=== PATIENT | female | born 1980 | race Caucasian/White ===

== ENCOUNTER 2018-05-31 19:40 | Emergency (ER) | payer OTHER ==
[~2018-05-31] VITALS: Ht 165.1 cm; Wt 72.6 kg
[2018-05-31 21:00] LABS: BILIRUBIN,URINE NEGATIVE (NEG); CLARITY,URINE CLOUDY; COLOR,URINE YELLOW; NITRITE,URINE POSITIVE (NEG); PROTEIN,URINE >=300 mg/dL (NEG-TRACE); UROBILINOGEN,URINE 0.2 mg/dL (0.2 mg/dL)
[2018-05-31] MEDS ORDERED: IV NORMAL SALINE 1000ML BAG 1,000 ML IV ONE (21:00)
[2018-05-31] MEDS ORDERED: ONDANSETRON PF 4 MG/2 ML VIAL. IV ONE (21:00)
[2018-05-31] MEDS ORDERED: FAMOTIDINE 20 MG/2 ML VIAL IVP ONE (21:00)
[2018-05-31 21:20] LABS: CALCIUM 9.7 mg/dL (8.5-10.1); CREATININE 0.9 mg/dL (0.6-1.0); GFR 70.1; POTASSIUM 3.3 mmol/L (3.5-5.1)
[2018-05-31 21:27] LABS: ALBUMIN 3.6 g/dL (3.4-5.0); ALBUMIN/GLOBULIN RATIO 0.9 (1.0-1.7); TOTAL BILIRUBIN 0.4 mg/dL (0.2-1.0); TOTAL PROTEIN 7.6 g/dL (6.4-8.2)
[2018-05-31 21:30] VITALS: BP 159/81
[2018-05-31 21:33] LABS: BACTERIA,URINE MANY /HPF (0-FEW); SQUAMOUS EPITHELIAL CELL,UR FEW /LPF; WBC,URINE 20-40 /HPF (0-4)
[2018-05-31] MEDS ORDERED: ACETAMINOPHEN 325 MG TABLET. PO ONE (21:45)
[2018-05-31] MEDS ORDERED: cefTRIAXone IV Push 1 GM VIAL. IVP ONE (21:45)
[2018-05-31] MEDS ORDERED: PHENAZOPYRIDINE 200 MG TABLET. PO ONE (21:45)
--- NOTE | 2018-05-31 22:09 | PHYS DOC ---
Past Medical History Past Medical History: Anxiety, Depression, Other Additional Past Medical Histor: PTSD, AUTOIMMUNE DISORDER OF SKIN Past Surgical History: No Surgical History Alcohol Use: Occasionally Drug Use: Marijuana Adult General Chief Complaint Chief Complaint: FLANK PAIN HPI HPI 37 y/o female presents with history of left sided flank pain with radiation to LLQ which started yesterday. Reports associated nausea without vomiting. Denies trauma. Denies fever/chills. Reports some increased urinary frequency. Reports pain is sharp in nature and waxes and wains in intensity. Denies history of kidney stones. Denies hematuria. Denies . Reports last menstrual period was approximately 3 weeks ago. Review of Systems Review of Systems Constitutional: Denies fever or chills [] HENT: Denies nasal congestion or sore throat [] Respiratory: Denies cough or shortness of breath [] Cardiovascular: Denies chest pain or palpitations GI: Reports abdominal pain and nausea; denies vomiting or diarrhea [] : Denies dysuria or hematuria; reports increased urinary frequency Musculoskeletal: Reports back pain; denies joint pain [] Integument: Denies rash or skin lesions [] Neurologic: Denies headache, focal weakness or sensory changes [] Complete systems were reviewed and found to be within normal limits, except as documented in this note. Current Medications Current Medications Current Medications Medications (Trade) Dose Ordered Sig/Andrei Start Time Stop Time Status Last Admin Dose Admin Acetaminophen (Tylenol) 650 mg 1X ONCE 05/31/18 21:45 05/31/18 21:46 DC 05/31/18 22:09 650 MG Ceftriaxone Sodium (Rocephin) 1 gm 1X ONCE 05/31/18 21:45 05/31/18 21:46 DC 05/31/18 22:09 1 GM Famotidine (Pepcid Vial) 20 mg 1X ONCE 05/31/18 21:00 05/31/18 21:04 DC 05/31/18 21:18 20 MG Ondansetron HCl (Zofran) 4 mg 1X ONCE 05/31/18 21:00 05/31/18 21:04 DC 05/31/18 21:18 4 MG Phenazopyridine HCl (Pyridium) 200 mg 1X ONCE 05/31/18 21:45 05/31/18 21:46 DC 05/31/18 22:09 200 MG Sodium Chloride 1,000 ml @ 1,000 mls/hr 1X ONCE 05/31/18 21:00 05/31/18 21:59 DC 05/31/18 21:18 1,000 MLS/HR Allergies Allergies Allergies Coded Allergies Type Severity Reaction Last Updated Verified No Known Drug Allergies 06/13/13 No Physical Exam Physical Exam Constitutional: Well developed, well nourished, appears uncomfortable HENT: Normocephalic, atraumatic, oropharynx moist Eyes: Conjunctiva normal, no discharge. [] Neck: Normal range of motion, no tenderness, supple, no meningeal signs Cardiovascular: Heart rate regular rhythm, no murmur [] Lungs & Thorax: Bilateral breath sounds clear to auscultation [] Abdomen: Soft, mild suprapubic and LLQ pain Skin: Warm, dry, no erythema, no rash. [] Back: No midline spinal tenderness, left CVA tenderness. [] Extremities: No tenderness, ROM intact, no edema. [] Neurologic: Alert and oriented X 3, normal motor function, normal sensory function, no focal deficits noted. [] Psychologic: Affect normal, judgement normal, mood normal. [] Current Patient Data Vital Signs Vital Signs Date Time Temp Pulse Resp B/P (MAP) Pulse Ox O2 Delivery O2 Flow Rate FiO2 05/31/18 21:30 64 159/81 (107) 99 Room Air 05/31/18 20:53 98.0 16 98.0 Lab Values Laboratory Tests Test 05/31/18 19:52 05/31/18 20:40 05/31/18 20:52 05/31/18 22:00 Urine Collection Type Void Urine Color Yellow Urine Clarity Cloudy Urine pH 8.0 Urine Specific [place] 1.025 Urine Protein >=300 mg/dL (NEG-TRACE) Urine Glucose (UA) Negative mg/dL (NEG) Urine Ketones (Stick) Negative mg/dL (NEG) Urine Blood Small (NEG) Urine Nitrite Positive (NEG) Urine Bilirubin Negative (NEG) Urine Urobilinogen Dipstick 0.2 mg/dL (0.2 mg/dL) Urine Leukocyte Esterase Small (NEG) Urine RBC 1-2 /HPF (0-2) Urine WBC 20-40 /HPF (0-4) Urine Squamous Epithelial Cells Few /LPF Urine Bacteria Many /HPF (0-FEW) Maternal Serum HCG Beta Subunit 12 mIU/mL (0-5) H Sodium Level 139 mmol/L (136-145) Potassium Level 3.3 mmol/L (3.5-5.1) L Chloride Level 103 mmol/L (98-107) Carbon Dioxide Level 21 mmol/L (21-32) Anion Gap 15 (6-14) H Blood Urea Nitrogen 11 mg/dL (7-20) Creatinine 0.9 mg/dL (0.6-1.0) Estimated GFR (Cockcroft-Gault) 70.1 BUN/Creatinine Ratio 12 (6-20) Glucose Level 97 mg/dL (70-99) Calcium Level 9.7 mg/dL (8.5-10.1) Total Bilirubin 0.4 mg/dL (0.2-1.0) Aspartate Amino Transferase (AST) 30 U/L (15-37) Alanine Aminotransferase (ALT) 39 U/L (14-59) Alkaline Phosphatase 66 U/L (46-116) Total Protein 7.6 g/dL (6.4-8.2) Albumin 3.6 g/dL (3.4-5.0) Albumin/Globulin Ratio 0.9 (1.0-1.7) L Lipase 204 U/L (73-393) POC Urine HCG, Qualitative Hcg positive (Negative) White Blood Count 15.0 x10^3/uL (4.0-11.0) H Red Blood Count 4.05 x10^6/uL (3.50-5.40) Hemoglobin 12.5 g/dL (12.0-15.5) Hematocrit 35.8 % (36.0-47.0) L Mean Corpuscular Volume 89 fL (79-100) Mean Corpuscular Hemoglobin 31 pg (25-35) Mean Corpuscular Hemoglobin Concent 35 g/dL (31-37) Red Cell Distribution Width 16.1 % (11.5-14.5) H Platelet Count 290 x10^3/uL (140-400) Neutrophils (%) (Auto) 86 % (31-73) H Lymphocytes (%) (Auto) 7 % (24-48) L Monocytes (%) (Auto) 6 % (0-9) Eosinophils (%) (Auto) 0 % (0-3) Basophils (%) (Auto) 1 % (0-3) Neutrophils # (Auto) 12.9 x10^3uL (1.8-7.7) H Lymphocytes # (Auto) 1.0 x10^3/uL (1.0-4.8) Monocytes # (Auto) 1.0 x10^3/uL (0.0-1.1) Eosinophils # (Auto) 0.1 x10^3/uL (0.0-0.7) Basophils # (Auto) 0.1 x10^3/uL (0.0-0.2) Segmented Neutrophils % 92 % (35-66) H Lymphocytes % 5 % (24-48) L Monocytes % 3 % (0-10) Toxic Granulation Slight Platelet Estimate Adequate (ADEQUATE) Laboratory Tests 05/31/18 22:00 Laboratory Tests 05/31/18 20:40 EKG EKG [] Radiology/Procedures Radiology/Procedures [] Course & Med Decision Making Course & Med Decision Making Pertinent Labs and Imaging studies reviewed. (See chart for details) Patient presents with report of left flank pain with increased urinary frequency. Denies history of kidney stones. Afebrile. Denies and reports LMP 3 weeks ago. Upreg postiive. UA with signs of infection. Empiric antibiotics given for presumed pyelonephritis. Symptomatic treatment provided. Pain medications limited due to . Beta HCG consistant for early . Denies vaginal bleeding or discharge. Patient stable for discharge home with outpatient follow-up with PCP/[facility]. OB referral provided. Discussed findings and plan with patient and family, who acknowledge understanding and agreement. Dragon Disclaimer Dragon Disclaimer This electronic medical record was generated, in whole or in part, using a voice recognition dictation system. Departure Departure Impression: Primary Impression: Pyelonephritis Additional Impression: Disposition: 01 HOME, SELF-CARE Condition: STABLE Referrals: NO PCP (PCP) OPHELIA JOE Jr, MD Patient Instructions: ABCs of , Pyelonephritis, Adult, [id number] Scripts Vits W-Ca,Fe,Fa(<1MG) ( VITAMINS) 1 Each Tablet 1 TAB PO DAILY, #30 TAB 0 Refills Prov: ANKUR DOWNING DO 05/31/18 Cephalexin (KEFLEX) 500 Mg Capsule 500 MG PO BID for 14 Days, #28 CAP Prov: ANKUR DOWNING DO 05/31/18 Ondansetron (ONDANSETRON ODT) 4 Mg Tab.rapdis 1 TAB PO PRN Q6-8HRS PRN for NAUSEA/VOMITING, #16 TAB Prov: ANKUR DOWNING DO 05/31/18 Phenazopyridine Hcl (PYRIDIUM) 200 Mg Tablet 200 MG PO Q8HRS PRN for DYSURIA for 2 Days, #6 TAB Prov: ANKUR DOWNING DO 05/31/18 Problem Qualifiers Additional Impression: Weeks of gestation: less than 8 weeks Qualified Codes: Z3A.01 - Less than 8 weeks gestation of ANKUR DOWNING DO May 31, 2018 22:09
[2018-05-31] MEDS ORDERED: PHEN-318 PO (22:17)
[2018-05-31] MEDS ORDERED: ONDA4TAB12 PO (22:17)
[2018-05-31] MEDS ORDERED: CEPH-264 PO (22:17)
[2018-05-31 22:20] LABS: BASO # 0.1 x10^3/uL (0.0-0.2); BASO % 1 % (0-3); EOS # 0.1 x10^3/uL (0.0-0.7); EOS % 0 % (0-3); HEMATOCRIT 35.8 % (36.0-47.0); HEMOGLOBIN 12.5 g/dL (12.0-15.5); LYMPH % 7 % (24-48); MEAN CORPUSCULAR HEMOGLOBIN 31 pg (25-35); MEAN CORPUSCULAR HGB CONC 35 g/dL (31-37); MEAN CORPUSCULAR VOLUME 89 fL (79-100); MONO % 6 % (0-9); NEUT # 12.9 x10^3uL (1.8-7.7); NEUT % 86 % (31-73); PLATELET COUNT 290 x10^3/uL (140-400); RED BLOOD COUNT 4.05 x10^6/uL (3.50-5.40); RED CELL DISTRIBUTION WIDTH 16.1 % (11.5-14.5)
[2018-05-31] MEDS ORDERED: PREN1TAB58 PO (22:23)
[2018-05-31 23:20] LABS: % LYMPHS 5 % (24-48); % MONOS 3 % (0-10); % SEGS 92 % (35-66); PLT ESTIMATE ADEQUATE (ADEQUATE); TOXIC GRANULATION SLIGHT
== END 2018-05-31 22:44 | disposition home or self-care (01) ==
LOC: ER 19:40
DX: O23.01 Infections of kidney in pregnancy, first trimester (principal); Z3A.01 Less than 8 weeks gestation of pregnancy
CPT/HCPCS: 36415; 80053; 81001; 81025; 83690; 84702; 85007; 85025; 96374; 96375; 99283; J0696; J2405; J3490; J7030

== ENCOUNTER 2020-01-06 15:50 | Inpatient (IN) | payer SELFPAY ==
[~2020-01-06] VITALS: Ht 165.1 cm; Wt 61.9 kg
[~2020-01-06 15:50] MED LIST: CEPH-264 PO; ONDA4TAB12 PO; PHEN-318 PO; PREN1TAB58 PO
[2020-01-06] MEDS ORDERED: IV NORMAL SALINE 1000ML BAG 1,000 ML IV ONE (17:00)
[2020-01-06] MEDS ORDERED: DEXAMETHASONE SOD PHOS 20 MG/5 ML VIAL. IV ONE (17:00)
[2020-01-06 17:02] LABS: ACETAMIN < 2 mcg/ml (10-30); ETHANOL < 10 mg/dL (0-10); SALIC < 2.8 mg/dL (2.8-20.0)
[2020-01-06 17:27] LABS: BASO # 0.1 x10^3/uL (0.0-0.2); BASO % 1 % (0-3); EOS # 2.6 x10^3/uL (0.0-0.7); EOS % 18 % (0-3); HEMATOCRIT 40.7 % (36.0-47.0); HEMOGLOBIN 13.9 g/dL (12.0-15.5); LYMPH # 1.8 x10^3/uL (1.0-4.8); LYMPH % 12 % (24-48); MEAN CORPUSCULAR HEMOGLOBIN 31 pg (25-35); MEAN CORPUSCULAR HGB CONC 34 g/dL (31-37); MEAN CORPUSCULAR VOLUME 90 fL (79-100); MONO % 7 % (0-9); NEUT % 62 % (31-73); PLATELET COUNT 496 x10^3/uL (140-400); RED BLOOD COUNT 4.55 x10^6/uL (3.50-5.40); RED CELL DISTRIBUTION WIDTH 15.5 % (11.5-14.5); WHITE BLOOD COUNT 14.5 x10^3/uL (4.0-11.0)
[2020-01-06 17:44] LABS: CALCIUM 9.2 mg/dL (8.5-10.1); CREATININE 0.7 mg/dL (0.6-1.0); GFR 92.7; POTASSIUM 4.6 mmol/L (3.5-5.1)
[2020-01-06 17:50] LABS: ALBUMIN 3.7 g/dL (3.4-5.0); TOTAL BILIRUBIN 0.5 mg/dL (0.2-1.0); TOTAL PROTEIN 7.3 g/dL (6.4-8.2)
--- NOTE | 2020-01-06 18:01 | RAD ---
Single view chest dated 01/06/2020. No comparison available. Clinical indications: Shortness of breath. FINDINGS: Single upright portable exam performed. Heart and mediastinal contours are within normal limits. There is some patchy airspace disease at the mid and lower lung zone on the right. There is also prominent reticular nodular markings at the perihilar regions bilaterally. No apparent pleural effusion or pneumothorax. IMPRESSION: Patchy bilateral airspace disease, suspicious for pneumonia. Viral pneumonitis not excluded. Electronically signed by: Anand Carbone MD (01/06/2020 5:58 PM) SHALA
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
[2020-01-06 19:44] LABS: BILIRUBIN,URINE NEGATIVE (NEG); CLARITY,URINE CLEAR; COLOR,URINE YELLOW; NITRITE,URINE NEGATIVE (NEG); PROTEIN,URINE NEGATIVE (NEG-TRACE); UROBILINOGEN,URINE 0.2 mg/dL (0.2 mg/dL)
[2020-01-06] MEDS ORDERED: ALBUTEROL SULFATE 2.5 MG/3 ML NEBU. CONT NEB ONE (19:45)
[2020-01-06 19:52] LABS: BARBITURATES NEG (NEG); BENZODIAZEPINES POS (NEG); CANNABINOIDS NEG (NEG); COCAINE NEG (NEG); METHADONE NEG (NEG); OPIATES POS (NEG); PHENCYCLIDINE NEG (NEG)
[2020-01-06 19:53] LABS: AMPHETAMINE/METHAMPHETAMINE POS (NEG)
[2020-01-06 20:07] LABS: BACTERIA,URINE MODERATE /HPF (0-FEW); RBC,URINE 0 /HPF (0-2); SQUAMOUS EPITHELIAL CELL,UR MOD /LPF
[2020-01-06] MEDS ORDERED: ALBUTEROL SULFATE 2.5 MG/3 ML NEBU. NEB PRN (22:45)
[2020-01-07 02:01] VITALS: BP 139/91
[2020-01-07] MEDS ORDERED: BUDE10.2 IH (03:24)
[2020-01-07] MEDS ORDERED: TRAZ-123 PO (03:24)
[2020-01-07] MEDS ORDERED: TEMA30CA PO (03:24)
[2020-01-07] MEDS ORDERED: ALBU1.25 NEB (03:24)
[2020-01-07] MEDS ORDERED: ALPR1TAB2 PO (03:24)
[2020-01-07] MEDS ORDERED: ASCO100T4 PO (03:26)
[2020-01-07] MEDS ORDERED: VITA80003 PO (03:26)
[2020-01-07 07:00] VITALS: BP 135/77
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
[2020-01-07] MEDS ORDERED: IPRATRPIUM/ALBUTEROL 0.5/2.5MG 3 ML NEBU. NEB SCH (08:00)
[2020-01-07] MEDS: methylPREDNISolone SOD SUCC PF 40 MG/ML VIAL. IV SCH ×3 (09:04→22:32)
[2020-01-07] MEDS: ZINC SULFATE 220 MG CAPSULE. PO SCH (09:04)
[2020-01-07] MEDS: guaiFENesin DM 200MG/20MG 10 ML SYRUP PO PRN (09:04)
[2020-01-07] MEDS: cefTRIAXone IV Push 1 GM VIAL. IVP SCH (09:04)
[2020-01-07] MEDS: DOXYCYCLINE HYCLATE 100 MG in IV DEXTROSE 5% 100ML 100 ML IV SCH ×2 (09:05→22:32)
[2020-01-07] MEDS: ENOXAPARIN 40 MG/0.4 ML SYRINGE. SQ SCH ×2 (09:05→22:33)
[2020-01-07 11:00] VITALS: BP 143/81
[2020-01-07] MEDS ORDERED: IPRATRPIUM/ALBUTEROL 0.5/2.5MG 3 ML NEBU. NEB PRN (11:00)
[2020-01-07] MEDS: cloNIDine HCL 0.1 MG TABLET PO PRN (11:46)
[2020-01-07] MEDS ORDERED: ALBUTEROL SULFATE 8GM INHALER. INH PRN (13:30)
[2020-01-07 15:00] VITALS: BP 121/76
[2020-01-07] MEDS ORDERED: LOPERAMIDE 2 MG CAPSULE PO PRN (17:15)
[2020-01-07 19:17] VITALS: BP 146/92
[2020-01-07 23:00] VITALS: BP 131/74
[2020-01-08 03:45] VITALS: BP 157/77
[2020-01-08 04:06] LABS: BASO % 0 % (0-3); EOS % 0 % (0-3); HEMATOCRIT 45.8 % (36.0-47.0); HEMOGLOBIN 15.4 g/dL (12.0-15.5); LYMPH # 0.7 x10^3/uL (1.0-4.8); LYMPH % 4 % (24-48); MEAN CORPUSCULAR HEMOGLOBIN 30 pg (25-35); MEAN CORPUSCULAR HGB CONC 34 g/dL (31-37); MEAN CORPUSCULAR VOLUME 90 fL (79-100); MONO # 0.2 x10^3/uL (0.0-1.1); MONO % 1 % (0-9); NEUT # 15.2 x10^3/uL (1.8-7.7); NEUT % 94 % (31-73); PLATELET COUNT 582 x10^3/uL (140-400); RED CELL DISTRIBUTION WIDTH 15.8 % (11.5-14.5); WHITE BLOOD COUNT 16.2 x10^3/uL (4.0-11.0)
[2020-01-08] MEDS: KETOROLAC 30 MG/ML VIAL. IVP PRN ×2 (04:07→21:15)
[2020-01-08 04:26] LABS: CALCIUM 9.6 mg/dL (8.5-10.1); CREATININE 0.8 mg/dL (0.6-1.0); GFR 79.4; POTASSIUM 3.9 mmol/L (3.5-5.1)
[2020-01-08 04:28] LABS: ALBUMIN 3.6 g/dL (3.4-5.0); DIRECT BILIRUBIN 0.1 mg/dL (0.0-0.2); TOTAL BILIRUBIN 0.3 mg/dL (0.2-1.0)
[2020-01-08] MEDS: methylPREDNISolone SOD SUCC PF 40 MG/ML VIAL. IV SCH ×2 (05:40→13:31)
--- NOTE | 2020-01-08 06:26 | NUR ---
At 0617 pt HR jumped to 130's. RN entered room to check on pt - pt lying quietly in bed asleep. RR 32. WBC noted to have gone from 14.5 to 16.2. Pt afebrile - temp 98.3. Pt denied feeling dizzy or lightheaded but did report feeling HR increase. RHR now in 120's while sound asleep. Will continue to monitor pt status closely.
[2020-01-08 07:00] VITALS: BP 142/77
[2020-01-08 07:23] LABS: % LYMPHS 4 % (24-48); % MONOS 2 % (0-10); % SEGS 94 % (35-66); PLT ESTIMATE ADEQUATE (ADEQUATE)
[2020-01-08] MEDS: DOXYCYCLINE HYCLATE 100 MG in IV DEXTROSE 5% 100ML 100 ML IV SCH (08:05)
[2020-01-08] MEDS: cefTRIAXone IV Push 1 GM VIAL. IVP SCH (08:05)
[2020-01-08] MEDS: ENOXAPARIN 40 MG/0.4 ML SYRINGE. SQ SCH ×2 (08:06→21:16)
[2020-01-08] MEDS: ZINC SULFATE 220 MG CAPSULE. PO SCH (08:06)
[2020-01-08 11:00] VITALS: BP 151/84
[2020-01-08] MEDS: LORazepam 0.5 MG TABLET PO PRN ×2 (13:31→21:15)
[2020-01-08] MEDS: guaiFENesin DM 200MG/20MG 10 ML SYRUP PO PRN (13:31)
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
[2020-01-08 15:00] VITALS: BP 155/96
[2020-01-08 19:00] VITALS: BP 166/82
[2020-01-08] MEDS: LACTOBACILLUS RHAMNOSUS GG 1 CAPSULE. PO SCH (21:15)
[2020-01-08] MEDS: cloNIDine HCL 0.1 MG TABLET PO PRN (21:15)
[2020-01-08] MEDS: DOXYCYCLINE HYCLATE 100 MG TABLET PO SCH (21:16)
[2020-01-08 23:00] VITALS: BP 138/87
[2020-01-09 03:03] VITALS: BP 130/79
[2020-01-09] MEDS: LORazepam 0.5 MG TABLET PO PRN ×2 (06:43→17:53)
[2020-01-09] MEDS: KETOROLAC 30 MG/ML VIAL. IVP PRN ×3 (06:44→19:36)
[2020-01-09 07:00] VITALS: BP 142/88
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
[2020-01-09] MEDS: predniSONE 10 MG TABLET PO SCH (10:45)
[2020-01-09] MEDS: ZINC SULFATE 220 MG CAPSULE. PO SCH (10:45)
[2020-01-09] MEDS: DOXYCYCLINE HYCLATE 100 MG TABLET PO SCH ×2 (10:45→21:07)
[2020-01-09] MEDS: LACTOBACILLUS RHAMNOSUS GG 1 CAPSULE. PO SCH ×2 (10:45→21:07)
[2020-01-09] MEDS: ENOXAPARIN 40 MG/0.4 ML SYRINGE. SQ SCH ×2 (10:47→21:08)
[2020-01-09 11:00] VITALS: BP 137/79
--- NOTE | 2020-01-09 11:14 | NUR ---
ELISEO following. Discussed with RN, pt tox screen + - per chart, pt wanting inpatient rehab. PAT consult, will see pt today. ELISEO will continue to follow. DAVID notified. Addendum: 01/09/20 at 1302 by FANNY GOMES Asim met with pt, pt is open with [facility] - has hx of noncompliance, has not been taking her meds since July,. LIQVIDAC info provided. Asim scheduled appt with [facility] for at 1530. ELISEO will continue to follow. Addendum: 01/09/20 at 1303 by FANNY GOMES CORRECTION pt does not have a hx of non compliance. Appt scheduled as noted above. ELISEO will continue to follow.
--- NOTE | 2020-01-09 14:47 | RAD ---
INDICATION: Reason: PNEUMONIA / Spl. Instructions: / History: COMPARISON: January 06, 2020 FINDINGS: 2 view of chest obtained. There has been some interval improvement in the previously identified patchy interstitial opacities in the bilateral lungs. Cardiac silhouette is unremarkable. IMPRESSION: * Interval decrease in patchy interstitial opacities within the bilateral lungs. No new region of consolidation. Electronically signed by: Trevor Wu MD (01/09/2020 2:44 PM) [id number]
[2020-01-09 15:00] VITALS: BP 129/83
[2020-01-09 19:00] VITALS: BP 141/86
[2020-01-09 23:00] VITALS: BP 134/84
[2020-01-10] MEDS: KETOROLAC 30 MG/ML VIAL. IVP PRN (01:49)
[2020-01-10 03:00] VITALS: BP 134/77
--- NOTE | 2020-01-10 04:50 | NUR ---
Patient's IV became very tender with med pushes. Leaking slightly. IV removed d/t pain level. Patient requests that her pain medications be changed to PO so she can avoid another IV insertion since she is most likely discharging today. Will page MD for orders and pass along to day RN.
--- NOTE | 2020-01-10 05:24 | EKG ---
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
--- NOTE | 2020-01-10 06:45 | NUR ---
Patient came out to the desk to ask questions about potential discharge today. She stated that she was concerned because she does not have insurance. I attempted to alleviate any concerns she had about not having insurance during her hospital stay. Patient returned to her room. Then patient came back out to the desk approximately 5-[address] later in her street clothes, tele box in hand. Patient expressed that she would be leaving now and was upset with my comment about her insurance status earlier. Patient then retreated down the fernández to return to her room. I followed her to amend the situation as I did not have any intention of offending the patient. I apologized immediately and explained the intent of my statement. Patient stated she was just stressed out because she lost her job and her insurance d/t COVID. Patient and I talked for approximately 10-15 minutes. Provided information on possible resources and offered social work to assist patient with any need, patient thanked me but declined. Patient asked about options to leave the hospital other than being discharged, so I provided her information on leaving AMA. Patient declined and thanked me. I wholeheartedly apologized to the patient for any upset or offense caused and patient accepted my apology. Patient was in much better spirits after our conversation. Will pass along to day RN.
[2020-01-10 07:30] VITALS: BP 150/86
[2020-01-10] MEDS ORDERED: KETOROLAC TROMETHAMINE 10 MG TABLET PO PRN (07:30)
[2020-01-10] MEDS: ENOXAPARIN 40 MG/0.4 ML SYRINGE. SQ SCH (09:00)
[2020-01-10] MEDS: ZINC SULFATE 220 MG CAPSULE. PO SCH (09:27)
[2020-01-10] MEDS: DOXYCYCLINE HYCLATE 100 MG TABLET PO SCH (09:27)
[2020-01-10] MEDS: LACTOBACILLUS RHAMNOSUS GG 1 CAPSULE. PO SCH (09:27)
[2020-01-10] MEDS: predniSONE 10 MG TABLET PO SCH (09:28)
--- NOTE | 2020-01-10 10:07 | NUR ---
SW following. Discussed with RN, pt from home, RN advised no SW needs, anticipates discharge home today. SW will continue to follow for any discharge planning needs. Pt will follow up with [facility].
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
[2020-01-10 11:00] VITALS: BP 133/72
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
[2020-01-10] MEDS ORDERED: DOXY100T PO (13:36)
[2020-01-10] MEDS ORDERED: ZINC220C2 PO (13:36)
[2020-01-10] MEDS ORDERED: GUAI5SYR PO (13:36)
[2020-01-10] MEDS ORDERED: LACT1CAP19 PO (13:36)
[2020-01-10] MEDS ORDERED: KETO10TA PO (13:36)
[2020-01-10] MEDS ORDERED: PRED-220 PO (13:36)
--- NOTE | 2020-01-10 13:37 | DISCH ---
DISCHARGE INSTRUCTIONS Condition on Discharge Condition on Discharge: Stable Activity After Discharge Activity Instructions for Disc: Activity as tolerated Driving Instructions after Dis: Do not drive today Diet after Discharge Diet after Discharge: Regular Liquid Texture: Thin Liquid Checks after Discharge Checks after discharge: Check blood press - daily Contacting the DRMary after DC Call your doctor for: If your condition worsens Follow-Up Follow Up With: Your Primary Care Doctor. MIKE SUERO MD Jan 10, 2020 13:37
--- NOTE | 2020-01-10 15:26 | NUR ---
Discharge instructions and belongings reviewed with patient, verbalized understanding. Patient was escorted out via ambulation by Adelina VICTORIA and picked up via cab pass.
[2020-01-11] MEDS ORDERED: ENOXAPARIN 40 MG/0.4 ML SYRINGE. SQ SCH (09:00)
== END 2020-01-10 15:27 | disposition home or self-care (01) | DRG 871 ==
LOC: ER 15:50 → 6 SOUTH 01-07 00:25 → EEVIPCON 01-07 00:25 → 5 NORTH 01-09 00:07
PROVIDERS: ADMIT Internal Medicine; ATTEND Internal Medicine
DX: A41.9 Sepsis, unspecified organism (principal); J15.6 Pneumonia due to other Gram-negative bacteria; J45.41 Moderate persistent asthma with (acute) exacerbation; F11.10 Opioid abuse, uncomplicated; F32.9 Major depressive disorder, single episode, unspecified; F43.10 Post-traumatic stress disorder, unspecified; Z20.828 Contact with and (suspected) exposure to other viral communicable diseases; Z87.891 Personal history of nicotine dependence; F15.10 Other stimulant abuse, uncomplicated; Z79.899 Other long term (current) drug therapy
CPT/HCPCS: 36415; 71045; 71046; 80048; 80053; 80076; 80307; 80329; 81001; 84145; 85007; 85025; 87086; 93005; 94640; 94760; 96361; 96374; 96375; 99285; G0480; J0696; J1100; J1650; J1885; J2060; J2920; J3490; J7030; J7060; J7512; G0378; J7613; U0003-CS

== ENCOUNTER 2020-03-29 09:47 | Inpatient (IN) | payer SELFPAY ==
[~2020-03-29] VITALS: Ht 167.6 cm; Wt 65.1 kg
[2020-03-29] VITALS (13 sets, daily range): BP systolic 76–155; BP diastolic 44–98
[~2020-03-29 09:47] MED LIST changes: +ALBU1.25 NEB; +ALPR1TAB2 PO; +AMOX1TAB11 PO; +ASCO100T4 PO; +BUDE10.2 IH; +DOXY100T PO; +GUAI5SYR PO; +KETO10TA PO; +LACT1CAP19 PO; +LEVO750T5 PO; +PRED-220 PO; +TEMA30CA PO; +TRAZ-123 PO; +VITA80003 PO; +ZINC220C2 PO
[2020-03-29 09:55] LABS: BASE EXCESS ABG -6 mmol/L (-3-3); HCO3 ABG 26 mmol/L (21-28); PO2 ABG 123 mmHg (75-108); SAT O2 ABG 97 % (92-99)
[2020-03-29 09:59] LABS: FIO2 ABG 100; PCO2 ABG 82 mmHg (35-46)
[2020-03-29] MEDS ORDERED: PIPERACILLIN/TAZOBACTAM 3.375 GM in IV NORMAL SALINE 50ML 50 ML IV ONE (10:00)
[2020-03-29] MEDS ORDERED: PROPOFOL 10 MG/ML (20ML) VIAL. IV ONE (10:00)
[2020-03-29] MEDS ORDERED: ETOMIDATE 20 MG/10 ML VIAL. IV ONE (10:00)
[2020-03-29] MEDS ORDERED: ROCURONIUM 50 MG/5 ML VIAL. IV ONE ×2 (10:00→11:00)
[2020-03-29] MEDS ORDERED: IV NORMAL SALINE 1000ML BAG 1,000 ML IV ONE (10:00)
[2020-03-29] MEDS ORDERED: PROPOFOL 100 ML IV ONE (10:12)
[2020-03-29] MEDS ORDERED: SUCCINYLCHOLINE 200 MG/10 ML VIAL. ONE (10:16)
[2020-03-29] MEDS: PROPOFOL 100 ML IV PRN ×3 (10:20→23:41)
--- NOTE | 2020-03-29 10:26 | PHYS DOC ---
Past Medical History Past Medical History: Anxiety, Asthma, Bronchitis, Depression, Other Additional Past Medical Histor: PTSD, AUTOIMMUNE DISORDER OF SKIN, eczema Past Surgical History: No Surgical History Smoking Status: Current Some Day Smoker Alcohol Use: Occasionally Drug Use: Marijuana, Opiates General Adult EDM: Chief Complaint: DYSPNEA/RESPIRATOY DISTRESS HPI: HPI: Patient is a 39 year old female arrives via EMS with a chief complaint of shortness of breath. Patient had shortness of breath over the last day. Patient has had recurrent pneumonia since July including ICU stays. History physical review of systems are limited due to severe respiratory distress Review of Systems: Review of Systems: Review of systems is unobtainable due to severe respiratory distress but patient endorses shortness of breath Heart Score: Risk Factors: Risk Factors: DM, Current or recent (<one month) smoker, HTN, HLP, family history of CAD, obesity. Risk Scores: Score 0 - 3: 2.5% MACE over next 6 weeks - Discharge Home Score 4 - 6: 20.3% MACE over next 6 weeks - Admit for Clinical Observation Score 7 - 10: 72.7% MACE over next 6 weeks - Early Invasive Strategies Current Medications: Current Medications Medications (Trade) Dose Ordered Sig/Andrei Start Time Stop Time Status Last Admin Dose Admin Etomidate (Amidate) 20 mg 1X ONCE 03/29/20 10:00 03/29/20 10:08 DC Piperacillin Sod/ Tazobactam Sod 3.375 gm/Sodium Chloride 50 ml @ 100 mls/hr 1X ONCE 03/29/20 10:00 03/29/20 10:29 Propofol 100 ml @ As Directed STK-MED ONCE 03/29/20 10:12 03/29/20 10:12 DC Propofol (Diprivan) 200 mg 1X ONCE 03/29/20 10:00 03/29/20 10:08 DC Rocuronium [place] (Zemuron) 50 mg 1X ONCE 03/29/20 10:00 03/29/20 10:08 DC Sodium Chloride 1,000 ml @ 1,000 mls/hr 1X ONCE 03/29/20 10:00 03/29/20 10:59 Succinylcholine Chloride (Anectine) 200 mg STK-MED ONCE 03/29/20 10:16 03/29/20 10:17 DC Allergies: Allergies: Allergies Coded Allergies Type Severity Reaction Last Updated Verified No Known Drug Allergies 06/13/13 No Physical Exam: PE: Constitutional: Well developed, severe respiratory distress, toxic appearance HENT: Normocephalic, atraumatic, bilateral external ears normal, dry oral mucosa, nose normal. [] Eyes: PERRLA, EOMI, conjunctiva normal, no discharge. [] Neck: Normal range of motion, no tenderness, supple, no stridor. [] Cardiovascular: Tachycardic, peripheral pulses are intact Lungs & Thorax: Severe respiratory distress with diminished breath sounds Abdomen: soft, no tenderness, no masses, no pulsatile masses. [] Skin: Warm mildly diaphoretic Back: No tenderness, no CVA tenderness. [] Extremities: No tenderness, no cyanosis, no clubbing, ROM intact, no edema. [] Neurologic: Alert and oriented X 3, normal motor function, Psychologic: Unable to assess due to severe respiratory distress Current Patient Data: Labs: Laboratory Tests Test 03/29/20 09:56 03/29/20 10:00 O2 Saturation 97 % Arterial Blood pH 7.11 Arterial Blood pCO2 at Patient Temp 82 mmHg Arterial Blood pO2 at Patient Temp 123 mmHg Arterial Blood HCO3 26 mmol/L Arterial Blood Base Excess -6 mmol/L FiO2 100 White Blood Count 16.3 x10^3/uL Red Blood Count 4.49 x10^6/uL Hemoglobin 13.6 g/dL Hematocrit 40.5 % Mean Corpuscular Volume 90 fL Mean Corpuscular Hemoglobin 30 pg Mean Corpuscular Hemoglobin Concent 34 g/dL Red Cell Distribution Width 14.5 % Platelet Count 442 x10^3/uL Neutrophils (%) (Auto) 64 % Lymphocytes (%) (Auto) 18 % Monocytes (%) (Auto) 5 % Eosinophils (%) (Auto) 12 % Basophils (%) (Auto) 1 % Neutrophils # (Auto) 10.5 x10^3/uL Lymphocytes # (Auto) 2.9 x10^3/uL Monocytes # (Auto) 0.9 x10^3/uL Eosinophils # (Auto) 2.0 x10^3/uL Basophils # (Auto) 0.2 x10^3/uL Segmented Neutrophils % 74 % Lymphocytes % 14 % Atypical Lymphocytes % (Manual) 1 % Monocytes % 2 % Eosinophils % 9 % Platelet Estimate Adequate Large Platelets Occ Anisocytosis Slight Prothrombin Time 12.1 SEC Prothromb Time International Ratio 0.9 Activated Partial Thromboplast Time 33 SEC Fibrinogen 548 mg/dL D-Dimer (Lima) 1.40 ug/mlFEU Maternal Serum HCG Beta Subunit 2 mIU/mL Sodium Level 139 mmol/L Potassium Level 4.5 mmol/L Chloride Level 104 mmol/L Carbon Dioxide Level 26 mmol/L Anion Gap 9 Blood Urea Nitrogen 8 mg/dL Creatinine 0.8 mg/dL Estimated GFR (Cockcroft-Gault) 79.4 BUN/Creatinine Ratio 10 Glucose Level 156 mg/dL Lactic Acid Level 3.0 mmol/L Calcium Level 8.8 mg/dL Total Bilirubin 0.3 mg/dL Aspartate Amino Transf (AST/SGOT) 43 U/L Alanine Aminotransferase (ALT/SGPT) 29 U/L Alkaline Phosphatase 87 U/L Creatine Kinase 264 U/L Troponin I Quantitative < 0.017 ng/mL C-Reactive Protein, Quantitative 8.0 mg/L SQ-Yel-M-Type Natriuretic Peptide 271 pg/mL Total Protein 6.6 g/dL Albumin 3.3 g/dL Albumin/Globulin Ratio 1.0 Lipase 80 U/L Current Medications Medications (Trade) Dose Ordered Sig/Andrei Route PRN Reason Start Time Stop Time Status Last Admin Dose Admin Sodium Chloride 1,000 ml @ 1,000 mls/hr 1X ONCE IV 03/29/20 10:00 03/29/20 10:59 DC 03/29/20 10:20 Piperacillin Sod/ Tazobactam Sod 3.375 gm/Sodium Chloride 50 ml @ 100 mls/hr 1X ONCE IV 03/29/20 10:00 03/29/20 10:29 DC 03/29/20 10:50 Etomidate (Amidate) 20 mg 1X ONCE IV 03/29/20 10:00 03/29/20 10:08 DC 03/29/20 10:15 Rocuronium [place] (Zemuron) 50 mg 1X ONCE IV 03/29/20 10:00 03/29/20 10:08 DC 03/29/20 10:15 Propofol (Diprivan) 200 mg 1X ONCE IV 03/29/20 10:00 03/29/20 10:08 DC Propofol 100 ml @ As Directed STK-MED ONCE IV 03/29/20 10:12 03/29/20 10:12 DC Succinylcholine Chloride (Anectine) 200 mg STK-MED ONCE .ROUTE 03/29/20 10:16 03/29/20 10:17 DC Levofloxacin/ Dextrose 150 ml @ 100 mls/hr 1X ONCE IV 03/29/20 11:00 03/29/20 12:29 Dexamethasone Sodium Phosphate (Decadron) 10 mg 1X ONCE IVP 03/29/20 11:00 03/29/20 11:01 DC Rocuronium [place] (Zemuron) 50 mg 1X ONCE IV 03/29/20 11:00 03/29/20 11:01 DC 03/29/20 10:57 Propofol 100 ml @ 0 mls/hr CONT PRN PRN IV SEDATION 03/29/20 11:15 03/29/20 10:20 Iohexol (Omnipaque 350 Mg/ml) 100 ml 1X ONCE IV 03/29/20 11:15 03/29/20 11:18 DC Info (CONTRAST GIVEN -- Rx MONITORING) 1 each PRN DAILY PRN MC SEE COMMENTS 03/29/20 11:30 03/31/20 11:29 Laboratory Tests Test 03/29/20 09:56 O2 Saturation 97 % (92-99) Arterial Blood pH 7.11 (7.35-7.45) *L Arterial Blood pCO2 at Patient Temp 82 mmHg (35-46) *H Arterial Blood pO2 at Patient Temp 123 mmHg (75-108) H Arterial Blood HCO3 26 mmol/L (21-28) Arterial Blood Base Excess -6 mmol/L (-3-3) L FiO2 100 Vital Signs: Vital Signs Date Time Temp Pulse Resp B/P (MAP) Pulse Ox O2 Delivery O2 Flow Rate FiO2 03/29/20 10:17 Ventilator 03/29/20 10:02 BiPAP/CPAP 03/29/20 09:47 98.1 125 33 152/110 (124) 98 Simple Mask 10.0 98.1 Vital Signs Date Time Temp Pulse Resp B/P (MAP) Pulse Ox O2 Delivery O2 Flow Rate FiO2 03/29/20 10:02 BiPAP/CPAP EKG: EKG: EKG interpreted by me sinus tachycardia with a rate of 125 RIGHT axis deviation, nonspecific ST changes, normal QTC [] Radiology/Procedures: Radiology/Procedures: [][facility] [address] [place] [address] IMAGING REPORT Signed PATIENT: ANGELO YU ACCOUNT: [id number] : 1980 LOCATION: ER AGE: 39 SEX: F EXAM STATUS: REG ER ORD. PHYSICIAN: CARMEN PINO MD REASON: SOA PROCEDURE: PORTABLE CHEST 1V EXAM: CHEST 1 VIEW History: Shortness of breath COMPARISON: 03/13/2020 TECHNIQUE: Single portable radiograph of the chest FINDINGS: The ET tube is identified in the trachea below the clavicles. The feeding tube is identified in the stomach. Mild prominent bilateral interstitial lung markings likely interstitial infiltrates or congestive changes IMPRESSION: Mild prominent bilateral interstitial lung markings likely interstitial infiltrates or congestive changes. Electronically signed by: Sigifredo Benites MD (03/29/2020 10:58 AM) [id number] DICTATED and SIGNED BY: SIGIFREDO BENITES MD DATE: 03/29/20 1058 [facility] [address] [place], [place] [id number] IMAGING REPORT Signed PATIENT: ANGELO YU ACCOUNT: [id number] : 1980 LOCATION: ED HOLD AGE: 39 SEX: F EXAM STATUS: ADM IN ORD. PHYSICIAN: CARMEN PINO MD REASON: SOA, ELEVATED D DIMER PROCEDURE: CT ANGIOGRAPHY CHEST EXAM: CT angiography of the chest with intravenous contrast. HISTORY: Elevated d-dimer. Shortness of breath. TECHNIQUE: Computed tomographic images of the chest were obtained following the administration of intravenous contrast according to angiography protocol. Multiplanar reformatting was performed and three dimensional maximum intensity projection images were obtained. *One or more of the following individualized dose reduction techniques were utilized for this examination: 1. Automated exposure control. 2. Adjustment of the mA and/or kV according to patient size. 3. Use of iterative reconstruction technique. COMPARISON: 03/13/2020. FINDINGS: There is no convincing pulmonary embolism. The heart is normal in size. The aorta is normal in caliber. There is an endotracheal tube within the distal trachea. The tip of the tube deviates rightward less than 1 cm from the edy. There is a nasogastric tube within the stomach. There are enlarged mediastinal and hilar lymph nodes. For reference purposes, there is a left paratracheal lymph node measuring 1.6 cm and a right hilar lymph node measuring 1.7 cm. There is no pneumothorax or pleural effusion. There is groundglass and alveolar infiltrate scattered throughout both lungs. This is slightly increased within the medial left upper lobe and decreased within the anterior right upper lobe compared to the prior study. This is fairly stable within the right lower lobe and decreased within the left lower lobe compared to the prior study. There is central bronchial wall thickening and there are segments of bronchial opacification likely due to uncleared secretions bilaterally. No solid pulmonary nodule is seen. There is no acute finding involving the upper abdomen. There is no suspicious osseous lesion. There are healing anterior right second, third, fourth, fifth, and sixth rib fractures and healing anterior left second, third, fourth, fifth and sixth rib fractures. IMPRESSION: 1. No convincing pulmonary emphysema. 2. Bilateral multifocal groundglass and alveolar infiltrate, slightly increased within the left upper and right lower lobe and decreased within the right upper and left lower lobe compared to the prior study. 3. Bronchial wall thickening suggesting bronchitis. There is segmental occlusion of distal bronchi likely due to the combination of wall thickening and uncleared secretions. 4. Mediastinal and hilar lymphadenopathy, likely reactive given the aforementioned findings. 5. Endotracheal tube within the distal trachea, terminating less 1 cm from the edy. Slight tube retraction may be indicated. 6. Multiple healing anterior bilateral rib fractures. Electronically signed by: Tita Hart MD (03/29/2020 12:08 PM) [id number] DICTATED and SIGNED BY: TITA HART MD DATE: 03/29/20 1208 Course & Med Decision Making: Course & Med Decision Making Indication: Respiratory failure Consent: Unable to give consent due to emergent nature. Medications Used: 50 mg of rocuronium after 20 mg of etomidate Procedure: The patient was placed in the appropriate position. Intubation was performed [CORD VISUALIZATION with a glide scope] [7.5] endotracheal tube. [Endotracheal tube was secured at 24 at the lips]. Initial confirmation of placement included bilateral breath sounds, tube fogging, adequate chest rise, and end-tidal CO2, and adequate pulse oximetry reading. A chest x-ray to verify correct placement of the tube showed appropriate tube position. The patient tolerated the procedure well. Complications: none. Pertinent Labs and Imaging studies reviewed. (See chart for details) [] Critical care time was [40] minutes exclusive of procedures. Critical care time was [40] minutes which includes time at bedside, spent in discussion of patient's care with specialist and/or family members, with interpretation of laboratory and/or radiological studies and is exclusive of procedures. Critical condition: Respiratory failure Critical interventions: Intubation, IV fluids and IV antibiotics, admission to the ICU with pulmonary consult 39-year-old female presents with a chief complaint of respiratory failure. Patient has severe respiratory distress upon arrival. Patient was intubated by me quickly upon arrival. I used a glide scope and had N95 and a full PAPR while intubation was performed. Patient was hooked directly up to the vent with no Ambu bag. Lateral filter was used. Patient covered broad-spectrum antibiotics given some IV fluids. Patient is requiring high doses of medications for sedation. This is most likely due to her IV drug abuse. Patient will be admitted to Dr. Vargas. A pulmonary consult has been placed. Ernst Disclaimer: Ernst Disclaimer: This electronic medical record was generated, in whole or in part, using a voice recognition dictation system. Departure Departure Impression: Primary Impression: Respiratory failure Additional Impressions: Multifocal pneumonia Suspected COVID-19 virus infection Disposition: 09 ADMITTED INPT THIS HOSP Admitting Physician: PATI VICTOR) Condition: CRITICAL Referrals: NO PCP (PCP) CARMEN PINO MD Mar 29, 2020 10:26
[2020-03-29 10:28] LABS: BASO # 0.2 x10^3/uL (0.0-0.2); BASO % 1 % (0-3); EOS % 12 % (0-3); HEMATOCRIT 40.5 % (36.0-47.0); HEMOGLOBIN 13.6 g/dL (12.0-15.5); LYMPH # 2.9 x10^3/uL (1.0-4.8); LYMPH % 18 % (24-48); MEAN CORPUSCULAR HEMOGLOBIN 30 pg (25-35); MEAN CORPUSCULAR HGB CONC 34 g/dL (31-37); MEAN CORPUSCULAR VOLUME 90 fL (79-100); MONO # 0.9 x10^3/uL (0.0-1.1); MONO % 5 % (0-9); NEUT # 10.5 x10^3/uL (1.8-7.7); NEUT % 64 % (31-73); PLATELET COUNT 442 x10^3/uL (140-400); RED BLOOD COUNT 4.49 x10^6/uL (3.50-5.40); RED CELL DISTRIBUTION WIDTH 14.5 % (11.5-14.5); WHITE BLOOD COUNT 16.3 x10^3/uL (4.0-11.0)
[2020-03-29 10:43] LABS: PROTHROMBIN TIME PATIENT 12.1 SEC (11.7-14.0)
[2020-03-29 10:44] LABS: CALCIUM 8.8 mg/dL (8.5-10.1); CREATININE 0.8 mg/dL (0.6-1.0); GFR 79.4; POTASSIUM 4.5 mmol/L (3.5-5.1)
[2020-03-29 10:50] LABS: D-DIMER 1.4 ug/mlFEU (0.00-0.50)
[2020-03-29 10:53] LABS: ALBUMIN 3.3 g/dL (3.4-5.0); TOTAL BILIRUBIN 0.3 mg/dL (0.2-1.0); TOTAL PROTEIN 6.6 g/dL (6.4-8.2)
[2020-03-29 10:59] LABS: % EOS 9 % (0-5); % MONOS 2 % (0-10); % SEGS 74 % (35-66); ANISOCYTOSIS SLIGHT; PLT ESTIMATE ADEQUATE (ADEQUATE)
[2020-03-29 11:00] LABS: % ATYL 1 % (0-0); % LYMPHS 14 % (24-48)
[2020-03-29] MEDS ORDERED: DEXAMETHASONE SOD PHOS 4 MG/ML VIAL IVP ONE (11:00)
--- NOTE | 2020-03-29 11:00 | RAD ---
EXAM: CHEST 1 VIEW History: Shortness of breath COMPARISON: 03/13/2020 TECHNIQUE: Single portable radiograph of the chest FINDINGS: The ET tube is identified in the trachea below the clavicles. The feeding tube is identified in the stomach. Mild prominent bilateral interstitial lung markings likely interstitial infiltrates or congestive changes IMPRESSION: Mild prominent bilateral interstitial lung markings likely interstitial infiltrates or congestive changes. Electronically signed by: Sigifredo Benites MD (03/29/2020 10:58 AM) [id number]
[2020-03-29 11:11] LABS: BILIRUBIN,URINE NEGATIVE (NEG); CLARITY,URINE CLEAR; COLOR,URINE YELLOW; NITRITE,URINE NEGATIVE (NEG); PH,URINE 5.5 (<5.0-8.0); PROTEIN,URINE NEGATIVE (NEG-TRACE); UROBILINOGEN,URINE 0.2 mg/dL (0.2 mg/dL)
[2020-03-29] MEDS ORDERED: IOHEXOL 350 MG/ML 100 ML VIAL. IV ONE (11:15)
[2020-03-29 11:25] LABS: BACTERIA,URINE 0 /HPF (0-FEW); RBC,URINE 0 /HPF (0-2)
[2020-03-29] MEDS ORDERED: CONTRAST GIVEN. MC PRN (11:30)
[2020-03-29] MEDS ORDERED: MIDAZOLAM HCL/PF 5 MG/5 ML VIAL. ONE (12:02)
--- NOTE | 2020-03-29 12:10 | RAD ---
EXAM: CT angiography of the chest with intravenous contrast. HISTORY: Elevated d-dimer. Shortness of breath. TECHNIQUE: Computed tomographic images of the chest were obtained following the administration of intravenous contrast according to angiography protocol. Multiplanar reformatting was performed and three dimensional maximum intensity projection images were obtained. *One or more of the following individualized dose reduction techniques were utilized for this examination: 1. Automated exposure control. 2. Adjustment of the mA and/or kV according to patient size. 3. Use of iterative reconstruction technique. COMPARISON: 03/13/2020. FINDINGS: There is no convincing pulmonary embolism. The heart is normal in size. The aorta is normal in caliber. There is an endotracheal tube within the distal trachea. The tip of the tube deviates rightward less than 1 cm from the edy. There is a nasogastric tube within the stomach. There are enlarged mediastinal and hilar lymph nodes. For reference purposes, there is a left paratracheal lymph node measuring 1.6 cm and a right hilar lymph node measuring 1.7 cm. There is no pneumothorax or pleural effusion. There is groundglass and alveolar infiltrate scattered throughout both lungs. This is slightly increased within the medial left upper lobe and decreased within the anterior right upper lobe compared to the prior study. This is fairly stable within the right lower lobe and decreased within the left lower lobe compared to the prior study. There is central bronchial wall thickening and there are segments of bronchial opacification likely due to uncleared secretions bilaterally. No solid pulmonary nodule is seen. There is no acute finding involving the upper abdomen. There is no suspicious osseous lesion. There are healing anterior right second, third, fourth, fifth, and sixth rib fractures and healing anterior left second, third, fourth, fifth and sixth rib fractures. IMPRESSION: 1. No convincing pulmonary emphysema. 2. Bilateral multifocal groundglass and alveolar infiltrate, slightly increased within the left upper and right lower lobe and decreased within the right upper and left lower lobe compared to the prior study. 3. Bronchial wall thickening suggesting bronchitis. There is segmental occlusion of distal bronchi likely due to the combination of wall thickening and uncleared secretions. 4. Mediastinal and hilar lymphadenopathy, likely reactive given the aforementioned findings. 5. Endotracheal tube within the distal trachea, terminating less 1 cm from the edy. Slight tube retraction may be indicated. 6. Multiple healing anterior bilateral rib fractures. Electronically signed by: Tita Dillard MD (03/29/2020 12:08 PM) [id number]
[2020-03-29] MEDS ORDERED: MORPHINE SULFATE 10 MG/ML VIAL. ONE (12:11)
[2020-03-29] MEDS ORDERED: MORPHINE SULFATE 10 MG/ML VIAL. IV ONE (12:15)
[2020-03-29] MEDS ORDERED: MIDAZOLAM HCL/PF 5 MG/5 ML VIAL. IV ONE (12:15)
[2020-03-29] MEDS ORDERED: diphenhydrAMINE 50 MG/ML VIAL ONE (12:19)
[2020-03-29] MEDS ORDERED: diphenhydrAMINE 50 MG/ML VIAL IVP ONE (12:30)
[2020-03-29] MEDS ORDERED: MIDAZOLAM 100mg/100ml NS BAG 100 ML IV ONE (12:30)
[2020-03-29] MEDS ORDERED: ROCURONIUM 100 MG/10 ML VIAL. IV ONE (12:30)
--- NOTE | 2020-03-29 12:30 | HP ---
ADMIT DATE: 03/29/2020 CHIEF COMPLAINT: Shortness of breath, cough, respiratory distress. HISTORY OF PRESENT ILLNESS: The patient is a pleasant 39-year-old female who has autoimmune disorders and I believe she uses street drugs, in particular, she has done heroin and methamphetamine. Today, she presented with fulminant respiratory failure. The ER doctor intubated her. He called me. We are going to go to admit the patient to the ICU on the vent with consultation to Pulmonary Medicine and Infectious Disease. The patient is currently being examined in room 19 in the ER where she is intubated. PAST MEDICAL HISTORY: Polysubstance abuse, opiate abuse, marijuana abuse, methamphetamine abuse, anxiety, hypertension, asthma, bronchitis, depression, PTSD, autoimmune disorder, eczema, tobacco abuse. ALLERGIES: None. FAMILY HISTORY: Diabetes. SOCIAL HISTORY: She smokes, drinks, and takes drugs. MEDICATIONS: Reviewed, please refer to the MRAD. REVIEW OF SYSTEMS: Unable to obtain as the patient is intubated. PHYSICAL EXAMINATION: VITALS: Within normal limits and are stable. GENERAL: She is sedated with propofol and also has IV Zosyn hanging. HENT: Normal cephalic atraumatic, external auditory canals are patent. EYES: Extraocular muscles are intact, pupils are equally round and reactive to light and accommodation. MUSCULOSKELETAL: Well developed, well nourished, good range of motion. ENDOCRINE: No thyromegaly was palpated. LYMPHATICS: No cervical chain or axillary nodes were noted. HEMATOPOIETIC: No bruising. NECK: Supple, no JVD, no thyromegaly was noted. LUNGS: She has some coarse breath sounds. She is on the vent with assist control, 20 respirations per minute, 450 tidal volume, 40% FiO2 with 5 of PEEP. HEART: RRR, S1, S2 present. Peripheral pulses intact, no obvious murmurs were noted. ABDOMEN: Soft, nontender. Positive bowel sounds no organomegaly, normal bowel sounds. EXTREMITIES: Without any cyanosis, clubbing, or edema. Pedal pulses intact, Homans sign is negative. NEUROLOGIC: She is sedated. PSYCHIATRIC: Unobtainable. SKIN: Her knees appear somewhat mottled. VASCULAR: Good capillary refill, neurovascular bundle appears to be intact. LABORATORY DATA: White count 16. Electrolytes are normal. Troponin is 0. Chest x-ray shows mild prominent bilateral interstitial lung markings, likely infiltrates or congestive changes. ASSESSMENT AND PLAN: Fulminant respiratory failure in a middle-aged female who has polysubstance abuse issues and multiple comorbidities. Suspect she could have COVID-19. The patient has been admitted. We are checking her for COVID-19. Consult Infectious Disease. Consult Pulmonary. Vent weaning. Versed for sedation. Drug screen. We also have IV propofol for sedation, IV steroids, IV Levaquin, Urban to bedside drainage, IV fluids, IV Zosyn. Prognosis is extremely guarded. She is critically ill. TOTAL TIME: 32 minutes. ROSELINE ESPOSITO DO DR: ALTA/damien JOB#: [id number] / [id number]
[2020-03-29 12:31] LABS: BARBITURATES NEG (NEG); BENZODIAZEPINES NEG (NEG); CANNABINOIDS NEG (NEG); COCAINE NEG (NEG); METHADONE NEG (NEG); OPIATES POS (NEG); PHENCYCLIDINE NEG (NEG)
[2020-03-29 12:32] LABS: AMPHETAMINE/METHAMPHETAMINE POS (NEG)
[2020-03-29 13:02] LABS: BASE EXCESS COOX -2 mmol/L (-3-3); HCO3 COOX 24 mmol/L (21-28); METHEMOGLOBIN 0.4 % (0.0-1.9); OXYHEMOGLOBIN 97.6 %; PCO2 COOX 48 mmHg (35-46); PO2 COOX 146 mmHg (75-108); SAT O2 COOX 98 % (92-99)
[2020-03-29] MEDS: IV NORMAL SALINE 1000ML BAG 1,000 ML IV SCH (16:30)
--- NOTE | 2020-03-29 16:41 | NUR ---
pt admitted to rm 110 via ER nurse, RT cecilia for resp failure/suspected potential COVID 19 infection. Pt recently admitted to [facility] within last 10 days, and had code blue event per ER nurse. From medical documentation, can see was also dc'd from this hospital this month for pneumonia/possible covid. Per ER nurse Emilia, patient's brother stated to ER nurse that patient is IV drug abuser, specifically meth and heroin. According to pt's brother, Levi Oliveira, , pt used heroin last night and felt short of breath this morning, thus her father called EMS. Drug screen pos for opiates, meth. Upon arrival, pt intubated/sedated on propofol and versed. CPOT 0, all VSS on 35% on ventilator. Infectious disease consult called, did receive antibiotics in ER. Dr. Matthew, meter repairer notified, will see patient tomorrow- call him tonight if needed. Admission information completed to best of ability, most PMH recalled from EMR due to pt status
--- NOTE | 2020-03-29 16:50 | NUR ---
A [employer] consultant, a pocket knife, and a bottle of Xanax belonging to the pt sent to Security. see chart
[2020-03-29] MEDS: ENOXAPARIN 40 MG/0.4 ML SYRINGE. SQ SCH (17:00)
[2020-03-29] MEDS ORDERED: VANCOMYCIN 1 GM in IV NORMAL SALINE 250ML 250 ML IV ONE (19:15)
[2020-03-29] MEDS ORDERED: ATROPINE 0.5 MG/5 ML DISP.SYRINGE. IV PRN (20:15)
[2020-03-29] MEDS ORDERED: IV NORMAL SALINE 500ML BAG 500 ML IV PRN (20:15)
[2020-03-29] MEDS: DEXMEDETOMIDINE 400 MCG in IV NORMAL SALINE 100ML 96 ML IV PRN (20:26)
[2020-03-29] MEDS: methylPREDNISolone SOD SUCC PF 40 MG/ML VIAL. IV SCH (20:30)
[2020-03-29] MEDS ORDERED: MIDAZOLAM 100mg/100ml NS BAG 100 ML IV PRN (22:15)
[2020-03-30] VITALS (24 sets, daily range): BP systolic 95–135; BP diastolic 55–89
[2020-03-30] MEDS: DEXMEDETOMIDINE 400 MCG in IV NORMAL SALINE 100ML 96 ML IV PRN ×4 (01:21→20:42)
[2020-03-30] MEDS: IV NORMAL SALINE 1000ML BAG 1,000 ML IV SCH ×2 (05:26→19:02)
[2020-03-30 07:56] LABS: BASE EXCESS ABG -1 mmol/L (-3-3); HCO3 ABG 24 mmol/L (21-28); PCO2 ABG 37 mmHg (35-46); PO2 ABG 110 mmHg (75-108); SAT O2 ABG 98 % (92-99)
[2020-03-30 07:59] LABS: FIO2 ABG 35
[2020-03-30] MEDS: methylPREDNISolone SOD SUCC PF 40 MG/ML VIAL. IV SCH (08:51)
[2020-03-30] MEDS: DOXYCYCLINE HYCLATE 100 MG TABLET PO SCH ×2 (09:35→20:34)
--- NOTE | 2020-03-30 10:07 | CONS ---
DATE OF CONSULTATION: 03/30/2020 REFERRING PHYSICIAN: Dr. Franklin. REASON FOR CONSULTATION: Antibiotic management. HISTORY OF PRESENT ILLNESS: A 39-year-old female who is currently intubated in ICU, presented to the ER with complaints of shortness of breath. History obtained from chart and medical staff. The patient has a history of anxiety, depression, PTSD, autoimmune disorder, eczema, history of IV and methamphetamine use with multiple hospitalizations over the last 6 months for respiratory problems. She was also admitted at [facility] after cardiac arrest on ventilator couple of months ago. She was just recently discharged from [facility] on 03/16/2020. The patient had white count of 16,000 when she presented to the ER with lactic acidosis, high LDH at 264, C-reactive protein of 8, albumin of 3.3. UDS was positive for methamphetamine, opiates. Beta hCG negative. UA, 1-4 wbc's. CTA showed bilateral multifocal ground-glass and alveolar infiltrates, slightly increased within the left upper and right upper lobe and decreased in the right upper and left upper lobe compared to prior study, bronchial wall thickening suggesting bronchitis. There is segmental occlusion of the distal bronchi, mediastinal and hilar lymphadenopathy, likely reactive, ET tube is in, noted multiple healing anterior bilateral rib fractures. The patient is currently on Levaquin, got one dose of Zosyn. ID consult has been requested for antibiotic management. PAST MEDICAL HISTORY: Autoimmune disorder, eczema, polysubstance abuse, opiate abuse, marijuana abuse, methamphetamine abuse, anxiety; hypertension, asthma, bronchitis, PTSD, tobacco abuse. ALLERGIES: No known drug allergies. FAMILY HISTORY: As per HPI. SOCIAL HISTORY: Smokes, drinks, and takes drugs. Lives with father. CURRENT MEDICATIONS: Levaquin one dose of IV vancomycin. Other medications reviewed in medication list. REVIEW OF SYSTEMS: Unable to obtain. PHYSICAL EXAMINATION: VITAL SIGNS: Temperature 97.9, pulse 75, respiratory rate 18, blood pressure 124/75, oxygen saturation 100% on 35% FiO2. GENERAL: Intubated, sedated female. HEENT: Normocephalic, atraumatic, anicteric, no conjunctival petechiae. NECK: Supple. LUNGS: Decreased breath sounds. No wheezing. HEART: S1, S2. No gallops or murmurs. ETT and OGT tube in place. ABDOMEN: Soft, nontender, nondistended. GENITOURINARY: Urban in place. EXTREMITIES: No edema, no cyanosis, no clubbing, no peripheral stigmata of endocarditis. NEUROLOGIC: Sedated. PSYCHIATRIC: Unable to obtain. DERMATOLOGIC: Warm and dry. No generalized rash. LABORATORY DATA: WBC 16.3, hemoglobin 13.6, hematocrit 40.5, platelets 442, COVID-19 pending. Sodium 139, potassium 4.5, chloride 104, bicarbonate 26, BUN 8, creatinine 0.8, glucose 156, calcium 8.8, total bilirubin 0.3, direct. AST 43, ALT 29, alkaline phosphatase 87. CK 264. C-reactive protein 8.0, albumin 3.0; lactate 3.0, repeat is 1.6. BNP is 271. Troponin normal. Procalcitonin normal. UDS positive for opiates, methamphetamine. Beta hCG negative. COVID-19 pending. IMAGING: Chest CTA as above. Chest x-ray shows mild prominent bilateral interstitial lung markings, likely interstitial infiltrate. IMPRESSION: 1. Leukocytosis. 2. Acute hypoxic respiratory failure, status post intubation. 3. Lactic acidosis. 4. History of substance dependence. 5. History of autoimmune disease, unknown treatment. 6. History of depression, posttraumatic stress disorder, anxiety. 7. History of eczema. 8. History of multiple hospitalizations for respiratory illness since early this year. RECOMMENDATIONS: 1. Discontinue Levaquin. Start Zosyn and doxycycline. 2. Status post one dose of vancomycin. 3. Follow up blood culture. 4. Follow up COVID-19 PCR. 5. Continue supportive care. 6. On steroids. 7. Follow up cultures and lab. 8. Pulmonary is consulted. Discussed with RN. Thank you for allowing me to participate in this patient's care. If you have any questions, do not hesitate to contact me. CCT time 35 minutes. VICKIE QUINTEROS MD DR: MONROE/damien JOB#: [id number] / [id number] SERGEY
--- NOTE | 2020-03-30 10:39 | PDOC ---
[employer] PROGRESS NOTE Date of Service DOS: DATE: 03/30/20 TIME: 10:35 Chief Complaint Chief Complaint Fulminant respiratory failure likely COVID-19 viral pneumonia (testing still pending) Status post intubation and mechanical ventilation Polysubstance abuse, opiate abuse, marijuana abuse, methamphetamine abuse, anxiety, hypertension, asthma, bronchitis, depression, PTSD, autoimmune disorder, eczema, tobacco abuse. History of Present Illness History of Present Illness 03/30/2020 Patient seen in the COVID-19 ICU Covid testing still pending She is on the vent She is sedated with propofol and Dex and Versed Vent settings AC/18/450/30 5% with 5 of PEEP Chart reviewed Discussed with RN She is extremely critically ill Vitals/I&O Vitals/I&O: Vital Signs Date Time Temp Pulse Resp B/P (MAP) Pulse Ox O2 Delivery O2 Flow Rate FiO2 03/30/20 10:00 74 20 120/73 (89) 99 Ventilator 03/30/20 08:00 97.9 97.9 03/29/20 09:48 10.0 I & O 03/29/20 03/29/20 03/30/20 15:00 23:00 07:00 Intake Total 1200 ml 112 ml 2551 ml Output Total 125 ml 740 ml 885 ml Balance 1075 ml -628 ml 1666 ml Physical Exam General: No acute distress, Other (Sedated on the vent) Heart: Regular rate, Other (Sinus tach on the monitor) Lungs: Wheezing, Crackles Abdomen: Soft Extremities: No clubbing, Other (Knees are mottled) Skin: No rashes Labs Labs: Laboratory Tests Test 03/29/20 11:05 03/29/20 13:00 03/29/20 14:00 03/30/20 07:45 Urine Collection Type U cath Urine Color Yellow Urine Clarity Clear Urine pH 5.5 (<5.0-8.0) Urine Specific [place] 1.015 (1.000-1.030) Urine Protein Negative mg/dL (NEG-TRACE) Urine Glucose (UA) Negative mg/dL (NEG) Urine Ketones (Stick) Negative mg/dL (NEG) Urine Blood Negative (NEG) Urine Nitrite Negative (NEG) Urine Bilirubin Negative (NEG) Urine Urobilinogen Dipstick 0.2 mg/dL (0.2 mg/dL) Urine Leukocyte Esterase Negative (NEG) Urine RBC 0 /HPF (0-2) Urine WBC 1-4 /HPF (0-4) Urine Bacteria 0 /HPF (0-FEW) Urine Mucus Mod /LPF Urine Opiates Screen Pos (NEG) Urine Methadone Screen Neg (NEG) Urine Barbiturates Neg (NEG) Urine Phencyclidine Screen Neg (NEG) Urine Amphetamine/Methamphetamine Pos (NEG) Urine Benzodiazepines Screen Neg (NEG) Urine Cocaine Screen Neg (NEG) Urine Cannabinoids Screen Neg (NEG) Urine Ethyl Alcohol Neg (NEG) O2 Saturation 98 % (92-99) 98 % (92-99) Arterial Blood pH 7.32 (7.35-7.45) 7.42 (7.35-7.45) Arterial Blood pCO2 at Patient Temp 48 mmHg (35-46) 37 mmHg (35-46) Arterial Blood pO2 at Patient Temp 146 mmHg (75-108) 110 mmHg (75-108) Arterial Blood HCO3 24 mmol/L (21-28) 24 mmol/L (21-28) Arterial Blood Base Excess -2 mmol/L (-3-3) -1 mmol/L (-3-3) Oxyhemoglobin 97.6 % Methemoglobin 0.4 % (0.0-1.9) Carbon Monoxide, Quantitative 0.3 % (0.0-1.9) FiO2 40% vent 35 Lactic Acid Level 1.6 mmol/L (0.4-2.0) Review of Systems Review of Systems: Unable to obtain Assessment and Plan Assessmemt and Plan Problems Medical Problems: (1) Multifocal pneumonia Status: Acute (2) Respiratory failure Status: Acute (3) Suspected COVID-19 virus infection Status: Acute Fulminant respiratory failure likely COVID-19 viral pneumonia (testing still pending) Status post intubation and mechanical ventilation Polysubstance abuse, opiate abuse, marijuana abuse, methamphetamine abuse, anxiety, hypertension, asthma, bronchitis, depression, PTSD, autoimmune disorder, eczema, tobacco abuse. Plan COVID-19 protocol as follows: IV antibiotics ICU monitoring Mechanical ventilation Vent weaning IV steroids Vitamins and minerals Infectious disease and pulmonary following Trend labs DVT prophylaxis Full code Home meds Prognosis extremely guarded at best She remains critically ill CC time 32 Comment Review of Relevant I have reviewed the following items janie (where applicable) has been applied. Medications: Current Medications Medications (Trade) Dose Ordered Sig/Andrei Route PRN Reason Start Time Stop Time Status Last Admin Dose Admin Levofloxacin/ Dextrose 150 ml @ 100 mls/hr 1X ONCE IV 03/29/20 11:00 03/29/20 12:29 DC 03/29/20 12:03 Dexamethasone Sodium Phosphate (Decadron) 10 mg 1X ONCE IVP 03/29/20 11:00 03/29/20 11:01 DC 03/29/20 12:03 Rocuronium Arcade (Zemuron) 50 mg 1X ONCE IV 03/29/20 11:00 03/29/20 11:01 DC 03/29/20 10:57 Propofol 100 ml @ 0 mls/hr CONT PRN PRN IV SEDATION 03/29/20 11:15 03/29/20 23:41 Iohexol (Omnipaque 350 Mg/ml) 100 ml 1X ONCE IV 03/29/20 11:15 03/29/20 11:18 DC 03/29/20 11:15 Midazolam HCl (Versed) 5 mg 1X ONCE IV 03/29/20 12:15 03/29/20 12:16 DC 03/29/20 12:09 Methylprednisolone Sodium Succinate (SOLU-Medrol 40MG VIAL) 125 mg BID IV 03/29/20 21:00 03/30/20 08:51 Morphine Sulfate (Morphine Sulfate) 10 mg 1X ONCE IV 03/29/20 12:15 03/29/20 12:18 DC 03/29/20 12:13 Rocuronium Arcade (Zemuron) 100 mg 1X ONCE IV 03/29/20 12:30 03/29/20 12:31 DC 03/29/20 12:24 Midazolam HCl 100 ml @ 1 mls/hr 1X ONCE IV 03/29/20 12:30 03/30/20 08:09 DC 03/29/20 12:36 Diphenhydramine HCl (Benadryl) 50 mg 1X ONCE IVP 03/29/20 12:30 03/29/20 12:31 DC 03/29/20 12:34 Sodium Chloride 1,000 ml @ 75 mls/hr [id number] IV 03/29/20 16:30 03/30/20 05:26 Enoxaparin Sodium (Lovenox 40mg Syringe) 40 mg Q24H SQ 03/29/20 17:00 03/29/20 17:00 Vancomycin HCl 1 gm/Sodium Chloride 250 ml @ 250 mls/hr 1X ONCE IV 03/29/20 19:15 03/29/20 20:14 DC 03/29/20 19:20 Dexmedetomidine HCl 400 mcg/ Sodium Chloride 100 ml @ 3.07 mls/hr CONT PRN IV PER PROTOCOL 03/29/20 20:00 03/30/20 07:42 Midazolam HCl 100 ml @ 1 mls/hr CONT PRN IV SEE I/O RECORD 03/29/20 22:15 03/30/20 08:09 DC 03/30/20 07:57 Doxycycline Hyclate (Vibra-Tab) 100 mg BID PO 03/30/20 10:00 03/30/20 09:35 Justifications for Admission Other Justification ROSELINE ESPOSITO III DO Mar 30, 2020 10:39
--- NOTE | 2020-03-30 11:03 | RAD ---
EXAM: PORTABLE CHEST 1V INDICATION: Reason: Vent / Spl. Instructions: / History: . TECHNIQUE: Single view COMPARISON: 03/29/2020 FINDINGS: Endotracheal tube terminates 4.6 cm above the edy. Enteric tube passes below the diaphragms. The heart size is normal. The great vessels appear unremarkable. There is no hilar or mediastinal mass. Lungs show similar patchy bilateral reticular and groundglass opacities, unchanged in the interval. There is no pleural effusion or pneumothorax. There are no significant osseous abnormalities. IMPRESSION: Stable lines and tubes including endotracheal intubation with ET tube tip 4.6 cm above the edy. Stable patchy bilateral reticular and groundglass opacities in the lungs. No superimposed acute process. Electronically signed by: Carlos Marmolejo MD (03/30/2020 11:00 AM) [id number]
[2020-03-30] MEDS: PIPERACILLIN/TAZOBACTAM 3.375 GM in IV NORMAL SALINE 50ML 50 ML IV SCH ×2 (12:07→17:38)
[2020-03-30] MEDS: PROPOFOL 100 ML IV PRN (12:54)
--- NOTE | 2020-03-30 14:53 | PDOC ---
PULMONARY PROGRESS NOTES DATE: 03/30/20 TIME: 14:53 Vitals Vital Signs Date Time Temp Pulse Resp B/P (MAP) Pulse Ox O2 Delivery O2 Flow Rate FiO2 03/30/20 14:00 79 22 113/67 (82) 99 Ventilator 03/30/20 12:00 99.7 99.7 03/29/20 09:48 10.0 Lungs: Wheezing, Crackles Labs Laboratory Tests Test 03/29/20 09:56 03/29/20 10:00 03/29/20 11:05 03/29/20 13:00 O2 Saturation 97 % (92-99) 98 % (92-99) Arterial Blood pH 7.11 (7.35-7.45) 7.32 (7.35-7.45) Arterial Blood pCO2 at Patient Temp 82 mmHg (35-46) 48 mmHg (35-46) Arterial Blood pO2 at Patient Temp 123 mmHg (75-108) 146 mmHg (75-108) Arterial Blood HCO3 26 mmol/L (21-28) 24 mmol/L (21-28) Arterial Blood Base Excess -6 mmol/L (-3-3) -2 mmol/L (-3-3) FiO2 100 40% vent White Blood Count 16.3 x10^3/uL (4.0-11.0) Red Blood Count 4.49 x10^6/uL (3.50-5.40) Hemoglobin 13.6 g/dL (12.0-15.5) Hematocrit 40.5 % (36.0-47.0) Mean Corpuscular Volume 90 fL (79-100) Mean Corpuscular Hemoglobin 30 pg (25-35) Mean Corpuscular Hemoglobin Concent 34 g/dL (31-37) Red Cell Distribution Width 14.5 % (11.5-14.5) Platelet Count 442 x10^3/uL (140-400) Neutrophils (%) (Auto) 64 % (31-73) Lymphocytes (%) (Auto) 18 % (24-48) Monocytes (%) (Auto) 5 % (0-9) Eosinophils (%) (Auto) 12 % (0-3) Basophils (%) (Auto) 1 % (0-3) Neutrophils # (Auto) 10.5 x10^3/uL (1.8-7.7) Lymphocytes # (Auto) 2.9 x10^3/uL (1.0-4.8) Monocytes # (Auto) 0.9 x10^3/uL (0.0-1.1) Eosinophils # (Auto) 2.0 x10^3/uL (0.0-0.7) Basophils # (Auto) 0.2 x10^3/uL (0.0-0.2) Segmented Neutrophils % 74 % (35-66) Lymphocytes % 14 % (24-48) Atypical Lymphocytes % (Manual) 1 % (0-0) Monocytes % 2 % (0-10) Eosinophils % 9 % (0-5) Platelet Estimate Adequate (ADEQUATE) Large Platelets Occ Anisocytosis Slight Prothrombin Time 12.1 SEC (11.7-14.0) Prothromb Time International Ratio 0.9 (0.8-1.1) Activated Partial Thromboplast Time 33 SEC (24-38) Fibrinogen 548 mg/dL (200-440) D-Dimer (Lima) 1.40 ug/mlFEU (0.00-0.50) Maternal Serum HCG Beta Subunit 2 mIU/mL (0-5) Sodium Level 139 mmol/L (136-145) Potassium Level 4.5 mmol/L (3.5-5.1) Chloride Level 104 mmol/L (98-107) Carbon Dioxide Level 26 mmol/L (21-32) Anion Gap 9 (6-14) Blood Urea Nitrogen 8 mg/dL (7-20) Creatinine 0.8 mg/dL (0.6-1.0) Estimated GFR (Cockcroft-Gault) 79.4 BUN/Creatinine Ratio 10 (6-20) Glucose Level 156 mg/dL (70-99) Lactic Acid Level 3.0 mmol/L (0.4-2.0) Calcium Level 8.8 mg/dL (8.5-10.1) Total Bilirubin 0.3 mg/dL (0.2-1.0) Aspartate Amino Transf (AST/SGOT) 43 U/L (15-37) Alanine Aminotransferase (ALT/SGPT) 29 U/L (14-59) Alkaline Phosphatase 87 U/L (46-116) Lactate Dehydrogenase 314 U/L (81-234) Creatine Kinase 264 U/L (26-192) Troponin I Quantitative < 0.017 ng/mL (0.000-0.055) C-Reactive Protein, Quantitative 8.0 mg/L (0-3.3) RW-Fke-N-Type Natriuretic Peptide 271 pg/mL (0-124) Total Protein 6.6 g/dL (6.4-8.2) Albumin 3.3 g/dL (3.4-5.0) Albumin/Globulin Ratio 1.0 (1.0-1.7) Lipase 80 U/L (73-393) Procalcitonin < 0.10 ng/mL (0.00-0.10) Coronavirus (PCR) Not detected (Not Detected) Urine Collection Type U cath Urine Color Yellow Urine Clarity Clear Urine pH 5.5 (<5.0-8.0) Urine Specific [place] 1.015 (1.000-1.030) Urine Protein Negative mg/dL (NEG-TRACE) Urine Glucose (UA) Negative mg/dL (NEG) Urine Ketones (Stick) Negative mg/dL (NEG) Urine Blood Negative (NEG) Urine Nitrite Negative (NEG) Urine Bilirubin Negative (NEG) Urine Urobilinogen Dipstick 0.2 mg/dL (0.2 mg/dL) Urine Leukocyte Esterase Negative (NEG) Urine RBC 0 /HPF (0-2) Urine WBC 1-4 /HPF (0-4) Urine Bacteria 0 /HPF (0-FEW) Urine Mucus Mod /LPF Urine Opiates Screen Pos (NEG) Urine Methadone Screen Neg (NEG) Urine Barbiturates Neg (NEG) Urine Phencyclidine Screen Neg (NEG) Urine Amphetamine/Methamphetamine Pos (NEG) Urine Benzodiazepines Screen Neg (NEG) Urine Cocaine Screen Neg (NEG) Urine Cannabinoids Screen Neg (NEG) Urine Ethyl Alcohol Neg (NEG) Oxyhemoglobin 97.6 % Methemoglobin 0.4 % (0.0-1.9) Carbon Monoxide, Quantitative 0.3 % (0.0-1.9) Test 03/29/20 14:00 03/30/20 07:45 Lactic Acid Level 1.6 mmol/L (0.4-2.0) O2 Saturation 98 % (92-99) Arterial Blood pH 7.42 (7.35-7.45) Arterial Blood pCO2 at Patient Temp 37 mmHg (35-46) Arterial Blood pO2 at Patient Temp 110 mmHg (75-108) Arterial Blood HCO3 24 mmol/L (21-28) Arterial Blood Base Excess -1 mmol/L (-3-3) FiO2 35 Laboratory Tests Test 03/30/20 07:45 O2 Saturation 98 % (92-99) Arterial Blood pH 7.42 (7.35-7.45) Arterial Blood pCO2 at Patient Temp 37 mmHg (35-46) Arterial Blood pO2 at Patient Temp 110 mmHg (75-108) Arterial Blood HCO3 24 mmol/L (21-28) Arterial Blood Base Excess -1 mmol/L (-3-3) FiO2 35 Medications Active Scripts Medications Dose Route/Sig Max Daily Dose Days Date Category Levofloxacin 750 Mg Tablet 750 Mg PO DAILY06 5 03/16/20 Rx Amox Tr-K Clv 875-125 Mg Tab (Amoxicillin/Potassium Clav) 1 Each Tablet 1 Tab PO BID 5 03/16/20 Rx Guaifenesin Dm Syrup (Guaifenesin/Dextromethorphan) 5 Ml Syrup 10 Ml PO PRN Q6HRS PRN 10 03/16/20 Rx Temazepam 30 Mg Capsule 1 Cap PO PRN QHS PRN 03/13/20 Reported Culturelle (Lactobacillus Rhamnosus Gg) 1 Each Cap.sprink 1 Cap PO BID 30 01/10/20 Rx Orazinc (Zinc Sulfate) 220 Mg Capsule 220 Mg PO DAILY 30 01/10/20 Rx Vitamin C (Ascorbic Acid) 100 Mg Tablet 1 Tab PO DAILY 30 01/07/20 Reported Albuterol Sulfate Neb Soln (Albuterol Sulfate) 1.25 Mg/3 Ml Vial.neb 1 Vial NEB Q4-6HRS PRN 01/07/20 Reported Symbicort 160-4.5 Mcg Inhaler (Budesonide/Formoterol Fumarate) 10.2 Gm Hfa.aer.ad 2 Puff IH BID 01/07/20 Reported Trazodone Hcl 100 Mg Tablet 1 Tab PO QHS PRN 01/07/20 Reported Ondansetron Odt (Ondansetron) 4 Mg Tab.rapdis 1 Tab PO PRN Q6-8HRS PRN 05/31/18 Rx Impression . Full note dictated Hypercapnic respiratory failure, possible acute lung injury, possible pneumonia. We will add steroids continue current sedation and AC mode RANDOLPH WINN MD Mar 30, 2020 14:53
--- NOTE | 2020-03-30 14:57 | NUR ---
SS following for discharge planning. SS reviewed pt chart and discussed with pt RN. Pt is from home. Self pay. Pt is currently on the vent at 35%. Per RN, pt positive for opiates, Meth, THC, and Heroin. Pt on IV Zosyn. PAT team notified of admission. SS will continue to follow for discharge planning.
[2020-03-30] MEDS ORDERED: methylPREDNISolone SOD SUCC PF 125 MG/2 ML VIAL. IV ONE (15:00)
--- NOTE | 2020-03-30 15:13 | CONS ---
DATE OF CONSULTATION: 03/30/2020 ATTENDING PHYSICIAN: Dr. Franklin. REASON FOR CONSULTATION: The patient is seen in pulmonary consultation at the request of Dr. Franklin for acute respiratory failure requiring mechanical ventilation. HISTORY OF PRESENT ILLNESS: The patient is a 39-year-old that presented to the Emergency Room via EMS with chief complaints of shortness of breath. She has been short of breath over the last several days, had pneumonia in July. At that time, she was in ICU. The patient was in severe respiratory distress. Labs were obtained. Arterial blood gas initially pH of 7.11, PaCO2 of 82, pO2 of 183. She was placed on mechanical ventilation. Repeat arterial blood gas; pH of 7.32, PaCO2 of 46, pO2 of 146. This morning, pCO2 was 37, pH of 7.42. White count was elevated. Toxicology screen was positive for opiates, methamphetamine. Electrolytes were noted. The patient had a chest x-ray, which I reviewed, revealing bilateral reticular ground glass opacities. She also had a CT angiogram. There was no pulmonary emboli. There was bilateral multifocal ground glass and alveolar type of infiltrates. There was bronchial thickening suggestive of bronchitis. She had some mediastinal and hilar adenopathy along with multiple healing anterior fractured ribs. The patient is being seen in consult by Infectious Disease Service and is currently on IV antibiotics including Levaquin. She is currently on Zosyn and doxycycline. She underwent serology for SARS-CoV-2, which was negative. PAST MEDICAL HISTORY: Obtained by reviewing the current medical record, she has a history of autoimmune disorder, eczema, polysubstance use, opiates and marijuana use, methamphetamine, anxiety, hypertension, previous history of tobacco use. FAMILY HISTORY: Unknown. ALLERGIES: No known drug allergies. CURRENT MEDICATIONS: List was reviewed. SOCIAL HISTORY: As indicated above. REVIEW OF SYSTEMS: Unobtainable secondary to the patient's condition. PHYSICAL EXAMINATION: VITAL SIGNS: Stable. O2 saturation was greater than 92%. LUNGS: Anteriorly were clear. CARDIOVASCULAR: Regular rate and rhythm with S1, S2, no S3. ABDOMEN: Soft. EXTREMITIES: No clubbing, cyanosis or edema. LABORATORY DATA: Lactic acid level was initially elevated. Arterial blood gas as indicated above. Chest x-ray and CT as indicated above. IMPRESSION: 1. Acute hypoxemic hypercapnic respiratory failure. 2. Bilateral pulmonary infiltrates of unknown etiology. 3. Suspect pneumonia, gram-positive, gram-negative. 4. Possible acute lung injury from polysubstance use. 5. History of autoimmune disease. 6. History of depression, posttraumatic stress disorder and anxiety. PLAN: 1. We will continue current support with IV antibiotics. 2. Adjust minute ventilation on the ventilator to normalize pH. 3. DVT prophylaxis with Lovenox. 4. We will add steroids for acute lung injury. 5. Maintain sedated for now. 6. Possible spontaneous trial in the a.m. I do appreciate the privilege in sharing in this patient's care. RANDOLPH WINN MD DR: LUIS ARMANDO/damien JOB#: [id number] / [id number]
[2020-03-30 16:14] LABS: BASO % 0 % (0-3); EOS % 0 % (0-3); HEMATOCRIT 34.6 % (36.0-47.0); HEMOGLOBIN 11.7 g/dL (12.0-15.5); LYMPH # 0.4 x10^3/uL (1.0-4.8); LYMPH % 6 % (24-48); MEAN CORPUSCULAR HEMOGLOBIN 30 pg (25-35); MEAN CORPUSCULAR HGB CONC 34 g/dL (31-37); MEAN CORPUSCULAR VOLUME 89 fL (79-100); MONO # 0.1 x10^3/uL (0.0-1.1); MONO % 2 % (0-9); NEUT # 6.4 x10^3/uL (1.8-7.7); NEUT % 92 % (31-73); PLATELET COUNT 385 x10^3/uL (140-400); RED BLOOD COUNT 3.87 x10^6/uL (3.50-5.40); RED CELL DISTRIBUTION WIDTH 14.4 % (11.5-14.5)
[2020-03-30 16:24] LABS: CALCIUM 8.3 mg/dL (8.5-10.1); CREATININE 0.7 mg/dL (0.6-1.0); GFR 92.7; POTASSIUM 4.1 mmol/L (3.5-5.1)
[2020-03-30] MEDS: ENOXAPARIN 40 MG/0.4 ML SYRINGE. SQ SCH (17:14)
[2020-03-30] MEDS: MIDAZOLAM 100mg/100ml NS BAG 100 ML IV PRN (18:12)
[2020-03-31] VITALS (23 sets, daily range): BP systolic 95–144; BP diastolic 52–98
[2020-03-31] MEDS: PIPERACILLIN/TAZOBACTAM 3.375 GM in IV NORMAL SALINE 50ML 50 ML IV SCH ×5 (00:24→23:30)
[2020-03-31] MEDS: methylPREDNISolone SOD SUCC PF 125 MG/2 ML VIAL. IV SCH ×2 (00:25→06:10)
[2020-03-31] MEDS: PROPOFOL 100 ML IV PRN ×3 (00:43→21:21)
[2020-03-31] MEDS: DEXMEDETOMIDINE 400 MCG in IV NORMAL SALINE 100ML 96 ML IV PRN ×3 (01:47→19:54)
--- NOTE | 2020-03-31 06:22 | PDOC ---
PULMONARY PROGRESS NOTES DATE: 03/31/20 TIME: 06:20 Subjective on vent sedated on versed propofol prcedex small ett secretion Vitals Vital Signs Date Time Temp Pulse Resp B/P (MAP) Pulse Ox O2 Delivery O2 Flow Rate FiO2 03/31/20 06:00 46 19 134/87 (103) 100 Ventilator 03/31/20 04:00 97.7 97.7 Comments sedated on vent HEENT: Other (nc at perrl nose clear orally intubated neck no lad no thyromegaly) Lungs: Crackles Cardiovascular: S1, S2 Abdomen: Soft, Non-tender Extremities: No Edema Skin: Warm Labs Laboratory Tests Test 03/29/20 09:56 03/29/20 10:00 03/29/20 11:05 03/29/20 13:00 O2 Saturation 97 % (92-99) 98 % (92-99) Arterial Blood pH 7.11 (7.35-7.45) 7.32 (7.35-7.45) Arterial Blood pCO2 at Patient Temp 82 mmHg (35-46) 48 mmHg (35-46) Arterial Blood pO2 at Patient Temp 123 mmHg (75-108) 146 mmHg (75-108) Arterial Blood HCO3 26 mmol/L (21-28) 24 mmol/L (21-28) Arterial Blood Base Excess -6 mmol/L (-3-3) -2 mmol/L (-3-3) FiO2 100 40% vent White Blood Count 16.3 x10^3/uL (4.0-11.0) Red Blood Count 4.49 x10^6/uL (3.50-5.40) Hemoglobin 13.6 g/dL (12.0-15.5) Hematocrit 40.5 % (36.0-47.0) Mean Corpuscular Volume 90 fL (79-100) Mean Corpuscular Hemoglobin 30 pg (25-35) Mean Corpuscular Hemoglobin Concent 34 g/dL (31-37) Red Cell Distribution Width 14.5 % (11.5-14.5) Platelet Count 442 x10^3/uL (140-400) Neutrophils (%) (Auto) 64 % (31-73) Lymphocytes (%) (Auto) 18 % (24-48) Monocytes (%) (Auto) 5 % (0-9) Eosinophils (%) (Auto) 12 % (0-3) Basophils (%) (Auto) 1 % (0-3) Neutrophils # (Auto) 10.5 x10^3/uL (1.8-7.7) Lymphocytes # (Auto) 2.9 x10^3/uL (1.0-4.8) Monocytes # (Auto) 0.9 x10^3/uL (0.0-1.1) Eosinophils # (Auto) 2.0 x10^3/uL (0.0-0.7) Basophils # (Auto) 0.2 x10^3/uL (0.0-0.2) Segmented Neutrophils % 74 % (35-66) Lymphocytes % 14 % (24-48) Atypical Lymphocytes % (Manual) 1 % (0-0) Monocytes % 2 % (0-10) Eosinophils % 9 % (0-5) Platelet Estimate Adequate (ADEQUATE) Large Platelets Occ Anisocytosis Slight Prothrombin Time 12.1 SEC (11.7-14.0) Prothromb Time International Ratio 0.9 (0.8-1.1) Activated Partial Thromboplast Time 33 SEC (24-38) Fibrinogen 548 mg/dL (200-440) D-Dimer (Lima) 1.40 ug/mlFEU (0.00-0.50) Maternal Serum HCG Beta Subunit 2 mIU/mL (0-5) Sodium Level 139 mmol/L (136-145) Potassium Level 4.5 mmol/L (3.5-5.1) Chloride Level 104 mmol/L (98-107) Carbon Dioxide Level 26 mmol/L (21-32) Anion Gap 9 (6-14) Blood Urea Nitrogen 8 mg/dL (7-20) Creatinine 0.8 mg/dL (0.6-1.0) Estimated GFR (Cockcroft-Gault) 79.4 BUN/Creatinine Ratio 10 (6-20) Glucose Level 156 mg/dL (70-99) Lactic Acid Level 3.0 mmol/L (0.4-2.0) Calcium Level 8.8 mg/dL (8.5-10.1) Total Bilirubin 0.3 mg/dL (0.2-1.0) Aspartate Amino Transf (AST/SGOT) 43 U/L (15-37) Alanine Aminotransferase (ALT/SGPT) 29 U/L (14-59) Alkaline Phosphatase 87 U/L (46-116) Lactate Dehydrogenase 314 U/L (81-234) Creatine Kinase 264 U/L (26-192) Troponin I Quantitative < 0.017 ng/mL (0.000-0.055) C-Reactive Protein, Quantitative 8.0 mg/L (0-3.3) MY-Nit-Y-Type Natriuretic Peptide 271 pg/mL (0-124) Total Protein 6.6 g/dL (6.4-8.2) Albumin 3.3 g/dL (3.4-5.0) Albumin/Globulin Ratio 1.0 (1.0-1.7) Lipase 80 U/L (73-393) Procalcitonin < 0.10 ng/mL (0.00-0.10) Coronavirus (PCR) Not detected (Not Detected) Urine Collection Type U cath Urine Color Yellow Urine Clarity Clear Urine pH 5.5 (<5.0-8.0) Urine Specific [place] 1.015 (1.000-1.030) Urine Protein Negative mg/dL (NEG-TRACE) Urine Glucose (UA) Negative mg/dL (NEG) Urine Ketones (Stick) Negative mg/dL (NEG) Urine Blood Negative (NEG) Urine Nitrite Negative (NEG) Urine Bilirubin Negative (NEG) Urine Urobilinogen Dipstick 0.2 mg/dL (0.2 mg/dL) Urine Leukocyte Esterase Negative (NEG) Urine RBC 0 /HPF (0-2) Urine WBC 1-4 /HPF (0-4) Urine Bacteria 0 /HPF (0-FEW) Urine Mucus Mod /LPF Urine Opiates Screen Pos (NEG) Urine Methadone Screen Neg (NEG) Urine Barbiturates Neg (NEG) Urine Phencyclidine Screen Neg (NEG) Urine Amphetamine/Methamphetamine Pos (NEG) Urine Benzodiazepines Screen Neg (NEG) Urine Cocaine Screen Neg (NEG) Urine Cannabinoids Screen Neg (NEG) Urine Ethyl Alcohol Neg (NEG) Oxyhemoglobin 97.6 % Methemoglobin 0.4 % (0.0-1.9) Carbon Monoxide, Quantitative 0.3 % (0.0-1.9) Test 03/29/20 14:00 03/30/20 07:45 03/30/20 15:49 Lactic Acid Level 1.6 mmol/L (0.4-2.0) O2 Saturation 98 % (92-99) Arterial Blood pH 7.42 (7.35-7.45) Arterial Blood pCO2 at Patient Temp 37 mmHg (35-46) Arterial Blood pO2 at Patient Temp 110 mmHg (75-108) Arterial Blood HCO3 24 mmol/L (21-28) Arterial Blood Base Excess -1 mmol/L (-3-3) FiO2 35 White Blood Count 7.0 x10^3/uL (4.0-11.0) Red Blood Count 3.87 x10^6/uL (3.50-5.40) Hemoglobin 11.7 g/dL (12.0-15.5) Hematocrit 34.6 % (36.0-47.0) Mean Corpuscular Volume 89 fL (79-100) Mean Corpuscular Hemoglobin 30 pg (25-35) Mean Corpuscular Hemoglobin Concent 34 g/dL (31-37) Red Cell Distribution Width 14.4 % (11.5-14.5) Platelet Count 385 x10^3/uL (140-400) Neutrophils (%) (Auto) 92 % (31-73) Lymphocytes (%) (Auto) 6 % (24-48) Monocytes (%) (Auto) 2 % (0-9) Eosinophils (%) (Auto) 0 % (0-3) Basophils (%) (Auto) 0 % (0-3) Neutrophils # (Auto) 6.4 x10^3/uL (1.8-7.7) Lymphocytes # (Auto) 0.4 x10^3/uL (1.0-4.8) Monocytes # (Auto) 0.1 x10^3/uL (0.0-1.1) Eosinophils # (Auto) 0.0 x10^3/uL (0.0-0.7) Basophils # (Auto) 0.0 x10^3/uL (0.0-0.2) Sodium Level 144 mmol/L (136-145) Potassium Level 4.1 mmol/L (3.5-5.1) Chloride Level 108 mmol/L (98-107) Carbon Dioxide Level 25 mmol/L (21-32) Anion Gap 11 (6-14) Blood Urea Nitrogen 20 mg/dL (7-20) Creatinine 0.7 mg/dL (0.6-1.0) Estimated GFR (Cockcroft-Gault) 92.7 Glucose Level 118 mg/dL (70-99) Calcium Level 8.3 mg/dL (8.5-10.1) Laboratory Tests Test 03/30/20 07:45 03/30/20 15:49 O2 Saturation 98 % (92-99) Arterial Blood pH 7.42 (7.35-7.45) Arterial Blood pCO2 at Patient Temp 37 mmHg (35-46) Arterial Blood pO2 at Patient Temp 110 mmHg (75-108) Arterial Blood HCO3 24 mmol/L (21-28) Arterial Blood Base Excess -1 mmol/L (-3-3) FiO2 35 White Blood Count 7.0 x10^3/uL (4.0-11.0) Red Blood Count 3.87 x10^6/uL (3.50-5.40) Hemoglobin 11.7 g/dL (12.0-15.5) Hematocrit 34.6 % (36.0-47.0) Mean Corpuscular Volume 89 fL (79-100) Mean Corpuscular Hemoglobin 30 pg (25-35) Mean Corpuscular Hemoglobin Concent 34 g/dL (31-37) Red Cell Distribution Width 14.4 % (11.5-14.5) Platelet Count 385 x10^3/uL (140-400) Neutrophils (%) (Auto) 92 % (31-73) Lymphocytes (%) (Auto) 6 % (24-48) Monocytes (%) (Auto) 2 % (0-9) Eosinophils (%) (Auto) 0 % (0-3) Basophils (%) (Auto) 0 % (0-3) Neutrophils # (Auto) 6.4 x10^3/uL (1.8-7.7) Lymphocytes # (Auto) 0.4 x10^3/uL (1.0-4.8) Monocytes # (Auto) 0.1 x10^3/uL (0.0-1.1) Eosinophils # (Auto) 0.0 x10^3/uL (0.0-0.7) Basophils # (Auto) 0.0 x10^3/uL (0.0-0.2) Sodium Level 144 mmol/L (136-145) Potassium Level 4.1 mmol/L (3.5-5.1) Chloride Level 108 mmol/L (98-107) Carbon Dioxide Level 25 mmol/L (21-32) Anion Gap 11 (6-14) Blood Urea Nitrogen 20 mg/dL (7-20) Creatinine 0.7 mg/dL (0.6-1.0) Estimated GFR (Cockcroft-Gault) 92.7 Glucose Level 118 mg/dL (70-99) Calcium Level 8.3 mg/dL (8.5-10.1) Medications Active Scripts Medications Dose Route/Sig Max Daily Dose Days Date Category Levofloxacin 750 Mg Tablet 750 Mg PO DAILY06 03/16/20 Rx Amox Tr-K Clv 875-125 Mg Tab (Amoxicillin/Potassium Clav) 1 Each Tablet 1 Tab PO BID 03/16/20 Rx Guaifenesin Dm Syrup (Guaifenesin/Dextromethorphan) 5 Ml Syrup 10 Ml PO PRN Q6HRS PRN 10 03/16/20 Rx Temazepam 30 Mg Capsule 1 Cap PO PRN QHS PRN 03/13/20 Reported Culturelle (Lactobacillus Rhamnosus Gg) 1 Each Cap.sprink 1 Cap PO BID 30 01/10/20 Rx Orazinc (Zinc Sulfate) 220 Mg Capsule 220 Mg PO DAILY 30 01/10/20 Rx Vitamin C (Ascorbic Acid) 100 Mg Tablet 1 Tab PO DAILY 30 01/07/20 Reported Albuterol Sulfate Neb Soln (Albuterol Sulfate) 1.25 Mg/3 Ml Vial.neb 1 Vial NEB Q4-6HRS PRN 01/07/20 Reported Symbicort 160-4.5 Mcg Inhaler (Budesonide/Formoterol Fumarate) 10.2 Gm Hfa.aer.ad 2 Puff IH BID 01/07/20 Reported Trazodone Hcl 100 Mg Tablet 1 Tab PO QHS PRN 01/07/20 Reported Ondansetron Odt (Ondansetron) 4 Mg Tab.rapdis 1 Tab PO PRN Q6-8HRS PRN 05/31/18 Rx Comments cxr reviewed ett ok Stable patchy bilateral reticular and groundglass opacities in the lungs. cxr 03/29 reviewed Mild prominent bilateral interstitial lung markings likely interstitial infiltrates or congestive changes. Impression . IMPRESSION: 1. Acute hypoxemic hypercapnic respiratory failure. 2. Bilateral pulmonary infiltrates of unknown etiology. 3. Suspect pneumonia, gram-positive, gram-negative. 4. Possible acute lung injury/ARDS from polysubstance use. 5. History of autoimmune disease. 6. History of depression, posttraumatic stress disorder and anxiety. Plan . PLAN: 1. 02 titration 2. cont vent support setting reviewed, decrease sedation sbt when awake 3. DVT prophylaxis with Lovenox. 4. steroids for acute lung injury. change to 40 q 8hrs 5. cont abx fu cxs 6. elevate hob critically ill cc time 30 min no overlap ARASH SHAH MD Mar 31, 2020 06:22
[2020-03-31 07:58] LABS: BASE EXCESS ABG -2 mmol/L (-3-3); HCO3 ABG 22 mmol/L (21-28); PCO2 ABG 34 mmHg (35-46); PO2 ABG 110 mmHg (75-108); SAT O2 ABG 98 % (92-99)
[2020-03-31 08:00] LABS: FIO2 ABG 35
[2020-03-31] MEDS: IV NORMAL SALINE 1000ML BAG 1,000 ML IV SCH ×2 (08:40→21:22)
[2020-03-31] MEDS: DOXYCYCLINE HYCLATE 100 MG TABLET PO SCH ×2 (08:40→21:11)
[2020-03-31] MEDS: MIDAZOLAM 100mg/100ml NS BAG 100 ML IV PRN (09:31)
--- NOTE | 2020-03-31 09:40 | PDOC ---
Infectious Disease Note Subjective: Subjective Patient intubated/sedated Vital Signs: Vital Signs Vital Signs Date Time Temp Pulse Resp B/P (MAP) Pulse Ox O2 Delivery O2 Flow Rate FiO2 03/31/20 08:00 97.7 49 19 140/91 (107) 99 Ventilator 97.7 Physical Exam: PHYSICAL EXAM GENERAL: Intubated, sedated female. HEENT: Normocephalic, atraumatic, anicteric, no conjunctival petechiae. NECK: Supple. LUNGS: Decreased breath sounds. No wheezing. HEART: S1, S2. No gallops or murmurs. ETT and OGT tube in place. ABDOMEN: Soft, nontender, nondistended. GENITOURINARY: Urban in place. EXTREMITIES: No edema, no cyanosis, no clubbing, no peripheral stigmata of endocarditis. NEUROLOGIC: Sedated. PSYCHIATRIC: Unable to obtain. DERMATOLOGIC: Warm and dry. No generalized rash. Medications: Inpatient Meds: Current Medications Medications (Trade) Dose Ordered Sig/Andrei Start Time Stop Time Status Last Admin Dose Admin Atropine Sulfate (ATROPINE 0.5mg SYRINGE) 0.5 mg PRN Q5MIN PRN 03/29/20 20:15 Dexamethasone Sodium Phosphate (Decadron) 10 mg 1X ONCE 03/29/20 11:00 03/29/20 11:01 DC 03/29/20 12:03 10 MG Dexmedetomidine HCl 400 mcg/ Sodium Chloride 100 ml @ 3.07 mls/hr CONT PRN 03/29/20 20:00 03/31/20 09:04 3.07 MLS/HR Diphenhydramine HCl (Benadryl) 50 mg 1X ONCE 03/29/20 12:30 03/29/20 12:31 DC 03/29/20 12:34 50 MG Doxycycline Hyclate (Vibra-Tab) 100 mg BID 03/30/20 10:00 03/31/20 08:40 100 MG Enoxaparin Sodium (Lovenox 40mg Syringe) 40 mg Q24H 03/29/20 17:00 03/30/20 17:14 40 MG Enoxaparin Sodium (Lovenox Per Pharmacy Prophylaxis Dosing) 1 each PRN DAILY PRN 03/29/20 16:30 Etomidate (Amidate) 20 mg 1X ONCE 03/29/20 10:00 10/29/20 10:08 DC 03/29/20 10:15 20 MG Fentanyl Citrate (Fentanyl 2ml Vial) 25 mcg PRN Q1HR PRN 03/29/20 20:00 Info (CONTRAST GIVEN -- Rx MONITORING) 1 each PRN DAILY PRN 03/29/20 11:30 03/31/20 11:29 Iohexol (Omnipaque 350 Mg/ml) 100 ml 1X ONCE 03/29/20 11:15 03/29/20 11:18 DC 03/29/20 11:15 100 ML Levofloxacin/ Dextrose 150 ml @ 100 mls/hr 1X ONCE 03/29/20 11:00 03/29/20 12:29 DC 03/29/20 12:03 100 MLS/HR Methylprednisolone Sodium Succinate (SOLU-Medrol 40MG VIAL) 125 mg BID 03/29/20 21:00 03/30/20 14:56 DC 03/30/20 08:51 125 MG Methylprednisolone Sodium Succinate (SOLU-Medrol 125MG VIAL) 125 mg Q8HRS 03/30/20 22:00 03/31/20 06:10 125 MG Midazolam HCl 100 ml @ 1 mls/hr CONT PRN 03/30/20 08:00 03/31/20 09:31 2 MLS/HR Midazolam HCl (Versed) 5 mg 1X ONCE 03/29/20 12:15 03/29/20 12:16 DC 03/29/20 12:09 5 MG Morphine Sulfate (Morphine Sulfate) 10 mg STK-MED ONCE 03/29/20 12:11 03/29/20 12:11 DC Piperacillin Sod/ Tazobactam Sod 3.375 gm/Sodium Chloride 50 ml @ 100 mls/hr Q6HRS 03/30/20 12:00 03/31/20 05:51 100 MLS/HR Propofol 100 ml @ 0 mls/hr CONT PRN PRN 03/29/20 11:15 03/31/20 00:43 7.6 MLS/HR Propofol (Diprivan) 200 mg 1X ONCE 03/29/20 10:00 03/29/20 10:08 DC Rocuronium [place] (Zemuron) 100 mg 1X ONCE 03/29/20 12:30 03/29/20 12:31 DC 03/29/20 12:24 100 MG Sodium Chloride 500 ml @ 500 mls/hr 1X PRN PRN 03/29/20 20:15 Succinylcholine Chloride (Anectine) 200 mg STK-MED ONCE 03/29/20 10:16 03/29/20 10:17 DC Vancomycin HCl 1 gm/Sodium Chloride 250 ml @ 250 mls/hr 1X ONCE 03/29/20 19:15 03/29/20 20:14 DC 03/29/20 19:20 250 MLS/HR Labs: Lab Laboratory Tests Test 03/30/20 15:49 03/31/20 07:30 White Blood Count 7.0 x10^3/uL (4.0-11.0) Red Blood Count 3.87 x10^6/uL (3.50-5.40) Hemoglobin 11.7 g/dL (12.0-15.5) Hematocrit 34.6 % (36.0-47.0) Mean Corpuscular Volume 89 fL (79-100) Mean Corpuscular Hemoglobin 30 pg (25-35) Mean Corpuscular Hemoglobin Concent 34 g/dL (31-37) Red Cell Distribution Width 14.4 % (11.5-14.5) Platelet Count 385 x10^3/uL (140-400) Neutrophils (%) (Auto) 92 % (31-73) Lymphocytes (%) (Auto) 6 % (24-48) Monocytes (%) (Auto) 2 % (0-9) Eosinophils (%) (Auto) 0 % (0-3) Basophils (%) (Auto) 0 % (0-3) Neutrophils # (Auto) 6.4 x10^3/uL (1.8-7.7) Lymphocytes # (Auto) 0.4 x10^3/uL (1.0-4.8) Monocytes # (Auto) 0.1 x10^3/uL (0.0-1.1) Eosinophils # (Auto) 0.0 x10^3/uL (0.0-0.7) Basophils # (Auto) 0.0 x10^3/uL (0.0-0.2) Sodium Level 144 mmol/L (136-145) Potassium Level 4.1 mmol/L (3.5-5.1) Chloride Level 108 mmol/L (98-107) Carbon Dioxide Level 25 mmol/L (21-32) Anion Gap 11 (6-14) Blood Urea Nitrogen 20 mg/dL (7-20) Creatinine 0.7 mg/dL (0.6-1.0) Estimated GFR (Cockcroft-Gault) 92.7 Glucose Level 118 mg/dL (70-99) Calcium Level 8.3 mg/dL (8.5-10.1) O2 Saturation 98 % (92-99) Arterial Blood pH 7.42 (7.35-7.45) Arterial Blood pCO2 at Patient Temp 34 mmHg (35-46) Arterial Blood pO2 at Patient Temp 110 mmHg (75-108) Arterial Blood HCO3 22 mmol/L (21-28) Arterial Blood Base Excess -2 mmol/L (-3-3) FiO2 35 Objective: Assessment: 1. Leukocytosis. 2. Acute hypoxic respiratory failure, status post intubation. 3. Lactic acidosis. 4. History of substance dependence. 5. History of autoimmune disease, unknown treatment. 6. History of depression, posttraumatic stress disorder, anxiety. 7. History of eczema. 8. History of multiple hospitalizations for respiratory illness since early this year. Plan: Plan of Care Continue Zosyn and doxycycline. Status post one dose of vancomycin and Levaquin Follow up blood culture. Follow up COVID-19 PCR. On steroids. Follow up cultures and lab. Continue supportive care Discussed with DAVID. VICKIE QUINTEROS MD Mar 31, 2020 09:40
--- NOTE | 2020-03-31 09:52 | PDOC ---
[facility] PROGRESS NOTE Date of Service DOS: DATE: 03/31/20 TIME: 09:49 Chief Complaint Chief Complaint Fulminant respiratory failure Status post intubation and mechanical ventilation Polysubstance abuse, opiate abuse, marijuana abuse, methamphetamine abuse, anxiety, hypertension, asthma, bronchitis, depression, PTSD, autoimmune disorder, eczema, tobacco abuse. History of Present Illness History of Present Illness 03/31/2020 Patient seen and examined in the ICU Her Covid test wasnegative She remains intubated Assist-control/18/450/35% with 5 of PEEP Sedated with propofol Precedex and Versed Chart reviewed Discussed with RN She remains critically ill 03/30/2020 Patient seen in the COVID-19 ICU Covid testing still pending She is on the vent She is sedated with propofol and Dex and Versed Vent settings AC/18/450/30 5% with 5 of PEEP Chart reviewed Discussed with RN She is extremely critically ill Vitals/I&O Vitals/I&O: Vital Signs Date Time Temp Pulse Resp B/P (MAP) Pulse Ox O2 Delivery O2 Flow Rate FiO2 03/31/20 08:00 97.7 49 19 140/91 (107) 99 Ventilator 97.7 I & O 03/30/20 03/30/20 03/31/20 15:00 23:00 07:00 Intake Total 50 ml 1234 ml 1631 ml Output Total 335 ml 465 ml 765 ml Balance -285 ml 769 ml 866 ml Physical Exam Physical Exam: GENERAL: Intubated, sedated female. HEENT: Normocephalic, atraumatic, anicteric, no conjunctival petechiae. NECK: Supple. LUNGS: Decreased breath sounds. No wheezing. HEART: S1, S2. No gallops or murmurs. ETT and OGT tube in place. ABDOMEN: Soft, nontender, nondistended. GENITOURINARY: Urban in place. EXTREMITIES: No edema, no cyanosis, no clubbing, no peripheral stigmata of endocarditis. NEUROLOGIC: Sedated. PSYCHIATRIC: Unable to obtain. DERMATOLOGIC: Warm and dry. No generalized rash. General: No acute distress, Other (Sedated on the vent) Heart: Regular rate, Other (Sinus tach on the monitor) Lungs: Wheezing, Crackles Abdomen: Soft Extremities: No clubbing, Other (Knees are mottled) Skin: No rashes Labs Labs: Laboratory Tests Test 03/30/20 15:49 03/31/20 07:30 White Blood Count 7.0 x10^3/uL (4.0-11.0) Red Blood Count 3.87 x10^6/uL (3.50-5.40) Hemoglobin 11.7 g/dL (12.0-15.5) Hematocrit 34.6 % (36.0-47.0) Mean Corpuscular Volume 89 fL (79-100) Mean Corpuscular Hemoglobin 30 pg (25-35) Mean Corpuscular Hemoglobin Concent 34 g/dL (31-37) Red Cell Distribution Width 14.4 % (11.5-14.5) Platelet Count 385 x10^3/uL (140-400) Neutrophils (%) (Auto) 92 % (31-73) Lymphocytes (%) (Auto) 6 % (24-48) Monocytes (%) (Auto) 2 % (0-9) Eosinophils (%) (Auto) 0 % (0-3) Basophils (%) (Auto) 0 % (0-3) Neutrophils # (Auto) 6.4 x10^3/uL (1.8-7.7) Lymphocytes # (Auto) 0.4 x10^3/uL (1.0-4.8) Monocytes # (Auto) 0.1 x10^3/uL (0.0-1.1) Eosinophils # (Auto) 0.0 x10^3/uL (0.0-0.7) Basophils # (Auto) 0.0 x10^3/uL (0.0-0.2) Sodium Level 144 mmol/L (136-145) Potassium Level 4.1 mmol/L (3.5-5.1) Chloride Level 108 mmol/L (98-107) Carbon Dioxide Level 25 mmol/L (21-32) Anion Gap 11 (6-14) Blood Urea Nitrogen 20 mg/dL (7-20) Creatinine 0.7 mg/dL (0.6-1.0) Estimated GFR (Cockcroft-Gault) 92.7 Glucose Level 118 mg/dL (70-99) Calcium Level 8.3 mg/dL (8.5-10.1) O2 Saturation 98 % (92-99) Arterial Blood pH 7.42 (7.35-7.45) Arterial Blood pCO2 at Patient Temp 34 mmHg (35-46) Arterial Blood pO2 at Patient Temp 110 mmHg (75-108) Arterial Blood HCO3 22 mmol/L (21-28) Arterial Blood Base Excess -2 mmol/L (-3-3) FiO2 35 Review of Systems Review of Systems: Unable to obtain Assessment and Plan Assessmemt and Plan Problems Medical Problems: (1) Multifocal pneumonia Status: Acute (2) Respiratory failure Status: Acute (3) Suspected COVID-19 virus infection Status: Acute Fulminant respiratory failure likely COVID-19 viral pneumonia (testing still pending) Status post intubation and mechanical ventilation Polysubstance abuse, opiate abuse, marijuana abuse, methamphetamine abuse, anxiety, hypertension, asthma, bronchitis, depression, PTSD, autoimmune disorder, eczema, tobacco abuse. Plan IV antibiotics ICU monitoring Mechanical ventilation Vent weaning IV steroids Vitamins and minerals Infectious disease and pulmonary following Trend labs DVT prophylaxis Full code Home meds Prognosis extremely guarded at best She remains critically ill CC time 31 Comment Review of Relevant I have reviewed the following items janie (where applicable) has been applied. Medications: Current Medications Medications (Trade) Dose Ordered Sig/Andrei Route PRN Reason Start Time Stop Time Status Last Admin Dose Admin Piperacillin Sod/ Tazobactam Sod 3.375 gm/Sodium Chloride 50 ml @ 100 mls/hr Q6HRS IV 03/30/20 12:00 03/31/20 05:51 Doxycycline Hyclate (Vibra-Tab) 100 mg BID PO 03/30/20 10:00 03/31/20 08:40 Methylprednisolone Sodium Succinate (SOLU-Medrol 125MG VIAL) 125 mg 1X ONCE IV 03/30/20 15:00 03/30/20 15:01 DC 03/30/20 15:07 Methylprednisolone Sodium Succinate (SOLU-Medrol 125MG VIAL) 125 mg Q8HRS IV 03/30/20 22:00 03/31/20 06:10 Justifications for Admission Other Justification ROSELINE ESPOSITO III DO Mar 31, 2020 09:52
[2020-03-31] MEDS: ENOXAPARIN 40 MG/0.4 ML SYRINGE. SQ SCH (15:40)
[2020-03-31] MEDS: methylPREDNISolone SOD SUCC PF 40 MG/ML VIAL. IV SCH ×2 (15:40→21:22)
[2020-03-31] MEDS: FAMOTIDINE 20 MG/2 ML VIAL IVP SCH (21:11)
[2020-04-01] VITALS (21 sets, daily range): BP systolic 101–127; BP diastolic 59–83
[2020-04-01] MEDS: PROPOFOL 100 ML IV PRN ×4 (02:41→21:16)
[2020-04-01] MEDS: methylPREDNISolone SOD SUCC PF 40 MG/ML VIAL. IV SCH ×3 (05:50→21:15)
[2020-04-01] MEDS: PIPERACILLIN/TAZOBACTAM 3.375 GM in IV NORMAL SALINE 50ML 50 ML IV SCH ×3 (05:50→17:35)
--- NOTE | 2020-04-01 07:04 | PDOC ---
PULMONARY PROGRESS NOTES DATE: 04/01/20 TIME: 07:02 Subjective on vent sedated on versed propofol prcedex small ett secretion didnt tolerate sbt yesterday became tachypneac Vitals Vital Signs Date Time Temp Pulse Resp B/P (MAP) Pulse Ox O2 Delivery O2 Flow Rate FiO2 04/01/20 06:00 57 18 105/65 (78) 100 Ventilator 04/01/20 04:00 98.6 98.6 Comments sedated on vent HEENT: Other (nc at perrl nose clear orally intubated neck no lad no thyromegaly) Lungs: Crackles Cardiovascular: S1, S2 Abdomen: Soft, Non-tender Extremities: No Edema Skin: Warm Labs Laboratory Tests Test 03/30/20 07:45 03/30/20 15:49 03/31/20 07:30 O2 Saturation 98 % (92-99) 98 % (92-99) Arterial Blood pH 7.42 (7.35-7.45) 7.42 (7.35-7.45) Arterial Blood pCO2 at Patient Temp 37 mmHg (35-46) 34 mmHg (35-46) Arterial Blood pO2 at Patient Temp 110 mmHg (75-108) 110 mmHg (75-108) Arterial Blood HCO3 24 mmol/L (21-28) 22 mmol/L (21-28) Arterial Blood Base Excess -1 mmol/L (-3-3) -2 mmol/L (-3-3) FiO2 35 35 White Blood Count 7.0 x10^3/uL (4.0-11.0) Red Blood Count 3.87 x10^6/uL (3.50-5.40) Hemoglobin 11.7 g/dL (12.0-15.5) Hematocrit 34.6 % (36.0-47.0) Mean Corpuscular Volume 89 fL (79-100) Mean Corpuscular Hemoglobin 30 pg (25-35) Mean Corpuscular Hemoglobin Concent 34 g/dL (31-37) Red Cell Distribution Width 14.4 % (11.5-14.5) Platelet Count 385 x10^3/uL (140-400) Neutrophils (%) (Auto) 92 % (31-73) Lymphocytes (%) (Auto) 6 % (24-48) Monocytes (%) (Auto) 2 % (0-9) Eosinophils (%) (Auto) 0 % (0-3) Basophils (%) (Auto) 0 % (0-3) Neutrophils # (Auto) 6.4 x10^3/uL (1.8-7.7) Lymphocytes # (Auto) 0.4 x10^3/uL (1.0-4.8) Monocytes # (Auto) 0.1 x10^3/uL (0.0-1.1) Eosinophils # (Auto) 0.0 x10^3/uL (0.0-0.7) Basophils # (Auto) 0.0 x10^3/uL (0.0-0.2) Sodium Level 144 mmol/L (136-145) Potassium Level 4.1 mmol/L (3.5-5.1) Chloride Level 108 mmol/L (98-107) Carbon Dioxide Level 25 mmol/L (21-32) Anion Gap 11 (6-14) Blood Urea Nitrogen 20 mg/dL (7-20) Creatinine 0.7 mg/dL (0.6-1.0) Estimated GFR (Cockcroft-Gault) 92.7 Glucose Level 118 mg/dL (70-99) Calcium Level 8.3 mg/dL (8.5-10.1) Laboratory Tests Test 03/31/20 07:30 O2 Saturation 98 % (92-99) Arterial Blood pH 7.42 (7.35-7.45) Arterial Blood pCO2 at Patient Temp 34 mmHg (35-46) Arterial Blood pO2 at Patient Temp 110 mmHg (75-108) Arterial Blood HCO3 22 mmol/L (21-28) Arterial Blood Base Excess -2 mmol/L (-3-3) FiO2 35 Medications Active Scripts Medications Dose Route/Sig Max Daily Dose Days Date Category Levofloxacin 750 Mg Tablet 750 Mg PO DAILY06 5 03/16/20 Rx Amox Tr-K Clv 875-125 Mg Tab (Amoxicillin/Potassium Clav) 1 Each Tablet 1 Tab PO BID 5 03/16/20 Rx Guaifenesin Dm Syrup (Guaifenesin/Dextromethorphan) 5 Ml Syrup 10 Ml PO PRN Q6HRS PRN 10 03/16/20 Rx Temazepam 30 Mg Capsule 1 Cap PO PRN QHS PRN 03/13/20 Reported Culturelle (Lactobacillus Rhamnosus Gg) 1 Each Cap.sprink 1 Cap PO BID 30 01/10/20 Rx Orazinc (Zinc Sulfate) 220 Mg Capsule 220 Mg PO DAILY 30 01/10/20 Rx Vitamin C (Ascorbic Acid) 100 Mg Tablet 1 Tab PO DAILY 30 01/07/20 Reported Albuterol Sulfate Neb Soln (Albuterol Sulfate) 1.25 Mg/3 Ml Vial.neb 1 Vial NEB Q4-6HRS PRN 01/07/20 Reported Symbicort 160-4.5 Mcg Inhaler (Budesonide/Formoterol Fumarate) 10.2 Gm Hfa.aer.ad 2 Puff IH BID 01/07/20 Reported Trazodone Hcl 100 Mg Tablet 1 Tab PO QHS PRN 01/07/20 Reported Ondansetron Odt (Ondansetron) 4 Mg Tab.rapdis 1 Tab PO PRN Q6-8HRS PRN 05/31/18 Rx Comments cxr reviewed ett ok Stable patchy bilateral reticular and groundglass opacities in the lungs. cxr 03/29 reviewed Mild prominent bilateral interstitial lung markings likely interstitial infiltrates or congestive changes. Impression . IMPRESSION: 1. Acute hypoxemic hypercapnic respiratory failure. 2. Bilateral pulmonary infiltrates of unknown etiology. 3. Suspect pneumonia, gram-positive, gram-negative. 4. Possible acute lung injury/ARDS from polysubstance use. 5. History of autoimmune disease. 6. History of depression, posttraumatic stress disorder and anxiety. Plan . PLAN: 1. 02 titration to keep sat >94% 2. cont vent support setting reviewed, decrease sedation sbt when awake 3. DVT prophylaxis with Lovenox. 4. steroids for acute lung injury. 40 q 8hrs 5. cont abx fu cxs Zosyn and doxycycline. 6. elevate hob discussed w rn critically ill cc time 30 min no overlap ARASH SHAH MD Apr 01, 2020 07:04
--- NOTE | 2020-04-01 08:00 | PDOC ---
Infectious Disease Note Subjective: Subjective Patient intubated/sedated Vital Signs: Vital Signs Vital Signs Date Time Temp Pulse Resp B/P (MAP) Pulse Ox O2 Delivery O2 Flow Rate FiO2 04/01/20 06:00 57 18 105/65 (78) 100 Ventilator 04/01/20 04:00 98.6 98.6 Physical Exam: PHYSICAL EXAM GENERAL: Intubated, sedated female. HEENT: Normocephalic, atraumatic, anicteric, no conjunctival petechiae. NECK: Supple. LUNGS: Decreased breath sounds. No wheezing. HEART: S1, S2. No gallops or murmurs. ETT and OGT tube in place. ABDOMEN: Soft, nontender, nondistended. GENITOURINARY: Urban in place. EXTREMITIES: No edema, no cyanosis, no clubbing, no peripheral stigmata of endocarditis. NEUROLOGIC: Sedated. PSYCHIATRIC: Unable to obtain. DERMATOLOGIC: Warm and dry. No generalized rash. Medications: Inpatient Meds: Current Medications Medications (Trade) Dose Ordered Sig/Andrei Start Time Stop Time Status Last Admin Dose Admin Atropine Sulfate (ATROPINE 0.5mg SYRINGE) 0.5 mg PRN Q5MIN PRN 03/29/20 20:15 Dexamethasone Sodium Phosphate (Decadron) 10 mg 1X ONCE 03/29/20 11:00 03/29/20 11:01 DC 03/29/20 12:03 10 MG Dexmedetomidine HCl 400 mcg/ Sodium Chloride 100 ml @ 3.07 mls/hr CONT PRN 03/29/20 20:00 03/31/20 19:54 3.07 MLS/HR Diphenhydramine HCl (Benadryl) 50 mg 1X ONCE 03/29/20 12:30 03/29/20 12:31 DC 03/29/20 12:34 50 MG Doxycycline Hyclate (Vibra-Tab) 100 mg BID 03/30/20 10:00 03/31/20 21:11 100 MG Enoxaparin Sodium (Lovenox 40mg Syringe) 40 mg Q24H 03/29/20 17:00 03/31/20 15:40 40 MG Enoxaparin Sodium (Lovenox Per Pharmacy Prophylaxis Dosing) 1 each PRN DAILY PRN 03/29/20 16:30 Etomidate (Amidate) 20 mg 1X ONCE 03/29/20 10:00 03/29/20 10:08 DC 03/29/20 10:15 20 MG Famotidine (Pepcid Vial) 20 mg BID 03/31/20 21:00 03/31/20 21:11 20 MG Fentanyl Citrate (Fentanyl 2ml Vial) 25 mcg PRN Q1HR PRN 03/29/20 20:00 Info (CONTRAST GIVEN -- Rx MONITORING) 1 each PRN DAILY PRN 03/29/20 11:30 03/31/20 11:29 DC Iohexol (Omnipaque 350 Mg/ml) 100 ml 1X ONCE 03/29/20 11:15 03/29/20 11:18 DC 03/29/20 11:15 100 ML Levofloxacin/ Dextrose 150 ml @ 100 mls/hr 1X ONCE 03/29/20 11:00 03/29/20 12:29 DC 03/29/20 12:03 100 MLS/HR Methylprednisolone Sodium Succinate (SOLU-Medrol 40MG VIAL) 40 mg Q8HRS 03/31/20 14:00 04/01/20 05:50 40 MG Methylprednisolone Sodium Succinate (SOLU-Medrol 125MG VIAL) 125 mg Q8HRS 03/30/20 22:00 03/31/20 10:19 DC 03/31/20 06:10 125 MG Midazolam HCl 100 ml @ 1 mls/hr CONT PRN 03/30/20 08:00 03/31/20 09:31 2 MLS/HR Midazolam HCl (Versed) 5 mg 1X ONCE 03/29/20 12:15 03/29/20 12:16 DC 03/29/20 12:09 5 MG Morphine Sulfate (Morphine Sulfate) 10 mg STK-MED ONCE 03/29/20 12:11 03/29/20 12:11 DC Piperacillin Sod/ Tazobactam Sod 3.375 gm/Sodium Chloride 50 ml @ 100 mls/hr Q6HRS 03/30/20 12:00 04/01/20 05:50 100 MLS/HR Propofol 100 ml @ 0 mls/hr CONT PRN PRN 03/29/20 11:15 04/01/20 02:41 13.4 MLS/HR Propofol (Diprivan) 200 mg 1X ONCE 03/29/20 10:00 03/29/20 10:08 DC Rocuronium [place] (Zemuron) 100 mg 1X ONCE 03/29/20 12:30 03/29/20 12:31 DC 03/29/20 12:24 100 MG Sodium Chloride 500 ml @ 500 mls/hr 1X PRN PRN 03/29/20 20:15 Succinylcholine Chloride (Anectine) 200 mg STK-MED ONCE 03/29/20 10:16 03/29/20 10:17 DC Vancomycin HCl 1 gm/Sodium Chloride 250 ml @ 250 mls/hr 1X ONCE 03/29/20 19:15 03/29/20 20:14 DC 03/29/20 19:20 250 MLS/HR Labs: Micro Cultures negative so far Objective: Assessment: 1. Leukocytosis. Improved 2. Acute hypoxic respiratory failure, status post intubation. Covid negative 3. Lactic acidosis. 4. History of substance dependence. 5. History of autoimmune disease, unknown treatment. 6. History of depression, posttraumatic stress disorder, anxiety. 7. History of eczema. 8. History of multiple hospitalizations for respiratory illness since early this year. Plan: Plan of Care Continue Zosyn and doxycycline. - Status post one dose of vancomycin and Levaquin Follow up blood culture negative so far. On steroids. Follow up cultures and lab. Continue supportive care Discussed with VICKIE MATUTE MD Apr 01, 2020 08:00
[2020-04-01] MEDS: DEXMEDETOMIDINE 400 MCG in IV NORMAL SALINE 100ML 96 ML IV PRN ×2 (08:05→19:48)
[2020-04-01] MEDS: FAMOTIDINE 20 MG/2 ML VIAL IVP SCH ×2 (08:07→21:16)
[2020-04-01] MEDS: DOXYCYCLINE HYCLATE 100 MG TABLET PO SCH ×2 (08:07→21:15)
[2020-04-01 08:16] LABS: BASE EXCESS ABG -2 mmol/L (-3-3); HCO3 ABG 23 mmol/L (21-28); PCO2 ABG 36 mmHg (35-46); PO2 ABG 87 mmHg (75-108); SAT O2 ABG 96 % (92-99)
[2020-04-01 09:18] LABS: FIO2 ABG 35% VENT
--- NOTE | 2020-04-01 09:42 | NUR ---
0800 sedation shut off and by 0815 patient with non stop coughing. not following commands, sedation restarted.
[2020-04-01] MEDS: IV NORMAL SALINE 1000ML BAG 1,000 ML IV SCH (10:22)
--- NOTE | 2020-04-01 12:19 | PDOC ---
[employer] PROGRESS NOTE Date of Service DOS: DATE: 04/01/20 TIME: 12:17 Chief Complaint Chief Complaint Fulminant respiratory failure Status post intubation and mechanical ventilation Polysubstance abuse, opiate abuse, marijuana abuse, methamphetamine abuse, anxiety, hypertension, asthma, bronchitis, depression, PTSD, autoimmune disorder, eczema, tobacco abuse. History of Present Illness History of Present Illness 04/01/2020 Patient seen and examined in the ICU She remains mechanically ventilated Assist-control/20/450/30 5% with 5 of PEEP Chart reviewed Discussed with RN She remains critically ill 03/31/2020 Patient seen and examined in the ICU Her Covid test wasnegative She remains intubated Assist-control/18/450/35% with 5 of PEEP Sedated with propofol Precedex and Versed Chart reviewed Discussed with RN She remains critically ill 03/30/2020 Patient seen in the COVID-19 ICU Covid testing still pending She is on the vent She is sedated with propofol and Dex and Versed Vent settings AC/18/450/30 5% with 5 of PEEP Chart reviewed Discussed with RN She is extremely critically ill Vitals/I&O Vitals/I&O: Vital Signs Date Time Temp Pulse Resp B/P (MAP) Pulse Ox O2 Delivery O2 Flow Rate FiO2 04/01/20 11:52 Mechanical Ventilator 04/01/20 11:49 98.2 54 20 120/78 (92) 99 98.2 I & O 03/31/20 03/31/20 04/01/20 15:00 23:00 07:00 Intake Total 1061 ml 1198 ml Output Total 370 ml 460 ml 455 ml Balance -370 ml 601 ml 743 ml Physical Exam Physical Exam: GENERAL: Intubated, sedated female. HEENT: Normocephalic, atraumatic, anicteric, no conjunctival petechiae. NECK: Supple. LUNGS: Decreased breath sounds. No wheezing. HEART: S1, S2. No gallops or murmurs. ETT and OGT tube in place. ABDOMEN: Soft, nontender, nondistended. GENITOURINARY: Urban in place. EXTREMITIES: No edema, no cyanosis, no clubbing, no peripheral stigmata of endocarditis. NEUROLOGIC: Sedated. PSYCHIATRIC: Unable to obtain. DERMATOLOGIC: Warm and dry. No generalized rash. General: No acute distress, Other (Sedated on the vent) Heart: Regular rate, Other (Sinus tach on the monitor) Lungs: Crackles Abdomen: Soft Extremities: No clubbing, Other (Knees are mottled) Skin: No rashes Labs Labs: Laboratory Tests Test 04/01/20 08:00 O2 Saturation 96 % (92-99) Arterial Blood pH 7.41 (7.35-7.45) Arterial Blood pCO2 at Patient Temp 36 mmHg (35-46) Arterial Blood pO2 at Patient Temp 87 mmHg (75-108) Arterial Blood HCO3 23 mmol/L (21-28) Arterial Blood Base Excess -2 mmol/L (-3-3) FiO2 35% vent Review of Systems Review of Systems: Unable to obtain Assessment and Plan Assessmemt and Plan Problems Medical Problems: (1) Multifocal pneumonia Status: Acute (2) Respiratory failure Status: Acute (3) Suspected COVID-19 virus infection Status: Acute Fulminant respiratory Status post intubation and mechanical ventilation Polysubstance abuse, opiate abuse, marijuana abuse, methamphetamine abuse, anxiety, hypertension, asthma, bronchitis, depression, PTSD, autoimmune disorder, eczema, tobacco abuse. Plan IV antibiotics ICU monitoring Mechanical ventilation Vent weaning IV steroids Vitamins and minerals Infectious disease and pulmonary following Trend labs DVT prophylaxis Full code Home meds Prognosis guarded CC time 32 minutes Comment Review of Relevant I have reviewed the following items janie (where applicable) has been applied. Medications: Current Medications Medications (Trade) Dose Ordered Sig/Andrei Route PRN Reason Start Time Stop Time Status Last Admin Dose Admin Methylprednisolone Sodium Succinate (SOLU-Medrol 40MG VIAL) 40 mg Q8HRS IV 03/31/20 14:00 04/01/20 05:50 Famotidine (Pepcid Vial) 20 mg BID IVP 03/31/20 21:00 04/01/20 08:07 Justifications for Admission Other Justification ROSELINE ESPOSITO III DO Apr 01, 2020 12:19
[2020-04-01] MEDS: MIDAZOLAM 100mg/100ml NS BAG 100 ML IV PRN (16:01)
[2020-04-01] MEDS: ENOXAPARIN 40 MG/0.4 ML SYRINGE. SQ SCH (17:35)
[2020-04-02] VITALS (15 sets, daily range): BP systolic 91–133; BP diastolic 55–85
[2020-04-02] MEDS: IV NORMAL SALINE 1000ML BAG 1,000 ML IV SCH ×2 (00:08→13:50)
[2020-04-02] MEDS: PIPERACILLIN/TAZOBACTAM 3.375 GM in IV NORMAL SALINE 50ML 50 ML IV SCH ×5 (00:08→23:56)
[2020-04-02] MEDS: PROPOFOL 100 ML IV PRN ×2 (01:39→07:42)
[2020-04-02] MEDS: MIDAZOLAM 100mg/100ml NS BAG 100 ML IV PRN (05:14)
[2020-04-02] MEDS: DEXMEDETOMIDINE 400 MCG in IV NORMAL SALINE 100ML 96 ML IV PRN (05:14)
[2020-04-02] MEDS: methylPREDNISolone SOD SUCC PF 40 MG/ML VIAL. IV SCH ×3 (05:58→22:06)
--- NOTE | 2020-04-02 08:26 | PDOC ---
PULMONARY PROGRESS NOTES DATE: 04/02/20 TIME: 08:26 Subjective PT. awake and restless on vent, ready for extubation No overnight concerns from nursing Vitals Vital Signs Date Time Temp Pulse Resp B/P (MAP) Pulse Ox O2 Delivery O2 Flow Rate FiO2 04/02/20 07:00 54 18 96/59 (71) 98 Ventilator 04/02/20 04:00 97.6 97.6 Comments Intubated General: Alert HEENT: Other (nc at perrl nose clear orally intubated neck no lad no thyromegaly) Lungs: Crackles Cardiovascular: S1, S2 Abdomen: Soft, Non-tender Extremities: No Edema Skin: Warm Labs Laboratory Tests Test 04/01/20 08:00 O2 Saturation 96 % (92-99) Arterial Blood pH 7.41 (7.35-7.45) Arterial Blood pCO2 at Patient Temp 36 mmHg (35-46) Arterial Blood pO2 at Patient Temp 87 mmHg (75-108) Arterial Blood HCO3 23 mmol/L (21-28) Arterial Blood Base Excess -2 mmol/L (-3-3) FiO2 35% vent Medications Active Scripts Medications Dose Route/Sig Max Daily Dose Days Date Category Levofloxacin 750 Mg Tablet 750 Mg PO DAILY06 5 03/16/20 Rx Amox Tr-K Clv 875-125 Mg Tab (Amoxicillin/Potassium Clav) 1 Each Tablet 1 Tab PO BID 5 03/16/20 Rx Guaifenesin Dm Syrup (Guaifenesin/Dextromethorphan) 5 Ml Syrup 10 Ml PO PRN Q6HRS PRN 10 03/16/20 Rx Temazepam 30 Mg Capsule 1 Cap PO PRN QHS PRN 03/13/20 Reported Culturelle (Lactobacillus Rhamnosus Gg) 1 Each Cap.sprink 1 Cap PO BID 30 01/10/20 Rx Orazinc (Zinc Sulfate) 220 Mg Capsule 220 Mg PO DAILY 30 01/10/20 Rx Vitamin C (Ascorbic Acid) 100 Mg Tablet 1 Tab PO DAILY 30 01/07/20 Reported Albuterol Sulfate Neb Soln (Albuterol Sulfate) 1.25 Mg/3 Ml Vial.neb 1 Vial NEB Q4-6HRS PRN 01/07/20 Reported Symbicort 160-4.5 Mcg Inhaler (Budesonide/Formoterol Fumarate) 10.2 Gm Hfa.aer.ad 2 Puff IH BID 01/07/20 Reported Trazodone Hcl 100 Mg Tablet 1 Tab PO QHS PRN 01/07/20 Reported Ondansetron Odt (Ondansetron) 4 Mg Tab.rapdis 1 Tab PO PRN Q6-8HRS PRN 05/31/18 Rx Comments cxr reviewed ett ok Stable patchy bilateral reticular and groundglass opacities in the lungs. cxr 03/29 reviewed Mild prominent bilateral interstitial lung markings likely interstitial infiltrates or congestive changes. Impression . IMPRESSION: 1. Acute hypoxemic hypercapnic respiratory failure. 2. Bilateral pulmonary infiltrates of unknown etiology. 3. Suspect pneumonia, gram-positive, gram-negative. 4. Possible acute lung injury/ARDS from polysubstance use. 5. History of autoimmune disease. 6. History of depression, posttraumatic stress disorder and anxiety. Plan . PLAN: proceed with extubation, supplemental oxygen if need to keep sats aboe 94 % Taper steroids follow ID recs for ABX DVT/GI PPX D/W RN and RT pt. is stable post extubation, we will sign off Critical Care Time [id number] RANDOLPH WINN MD Apr 02, 2020 08:26
[2020-04-02] MEDS: DOXYCYCLINE HYCLATE 100 MG TABLET PO SCH ×2 (08:29→22:04)
[2020-04-02] MEDS: FAMOTIDINE 20 MG/2 ML VIAL IVP SCH ×2 (08:30→22:05)
[2020-04-02 09:10] LABS: BASE EXCESS ABG -2 mmol/L (-3-3); HCO3 ABG 22 mmol/L (21-28); PCO2 ABG 33 mmHg (35-46); PO2 ABG 74 mmHg (75-108); SAT O2 ABG 95 % (92-99)
[2020-04-02 09:15] LABS: FIO2 ABG 35%
--- NOTE | 2020-04-02 11:13 | PDOC ---
Infectious Disease Note Subjective: Subjective Patient extubated this morning States feels tired On O2 Denies fever, nausea, vomiting, diarrhea Vital Signs: Vital Signs Vital Signs Date Time Temp Pulse Resp B/P (MAP) Pulse Ox O2 Delivery O2 Flow Rate FiO2 04/02/20 10:00 Mechanical Ventilator 04/02/20 10:00 65 18 105/63 (77) 99 04/02/20 08:00 98.9 98.9 Physical Exam: PHYSICAL EXAM GENERAL: Alert awake HEENT: Normocephalic, atraumatic, anicteric, no conjunctival petechiae. NECK: Supple. LUNGS: Decreased breath sounds. No wheezing. HEART: S1, S2. No gallops or murmurs. ABDOMEN: Soft, nontender, nondistended. GENITOURINARY: Urban in place. EXTREMITIES: No edema, no cyanosis, no clubbing, no peripheral stigmata of endocarditis. NEUROLOGIC: Alert awake PSYCHIATRIC: Unable to obtain. DERMATOLOGIC: Warm and dry. No generalized rash. Medications: Inpatient Meds: Current Medications Medications (Trade) Dose Ordered Sig/Andrei Start Time Stop Time Status Last Admin Dose Admin Atropine Sulfate (ATROPINE 0.5mg SYRINGE) 0.5 mg PRN Q5MIN PRN 03/29/20 20:15 Dexamethasone Sodium Phosphate (Decadron) 10 mg 1X ONCE 03/29/20 11:00 03/29/20 11:01 DC 03/29/20 12:03 10 MG Dexmedetomidine HCl 400 mcg/ Sodium Chloride 100 ml @ 3.07 mls/hr CONT PRN 03/29/20 20:00 04/02/20 05:14 3.07 MLS/HR Diphenhydramine HCl (Benadryl) 50 mg 1X ONCE 03/29/20 12:30 03/29/20 12:31 DC 03/29/20 12:34 50 MG Doxycycline Hyclate (Vibra-Tab) 100 mg BID 03/30/20 10:00 04/02/20 08:29 100 MG Enoxaparin Sodium (Lovenox 40mg Syringe) 40 mg Q24H 03/29/20 17:00 04/01/20 17:35 40 MG Enoxaparin Sodium (Lovenox Per Pharmacy Prophylaxis Dosing) 1 each PRN DAILY PRN 03/29/20 16:30 Etomidate (Amidate) 20 mg 1X ONCE 03/29/20 10:00 03/29/20 10:08 DC 03/29/20 10:15 20 MG Famotidine (Pepcid Vial) 20 mg BID 03/31/20 21:00 04/02/20 08:30 20 MG Fentanyl Citrate (Fentanyl 2ml Vial) 25 mcg PRN Q1HR PRN 03/29/20 20:00 Info (CONTRAST GIVEN -- Rx MONITORING) 1 each PRN DAILY PRN 03/29/20 11:30 03/31/20 11:29 DC Iohexol (Omnipaque 350 Mg/ml) 100 ml 1X ONCE 03/29/20 11:15 03/29/20 11:18 DC 03/29/20 11:15 100 ML Levofloxacin/ Dextrose 150 ml @ 100 mls/hr 1X ONCE 03/29/20 11:00 03/29/20 12:29 DC 03/29/20 12:03 100 MLS/HR Methylprednisolone Sodium Succinate (SOLU-Medrol 40MG VIAL) 40 mg Q8HRS 03/31/20 14:00 04/02/20 05:58 40 MG Methylprednisolone Sodium Succinate (SOLU-Medrol 125MG VIAL) 125 mg Q8HRS 03/30/20 22:00 03/31/20 10:19 DC 03/31/20 06:10 125 MG Midazolam HCl 100 ml @ 1 mls/hr CONT PRN 03/30/20 08:00 04/02/20 05:14 2 MLS/HR Midazolam HCl (Versed) 5 mg 1X ONCE 03/29/20 12:15 03/29/20 12:16 DC 03/29/20 12:09 5 MG Morphine Sulfate (Morphine Sulfate) 10 mg STK-MED ONCE 03/29/20 12:11 03/29/20 12:11 DC Piperacillin Sod/ Tazobactam Sod 3.375 gm/Sodium Chloride 50 ml @ 100 mls/hr Q6HRS 03/30/20 12:00 04/02/20 05:58 100 MLS/HR Propofol 100 ml @ 0 mls/hr CONT PRN PRN 03/29/20 11:15 04/02/20 07:42 15.3 MLS/HR Propofol (Diprivan) 200 mg 1X ONCE 03/29/20 10:00 03/29/20 10:08 DC Rocuronium [place] (Zemuron) 100 mg 1X ONCE 03/29/20 12:30 03/29/20 12:31 DC 03/29/20 12:24 100 MG Sodium Chloride 500 ml @ 500 mls/hr 1X PRN PRN 03/29/20 20:15 Succinylcholine Chloride (Anectine) 200 mg STK-MED ONCE 03/29/20 10:16 03/29/20 10:17 DC Vancomycin HCl 1 gm/Sodium Chloride 250 ml @ 250 mls/hr 1X ONCE 03/29/20 19:15 03/29/20 20:14 DC 03/29/20 19:20 250 MLS/HR Labs: Lab Laboratory Tests Test 04/02/20 09:05 O2 Saturation 95 % (92-99) Arterial Blood pH 7.44 (7.35-7.45) Arterial Blood pCO2 at Patient Temp 33 mmHg (35-46) Arterial Blood pO2 at Patient Temp 74 mmHg (75-108) Arterial Blood HCO3 22 mmol/L (21-28) Arterial Blood Base Excess -2 mmol/L (-3-3) FiO2 35% Micro Cultures negative so far Objective: Assessment: 1. Leukocytosis. Improved 2. Acute hypoxic respiratory failure, status post intubation. Covid negative now extubated 3. Lactic acidosis. Resolved 4. History of substance dependence. 5. History of autoimmune disease, unknown treatment. 6. History of depression, posttraumatic stress disorder, anxiety. 7. History of eczema. 8. History of multiple hospitalizations for respiratory illness since early this year. Plan: Plan of Care Continue Zosyn and doxycycline. - Status post one dose of vancomycin and Levaquin Follow up blood culture negative so far. On steroids. Follow up cultures and lab. Continue supportive care Discussed with VICKIE MATUTE MD Apr 02, 2020 11:13
--- NOTE | 2020-04-02 11:55 | PDOC ---
[employer] PROGRESS NOTE Date of Service DOS: DATE: 04/02/20 TIME: 11:50 Chief Complaint Chief Complaint Fulminant respiratory failure Status post intubation and mechanical ventilation Polysubstance abuse, opiate abuse, marijuana abuse, methamphetamine abuse, anxiety, hypertension, asthma, bronchitis, depression, PTSD, autoimmune disorder, eczema, tobacco abuse. History of Present Illness History of Present Illness 04/02/2020 Patient seen and examined in the ICU Was still intubated earlier this morning (AC/18/450/30 5% with 5 of PEEP and sedated with propofol Dex and Versed) As of a few minutes ago we just went ahead and extubated her, she seems angry and is cussing at the nurse Chart reviewed Discussed with RN 04/01/2020 Patient seen and examined in the ICU She remains mechanically ventilated Assist-control//450/30 5% with 5 of PEEP Chart reviewed Discussed with RN She remains critically ill 03/31/2020 Patient seen and examined in the ICU Her Covid test wasnegative She remains intubated Assist-control/18/450/35% with 5 of PEEP Sedated with propofol Precedex and Versed Chart reviewed Discussed with RN She remains critically ill 03/30/2020 Patient seen in the COVID-19 ICU Covid testing still pending She is on the vent She is sedated with propofol and Dex and Versed Vent settings AC/18/450/30 5% with 5 of PEEP Chart reviewed Discussed with RN She is extremely critically ill Vitals/I&O Vitals/I&O: Vital Signs Date Time Temp Pulse Resp B/P (MAP) Pulse Ox O2 Delivery O2 Flow Rate FiO2 04/02/20 10:50 Nasal Cannula 2.0 04/02/20 10:00 65 18 105/63 (77) 99 04/02/20 08:00 98.9 98.9 I & O 04/01/20 04/01/20 04/02/20 15:00 23:00 07:00 Intake Total 1351 ml 1441 ml Output Total 415 ml 390 ml 285 ml Balance -415 ml 961 ml 1156 ml Physical Exam Physical Exam: At time of my exam this morning she was; GENERAL: Intubated, sedated female. HEENT: Normocephalic, atraumatic, anicteric, no conjunctival petechiae. NECK: Supple. LUNGS: Decreased breath sounds. No wheezing. HEART: S1, S2. No gallops or murmurs. ETT and OGT tube in place. ABDOMEN: Soft, nontender, nondistended. GENITOURINARY: Urban in place. EXTREMITIES: No edema, no cyanosis, no clubbing, no peripheral stigmata of endocarditis. NEUROLOGIC: Sedated. PSYCHIATRIC: Unable to obtain. DERMATOLOGIC: Warm and dry. No generalized rash. General: No acute distress, Other (Sedated on the vent) Heart: Regular rate, Other (Sinus tach on the monitor) Lungs: Crackles Abdomen: Soft Extremities: No clubbing, Other (Knees are mottled) Skin: No rashes Labs Labs: Laboratory Tests Test 04/02/20 09:05 O2 Saturation 95 % (92-99) Arterial Blood pH 7.44 (7.35-7.45) Arterial Blood pCO2 at Patient Temp 33 mmHg (35-46) Arterial Blood pO2 at Patient Temp 74 mmHg (75-108) Arterial Blood HCO3 22 mmol/L (21-28) Arterial Blood Base Excess -2 mmol/L (-3-3) FiO2 35% Review of Systems Review of Systems: Unable to obtain this morning when she was intubated but now she is extubated but will not talk Assessment and Plan Assessmemt and Plan Problems Medical Problems: (1) Multifocal pneumonia Status: Acute (2) Respiratory failure Status: Acute (3) Suspected COVID-19 virus infection Status: Acute Resolving fulminant respiratory failure Status post intubation and mechanical ventilation Polysubstance abuse, opiate abuse, marijuana abuse, methamphetamine abuse, anxiety, hypertension, asthma, bronchitis, depression, PTSD, autoimmune disorder, eczema, tobacco abuse. Plan ICU monitoring Breathing treatments O2 per nasal cannula Appreciate pulmonary input We just extubated her so she is going to need speech therapy to eval PT OT Home meds DVT prophylaxis Trend labs Hope to start a diet sometime today if speech therapy agrees Full code I am concerned she may leave AMA because she has a history of street drug use including IV heroin and meth Long-term prognosis guarded Comment Review of Relevant I have reviewed the following items janie (where applicable) has been applied. Justifications for Admission Other Justification ROSELINE ESPOSITO III, DO Apr 02, 2020 11:54
[2020-04-02] MEDS: fentaNYL PF VIAL 100 MCG/2 ML VIAL IV PRN ×2 (14:51→18:10)
[2020-04-02] MEDS: ALPRAZolam 0.5 MG TABLET PO PRN (14:51)
--- NOTE | 2020-04-02 15:12 | NUR ---
SS following up with discharge planning. SS reviewed pt chart and discussed with pt RN. Pt now extubated. Pt on IV Zosyn. PAT team notified and met with pt. Pt was given referral for Intensive Case Management with [facility]. Pt transferring to room 424. Kathy GOMES, to follow.
--- NOTE | 2020-04-02 16:40 | NUR ---
Patient transferred here from ICU around 1600. Patient VS are stable and was left comfortable in bed with call light in reach.
[2020-04-02] MEDS: ENOXAPARIN 40 MG/0.4 ML SYRINGE. SQ SCH (18:13)
[2020-04-03] MEDS: ALPRAZolam 0.5 MG TABLET PO PRN (01:15)
[2020-04-03] MEDS: fentaNYL PF VIAL 100 MCG/2 ML VIAL IV PRN ×2 (03:07→07:28)
[2020-04-03] MEDS: IV NORMAL SALINE 1000ML BAG 1,000 ML IV SCH (03:10)
[2020-04-03 04:00] VITALS: BP 136/74
[2020-04-03] MEDS: PIPERACILLIN/TAZOBACTAM 3.375 GM in IV NORMAL SALINE 50ML 50 ML IV SCH (06:10)
[2020-04-03] MEDS: methylPREDNISolone SOD SUCC PF 40 MG/ML VIAL. IV SCH (06:10)
[2020-04-03 07:00] VITALS: BP 131/84
--- NOTE | 2020-04-03 08:23 | PDOC ---
Infectious Disease Note Subjective: Subjective Patient transferred out of ICU yesterday Remains off oxygen Denies fever, nausea, vomiting, some cough and loose bm Vital Signs: Vital Signs Vital Signs Date Time Temp Pulse Resp B/P (MAP) Pulse Ox O2 Delivery O2 Flow Rate FiO2 04/03/20 07:40 Room Air 04/03/20 04:00 98.5 81 18 136/74 (94) 100 98.5 04/02/20 12:00 2.0 Physical Exam: PHYSICAL EXAM GENERAL: Alert awake HEENT: Normocephalic, atraumatic, anicteric, no conjunctival petechiae. NECK: Supple. LUNGS: Decreased breath sounds. No wheezing. HEART: S1, S2. No gallops or murmurs. ABDOMEN: Soft, nontender, nondistended. GENITOURINARY: Urban in place. EXTREMITIES: No edema, no cyanosis, no clubbing, no peripheral stigmata of endocarditis. NEUROLOGIC: Alert awake PSYCHIATRIC: Unable to obtain. DERMATOLOGIC: Warm and dry. No generalized rash. Medications: Inpatient Meds: Current Medications Medications (Trade) Dose Ordered Sig/Andrei Start Time Stop Time Status Last Admin Dose Admin Alprazolam (Xanax) 0.5 mg PRN Q8HRS PRN 04/02/20 14:45 04/03/20 01:15 0.5 MG Atropine Sulfate (ATROPINE 0.5mg SYRINGE) 0.5 mg PRN Q5MIN PRN 03/29/20 20:15 Dexamethasone Sodium Phosphate (Decadron) 10 mg 1X ONCE 03/29/20 11:00 03/29/20 11:01 DC 03/29/20 12:03 10 MG Dexmedetomidine HCl 400 mcg/ Sodium Chloride 100 ml @ 3.07 mls/hr CONT PRN 03/29/20 20:00 04/02/20 05:14 3.07 MLS/HR Diphenhydramine HCl (Benadryl) 50 mg 1X ONCE 03/29/20 12:30 03/29/20 12:31 DC 03/29/20 12:34 50 MG Doxycycline Hyclate (Vibra-Tab) 100 mg BID 03/30/20 10:00 04/02/20 22:04 100 MG Enoxaparin Sodium (Lovenox 40mg Syringe) 40 mg Q24H 03/29/20 17:00 04/02/20 18:13 40 MG Enoxaparin Sodium (Lovenox Per Pharmacy Prophylaxis Dosing) 1 each PRN DAILY PRN 03/29/20 16:30 Etomidate (Amidate) 20 mg 1X ONCE 03/29/20 10:00 03/29/20 10:08 DC 03/29/20 10:15 20 MG Famotidine (Pepcid Vial) 20 mg BID 03/31/20 21:00 04/02/20 22:05 20 MG Fentanyl Citrate (Fentanyl 2ml Vial) 25 mcg PRN Q1HR PRN 03/29/20 20:00 04/03/20 07:28 25 MCG Info (CONTRAST GIVEN -- Rx MONITORING) 1 each PRN DAILY PRN 03/29/20 11:30 03/31/20 11:29 DC Iohexol (Omnipaque 350 Mg/ml) 100 ml 1X ONCE 03/29/20 11:15 03/29/20 11:18 DC 03/29/20 11:15 100 ML Levofloxacin/ Dextrose 150 ml @ 100 mls/hr 1X ONCE 03/29/20 11:00 03/29/20 12:29 DC 03/29/20 12:03 100 MLS/HR Methylprednisolone Sodium Succinate (SOLU-Medrol 40MG VIAL) 40 mg Q8HRS 03/31/20 14:00 04/03/20 06:10 40 MG Methylprednisolone Sodium Succinate (SOLU-Medrol 125MG VIAL) 125 mg Q8HRS 03/30/20 22:00 03/31/20 10:19 DC 03/31/20 06:10 125 MG Midazolam HCl 100 ml @ 1 mls/hr CONT PRN 03/30/20 08:00 04/02/20 05:14 2 MLS/HR Midazolam HCl (Versed) 5 mg 1X ONCE 03/29/20 12:15 03/29/20 12:16 DC 03/29/20 12:09 5 MG Morphine Sulfate (Morphine Sulfate) 10 mg STK-MED ONCE 03/29/20 12:11 03/29/20 12:11 DC Piperacillin Sod/ Tazobactam Sod 3.375 gm/Sodium Chloride 50 ml @ 100 mls/hr Q6HRS 03/30/20 12:00 04/03/20 06:10 100 MLS/HR Propofol 100 ml @ 0 mls/hr CONT PRN PRN 03/29/20 11:15 04/02/20 07:42 15.3 MLS/HR Propofol (Diprivan) 200 mg 1X ONCE 03/29/20 10:00 03/29/20 10:08 DC Rocuronium [place] (Zemuron) 100 mg 1X ONCE 03/29/20 12:30 03/29/20 12:31 DC 03/29/20 12:24 100 MG Sodium Chloride 500 ml @ 500 mls/hr 1X PRN PRN 03/29/20 20:15 Succinylcholine Chloride (Anectine) 200 mg STK-MED ONCE 03/29/20 10:16 03/29/20 10:17 DC Vancomycin HCl 1 gm/Sodium Chloride 250 ml @ 250 mls/hr 1X ONCE 03/29/20 19:15 03/29/20 20:14 DC 03/29/20 19:20 250 MLS/HR Labs: Lab Laboratory Tests Test 04/02/20 09:05 O2 Saturation 95 % (92-99) Arterial Blood pH 7.44 (7.35-7.45) Arterial Blood pCO2 at Patient Temp 33 mmHg (35-46) Arterial Blood pO2 at Patient Temp 74 mmHg (75-108) Arterial Blood HCO3 22 mmol/L (21-28) Arterial Blood Base Excess -2 mmol/L (-3-3) FiO2 35% Micro Cultures negative so far Objective: Assessment: 1. Leukocytosis. Improved 2. Acute hypoxic respiratory failure, status post intubation. Covid negative now extubated 3. Lactic acidosis. Resolved 4. History of substance dependence. 5. History of autoimmune disease, unknown treatment. 6. History of depression, posttraumatic stress disorder, anxiety. 7. History of eczema. 8. History of multiple hospitalizations for respiratory illness since early this year. Plan: Plan of Care DC Zosyn cont doxy Follow up blood culture negative so far. f/u hiv and hepatitis serologies Follow up cultures and lab. Continue supportive care Discussed with DAVID. VICKIE QUINTEROS MD Apr 03, 2020 08:23
--- NOTE | 2020-04-03 08:27 | PDOC ---
PULMONARY PROGRESS NOTES DATE: 04/03/20 TIME: 08:27 Subjective PT. awake and restless on vent, ready for extubation No overnight concerns from nursing Vitals Vital Signs Date Time Temp Pulse Resp B/P (MAP) Pulse Ox O2 Delivery O2 Flow Rate FiO2 04/03/20 07:40 Room Air 04/03/20 07:00 98.3 69 16 131/84 (100) 99 98.3 04/02/20 12:00 2.0 Comments Intubated General: Alert HEENT: Other (nc at perrl nose clear orally intubated neck no lad no thyromegaly) Lungs: Crackles Cardiovascular: S1, S2 Abdomen: Soft, Non-tender Extremities: No Edema Skin: Warm Labs Laboratory Tests Test 04/02/20 09:05 O2 Saturation 95 % (92-99) Arterial Blood pH 7.44 (7.35-7.45) Arterial Blood pCO2 at Patient Temp 33 mmHg (35-46) Arterial Blood pO2 at Patient Temp 74 mmHg (75-108) Arterial Blood HCO3 22 mmol/L (21-28) Arterial Blood Base Excess -2 mmol/L (-3-3) FiO2 35% Laboratory Tests Test 04/02/20 09:05 O2 Saturation 95 % (92-99) Arterial Blood pH 7.44 (7.35-7.45) Arterial Blood pCO2 at Patient Temp 33 mmHg (35-46) Arterial Blood pO2 at Patient Temp 74 mmHg (75-108) Arterial Blood HCO3 22 mmol/L (21-28) Arterial Blood Base Excess -2 mmol/L (-3-3) FiO2 35% Medications Active Scripts Medications Dose Route/Sig Max Daily Dose Days Date Category Levofloxacin 750 Mg Tablet 750 Mg PO DAILY06 03/16/20 Rx Amox Tr-K Clv 875-125 Mg Tab (Amoxicillin/Potassium Clav) 1 Each Tablet 1 Tab PO BID 5 03/16/20 Rx Guaifenesin Dm Syrup (Guaifenesin/Dextromethorphan) 5 Ml Syrup 10 Ml PO PRN Q6HRS PRN 10 03/16/20 Rx Temazepam 30 Mg Capsule 1 Cap PO PRN QHS PRN 03/13/20 Reported Culturelle (Lactobacillus Rhamnosus Gg) 1 Each Cap.sprink 1 Cap PO BID 30 01/10/20 Rx Orazinc (Zinc Sulfate) 220 Mg Capsule 220 Mg PO DAILY 30 01/10/20 Rx Vitamin C (Ascorbic Acid) 100 Mg Tablet 1 Tab PO DAILY 30 01/07/20 Reported Albuterol Sulfate Neb Soln (Albuterol Sulfate) 1.25 Mg/3 Ml Vial.neb 1 Vial NEB Q4-6HRS PRN 01/07/20 Reported Symbicort 160-4.5 Mcg Inhaler (Budesonide/Formoterol Fumarate) 10.2 Gm Hfa.aer.ad 2 Puff IH BID 01/07/20 Reported Trazodone Hcl 100 Mg Tablet 1 Tab PO QHS PRN 01/07/20 Reported Ondansetron Odt (Ondansetron) 4 Mg Tab.rapdis 1 Tab PO PRN Q6-8HRS PRN 05/31/18 Rx Comments cxr reviewed ett ok Stable patchy bilateral reticular and groundglass opacities in the lungs. cxr 03/29 reviewed Mild prominent bilateral interstitial lung markings likely interstitial infiltrates or congestive changes. Impression . IMPRESSION: 1. Acute hypoxemic hypercapnic respiratory failure. 2. Bilateral pulmonary infiltrates of unknown etiology. 3. Suspect pneumonia, gram-positive, gram-negative. 4. Possible acute lung injury/ARDS from polysubstance use. 5. History of autoimmune disease. 6. History of depression, posttraumatic stress disorder and anxiety. Plan . PLAN: proceed with extubation, supplemental oxygen if need to keep sats aboe 94 % Taper steroids follow ID recs for ABX DVT/GI PPX D/W RN and RT pt. is stable post extubation, we will sign off Critical Care Time [id number] RANDOLPH WINN MD Apr 03, 2020 08:27
--- NOTE | 2020-04-03 09:31 | NUR ---
[facility] following. Discussed with RN, per RN pt is wanting some sort of treatment for her drug use. SW spoke with Caitlyn DAVISON) to determine discussion with pt yesterday. Per Caitlyn, pt does not want to go to treatment, was interested in medicated treatment but didn't want to do anything yesterday to begin that process. SW met with pt (no isolation precautions at the time), pt reported she does want to do the medicated treatment (not inpatient rehab treatment). Caitlyn with [facility] coming back to visit with pt. RN notified. Anticipate possible discharge home today. [facility] following for self pay status. ELISEO will continue to follow. Addendum: 04/03/20 at 1355 by FANNY GOMES Caitlyn DAVISON) met with pt again, made a referral for an assessment and case management for substance use. Pt will follow up after discharge. Addendum: 04/03/20 at 1617 by FANNY GOMES Mishel with [facility] contacted [facility]ISEO to notify pt's brother requesting DPOA paperwork for pt, and that LUIS ARMANDO Duval had been notified whilst pt was in the ICU. ELISEO spoke with Simin DURÁN who had not had a chance to do this, and requested Simin follow up since this SW is unable to notarize the DPOA paperwork.
[2020-04-03] MEDS: FAMOTIDINE 20 MG/2 ML VIAL IVP SCH (10:04)
[2020-04-03] MEDS: DOXYCYCLINE HYCLATE 100 MG TABLET PO SCH (10:04)
--- NOTE | 2020-04-03 10:23 | PDOC ---
PROGRESS NOTES Date of Service: DATE: 04/03/20 TIME: 10:23 Chief Complaint Chief Complaint IMPRESSION Fulminant respiratory failure Status post intubation and mechanical ventilation Polysubstance abuse, opiate abuse, marijuana abuse, PAST HX ALCOHOL ABUSE methamphetamine abuse, anxiety, hypertension, asthma, bronchitis, depression, PTSD, autoimmune disorder, eczema, tobacco abuse. 38 MIN PT EXAM, CHART REVIEW, > 50% OF TIME SPENT WITH EXAM, CHART REVIEW, PT CARE COORDINATION History of Present Illness History of Present Illness 04/03/2020 Patient seen and examined Chart reviewed Discussed with RN PAST MEDICAL HISTORY: Polysubstance abuse, opiate abuse, marijuana abuse, methamphetamine abuse, anxiety, hypertension, asthma, bronchitis, depression, PTSD, autoimmune disorder, eczema, tobacco abuse. ALLERGIES: None. FAMILY HISTORY: Diabetes. SOCIAL HISTORY: She smokes, drinks, and takes drugs. MEDICATIONS: Reviewed, please refer to the MRAD. 04/01/2020 Patient seen and examined in the ICU She remains mechanically ventilated Assist-control/20/450/30 5% with 5 of PEEP Chart reviewed Discussed with RN She remains critically ill 03/31/2020 Patient seen and examined in the ICU Her Covid test wasnegative She remains intubated Assist-control/18/450/35% with 5 of PEEP Sedated with propofol Precedex and Versed Chart reviewed Discussed with RN She remains critically ill 03/30/2020 Patient seen in the COVID-19 ICU Covid testing still pending She is on the vent She is sedated with propofol and Dex and Versed Vent settings AC/18/450/30 5% with 5 of PEEP Chart reviewed Discussed with RN She is extremely critically ill Vitals Vitals Vital Signs Date Time Temp Pulse Resp B/P (MAP) Pulse Ox O2 Delivery O2 Flow Rate FiO2 04/03/20 07:40 Room Air 04/03/20 07:00 98.3 69 16 131/84 (100) 99 98.3 04/02/20 12:00 2.0 Physical Exam Physical Exam GENERAL: Alert awake HEENT: Normocephalic, atraumatic, anicteric, no conjunctival petechiae. NECK: Supple. LUNGS: Decreased breath sounds. No wheezing. HEART: S1, S2. No gallops or murmurs. ABDOMEN: Soft, nontender, nondistended. GENITOURINARY: Urban in place. EXTREMITIES: No edema, no cyanosis, no clubbing, no peripheral stigmata of endocarditis. NEUROLOGIC: Alert awake PSYCHIATRIC: Unable to obtain. DERMATOLOGIC: Warm and dry. No generalized rash. General: Alert, Oriented X3, Cooperative, No acute distress, Other (Sedated on the vent) Heart: Regular rate, Other (Sinus tach on the monitor) Lungs: Crackles Abdomen: Normal bowel sounds, Soft, No tenderness Extremities: No clubbing, Other (Knees are mottled) Skin: No rashes Labs LABS INDICATION: Reason: Vent / Spl. Instructions: / History: . TECHNIQUE: Single view COMPARISON: 03/29/2020 FINDINGS: Endotracheal tube terminates 4.6 cm above the edy. Enteric tube passes below the diaphragms. The heart size is normal. The great vessels appear unremarkable. There is no hilar or mediastinal mass. Lungs show similar patchy bilateral reticular and groundglass opacities, unchanged in the interval. There is no pleural effusion or pneumothorax. There are no significant osseous abnormalities. IMPRESSION: Stable lines and tubes including endotracheal intubation with ET tube tip 4.6 cm above the edy. Stable patchy bilateral reticular and groundglass opacities in the lungs. No superimposed acute process. Electronically signed by: Ana Marmolejo MD (03/30/2020 11:00 AM) [id number] DICTATED and SIGNED BY: ANA MARMOLEJO MD DATE: 03/30/20 1100 Assessment and Plan Assessmemt and Plan Problems Medical Problems: (1) Multifocal pneumonia Status: Acute (2) Respiratory failure Status: Acute (3) Suspected COVID-19 virus infection Status: Acute Comment Review of Relevant I have reviewed the following items janie (where applicable) has been applied. Labs Laboratory Tests Test 04/02/20 09:05 O2 Saturation 95 % (92-99) Arterial Blood pH 7.44 (7.35-7.45) Arterial Blood pCO2 at Patient Temp 33 mmHg (35-46) Arterial Blood pO2 at Patient Temp 74 mmHg (75-108) Arterial Blood HCO3 22 mmol/L (21-28) Arterial Blood Base Excess -2 mmol/L (-3-3) FiO2 35% Microbiology 03/29/20 Blood Culture - Preliminary, Resulted NO GROWTH AFTER 4 DAYS Medications Current Medications Sodium Chloride 1,000 ml @ 1,000 mls/hr 1X ONCE IV Last administered on 03/29/20at 10:20; Start 10/29/20 at 10:00; Stop 03/29/20 at 10:59; Status DC Piperacillin Sod/ Tazobactam Sod 3.375 gm/Sodium Chloride 50 ml @ 100 mls/hr 1X ONCE IV Last administered on 03/29/20at 10:50; Start 03/29/20 at 10:00; Stop 03/29/20 at 10:29; Status DC Etomidate (Amidate) 20 mg 1X ONCE IV Last administered on 03/29/20at 10:15; Start 03/29/20 at 10:00; Stop 03/29/20 at 10:08; Status DC Rocuronium [place] (Zemuron) 50 mg 1X ONCE IV Last administered on 03/29/20at 10:15; Start 03/29/20 at 10:00; Stop 03/29/20 at 10:08; Status DC Propofol (Diprivan) 200 mg 1X ONCE IV ; Start 03/29/20 at 10:00; Stop 03/29/20 at 10:08; Status DC Propofol 100 ml @ As Directed STK-MED ONCE IV ; Start 03/29/20 at 10:12; Stop 03/29/20 at 10:12; Status DC Succinylcholine Chloride (Anectine) 200 mg STK-MED ONCE .ROUTE ; Start 03/29/20 at 10:16; Stop 03/29/20 at 10:17; Status DC Levofloxacin/ Dextrose 150 ml @ 100 mls/hr 1X ONCE IV Last administered on 03/29/20at 12:03; Start 03/29/20 at 11:00; Stop 03/29/20 at 12:29; Status DC Dexamethasone Sodium Phosphate (Decadron) 10 mg 1X ONCE IVP Last administered on 03/29/20at 12:03; Start 03/29/20 at 11:00; Stop 03/29/20 at 11:01; Status DC Rocuronium [place] (Zemuron) 50 mg 1X ONCE IV Last administered on 03/29/20at 10:57; Start 03/29/20 at 11:00; Stop 03/29/20 at 11:01; Status DC Propofol 100 ml @ 0 mls/hr CONT PRN PRN IV SEDATION Last administered on 04/02/20at 07:42; Start 03/29/20 at 11:15 Iohexol (Omnipaque 350 Mg/ml) 100 ml 1X ONCE IV Last administered on 03/29/20a t 11:15; Start 03/29/20 at 11:15; Stop 03/29/20 at 11:18; Status DC Info (CONTRAST GIVEN -- Rx MONITORING) 1 each PRN DAILY PRN MC SEE COMMENTS; Start 03/29/20 at 11:30; Stop 03/31/20 at 11:29; Status DC Midazolam HCl (Versed) 5 mg STK-MED ONCE .ROUTE ; Start 03/29/20 at 12:02; Stop 03/29/20 at 12:03; Status DC Midazolam HCl (Versed) 5 mg 1X ONCE IV Last administered on 03/29/20at 12:09; Start 03/29/20 at 12:15; Stop 03/29/20 at 12:16; Status DC Methylprednisolone Sodium Succinate (SOLU-Medrol 40MG VIAL) 125 mg BID IV Last administered on 03/30/20at 08:51; Start 03/29/20 at 21:00; Stop 03/30/20 at 14:56; Status DC Morphine Sulfate (Morphine Sulfate) 10 mg 1X ONCE IV Last administered on 03/29/20at 12:13; Start 03/29/20 at 12:15; Stop 03/29/20 at 12:18; Status DC Morphine Sulfate (Morphine Sulfate) 10 mg STK-MED ONCE .ROUTE ; Start 03/29/20 at 12:11; Stop 03/29/20 at 12:11; Status DC Rocuronium [place] (Zemuron) 100 mg 1X ONCE IV Last administered on 03/29/20at 12:24; Start 03/29/20 at 12:30; Stop 03/29/20 at 12:31; Status DC Diphenhydramine HCl (Benadryl) 50 mg STK-MED ONCE .ROUTE ; Start 03/29/20 at 1 2:19; Stop 03/29/20 at 12:19; Status DC Midazolam HCl 100 ml @ 1 mls/hr 1X ONCE IV Last administered on 03/29/20at 12:36; Start 03/29/20 at 12:30; Stop 03/30/20 at 08:09; Status DC Diphenhydramine HCl (Benadryl) 50 mg 1X ONCE IVP Last administered on 03/29/20at 12:34; Start 03/29/20 at 12:30; Stop 03/29/20 at 12:31; Status DC Sodium Chloride 1,000 ml @ 75 mls/hr [id number] IV Last administered on 04/02/20at 00:08; Start 03/29/20 at 16:30 Enoxaparin Sodium (Lovenox Per Pharmacy Prophylaxis Dosing) 1 each PRN DAILY PRN MC SEE COMMENTS; Start 03/29/20 at 16:30 Enoxaparin Sodium (Lovenox 40mg Syringe) 40 mg Q24H SQ Last administered on 04/02/20at 18:13; Start 03/29/20 at 17:00 Vancomycin HCl 1 gm/Sodium Chloride 250 ml @ 250 mls/hr 1X ONCE IV Last administered on 03/29/20at 19:20; Start 03/29/20 at 19:15; Stop 03/29/20 at 20:14; Status DC Dexmedetomidine HCl 400 mcg/ Sodium Chloride 100 ml @ 3.07 mls/hr CONT PRN IV PER PROTOCOL Last administered on 04/02/20at 05:14; Start 03/29/20 at 20:00 Fentanyl Citrate (Fentanyl 2ml Vial) 25 mcg PRN Q1HR PRN IV PAIN Last administered on 04/03/20at 07:28; Start 03/29/20 at 20:00 Sodium Chloride 500 ml @ 500 mls/hr 1X PRN PRN IV HYPOTENSION; Start 03/29/20 at 20:15 Atropine Sulfate (ATROPINE 0.5mg SYRINGE) 0.5 mg PRN Q5MIN PRN IV SEE COMMENTS; Start 03/29/20 at 20:15 Midazolam HCl 100 ml @ 1 mls/hr CONT PRN IV SEE I/O RECORD Last administered on 03/30/20at 07:57; Start 03/29/20 at 22:15; Stop 03/30/20 at 08:09; Status DC Midazolam HCl 100 ml @ 1 mls/hr CONT PRN IV SEE I/O RECORD Last administered on 04/02/20at 05:14; Start 03/30/20 at 08:00 Piperacillin Sod/ Tazobactam Sod 3.375 gm/Sodium Chloride 50 ml @ 100 mls/hr Q6HRS IV Last administered on 04/03/20at 06:10; Start 03/30/20 at 12:00; Stop 04/03/20 at 08:54; Status DC Doxycycline Hyclate (Vibra-Tab) 100 mg BID PO Last administered on 04/03/20at 10:04; Start 03/30/20 at 10:00 Methylprednisolone Sodium Succinate (SOLU-Medrol 125MG VIAL) 125 mg 1X ONCE IV Last administered on 03/30/20at 15:07; Start 03/30/20 at 15:00; Stop 03/30/20 at 15:01; Status DC Methylprednisolone Sodium Succinate (SOLU-Medrol 125MG VIAL) 125 mg Q8HRS IV Last administered on 03/31/20at 06:10; Start 03/30/20 at 22:00; Stop 03/31/20 at 10:19; Status DC Methylprednisolone Sodium Succinate (SOLU-Medrol 40MG VIAL) 40 mg Q8HRS IV Last administered on 04/03/20at 06:10; Start 03/31/20 at 14:00 Famotidine (Pepcid Vial) 20 mg BID IVP Last administered on 04/03/20at 10:04; Start 03/31/20 at 21:00 Alprazolam (Xanax) 0.5 mg PRN Q8HRS PRN PO ANXIETY / AGITATION Last administered on 04/03/20at 01:15; Start 04/02/20 at 14:45 Active Scripts Active Levofloxacin 750 Mg Tablet 750 Mg PO DAILY06 5 Days Amox Tr-K Clv 875-125 Mg Tab (Amoxicillin/Potassium Clav) 1 Each Tablet 1 Tab PO BID 5 Days Guaifenesin Dm Syrup (Guaifenesin/Dextromethorphan) 5 Ml Syrup 10 Ml PO PRN Q6HRS PRN 10 Days Culturelle (Lactobacillus Rhamnosus Gg) 1 Each Cap.sprink 1 Cap PO BID 30 Days Orazinc (Zinc Sulfate) 220 Mg Capsule 220 Mg PO DAILY 30 Days Ondansetron Odt (Ondansetron) 4 Mg Tab.rapdis 1 Tab PO PRN Q6-8HRS PRN Reported Temazepam 30 Mg Capsule 1 Cap PO PRN QHS PRN Vitamin C (Ascorbic Acid) 100 Mg Tablet 1 Tab PO DAILY 30 Days Albuterol Sulfate Neb Soln (Albuterol Sulfate) 1.25 Mg/3 Ml Vial.neb 1 Vial NEB Q4-6HRS PRN Symbicort 160-4.5 Mcg Inhaler (Budesonide/Formoterol Fumarate) 10.2 Gm Hfa.aer.ad 2 Puff IH BID Trazodone Hcl 100 Mg Tablet 1 Tab PO QHS PRN Vitals/I & O Vital Sign - Last 24 Hours 04/02/20 04/02/20 04/02/20 04/02/20 10:35 10:50 11:00 12:00 Pulse 59 Resp 18 B/P (MAP) 115/69 (84) Pulse Ox 99 O2 Delivery Ventilator Nasal Cannula Nasal Cannula Nasal Cannula O2 Flow Rate 2.0 2.0 2.0 04/02/20 04/02/20 04/02/20 04/02/20 12:00 14:51 15:33 16:00 Temp 98.7 98.1 98.7 98.1 Pulse 56 69 Resp 18 18 18 18 B/P (MAP) 119/73 (88) 130/84 (99) Pulse Ox 99 98 98 99 O2 Delivery Nasal Cannula Room Air Nasal Cannula Room Air O2 Flow Rate 2.0 04/02/20 04/02/20 04/02/20 04/02/20 18:10 19:18 19:40 20:00 Temp 98.2 98.2 Pulse 80 Resp 18 B/P (MAP) 131/84 (100) Pulse Ox 99 O2 Delivery Room Air Room Air Room Air Room Air 04/02/20 04/03/20 04/03/20 04/03/20 23:00 03:07 03:37 04:00 Temp 98.7 98.5 98.7 98.5 Pulse 87 81 Resp 18 20 20 18 B/P (MAP) 133/85 (101) 136/74 (94) Pulse Ox 97 100 O2 Delivery Room Air Room Air Room Air Room Air 04/03/20 04/03/20 07:00 07:40 Temp 98.3 98.3 Pulse 69 Resp 16 B/P (MAP) 131/84 (100) Pulse Ox 99 O2 Delivery Room Air Room Air Intake and Output 04/02/20 04/02/20 04/03/20 15:00 23:00 07:00 Intake Total 200 ml Output Total 250 ml 50 ml Balance -250 ml -50 ml 200 ml Justicifation of Admission Dx: Justifications for Admission: Justification of Admission Dx: Yes FULBRIGHT,MIKE W MD Apr 03, 2020 10:23
[2020-04-03 11:00] VITALS: BP 123/82
--- NOTE | 2020-04-03 13:38 | PDOC3 ---
Discharge Summary Date of Admission: Mar 28, 2020 Date of Discharge: Apr 03, 2020 Follow-Up: 3-5 days Admitting Diagnosis comment: discharge dx Chief Complaint IMPRESSION Fulminant respiratory failure Status post intubation and mechanical ventilation Polysubstance abuse, opiate abuse, marijuana abuse, PAST HX ALCOHOL ABUSE methamphetamine abuse, anxiety, hypertension, asthma, bronchitis, depression, PTSD, autoimmune disorder, eczema, tobacco abuse. 38 MIN PT EXAM, CHART REVIEW d/c planning , > 50% OF TIME SPENT WITH EXAM, CHART REVIEW, PT CARE COORDINATION History of Present Illness History of Present Illness 04/03/2020 Patient seen and examined Chart reviewed Discussed with RN PAST MEDICAL HISTORY: Polysubstance abuse, opiate abuse, marijuana abuse, methamphetamine abuse, anxiety, hypertension, asthma, bronchitis, depression, PTSD, autoimmune disorder, eczema, tobacco abuse. ALLERGIES: None. FAMILY HISTORY: Diabetes. SOCIAL HISTORY: She smokes, drinks, and takes drugs. MEDICATIONS: Reviewed, please refer to the MRAD. 04/03/2020 Patient seen and examined Discussed with RN She remains critically ill 03/31/2020 Patient seen and examined in the ICU Her Covid test wasnegative She remains intubated Assist-control/18/450/35% with 5 of PEEP Sedated with propofol Precedex and Versed Chart reviewed Discussed with RN She remains critically ill 03/30/2020 Patient seen in the COVID-19 ICU Covid testing still pending She is on the vent She is sedated with propofol and Dex and Versed Vent settings AC/18/450/30 5% with 5 of PEEP Chart reviewed Discussed with RN She is extremely critically ill Vitals Vitals Vital Signs Date Time Temp Pulse Resp B/P (MAP) Pulse Ox O2 Delivery O2 Flow Rate FiO2 04/03/20 07:40 Room Air 04/03/20 07:00 98.3 69 16 131/84 (100) 99 98.3 04/02/20 12:00 2.0 Physical Exam Physical Exam GENERAL: Alert awake HEENT: Normocephalic, atraumatic, anicteric, no conjunctival petechiae. NECK: Supple. LUNGS: Decreased breath sounds. No wheezing. HEART: S1, S2. No gallops or murmurs. ABDOMEN: Soft, nontender, nondistended. GENITOURINARY: Urban in place. EXTREMITIES: No edema, no cyanosis, no clubbing, no peripheral stigmata of endocarditis. NEUROLOGIC: Alert awake PSYCHIATRIC: Unable to obtain. DERMATOLOGIC: Warm and dry. No generalized rash. General: Alert, Oriented X3, Cooperative, No acute distress, Other (Sedated on the vent) Heart: Regular rate, Other (Sinus tach on the monitor) Lungs: Crackles Abdomen: Normal bowel sounds, Soft, No tenderness Extremities: No clubbing, Other (Knees are mottled) Skin: No rashes Labs LABS INDICATION: Reason: Vent / Spl. Instructions: / History: . TECHNIQUE: Single view COMPARISON: 03/29/2020 FINDINGS: Endotracheal tube terminates 4.6 cm above the edy. Enteric tube passes below the diaphragms. The heart size is normal. The great vessels appear unremarkable. There is no hilar or mediastinal mass. Lungs show similar patchy bilateral reticular and groundglass opacities, unchanged in the interval. There is no pleural effusion or pneumothorax. There are no significant osseous abnormalities. IMPRESSION: Stable lines and tubes including endotracheal intubation with ET tube tip 4.6 cm above the edy. Stable patchy bilateral reticular and groundglass opacities in the lungs. No superimposed acute process. Electronically signed by: Ana Marmolejo MD (03/30/2020 11:00 AM) [id number] DICTATED and SIGNED BY: ANA MARMOLEJO MD DATE: 03/30/20 1100 Assessment and Plan Assessmemt and Plan Problems Medical Problems: (1) Multifocal pneumonia Status: Acute (2) Respiratory failure Status: Acute (3) Suspected COVID-19 virus infection Status: Acute FINAL DIAGNOSIS Problems Medical Problems: (1) Multifocal pneumonia Status: Acute (2) Respiratory failure Status: Acute (3) Suspected COVID-19 virus infection Status: Acute Brief Hospital Course Ms. Oliveira is a 39 old [sex] who presented with [ acute resp failure ] CONDITION AT DISCHARGE: Improved Discharge Medications Current Medications Sodium Chloride 1,000 ml @ 1,000 mls/hr 1X ONCE IV Last administered on 03/29/20at 10:20; Start 03/29/20 at 10:00; Stop 03/29/20 at 10:59; Status DC Piperacillin Sod/ Tazobactam Sod 3.375 gm/Sodium Chloride 50 ml @ 100 mls/hr 1X ONCE IV Last administered on 03/29/20at 10:50; Start 03/29/20 at 10:00; Stop 03/29/20 at 10:29; Status DC Etomidate (Amidate) 20 mg 1X ONCE IV Last administered on 03/29/20at 10:15; Start 03/29/20 at 10:00; Stop 03/29/20 at 10:08; Status DC Rocuronium Buckhorn (Zemuron) 50 mg 1X ONCE IV Last administered on 03/29/20at 10:15; Start 03/29/20 at 10:00; Stop 03/29/20 at 10:08; Status DC Propofol (Diprivan) 200 mg 1X ONCE IV ; Start 03/29/20 at 10:00; Stop 03/29/20 at 10:08; Status DC Propofol 100 ml @ As Directed STK-MED ONCE IV ; Start 03/29/20 at 10:12; Stop 03/29/20 at 10:12; Status DC Succinylcholine Chloride (Anectine) 200 mg STK-MED ONCE .ROUTE ; Start 03/29/20 at 10:16; Stop 03/29/20 at 10:17; Status DC Levofloxacin/ Dextrose 150 ml @ 100 mls/hr 1X ONCE IV Last administered on 03/29/20at 12:03; Start 03/29/20 at 11:00; Stop 03/29/20 at 12:29; Status DC Dexamethasone Sodium Phosphate (Decadron) 10 mg 1X ONCE IVP Last administered on 03/29/20at 12:03; Start 03/29/20 at 11:00; Stop 03/29/20 at 11:01; Status DC Rocuronium Buckhorn (Zemuron) 50 mg 1X ONCE IV Last administered on 03/29/20at 10:57; Start 03/29/20 at 11:00; Stop 03/29/20 at 11:01; Status DC Propofol 100 ml @ 0 mls/hr CONT PRN PRN IV SEDATION Last administered on 04/02/20at 07:42; Start 03/29/20 at 11:15 Iohexol (Omnipaque 350 Mg/ml) 100 ml 1X ONCE IV Last administered on 03/29/20at 11:15; Start 03/29/20 at 11:15; Stop 03/29/20 at 11:18; Status DC Info (CONTRAST GIVEN -- Rx MONITORING) 1 each PRN DAILY PRN MC SEE COMMENTS; Start 03/29/20 at 11:30; Stop 03/31/20 at 11:29; Status DC Midazolam HCl (Versed) 5 mg STK-MED ONCE .ROUTE ; Start 03/29/20 at 12:02; Stop 03/29/20 at 12:03; Status DC Midazolam HCl (Versed) 5 mg 1X ONCE IV Last administered on 03/29/20at 12:09; Start 03/29/20 at 12:15; Stop 03/29/20 at 12:16; Status DC Methylprednisolone Sodium Succinate (SOLU-Medrol 40MG VIAL) 125 mg BID IV Last administered on 03/30/20at 08:51; Start 03/29/20 at 21:00; Stop 03/30/20 at 14:56; Status DC Morphine Sulfate (Morphine Sulfate) 10 mg 1X ONCE IV Last administered on 03/29/20at 12:13; Start 03/29/20 at 12:15; Stop 03/29/20 at 12:18; Status DC Morphine Sulfate (Morphine Sulfate) 10 mg STK-MED ONCE .ROUTE ; Start 03/29/20 at 12:11; Stop 03/29/20 at 12:11; Status DC Rocuronium Buckhorn (Zemuron) 100 mg 1X ONCE IV Last administered on 03/29/20at 12:24; Start 03/29/20 at 12:30; Stop 03/29/20 at 12:31; Status DC Diphenhydramine HCl (Benadryl) 50 mg STK-MED ONCE .ROUTE ; Start 03/29/20 at 12:19; Stop 03/29/20 at 12:19; Status DC Midazolam HCl 100 ml @ 1 mls/hr 1X ONCE IV Last administered on 03/29/20at 12:36; Start 03/29/20 at 12:30; Stop 03/30/20 at 08:09; Status DC Diphenhydramine HCl (Benadryl) 50 mg 1X ONCE IVP Last administered on 03/29/20at 12:34; Start 03/29/20 at 12:30; Stop 03/29/20 at 12:31; Status DC Sodium Chloride 1,000 ml @ 75 mls/hr [id number] IV Last administered on 04/02/20at 00:08; Start 03/29/20 at 16:30 Enoxaparin Sodium (Lovenox Per Pharmacy Prophylaxis Dosing) 1 each PRN DAILY PRN MC SEE COMMENTS; Start 03/29/20 at 16:30 Enoxaparin Sodium (Lovenox 40mg Syringe) 40 mg Q24H SQ Last administered on 04/02/20at 18:13; Start 03/29/20 at 17:00 Vancomycin HCl 1 gm/Sodium Chloride 250 ml @ 250 mls/hr 1X ONCE IV Last administered on 03/29/20at 19:20; Start 03/29/20 at 19:15; Stop 03/29/20 at 20:14; Status DC Dexmedetomidine HCl 400 mcg/ Sodium Chloride 100 ml @ 3.07 mls/hr CONT PRN IV PER PROTOCOL Last administered on 04/02/20at 05:14; Start 03/29/20 at 20:00; Stop 04/03/20 at 11:36; Status DC Fentanyl Citrate (Fentanyl 2ml Vial) 25 mcg PRN Q1HR PRN IV PAIN Last administered on 04/03/20at 07:28; Start 03/29/20 at 20:00 Sodium Chloride 500 ml @ 500 mls/hr 1X PRN PRN IV HYPOTENSION; Start 03/29/20 at 20:15 Atropine Sulfate (ATROPINE 0.5mg SYRINGE) 0.5 mg PRN Q5MIN PRN IV SEE COMMENTS; Start 03/29/20 at 20:15 Midazolam HCl 100 ml @ 1 mls/hr CONT PRN IV SEE I/O RECORD Last administered on 03/30/20at 07:57; Start 03/29/20 at 22:15; Stop 03/30/20 at 08:09; Status DC Midazolam HCl 100 ml @ 1 mls/hr CONT PRN IV SEE I/O RECORD Last administered on 04/02/20at 05:14; Start 03/30/20 at 08:00 Piperacillin Sod/ Tazobactam Sod 3.375 gm/Sodium Chloride 50 ml @ 100 mls/hr Q6HRS IV Last administered on 04/03/20at 06:10; Start 03/30/20 at 12:00; Stop 04/03/20 at 08:54; Status DC Doxycycline Hyclate (Vibra-Tab) 100 mg BID PO Last administered on 04/03/20at 10:04; Start 03/30/20 at 10:00 Methylprednisolone Sodium Succinate (SOLU-Medrol 125MG VIAL) 125 mg 1X ONCE IV Last administered on 03/30/20at 15:07; Start 03/30/20 at 15:00; Stop 03/30/20 at 15:01; Status DC Methylprednisolone Sodium Succinate (SOLU-Medrol 125MG VIAL) 125 mg Q8HRS IV Last administered on 03/31/20at 06:10; Start 03/30/20 at 22:00; Stop 03/31/20 at 10:19; Status DC Methylprednisolone Sodium Succinate (SOLU-Medrol 40MG VIAL) 40 mg Q8HRS IV Last administered on 04/03/20at 06:10; Start 03/31/20 at 14:00 Famotidine (Pepcid Vial) 20 mg BID IVP Last administered on 04/03/20at 10:04; Start 03/31/20 at 21:00 Alprazolam (Xanax) 0.5 mg PRN Q8HRS PRN PO ANXIETY / AGITATION Last administered on 04/03/20at 01:15; Start 04/02/20 at 14:45 Active Scripts Active Levofloxacin 750 Mg Tablet 750 Mg PO DAILY06 5 Days Amox Tr-K Clv 875-125 Mg Tab (Amoxicillin/Potassium Clav) 1 Each Tablet 1 Tab PO BID 5 Days Guaifenesin Dm Syrup (Guaifenesin/Dextromethorphan) 5 Ml Syrup 10 Ml PO PRN Q6HRS PRN 10 Days Culturelle (Lactobacillus Rhamnosus Gg) 1 Each Cap.sprink 1 Cap PO BID 30 Days Orazinc (Zinc Sulfate) 220 Mg Capsule 220 Mg PO DAILY 30 Days Ondansetron Odt (Ondansetron) 4 Mg Tab.rapdis 1 Tab PO PRN Q6-8HRS PRN Reported Temazepam 30 Mg Capsule 1 Cap PO PRN QHS PRN Vitamin C (Ascorbic Acid) 100 Mg Tablet 1 Tab PO DAILY 30 Days Albuterol Sulfate Neb Soln (Albuterol Sulfate) 1.25 Mg/3 Ml Vial.neb 1 Vial NEB Q4-6HRS PRN Symbicort 160-4.5 Mcg Inhaler (Budesonide/Formoterol Fumarate) 10.2 Gm Hfa.aer.ad 2 Puff IH BID Trazodone Hcl 100 Mg Tablet 1 Tab PO QHS PRN Vital Signs Vital Signs Date Time Temp Pulse Resp B/P (MAP) Pulse Ox O2 Delivery O2 Flow Rate FiO2 04/03/20 11:00 98.0 72 16 123/82 (96) 98 Room Air 98.0 04/02/20 12:00 2.0 Labs Laboratory Tests Test 04/02/20 09:05 04/03/20 06:25 O2 Saturation 95 % (92-99) Arterial Blood pH 7.44 (7.35-7.45) Arterial Blood pCO2 at Patient Temp 33 mmHg (35-46) Arterial Blood pO2 at Patient Temp 74 mmHg (75-108) Arterial Blood HCO3 22 mmol/L (21-28) Arterial Blood Base Excess -2 mmol/L (-3-3) FiO2 35% Hepatitis C IgG Antibody Nonreactive (Nonreactive) HIV (1&2) Antibody Screen Nonreactive (Nonreactive) Laboratory Tests Test 04/03/20 06:25 Hepatitis C IgG Antibody Nonreactive (Nonreactive) HIV (1&2) Antibody Screen Nonreactive (Nonreactive) Allergies Allergies Coded Allergies Type Severity Reaction Last Updated Verified No Known Drug Allergies 06/13/13 No Disposition/Orders: D/C to Home Justicifation of Admission Dx: Justifications for Admission: Justification of Admission Dx: Yes MIKE GOODRICH MD Apr 03, 2020 13:38
[2020-04-03] MEDS ORDERED: DOXY100T PO (13:40)
[2020-04-03] MEDS ORDERED: MULT-245 PO (13:40)
--- NOTE | 2020-04-03 13:41 | DISCH ---
DISCHARGE INSTRUCTIONS Condition on Discharge Condition on Discharge: Stable Activity After Discharge Activity Instructions for Disc: Activity as tolerated Driving Instructions after Dis: Do not drive, Do not drive today Diet after Discharge Diet after Discharge: Regular Liquid Texture: Thin Liquid Checks after Discharge Checks after discharge: Check blood press - daily Contacting the DRMary after DC Call your doctor for: If your condition worsens Follow-Up Follow up with: drug rehab MIKE Curtis MD Apr 03, 2020 13:41
[2020-04-03 14:16] LABS: BASO # 0.1 x10^3/uL (0.0-0.2); BASO % 1 % (0-3); EOS % 0 % (0-3); HEMATOCRIT 41.6 % (36.0-47.0); HEMOGLOBIN 13.6 g/dL (12.0-15.5); LYMPH # 1.2 x10^3/uL (1.0-4.8); LYMPH % 14 % (24-48); MEAN CORPUSCULAR HEMOGLOBIN 30 pg (25-35); MEAN CORPUSCULAR HGB CONC 33 g/dL (31-37); MEAN CORPUSCULAR VOLUME 91 fL (79-100); MONO # 0.7 x10^3/uL (0.0-1.1); MONO % 8 % (0-9); NEUT # 6.9 x10^3/uL (1.8-7.7); NEUT % 77 % (31-73); PLATELET COUNT 363 x10^3/uL (140-400); RED BLOOD COUNT 4.56 x10^6/uL (3.50-5.40); RED CELL DISTRIBUTION WIDTH 13.9 % (11.5-14.5); WHITE BLOOD COUNT 8.9 x10^3/uL (4.0-11.0)
--- NOTE | 2020-04-03 15:09 | NUR ---
Pt left unit at approx 1509 by wheelchair via private vehicle, accompanied by mother. Pt's IVs removed without complication, VSS. Discharge paperwork and follow-up discussed in detail with pt and her mother. Additional questions addressed. Belongings returned to pt.
== END 2020-04-03 15:18 | disposition home or self-care (01) | DRG 207 ==
LOC: ER 09:47 → ED HOLD 10:50 → 1 WEST ICU 14:16 → 4 NORTH 04-02 16:09
PROVIDERS: ADMIT Internal Medicine; ATTEND Internal Medicine
PROC: 5A09357 Assistance with Respiratory Ventilation, Less than 24 Consecutive Hours, Continuous Positive Airway Pressure (ICD-10-PCS; principal; 2020-03-29)
PROC: 5A1955Z Respiratory Ventilation, Greater than 96 Consecutive Hours (ICD-10-PCS; 2020-03-29)
PROC: 0BH17EZ Insertion of Endotracheal Airway into Trachea, Via Natural or Artificial Opening (ICD-10-PCS; 2020-03-29)
DX: J96.01 Acute respiratory failure with hypoxia (principal); J18.9 Pneumonia, unspecified organism; E87.2 Acidosis; J96.02 Acute respiratory failure with hypercapnia; F17.200 Nicotine dependence, unspecified, uncomplicated; F32.9 Major depressive disorder, single episode, unspecified; F43.10 Post-traumatic stress disorder, unspecified; I10 Essential (primary) hypertension; J45.909 Unspecified asthma, uncomplicated; Z20.828 Contact with and (suspected) exposure to other viral communicable diseases; F19.10 Other psychoactive substance abuse, uncomplicated; F11.10 Opioid abuse, uncomplicated; F12.10 Cannabis abuse, uncomplicated; F15.10 Other stimulant abuse, uncomplicated; D89.89 Other specified disorders involving the immune mechanism, not elsewhere classified; Z83.3 Family history of diabetes mellitus; Z86.74 Personal history of sudden cardiac arrest; Z87.01 Personal history of pneumonia (recurrent)
CPT/HCPCS: 31500; 36415; 36600; 51702; 71045; 71275; 80048; 80053; 80307; 81001; 82550; 82805; 83605; 83615; 83690; 83880; 84145; 84484; 84702; 85007; 85025; 85379; 85384; 85610; 85730; 86140; 86703; 86803; 87040; 93005; 94002; 94003; 94660; 96365; 96366; 96368; 96375; J1100; J1200; J1650; J1956; J2250; J2270; J2543; J2704; J2920; J2930; J3010; J3370; J3490; J7030; J7050; Q9967; U0003; 99291-25; G0378

== ENCOUNTER 2020-06-07 06:46 | Inpatient (IN) | payer SELFPAY ==
[~2020-06-07] VITALS: Ht 162.6 cm; Wt 64.1 kg
[~2020-06-07 06:46] MED LIST changes: +MULT-245 PO
--- NOTE | 2020-06-07 07:13 | ED.ADGEN ---
Past Medical History Past Medical History: Anxiety, Asthma, Bronchitis, Depression, Other Additional Past Medical Histor: PTSD, AUTOIMMUNE DISORDER OF SKIN, eczema Past Surgical History: Other Additional Past Surgical Histo: Pt previously intubated Smoking Status: Current Some Day Smoker Alcohol Use: Occasionally Drug Use: Marijuana, Opiates General Adult EDM: Chief Complaint: DYSPNEA/RESPIRATOY DISTRESS HPI: HPI: Patient is a 39 year old female who arrives via EMS with experiencing an asthma attack. Patient has a well-documented history of asthma per EMS. Patient has been intubated previously for these exacerbations. Paramedics report the laura sosa has been cleaning as of late and may have a problem with mold in her residence. Paramedics report they have transported her multiple times and states oftentimes she has progressive difficulty breathing and calls only when she is unable to breathe. Prior to arrival the patient had 3 nebulized breathing treatments. The patient is in obvious respiratory distress with expiratory wheezes. At this point she is awake and makes eye contact however she is unable to provide history. All history has been provided by EMS personnel. Review of Systems: Review of Systems: Unable to obtain due to patient's medical condition. Current Medications: Current Medications Medications (Trade) Dose Ordered Sig/Andrei Start Time Stop Time Status Last Admin Dose Admin Albuterol Sulfate (Ventolin Neb Soln) 2.5 mg 1X ONCE 06/07/20 07:30 06/07/20 07:31 DC 06/07/20 07:01 2.5 MG Ipratropium Leslie (Atrovent) 0.5 mg 1X ONCE 06/07/20 07:30 06/07/20 07:31 DC 06/07/20 07:01 0.5 MG Levofloxacin/ Dextrose 150 ml @ 100 mls/hr 1X ONCE 06/07/20 08:15 06/07/20 09:44 Methylprednisolone Sodium Succinate (SOLU-Medrol 125MG VIAL) 125 mg 1X ONCE 06/07/20 07:30 06/07/20 07:31 DC 06/07/20 07:01 125 MG Sodium Chloride 1,000 ml @ 1,000 mls/hr 1X ONCE 06/07/20 08:15 06/07/20 09:14 Allergies: Allergies: Allergies Coded Allergies Type Severity Reaction Last Updated Verified No Known Drug Allergies 06/13/13 No Physical Exam: PE: Constitutional: Respiratory distress and ill-appearing. well developed, well nourished. [] HENT: Normocephalic, atraumatic, bilateral external ears normal, oropharynx moist, no oral exudates, nose normal. [] Eyes: PERRLA, EOMI, conjunctiva normal, no discharge. [] Neck: Normal range of motion, no tenderness, supple, no stridor. [] Cardiovascular: Tachycardia. no murmur [] Lungs & Thorax: Tachypnea with expiratory wheezes in all patton. [] Abdomen: Bowel sounds normal, soft, no tenderness, no masses, no pulsatile masses. [] Skin: Warm, dry, no erythema, no rash. [] Back: No tenderness, no CVA tenderness. [] Extremities: No tenderness, no cyanosis, no clubbing, ROM intact, no edema. [] Neurologic: Alert and oriented X 3, normal motor function, normal sensory function, no focal deficits noted. [] Psychologic: Affect normal, judgement normal, mood normal. [] Current Patient Data: Labs: Laboratory Tests Test 06/07/20 06:52 06/07/20 06:55 06/07/20 07:50 Ethyl Alcohol Level < 10 mg/dL (0-10) White Blood Count 13.8 x10^3/uL (4.0-11.0) H Red Blood Count 4.98 x10^6/uL (3.50-5.40) Hemoglobin 14.4 g/dL (12.0-15.5) Hematocrit 44.4 % (36.0-47.0) Mean Corpuscular Volume 89 fL (79-100) Mean Corpuscular Hemoglobin 29 pg (25-35) Mean Corpuscular Hemoglobin Concent 32 g/dL (31-37) Red Cell Distribution Width 15.2 % (11.5-14.5) H Platelet Count 646 x10^3/uL (140-400) H Neutrophils (%) (Auto) 43 % (31-73) Lymphocytes (%) (Auto) 24 % (24-48) Monocytes (%) (Auto) 8 % (0-9) Eosinophils (%) (Auto) 23 % (0-3) H Basophils (%) (Auto) 1 % (0-3) Neutrophils # (Auto) 5.9 x10^3/uL (1.8-7.7) Lymphocytes # (Auto) 3.4 x10^3/uL (1.0-4.8) Monocytes # (Auto) 1.2 x10^3/uL (0.0-1.1) H Eosinophils # (Auto) 3.2 x10^3/uL (0.0-0.7) H Basophils # (Auto) 0.2 x10^3/uL (0.0-0.2) Platelet Estimate Pending Sodium Level 141 mmol/L (136-145) Potassium Level 4.5 mmol/L (3.5-5.1) Chloride Level 105 mmol/L (98-107) Carbon Dioxide Level 32 mmol/L (21-32) Anion Gap 4 (6-14) L Blood Urea Nitrogen 6 mg/dL (7-20) L Creatinine 0.7 mg/dL (0.6-1.0) Estimated GFR (Cockcroft-Gault) 92.7 BUN/Creatinine Ratio 9 (6-20) Glucose Level 112 mg/dL (70-99) H Calcium Level 9.1 mg/dL (8.5-10.1) Total Bilirubin 0.3 mg/dL (0.2-1.0) Aspartate Amino Transferase (AST) 26 U/L (15-37) Alanine Aminotransferase (ALT) 23 U/L (14-59) Alkaline Phosphatase 66 U/L (46-116) Creatine Kinase 137 U/L (26-192) Creatine Kinase MB (Mass) 3.0 ng/mL (0.0-3.6) Creatine Kinase MB Relative Index 2.2 % (0-4) Troponin I Quantitative < 0.017 ng/mL (0.000-0.055) SF-Cnb-I-Type Natriuretic Peptide 147 pg/mL (0-124) H Total Protein 7.1 g/dL (6.4-8.2) Albumin 3.8 g/dL (3.4-5.0) Albumin/Globulin Ratio 1.2 (1.0-1.7) O2 Saturation 100 % (92-99) H Arterial Blood pH 7.27 (7.35-7.45) L Arterial Blood pCO2 at Patient Temp 62 mmHg (35-46) *H Arterial Blood pO2 at Patient Temp > 503 mmHg (75-108) H Arterial Blood HCO3 28 mmol/L (21-28) Arterial Blood Base Excess -1 mmol/L (-3-3) Oxyhemoglobin 98.6 % Methemoglobin 0.6 % (0.0-1.9) Carbon Monoxide, Quantitative 0.3 % (0.0-1.9) FiO2 100 Laboratory Tests 06/07/20 06:55 Laboratory Tests 06/07/20 06:55 Vital Signs: Vital Signs Date Time Temp Pulse Resp B/P (MAP) Pulse Ox O2 Delivery O2 Flow Rate FiO2 06/07/20 06:46 97.7 111 26 159/103 (121) 100 Aerosol Mask 6.0 97.7 EKG: EKG: EKG was obtained 0807 hrs. And revealed a sinus tachycardia with a ventricular rate of 117 bpm. There is considerable artifact related to the EKG which is expected given the patient's current clinical condition. I did not visualize an y acute ST/T wave changes that may denote ischemia. [] Heart Score: HEART Score for Chest Pain: HEART Score for Chest Pain Response (Comments) Value History Slighlty/Non-Suspicious 0 ECG Normal 0 Age < 45 0 Risk Factors 1 or 2 Risk Factors 1 Troponin < Normal Limit 0 Total 1 Risk Factors: Risk Factors: DM, Current or recent (<one month) smoker, HTN, HLP, family history of CAD, obesity. Risk Scores: Score 0 - 3: 2.5% MACE over next 6 weeks - Discharge Home Score 4 - 6: 20.3% MACE over next 6 weeks - Admit for Clinical Observation Score 7 - 10: 72.7% MACE over next 6 weeks - Early Invasive Strategies Radiology/Procedures: Radiology/Procedures: [] Impression: [facility] [id number] [place], [place] [id number] IMAGING REPORT Signed PATIENT: ANGELO YU ACCOUNT: [id number] : 1980 LOCATION: ER AGE: 39 SEX: F EXAM STATUS: REG ER ORD. PHYSICIAN: MITCHELL BREAUX DO REASON: soa PROCEDURE: PORTABLE CHEST 1V AP chest. HISTORY: Short of air AP view was taken of the chest. Heart is normal in size. There is no pleural effusion. There are some hyperexpansion. Endotracheal tube is at the level of clavicles. There is a slight interstitial prominence or mild interstitial infiltrates or edema. No confluent pneumonia is noted. IMPRESSION: 1. Slight interstitial infiltrates or edema. 2. No confluent pneumonia noted. Electronically signed by: Remberto Pickering MD (06/07/2020 7:47 AM) [id number] Course & Med Decision Making: Course & Med Decision Making Pertinent Labs and Imaging studies reviewed. (See chart for details) The patient is ill-appearing however she has made significant improvement since her arrival and being placed on BiPAP. Patient does demonstrate respiratory acidosis and this will continue to be monitored. She will be placed in the intensive care unit for further evaluation. At this time I do not believe she requires endotracheal intubation if she is following commands and has appeared to stabilize her work of breathing. Critical care time is 30 minutes excluding procedures. Dragon Disclaimer: Dragon Disclaimer: This electronic medical record was generated, in whole or in part, using a voice recognition dictation system. Departure Departure Impression: Primary Impression: Acute asthma exacerbation Additional Impressions: Respiratory failure, acute Person under investigation for COVID-19 Disposition: 09 ADMITTED INPT THIS HOSP Admitting Physician: PATI Condition: CRITICAL Referrals: NO PCP (PCP) Problem Qualifiers MITCHELL BREAUX DO Jun 07, 2020 07:13
[2020-06-07 07:16] LABS: CALCIUM 9.1 mg/dL (8.5-10.1); CREATININE 0.7 mg/dL (0.6-1.0); GFR 92.7; POTASSIUM 4.5 mmol/L (3.5-5.1)
[2020-06-07 07:21] LABS: ALBUMIN 3.8 g/dL (3.4-5.0); ALBUMIN/GLOBULIN RATIO 1.2 (1.0-1.7); TOTAL BILIRUBIN 0.3 mg/dL (0.2-1.0); TOTAL PROTEIN 7.1 g/dL (6.4-8.2)
[2020-06-07] MEDS ORDERED: ALBUTEROL SULFATE 2.5 MG/3 ML NEBU. NEB ONE (07:30)
[2020-06-07] MEDS ORDERED: methylPREDNISolone SOD SUCC PF 125 MG/2 ML VIAL. IV ONE (07:30)
[2020-06-07] MEDS ORDERED: IPRATROPIUM BROMIDE 0.5 MG/2.5 ML NEBU. NEB ONE (07:30)
[2020-06-07 07:47] LABS: BASO # 0.2 x10^3/uL (0.0-0.2); BASO % 1 % (0-3); EOS # 3.2 x10^3/uL (0.0-0.7); EOS % 23 % (0-3); HEMATOCRIT 44.4 % (36.0-47.0); HEMOGLOBIN 14.4 g/dL (12.0-15.5); LYMPH # 3.4 x10^3/uL (1.0-4.8); LYMPH % 24 % (24-48); MEAN CORPUSCULAR HEMOGLOBIN 29 pg (25-35); MEAN CORPUSCULAR HGB CONC 32 g/dL (31-37); MEAN CORPUSCULAR VOLUME 89 fL (79-100); MONO # 1.2 x10^3/uL (0.0-1.1); MONO % 8 % (0-9); NEUT # 5.9 x10^3/uL (1.8-7.7); NEUT % 43 % (31-73); PLATELET COUNT 646 x10^3/uL (140-400); RED BLOOD COUNT 4.98 x10^6/uL (3.50-5.40); RED CELL DISTRIBUTION WIDTH 15.2 % (11.5-14.5); WHITE BLOOD COUNT 13.8 x10^3/uL (4.0-11.0)
--- NOTE | 2020-06-07 07:50 | RAD ---
ADDENDUM #1 Addendum: Patient has a BiPAP device noted at the level of clavicles. Electronically signed by: Remberto Pickering MD (06/07/2020 8:06 AM) [id number] ORIGINAL REPORT AP chest. HISTORY: Short of air AP view was taken of the chest. Heart is normal in size. There is no pleural effusion. There are some hyperexpansion. Endotracheal tube is at the level of clavicles. There is a slight interstitial promi nence or mild interstitial infiltrates or edema. No confluent pneumonia is noted. IMPRESSION: 1. Endotracheal tube at the level the clavicles. 2. Slight interstitial infiltrates or edema. 3. No confluent pneumonia noted. Electronically signed by: Remberto Pickering MD (06/07/2020 7:47 AM) [id number]
[2020-06-07 08:04] LABS: BASE EXCESS COOX -1 mmol/L (-3-3); HCO3 COOX 28 mmol/L (21-28); METHEMOGLOBIN 0.6 % (0.0-1.9); OXYHEMOGLOBIN 98.6 %; PO2 COOX > 503 mmHg (75-108); SAT O2 COOX 100 % (92-99)
[2020-06-07 08:07] LABS: PCO2 COOX 62 mmHg (35-46)
[2020-06-07] MEDS ORDERED: IV NORMAL SALINE 1000ML BAG 1,000 ML IV ONE (08:15)
--- NOTE | 2020-06-07 08:16 | PDOC1 ---
History and Physical Date of Admission Date of Admission DATE: 06/07/20 TIME: 08:15 Identification/Chief Complaint Chief Complaint Shortness of breath Source Source: Patient History of Present Illness History of Present Illness Ms Oliveira is a 39-year-old female w/ PMHx Anxiety, Depression, PTSD, AUTOIMMUNE DISORDER OF SKIN, eczema, h/o IV heroin and methamphetamine abuse who presents to the emergency department with complaints of shortness of breath, wheezing, and asthma problems that has increased over the last 3 days prior to presentation. She also complains of fatigue, achiness, nausea, and nasal congestion. Patient reports she has had recurrent pneumonia for several months since July 2019. She denies any fever, vomiting, diarrhea, abdominal pain, rash, headache, chest pain, or palpitations. She complains of shortness of breath with a productive cough with yellow sputum. Patient states she quit smoking a year ago. Admitted last year to [facility] after cardiac arrest, patient states she was on a ventilator for 2 days at that time. and was admitted here 12/2019 and 03/2020, tested negative for COVID19, treated for pneumonia. She states that she has not been around anyone for the last month. She has been staying home alone and having people leave groceries at her door. Pt also reports that she has been using methamphetamines and previously used heroin. She last used meth intravenously the night prior to presentation. Paramedics report the patient has been cleaning as of late and may have a problem with mold in her residence. Paramedics report they have transported her multiple times and states oftentimes she has progressive difficulty breathing and calls only when she is unable to breathe. Prior to arrival the patient had 3 nebulized breathing treatments. The patient is in obvious respiratory distress with expiratory wheezes. She is awake and makes eye contact however she is unable to provide history and it has been provided by EMS personnel and ED personnel Asking if she can go to the bathroom and if I can please leave the room, she is on the bedpan and BIPAP. Chest radiograph with slight bibasilar interstitial infiltrates. EKG - sinus tach, rate 117, leftward axis, no STEMI Has a WBC 13.8, Hb 14.4, platelets 646, NA 141, K4.5, BUN 6, CR 0.7, glucose 112, urine drug screen positive for amphetamines and opioids. ABG on BiPAP 100% FiO2 with pH 7.27, PaCO2 62, PaO2 503. Tested for COVID 19 and admitted for further treatment to ICU on BIPAP Past Medical History Psych: Anxiety, Addictions, Depression Past Surgical History Past Surgical History: No pertinent history Family History Family History: Family History Unknown Social History Smoke: Quit ALCOHOL: none Drugs: Heroin, Crystal meth Current Problem List Problem List Problems Medical Problems: (1) Acute asthma exacerbation Status: Acute (2) Respiratory failure, acute Status: Acute Current Medications Current Medications Current Medications Albuterol Sulfate (Ventolin Neb Soln) 2.5 mg 1X ONCE NEB Last administered on 06/07/20at 07:01; Start 06/07/20 at 07:30; Stop 06/07/20 at 07:31; Status DC Ipratropium Stratton (Atrovent) 0.5 mg 1X ONCE NEB Last administered on 06/07/20at 07:01; Start 06/07/20 at 07:30; Stop 06/07/20 at 07:31; Status DC Methylprednisolone Sodium Succinate (SOLU-Medrol 125MG VIAL) 125 mg 1X ONCE IV Last administered on 06/07/20at 07:01; Start 06/07/20 at 07:30; Stop 06/07/20 at 07:31; Status DC Sodium Chloride 1,000 ml @ 1,000 mls/hr 1X ONCE IV ; Start 06/07/20 at 08:15; Stop 06/07/20 at 09:14 Levofloxacin/ Dextrose 150 ml @ 100 mls/hr 1X ONCE IV ; Start 06/07/20 at 08:15; Stop 06/07/20 at 09:44 Active Scripts Active Multi Vitamin Daily (Multivitamin) 1 Each Tablet 1 Tab PO DAILY 30 Days Doxycycline Hyclate 100 Mg Tablet 100 Mg PO BID 10 Days Guaifenesin Dm Syrup (Guaifenesin/Dextromethorphan) 5 Ml Syrup 10 Ml PO PRN Q6HRS PRN 10 Days Culturelle (Lactobacillus Rhamnosus Gg) 1 Each Cap.sprink 1 Cap PO BID 30 Days Orazinc (Zinc Sulfate) 220 Mg Capsule 220 Mg PO DAILY 30 Days Ondansetron Odt (Ondansetron) 4 Mg Tab.rapdis 1 Tab PO PRN Q6-8HRS PRN Reported Vitamin C (Ascorbic Acid) 100 Mg Tablet 1 Tab PO DAILY 30 Days Albuterol Sulfate Neb Soln (Albuterol Sulfate) 1.25 Mg/3 Ml Vial.neb 1 Vial NEB Q4-6HRS PRN Symbicort 160-4.5 Mcg Inhaler (Budesonide/Formoterol Fumarate) 10.2 Gm Hfa.aer.ad 2 Puff IH BID Allergies Allergies: Coded Allergies: No Known Drug Allergies (Unverified , 06/13/13) ROS Review of System Unable to completely obtain due to patient falling asleep during interview Physical Exam General: Alert, Cooperative, moderate distress HEENT: Atraumatic, PERRLA, EOMI, Mucous membr. moist/pink Lungs: Other (Bilateral rhonchi) Heart: S1S2, RRR, no thrills, no rubs, no gallops, no murmurs Abdomen: Normal bowel sounds, Soft, No tenderness, No hepatosplenomegaly, No masses Rectal Exam: not examined Extremities: No clubbing, No cyanosis, No edema, Normal pulses, No tenderne ss/swelling Skin: No rashes, No breakdown, No significant lesion Neuro: Normal speech, Strength at 5/5 X4 ext, Normal tone, Sensation intact, Cranial nerves 3-12 NL, Reflexes 2+ Psych/Mental Status: Other (Confused) Vitals Vitals Vital Signs Date Time Temp Pulse Resp B/P (MAP) Pulse Ox O2 Delivery O2 Flow Rate FiO2 06/07/20 06:46 97.7 111 26 159/103 (121) 100 Aerosol Mask 6.0 97.7 Labs Labs Laboratory Tests Test 06/07/20 06:52 06/07/20 06:55 06/07/20 07:50 Ethyl Alcohol Level < 10 mg/dL (0-10) White Blood Count 13.8 x10^3/uL (4.0-11.0) Red Blood Count 4.98 x10^6/uL (3.50-5.40) Hemoglobin 14.4 g/dL (12.0-15.5) Hematocrit 44.4 % (36.0-47.0) Mean Corpuscular Volume 89 fL (79-100) Mean Corpuscular Hemoglobin 29 pg (25-35) Mean Corpuscular Hemoglobin Concent 32 g/dL (31-37) Red Cell Distribution Width 15.2 % (11.5-14.5) Platelet Count 646 x10^3/uL (140-400) Neutrophils (%) (Auto) 43 % (31-73) Lymphocytes (%) (Auto) 24 % (24-48) Monocytes (%) (Auto) 8 % (0-9) Eosinophils (%) (Auto) 23 % (0-3) Basophils (%) (Auto) 1 % (0-3) Neutrophils # (Auto) 5.9 x10^3/uL (1.8-7.7) Lymphocytes # (Auto) 3.4 x10^3/uL (1.0-4.8) Monocytes # (Auto) 1.2 x10^3/uL (0.0-1.1) Eosinophils # (Auto) 3.2 x10^3/uL (0.0-0.7) Basophils # (Auto) 0.2 x10^3/uL (0.0-0.2) Sodium Level 141 mmol/L (136-145) Potassium Level 4.5 mmol/L (3.5-5.1) Chloride Level 105 mmol/L (98-107) Carbon Dioxide Level 32 mmol/L (21-32) Anion Gap 4 (6-14) Blood Urea Nitrogen 6 mg/dL (7-20) Creatinine 0.7 mg/dL (0.6-1.0) Estimated GFR (Cockcroft-Gault) 92.7 BUN/Creatinine Ratio 9 (6-20) Glucose Level 112 mg/dL (70-99) Calcium Level 9.1 mg/dL (8.5-10.1) Total Bilirubin 0.3 mg/dL (0.2-1.0) Aspartate Amino Transf (AST/SGOT) 26 U/L (15-37) Alanine Aminotransferase (ALT/SGPT) 23 U/L (14-59) Alkaline Phosphatase 66 U/L (46-116) Creatine Kinase 137 U/L (26-192) Creatine Kinase MB (Mass) 3.0 ng/mL (0.0-3.6) Creatine Kinase MB Relative Index 2.2 % (0-4) Troponin I Quantitative < 0.017 ng/mL (0.000-0.055) AH-Gxc-L-Type Natriuretic Peptide 147 pg/mL (0-124) Total Protein 7.1 g/dL (6.4-8.2) Albumin 3.8 g/dL (3.4-5.0) Albumin/Globulin Ratio 1.2 (1.0-1.7) O2 Saturation 100 % (92-99) Arterial Blood pH 7.27 (7.35-7.45) Arterial Blood pCO2 at Patient Temp 62 mmHg (35-46) Arterial Blood pO2 at Patient Temp > 503 mmHg (75-108) Arterial Blood HCO3 28 mmol/L (21-28) Arterial Blood Base Excess -1 mmol/L (-3-3) Oxyhemoglobin 98.6 % Methemoglobin 0.6 % (0.0-1.9) Carbon Monoxide, Quantitative 0.3 % (0.0-1.9) FiO2 100 Laboratory Tests Test 06/07/20 06:52 06/07/20 06:55 06/07/20 07:50 Ethyl Alcohol Level < 10 mg/dL (0-10) White Blood Count 13.8 x10^3/uL (4.0-11.0) Red Blood Count 4.98 x10^6/uL (3.50-5.40) Hemoglobin 14.4 g/dL (12.0-15.5) Hematocrit 44.4 % (36.0-47.0) Mean Corpuscular Volume 89 fL (79-100) Mean Corpuscular Hemoglobin 29 pg (25-35) Mean Corpuscular Hemoglobin Concent 32 g/dL (31-37) Red Cell Distribution Width 15.2 % (11.5-14.5) Platelet Count 646 x10^3/uL (140-400) Neutrophils (%) (Auto) 43 % (31-73) Lymphocytes (%) (Auto) 24 % (24-48) Monocytes (%) (Auto) 8 % (0-9) Eosinophils (%) (Auto) 23 % (0-3) Basophils (%) (Auto) 1 % (0-3) Neutrophils # (Auto) 5.9 x10^3/uL (1.8-7.7) Lymphocytes # (Auto) 3.4 x10^3/uL (1.0-4.8) Monocytes # (Auto) 1.2 x10^3/uL (0.0-1.1) Eosinophils # (Auto) 3.2 x10^3/uL (0.0-0.7) Basophils # (Auto) 0.2 x10^3/uL (0.0-0.2) Sodium Level 141 mmol/L (136-145) Potassium Level 4.5 mmol/L (3.5-5.1) Chloride Level 105 mmol/L (98-107) Carbon Dioxide Level 32 mmol/L (21-32) Anion Gap 4 (6-14) Blood Urea Nitrogen 6 mg/dL (7-20) Creatinine 0.7 mg/dL (0.6-1.0) Estimated GFR (Cockcroft-Gault) 92.7 BUN/Creatinine Ratio 9 (6-20) Glucose Level 112 mg/dL (70-99) Calcium Level 9.1 mg/dL (8.5-10.1) Total Bilirubin 0.3 mg/dL (0.2-1.0) Aspartate Amino Transf (AST/SGOT) 26 U/L (15-37) Alanine Aminotransferase (ALT/SGPT) 23 U/L (14-59) Alkaline Phosphatase 66 U/L (46-116) Creatine Kinase 137 U/L (26-192) Creatine Kinase MB (Mass) 3.0 ng/mL (0.0-3.6) Creatine Kinase MB Relative Index 2.2 % (0-4) Troponin I Quantitative < 0.017 ng/mL (0.000-0.055) KI-Vhw-Z-Type Natriuretic Peptide 147 pg/mL (0-124) Total Protein 7.1 g/dL (6.4-8.2) Albumin 3.8 g/dL (3.4-5.0) Albumin/Globulin Ratio 1.2 (1.0-1.7) O2 Saturation 100 % (92-99) Arterial Blood pH 7.27 (7.35-7.45) Arterial Blood pCO2 at Patient Temp 62 mmHg (35-46) Arterial Blood pO2 at Patient Temp > 503 mmHg (75-108) Arterial Blood HCO3 28 mmol/L (21-28) Arterial Blood Base Excess -1 mmol/L (-3-3) Oxyhemoglobin 98.6 % Methemoglobin 0.6 % (0.0-1.9) Carbon Monoxide, Quantitative 0.3 % (0.0-1.9) FiO2 100 Images Images Chest radiograph: Slight bibasilar interstitial infiltrates VTE Prophylaxis Ordered VTE Prophylaxis Devices: Yes VTE Pharmacological Prophylaxi: Yes Assessment/Plan Assessment/Plan A/P: Acute hypoxia - likely 2/2 acute bronchitis. tested for COVID 19. Wean O2 as tolerated. Doxycycline + steroids + lovenox Acute hypercapnic respiratory failure - likely from asthma attack vs covid 19 vs opioid overdosing Acute encephalopathy - likely due to metabolic cause with hypercapnea Abnormal CXR - will treat for likely gram negative pneumonia with levaquin Sepsis - due to above Person under investigation for COVID-19 - lovenox and steroids. Acute asthma exacerbation - will cont treatment IV drug abuse amphetamine type - counseled, needs placement for substance use disorder, active IV drug abuse opioid type - counseled, needs placement for substance use disorder, active Anxiety, Depression, PTSD - will have PAT team to see Sepsis - will initiate doxycyline, given fluids. Likely bronchitis vs possible COVID 19 related FEN - General diet PPX - lovenox FULL CODE Dispo - inpatient 2 midnights Justifications for Admission Other Justification DICKSON CASE MD Jun 07, 2020 08:16
[2020-06-07 08:52] LABS: BARBITURATES NEG (NEG); BENZODIAZEPINES POS (NEG); CANNABINOIDS NEG (NEG); COCAINE NEG (NEG); METHADONE NEG (NEG); OPIATES POS (NEG); PHENCYCLIDINE NEG (NEG)
[2020-06-07 08:53] LABS: AMPHETAMINE/METHAMPHETAMINE POS (NEG)
[2020-06-07 09:05] LABS: BASE EXCESS ABG 1 mmol/L (-3-3); HCO3 ABG 27 mmol/L (21-28); PCO2 ABG 51 mmHg (35-46); PO2 ABG 144 mmHg (75-108); SAT O2 ABG 99 % (92-99)
[2020-06-07 09:12] LABS: FIO2 ABG 40
[2020-06-07] MEDS ORDERED: ONDANSETRON PF 4 MG/2 ML VIAL. IV PRN (09:30)
[2020-06-07] MEDS ORDERED: ONDANSETRON ODT 4 MG TAB.RAPDIS. PO PRN (09:30)
[2020-06-07] MEDS ORDERED: ACETAMINOPHEN 650 MG SUPP.RECT. PR PRN (09:30)
[2020-06-07] MEDS ORDERED: guaiFENesin DM 200MG/20MG 10 ML SYRUP PO PRN (09:30)
[2020-06-07] MEDS ORDERED: ACETAMINOPHEN 325 MG TABLET. PO PRN (09:30)
[2020-06-07] MEDS ORDERED: POTA-163 PO (09:47)
[2020-06-07] MEDS ORDERED: FURO20TA3 PO (09:47)
[2020-06-07 10:00] VITALS: BP 151/91
[2020-06-07 11:00] VITALS: BP 156/92
[2020-06-07 11:00] LABS: % ATYL 4 % (0-0); % BASOS 1 % (0-3); % EOS 26 % (0-5); % LYMPHS 25 % (24-48); % MONOS 7 % (0-10); % SEGS 37 % (35-66); PLT ESTIMATE INCREASED (ADEQUATE)
[2020-06-07 11:01] LABS: ANISOCYTOSIS SLIGHT
[2020-06-07 13:33] LABS: INFLUENZA A PATIENT NEGATIVE (NEGATIVE); INFLUENZA B PATIENT NEGATIVE (NEGATIVE)
[2020-06-07] MEDS: methylPREDNISolone SOD SUCC PF 40 MG/ML VIAL. IV SCH ×2 (14:12→20:56)
[2020-06-07] MEDS: ZINC SULFATE 220 MG CAPSULE. PO SCH (14:12)
[2020-06-07] MEDS: ENOXAPARIN 40 MG/0.4 ML SYRINGE. SQ SCH (14:14)
[2020-06-07 14:25] VITALS: BP 148/89
[2020-06-07] MEDS: KETOROLAC 30 MG/ML VIAL. IVP PRN ×2 (16:39→22:40)
[2020-06-07 19:00] VITALS: BP 167/91
[2020-06-07] MEDS: LACTOBACILLUS RHAMNOSUS GG 1 CAPSULE. PO SCH (20:56)
[2020-06-07 23:00] VITALS: BP 159/89
[2020-06-08 03:00] VITALS: BP 158/83
[2020-06-08 04:56] LABS: BASO % 0 % (0-3); EOS % 0 % (0-3); HEMATOCRIT 43.2 % (36.0-47.0); HEMOGLOBIN 14.1 g/dL (12.0-15.5); LYMPH # 0.7 x10^3/uL (1.0-4.8); LYMPH % 4 % (24-48); MEAN CORPUSCULAR HEMOGLOBIN 29 pg (25-35); MEAN CORPUSCULAR HGB CONC 33 g/dL (31-37); MEAN CORPUSCULAR VOLUME 88 fL (79-100); MONO # 0.5 x10^3/uL (0.0-1.1); MONO % 3 % (0-9); NEUT # 17.9 x10^3/uL (1.8-7.7); NEUT % 93 % (31-73); PLATELET COUNT 638 x10^3/uL (140-400); RED BLOOD COUNT 4.91 x10^6/uL (3.50-5.40); RED CELL DISTRIBUTION WIDTH 15.1 % (11.5-14.5); WHITE BLOOD COUNT 19.2 x10^3/uL (4.0-11.0)
[2020-06-08 05:09] LABS: CALCIUM 9.8 mg/dL (8.5-10.1); CREATININE 0.5 mg/dL (0.6-1.0); GFR 136.6; POTASSIUM 4.3 mmol/L (3.5-5.1)
[2020-06-08] MEDS: KETOROLAC 30 MG/ML VIAL. IVP PRN ×2 (05:18→11:34)
[2020-06-08 07:00] VITALS: BP 144/80
[2020-06-08] MEDS: ZINC SULFATE 220 MG CAPSULE. PO SCH (08:26)
[2020-06-08] MEDS: LACTOBACILLUS RHAMNOSUS GG 1 CAPSULE. PO SCH (08:26)
[2020-06-08] MEDS: methylPREDNISolone SOD SUCC PF 40 MG/ML VIAL. IV SCH (08:26)
[2020-06-08] MEDS: ENOXAPARIN 40 MG/0.4 ML SYRINGE. SQ SCH (08:27)
[2020-06-08 11:00] VITALS: BP 145/99
--- NOTE | 2020-06-08 11:14 | PDOC ---
[employer] PROGRESS NOTE Date of Service DOS: DATE: 06/08/20 TIME: 11:13 Chief Complaint Chief Complaint A/P: Acute hypoxia - likely 2/2 acute bronchitis. tested for COVID 19. Wean O2 as tolerated. Doxycycline + steroids + lovenox Acute hypercapnic respiratory failure - likely from asthma attack vs covid 19 vs opioid overdosing Acute encephalopathy - likely due to metabolic cause with hypercapnea Abnormal CXR - will treat for likely gram negative pneumonia with levaquin Sepsis - due to above Person under investigation for COVID-19 - lovenox and steroids. Acute asthma exacerbation - will cont treatment IV drug abuse amphetamine type - counseled, needs placement for substance use di sorder, active IV drug abuse opioid type - counseled, needs placement for substance use disorder, active Anxiety, Depression, PTSD - will have PAT team to see Sepsis - will initiate doxycyline, given fluids. Likely bronchitis vs possible COVID 19 related FEN - General diet PPX - lovenox FULL CODE Dispo - inpatient 2 midnights History of Present Illness History of Present Illness Ms Oliveira is a 39-year-old female w/ PMHx Anxiety, Depression, PTSD, AUTOIMMUNE DISORDER OF SKIN, eczema, h/o IV heroin and methamphetamine abuse who presents to the emergency department with complaints of shortness of breath, wheezing, and asthma problems that has increased over the last 3 days prior to presentation. She also complains of fatigue, achiness, nausea, and nasal congestion. Patient reports she has had recurrent pneumonia for several months since July 2019. She denies any fever, vomiting, diarrhea, abdominal pain, rash, headache, chest pain, or palpitations. She complains of shortness of breath with a productive cough with yellow sputum. Patient states she quit smoking a year ago. Admitted last year to [facility] after cardiac arrest, patient states she was on a ventilator for 2 days at that time. and was admitted here 12/2019 and 03/2020, tested negative for COVID19, treated for pneumonia. She states that she has not been around anyone for the last month. She has been staying home alone and having people leave groceries at her door. Pt also reports that she has been using methamphetamines and previously used heroin. She last used meth intravenously the night prior to presentation. Paramedics report the patient has been cleaning as of late and may have a problem with mold in her residence. Paramedics report they have transported her multiple times and states oftentimes she has progressive difficulty breathing and calls only when she is unable to breathe. Prior to arrival the patient had 3 nebulized breathing treatments. The patient is in obvious respiratory distress with expiratory wheezes. She is awake and makes eye contact however she is unable to provide history and it has been provided by EMS personnel and ED personnel Asking if she can go to the bathroom and if I can please leave the room, she is on the bedpan and BIPAP. Chest radiograph with slight bibasilar interstitial infiltrates. EKG - sinus tach, rate 117, leftward axis, no STEMI Has a WBC 13.8, Hb 14.4, platelets 646, NA 141, K4.5, BUN 6, CR 0.7, glucose 112, urine drug screen positive for amphetamines and opioids. ABG on BiPAP 100% FiO2 with pH 7.27, PaCO2 62, PaO2 503. Tested for COVID 19 and admitted for further treatment to ICU on BIPAP Afebrile. After antibiotics steroids 1 dose of IV Lasix she is not requiring O2. 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 She has outpatient follow-up with [facility] and needs some for anxiety. Have discussed starting Geodon and Vistaril as well as a 5-day treatment for acute bronchitis with doxycycline and prednisone taper. She will go home with self care as she needs to clean her home and has a roommate about moving this weekend. Medically stable for discharge. Vitals/I&O Vitals/I&O: Vital Signs Date Time Temp Pulse Resp B/P (MAP) Pulse Ox O2 Delivery O2 Flow Rate FiO2 06/08/20 08:00 Room Air 06/08/20 07:00 97.8 117 26 144/80 (101) 91 97.8 06/08/20 03:00 I & O 06/07/20 06/07/20 06/08/20 15:00 23:00 07:00 Intake Total 1150 ml 420 ml Output Total 1700 ml 250 ml Balance -550 ml 170 ml Physical Exam General: Alert, Cooperative, moderate distress Lungs: Crackles Abdomen: Normal bowel sounds, Soft, No tenderness, No hepatosplenomegaly, No masses Extremities: No clubbing, No cyanosis, No edema, Normal pulses, No tenderness/swelling Skin: No rashes, No breakdown, No significant lesion Labs Labs: Laboratory Tests Test 06/08/20 04:30 White Blood Count 19.2 x10^3/uL (4.0-11.0) Red Blood Count 4.91 x10^6/uL (3.50-5.40) Hemoglobin 14.1 g/dL (12.0-15.5) Hematocrit 43.2 % (36.0-47.0) Mean Corpuscular Volume 88 fL (79-100) Mean Corpuscular Hemoglobin 29 pg (25-35) Mean Corpuscular Hemoglobin Concent 33 g/dL (31-37) Red Cell Distribution Width 15.1 % (11.5-14.5) Platelet Count 638 x10^3/uL (140-400) Neutrophils (%) (Auto) 93 % (31-73) Lymphocytes (%) (Auto) 4 % (24-48) Monocytes (%) (Auto) 3 % (0-9) Eosinophils (%) (Auto) 0 % (0-3) Basophils (%) (Auto) 0 % (0-3) Neutrophils # (Auto) 17.9 x10^3/uL (1.8-7.7) Lymphocytes # (Auto) 0.7 x10^3/uL (1.0-4.8) Monocytes # (Auto) 0.5 x10^3/uL (0.0-1.1) Eosinophils # (Auto) 0.0 x10^3/uL (0.0-0.7) Basophils # (Auto) 0.0 x10^3/uL (0.0-0.2) Sodium Level 140 mmol/L (136-145) Potassium Level 4.3 mmol/L (3.5-5.1) Chloride Level 104 mmol/L (98-107) Carbon Dioxide Level 25 mmol/L (21-32) Anion Gap 11 (6-14) Blood Urea Nitrogen 15 mg/dL (7-20) Creatinine 0.5 mg/dL (0.6-1.0) Estimated GFR (Cockcroft-Gault) 136.6 Glucose Level 122 mg/dL (70-99) Calcium Level 9.8 mg/dL (8.5-10.1) Assessment and Plan Assessmemt and Plan Problems Medical Problems: (1) Acute asthma exacerbation Status: Acute (2) Person under investigation for COVID-19 Status: Acute (3) Respiratory failure, acute Status: Acute Comment Review of Relevant I have reviewed the following items janie (where applicable) has been applied. Medications: Current Medications Medications (Trade) Dose Ordered Sig/Andrei Route PRN Reason Start Time Stop Time Status Last Admin Dose Admin Lactobacillus Rhamnosus (Culturelle) 1 cap BID PO 06/07/20 21:00 06/08/20 08:26 Zinc Sulfate (Orazinc) 220 mg DAILY PO 06/07/20 14:00 06/08/20 08:26 Levofloxacin/ Dextrose 150 ml @ 100 mls/hr DAILY IV 06/08/20 09:00 06/08/20 08:27 Methylprednisolone Sodium Succinate (SOLU-Medrol 40MG VIAL) 40 mg TID IV 06/07/20 14:00 06/08/20 08:26 Enoxaparin Sodium (Lovenox 40mg Syringe) 40 mg DAILY SQ 06/07/20 14:00 06/08/20 08:27 Ketorolac Tromethamine (Toradol 30mg Vial) 30 mg PRN Q6HRS PRN IVP INFLAMMATION 06/07/20 16:30 06/12/20 16:29 06/08/20 05:18 Justifications for Admission Other Justification DICKSON CASE MD Jun 08, 2020 11:14
[2020-06-08] MEDS ORDERED: predniSONE 20 MG TABLET PO SCH (12:30)
[2020-06-08] MEDS ORDERED: DOXYCYCLINE HYCLATE 100 MG TABLET PO SCH (12:30)
[2020-06-08] MEDS ORDERED: DOXY100T PO (12:55)
[2020-06-08] MEDS ORDERED: PRED20TA PO (12:55)
[2020-06-08] MEDS ORDERED: HYDR25TA PO (12:56)
[2020-06-08] MEDS ORDERED: ZIPR20CA2 PO (12:56)
[2020-06-08] MEDS ORDERED: hydrOXYzine 25 MG TABLET PO PRN (13:00)
[2020-06-08] MEDS ORDERED: ZIPRASIDONE 20 MG CAPSULE PO PRN (13:00)
--- NOTE | 2020-06-08 14:39 | PDOC3 ---
Discharge Summary Visit Information Date of Admission: Jun 07, 2020 Date of Discharge: Jun 08, 2020 Admitting Diagnosis: Acute asthma exacerbation Final Diagnosis Problems Medical Problems: (1) Acute asthma exacerbation Status: Acute (2) Person under investigation for COVID-19 Status: Acute (3) Respiratory failure, acute Status: Acute Brief Hospital Course Allergies Allergies Coded Allergies Type Severity Reaction Last Updated Verified No Known Drug Allergies 06/13/13 No Vital Signs Vital Signs Date Time Temp Pulse Resp B/P (MAP) Pulse Ox O2 Delivery O2 Flow Rate FiO2 06/08/20 11:00 96.4 114 24 145/99 (114) 96 Aerosol Mask 96.4 06/08/20 03:00 Lab Results Laboratory Tests Test 06/07/20 06:52 06/07/20 06:55 06/07/20 07:15 06/07/20 07:50 Ethyl Alcohol Level < 10 mg/dL (0-10) White Blood Count 13.8 x10^3/uL (4.0-11.0) Red Blood Count 4.98 x10^6/uL (3.50-5.40) Hemoglobin 14.4 g/dL (12.0-15.5) Hematocrit 44.4 % (36.0-47.0) Mean Corpuscular Volume 89 fL (79-100) Mean Corpuscular Hemoglobin 29 pg (25-35) Mean Corpuscular Hemoglobin Concent 32 g/dL (31-37) Red Cell Distribution Width 15.2 % (11.5-14.5) Platelet Count 646 x10^3/uL (140-400) Neutrophils (%) (Auto) 43 % (31-73) Lymphocytes (%) (Auto) 24 % (24-48) Monocytes (%) (Auto) 8 % (0-9) Eosinophils (%) (Auto) 23 % (0-3) Basophils (%) (Auto) 1 % (0-3) Neutrophils # (Auto) 5.9 x10^3/uL (1.8-7.7) Lymphocytes # (Auto) 3.4 x10^3/uL (1.0-4.8) Monocytes # (Auto) 1.2 x10^3/uL (0.0-1.1) Eosinophils # (Auto) 3.2 x10^3/uL (0.0-0.7) Basophils # (Auto) 0.2 x10^3/uL (0.0-0.2) Segmented Neutrophils % 37 % (35-66) Lymphocytes % 25 % (24-48) Atypical Lymphocytes % (Manual) 4 % (0-0) Monocytes % 7 % (0-10) Eosinophils % 26 % (0-5) Basophils % 1 % (0-3) Platelet Estimate Increased (ADEQUATE) Large Platelets Few Giant Platelets Present Anisocytosis Slight Sodium Level 141 mmol/L (136-145) Potassium Level 4.5 mmol/L (3.5-5.1) Chloride Level 105 mmol/L (98-107) Carbon Dioxide Level 32 mmol/L (21-32) Anion Gap 4 (6-14) Blood Urea Nitrogen 6 mg/dL (7-20) Creatinine 0.7 mg/dL (0.6-1.0) Estimated GFR (Cockcroft-Gault) 92.7 BUN/Creatinine Ratio 9 (6-20) Glucose Level 112 mg/dL (70-99) Calcium Level 9.1 mg/dL (8.5-10.1) Total Bilirubin 0.3 mg/dL (0.2-1.0) Aspartate Amino Transf (AST/SGOT) 26 U/L (15-37) Alanine Aminotransferase (ALT/SGPT) 23 U/L (14-59) Alkaline Phosphatase 66 U/L (46-116) Creatine Kinase 137 U/L (26-192) Creatine Kinase MB (Mass) 3.0 ng/mL (0.0-3.6) Creatine Kinase MB Relative Index 2.2 % (0-4) Troponin I Quantitative < 0.017 ng/mL (0.000-0.055) IM-Mkz-Z-Type Natriuretic Peptide 147 pg/mL (0-124) Total Protein 7.1 g/dL (6.4-8.2) Albumin 3.8 g/dL (3.4-5.0) Albumin/Globulin Ratio 1.2 (1.0-1.7) Coronavirus (PCR) Not detected (Not Detected) Influenza Type A Antigen Negative (NEGATIVE) Influenza Type B Antigen Negative (NEGATIVE) O2 Saturation 100 % (92-99) Arterial Blood pH 7.27 (7.35-7.45) Arterial Blood pCO2 at Patient Temp 62 mmHg (35-46) Arterial Blood pO2 at Patient Temp > 503 mmHg (75-108) Arterial Blood HCO3 28 mmol/L (21-28) Arterial Blood Base Excess -1 mmol/L (-3-3) Oxyhemoglobin 98.6 % Methemoglobin 0.6 % (0.0-1.9) Carbon Monoxide, Quantitative 0.3 % (0.0-1.9) FiO2 100 Test 06/07/20 08:30 06/07/20 08:50 06/08/20 04:30 Urine Opiates Screen Pos (NEG) Urine Methadone Screen Neg (NEG) Urine Barbiturates Neg (NEG) Urine Phencyclidine Screen Neg (NEG) Urine Amphetamine/Methamphetamine Pos (NEG) Urine Benzodiazepines Screen Pos (NEG) Urine Cocaine Screen Neg (NEG) Urine Cannabinoids Screen Neg (NEG) Urine Ethyl Alcohol Neg (NEG) O2 Saturation 99 % (92-99) Arterial Blood pH 7.34 (7.35-7.45) Arterial Blood pCO2 at Patient Temp 51 mmHg (35-46) Arterial Blood pO2 at Patient Temp 144 mmHg (75-108) Arterial Blood HCO3 27 mmol/L (21-28) Arterial Blood Base Excess 1 mmol/L (-3-3) FiO2 40 White Blood Count 19.2 x10^3/uL (4.0-11.0) Red Blood Count 4.91 x10^6/uL (3.50-5.40) Hemoglobin 14.1 g/dL (12.0-15.5) Hematocrit 43.2 % (36.0-47.0) Mean Corpuscular Volume 88 fL (79-100) Mean Corpuscular Hemoglobin 29 pg (25-35) Mean Corpuscular Hemoglobin Concent 33 g/dL (31-37) Red Cell Distribution Width 15.1 % (11.5-14.5) Platelet Count 638 x10^3/uL (140-400) Neutrophils (%) (Auto) 93 % (31-73) Lymphocytes (%) (Auto) 4 % (24-48) Monocytes (%) (Auto) 3 % (0-9) Eosinophils (%) (Auto) 0 % (0-3) Basophils (%) (Auto) 0 % (0-3) Neutrophils # (Auto) 17.9 x10^3/uL (1.8-7.7) Lymphocytes # (Auto) 0.7 x10^3/uL (1.0-4.8) Monocytes # (Auto) 0.5 x10^3/uL (0.0-1.1) Eosinophils # (Auto) 0.0 x10^3/uL (0.0-0.7) Basophils # (Auto) 0.0 x10^3/uL (0.0-0.2) Sodium Level 140 mmol/L (136-145) Potassium Level 4.3 mmol/L (3.5-5.1) Chloride Level 104 mmol/L (98-107) Carbon Dioxide Level 25 mmol/L (21-32) Anion Gap 11 (6-14) Blood Urea Nitrogen 15 mg/dL (7-20) Creatinine 0.5 mg/dL (0.6-1.0) Estimated GFR (Cockcroft-Gault) 136.6 Glucose Level 122 mg/dL (70-99) Calcium Level 9.8 mg/dL (8.5-10.1) Laboratory Tests Test 06/08/20 04:30 White Blood Count 19.2 x10^3/uL (4.0-11.0) Red Blood Count 4.91 x10^6/uL (3.50-5.40) Hemoglobin 14.1 g/dL (12.0-15.5) Hematocrit 43.2 % (36.0-47.0) Mean Corpuscular Volume 88 fL (79-100) Mean Corpuscular Hemoglobin 29 pg (25-35) Mean Corpuscular Hemoglobin Concent 33 g/dL (31-37) Red Cell Distribution Width 15.1 % (11.5-14.5) Platelet Count 638 x10^3/uL (140-400) Neutrophils (%) (Auto) 93 % (31-73) Lymphocytes (%) (Auto) 4 % (24-48) Monocytes (%) (Auto) 3 % (0-9) Eosinophils (%) (Auto) 0 % (0-3) Basophils (%) (Auto) 0 % (0-3) Neutrophils # (Auto) 17.9 x10^3/uL (1.8-7.7) Lymphocytes # (Auto) 0.7 x10^3/uL (1.0-4.8) Monocytes # (Auto) 0.5 x10^3/uL (0.0-1.1) Eosinophils # (Auto) 0.0 x10^3/uL (0.0-0.7) Basophils # (Auto) 0.0 x10^3/uL (0.0-0.2) Sodium Level 140 mmol/L (136-145) Potassium Level 4.3 mmol/L (3.5-5.1) Chloride Level 104 mmol/L (98-107) Carbon Dioxide Level 25 mmol/L (21-32) Anion Gap 11 (6-14) Blood Urea Nitrogen 15 mg/dL (7-20) Creatinine 0.5 mg/dL (0.6-1.0) Estimated GFR (Cockcroft-Gault) 136.6 Glucose Level 122 mg/dL (70-99) Calcium Level 9.8 mg/dL (8.5-10.1) Brief Hospital Course Ms Oliveira is a 39-year-old female w/ PMHx Anxiety, Depression, PTSD, AUTOIMMUNE DISORDER OF SKIN, eczema, h/o IV heroin and methamphetamine abuse who presents to the emergency department with complaints of shortness of breath, wheezing, and asthma problems that has increased over the last 3 days prior to presentation. She also complains of fatigue, achiness, nausea, and nasal patsy estion. Patient reports she has had recurrent pneumonia for several months since July 2019. She denies any fever, vomiting, diarrhea, abdominal pain, rash, headache, chest pain, or palpitations. She complains of shortness of breath with a productive cough with yellow sputum. Patient states she quit smoking a year ago. Admitted last year to [facility] after cardiac arrest, patient states she was on a ventilator for 2 days at that time. and was admitted here 12/2019 and 03/2020, tested negative for COVID19, treated for pneumonia. She states that she has not been around anyone for the last month. She has been staying home alone and having people leave groceries at her door. Pt also reports that she has been using methamphetamines and previously used heroin. She last used meth intravenously the night prior to presentation. Paramedics report the patient has been cleaning as of late and may have a problem with mold in her residence. Paramedics report they have transported her multiple times and states oftentimes she has progressive difficulty breathing and calls only when she is unable to breathe. Prior to arrival the patient had 3 nebulized breathing treatments. The patient is in obvious respiratory distress with expiratory wheezes. She is awake and makes eye contact however she is unable to provide history and it has been provided by EMS personnel and ED personnel Asking if she can go to the bathroom and if I can please leave the room, she is on the bedpan and BIPAP. Chest radiograph with slight bibasilar interstitial infiltrates. EKG - sinus tach, rate 117, leftward axis, no STEMI Has a WBC 13.8, Hb 14.4, platelets 646, NA 141, K4.5, BUN 6, CR 0.7, glucose 112, urine drug screen positive for amphetamines and opioids. ABG on BiPAP 100% FiO2 with pH 7.27, PaCO2 62, PaO2 503. Tested for COVID 19 and admitted for further treatment to ICU on BIPAP Afebrile. After antibiotics steroids 1 dose of IV Lasix she is not requiring O2. 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 She has outpatient follow-up with mirrors and needs some for anxiety. Have discussed starting Geodon and Vistaril as well as a 5-day treatment for acute bronchitis with doxycycline and prednisone taper. She will go home with self care as she needs to clean her home and has a roommate about moving this weekend. Medically stable for discharge. COVID-19 and influenza negative Problem list: Acute hypoxia - likely 2/2 acute bronchitis. tested for COVID 19. Wean O2 as tolerated. Doxycycline + steroids + lovenox Acute hypercapnic respiratory failure - likely from asthma attack vs opioid overdosing, resolved Acute encephalopathy - likely due to metabolic cause with hypercapnea, resolved Abnormal CXR - will treat for likely gram negative pneumonia with levaquin Sepsis - due to above Acute asthma exacerbation - will cont treatment IV drug abuse amphetamine type - counseled, needs placement for substance use disorder, active IV drug abuse opioid type - counseled, needs placement for substance use disorder, active Anxiety, Depression, PTSD - will have PAT team to see Sepsis - will initiate doxycyline, given fluids. Likely bronchitis Greater than 30 minutes spent on d/c home with self care. Discharge Information Condition at Discharge: Improved Follow Up: Weeks (1) Disposition/Orders: D/C to Home Scheduled Ascorbic Acid (Vitamin C) 100 Mg Tablet, 1 TAB PO DAILY for supplement for 30 Days, #30 Ref 0 (Reported) Entered as Reported by: BRIGIDA ELLIS RN on 01/07/20 0326 Last Action: Reviewed on 06/07/201151 by IFRAH ELKINS RN Budesonide/Formoterol Fumarate (Symbicort 160-4.5 Mcg Inhaler) 10.2 Gm Hfa.aer.ad, 2 PUFF IH BID for asthma, #10.6 Ref 3 (Reported) Entered as Reported by: BRIGIDA ELLIS RN on 01/07/20 0324 Last Action: Reviewed on 06/07/201151 by IFRAH ELKINS RN Doxycycline Hyclate (Doxycycline Hyclate) 100 Mg Tablet, 100 MG PO BID for bronchitis for 5 Days, #10 Prescribed by: DICKSON CASE MD on 06/08/20 1255 Lactobacillus Rhamnosus Gg (Culturelle) 1 Each Cap.sprink, 1 CAP PO BID for SUPPLEMENT for 30 Days, #60 Prescribed by: MIKE GOODRICH MD on 01/10/20 1336 Last Action: Reviewed on 06/07/201151 by IFRAH ELKINS RN Multivitamin (Multi Vitamin Daily) 1 Each Tablet, 1 TAB PO DAILY for supplement for 30 Days, #30 Ref 0 Prescribed by: MIKE GOODRICH MD on 04/03/20 1340 Last Action: Reviewed on 06/07/201151 by IFRAH ELKINS RN Potassium Chloride (Potassium Chloride) 20 Meq Tablet.er, 1 TAB PO DAILY for REPLACEMENT, (Reported) Entered as Reported by: IFRAH ELKINS RN on 06/07/20 0947 Last Action: Reviewed on 06/07/201151 by IFRAH ELKINS RN Prednisone (Prednisone) 20 Mg Tablet, 20 MG PO DAILY for Bronchitis for 5 Days, #5 Prescribed by: DICKSON CASE MD on 06/08/20 1255 Zinc Sulfate (Orazinc) 220 Mg Capsule, 220 MG PO DAILY for SUPPLEMENT for 30 Days, #30 Prescribed by: MIKE GOODRICH MD on 01/10/20 1336 Last Action: Reviewed on 06/07/201151 by IFRAH ELKINS RN Scheduled PRN Albuterol Sulfate (Albuterol Sulfate Neb Soln) 1.25 Mg/3 Ml Vial.neb, 1 VIAL NEB Q4-6HRS PRN for asthma, #150 Ref 2 (Reported) Entered as Reported by: BRIGIDA ELLIS RN on 01/07/20 0324 Last Action: Reviewed on 06/07/201151 by IFRAH ELKINS RN Furosemide (Furosemide) 20 Mg Tablet, 1 TAB PO PRN DAILY PRN for swelling, (Reported) Entered as Reported by: IFRAH ELKINS RN on 06/07/20 0923 Last Action: Reviewed on 06/07/201151 by IFRAH ELKINS RN Guaifenesin/Dextromethorphan (Guaifenesin Dm Syrup) 5 Ml Syrup, 10 ML PO PRN Q6HRS PRN for COUGH for 10 Days, #240 Prescribed by: RE HERNANDEZ MD on 03/16/20 1319 Last Action: Reviewed on 06/07/201151 by IFRAH ELKINS RN Hydroxyzine Hcl (Hydroxyzine Hcl) 25 Mg Tablet, 25 MG PO PRN Q6HRS PRN for ANXIETY for 30 Days, #60 Prescribed by: DICKSON CASE MD on 06/08/20 1256 Ondansetron (Ondansetron Odt) 4 Mg Tab.rapdis, 1 TAB PO PRN Q6-8HRS PRN for NAUSEA/VOMITING, #16 Prescribed by: ANKUR DOWNING D.O. on 05/31/182216 Last Action: Reviewed on 06/07/201151 by IFRAH ELKINS RN Ziprasidone Hcl (Geodon) 20 Mg Capsule, 20 MG PO PRN BID PRN for intrusive thoughts/agitation for 30 Days, #60 Prescribed by: DICKSON CASE MD on 06/08/20 1256 Justicifation of Admission Dx: Justifications for Admission: Justification of Admission Dx: Yes DICKSON CASE MD Jun 08, 2020 14:39
--- NOTE | 2020-06-08 15:17 | NUR ---
Discharge Note: ANGELO YU [address] [place] [address] Discharge instructions and discharge home medications reviewed with Patient and a copy given. All questions have been answered and understanding verbalized. The following instructions and handouts were given: f/u with pcp within one week. Discontinued lines and drains: Peripheral IV intact. Patient discharged to Home or Self Care with Family Member via Wheelchair. All belongings with patient at the time of discharge.
--- NOTE | 2020-06-08 17:15 | NUR ---
SW following for discharge planning. Spoke with RN and reviewed chart. Pt discharged home self-care today, 06/08 with no SW needs.
[2020-08-11] MEDS ORDERED: DOXE10CA PO (00:21)
[2020-08-11] MEDS ORDERED: TEMA30CA PO (00:21)
[2020-08-11] MEDS ORDERED: OMEP20CA16 PO (00:21)
[2020-08-11] MEDS ORDERED: ALPR1TAB2 PO (00:21)
[2020-08-11] MEDS ORDERED: TRAZ-123 PO (00:21)
[2020-08-11] MEDS ORDERED: ALBU2.5V8 IH (00:21)
[2020-08-13] MEDS ORDERED: DOXY100T PO (10:30)
[2020-08-13] MEDS ORDERED: PRED20TA PO (10:30)
== END 2020-06-08 15:18 | disposition home or self-care (01) | DRG 871 ==
LOC: ER 06:46 → 1 WEST ICU 08:15 → 6 SOUTH 17:40
PROVIDERS: ADMIT Internal Medicine; ATTEND Internal Medicine
PROC: 5A09357 Assistance with Respiratory Ventilation, Less than 24 Consecutive Hours, Continuous Positive Airway Pressure (ICD-10-PCS; principal; 2020-06-07)
DX: A41.9 Sepsis, unspecified organism (principal); G93.41 Metabolic encephalopathy; J96.01 Acute respiratory failure with hypoxia; J15.6 Pneumonia due to other Gram-negative bacteria; J45.901 Unspecified asthma with (acute) exacerbation; T40.2X1A Poisoning by other opioids, accidental (unintentional), initial encounter; F11.10 Opioid abuse, uncomplicated; F32.9 Major depressive disorder, single episode, unspecified; F43.10 Post-traumatic stress disorder, unspecified; J20.9 Acute bronchitis, unspecified; Z87.01 Personal history of pneumonia (recurrent); Z87.891 Personal history of nicotine dependence; Y92.89 Other specified places as the place of occurrence of the external cause; Z20.822 Contact with and (suspected) exposure to COVID-19
CPT/HCPCS: 36415; 36600; 71045; 80048; 80053; 80307; 82550; 82553; 82805; 83880; 84484; 85007; 85025; 87040; 87804; 93005; 94640; 94660; 96361; 96374; G0480; J1650; J1885; J1956; J2920; J2930; J7030; J7512; U0003; 99291-25; G0378; J7613; J7644

== ENCOUNTER 2020-12-15 18:11 | Emergency (ER) | payer SELFPAY ==
[~2020-12-15] VITALS: Ht 165.1 cm; Wt 58.6 kg
[~2020-12-15 18:11] MED LIST changes: +ALBU2.5V8 IH; +DOXE10CA PO; +FURO20TA3 PO; +HYDR25TA PO; +OMEP20CA16 PO; +POTA-163 PO; +PRED20TA PO; +ZIPR20CA2 PO
[2020-12-15] MEDS ORDERED: VANCOMYCIN PER PHARMACY MC PRN (19:30)
[2020-12-15] MEDS ORDERED: KETOROLAC 15 MG/ML VIAL. IVP ONE (19:30)
[2020-12-15 19:47] LABS: BASO % 0 % (0-3); EOS # 1.2 x10^3/uL (0.0-0.7); EOS % 7 % (0-3); HEMATOCRIT 38.6 % (36.0-47.0); HEMOGLOBIN 12.7 g/dL (12.0-15.5); LYMPH # 1.2 x10^3/uL (1.0-4.8); LYMPH % 7 % (24-48); MEAN CORPUSCULAR HEMOGLOBIN 28 pg (25-35); MEAN CORPUSCULAR HGB CONC 33 g/dL (31-37); MEAN CORPUSCULAR VOLUME 86 fL (79-100); MONO # 0.7 x10^3/uL (0.0-1.1); MONO % 4 % (0-9); NEUT # 14.2 x10^3/uL (1.8-7.7); NEUT % 82 % (31-73); PLATELET COUNT 627 x10^3/uL (140-400); RED BLOOD COUNT 4.48 x10^6/uL (3.50-5.40); RED CELL DISTRIBUTION WIDTH 16.4 % (11.5-14.5); WHITE BLOOD COUNT 17.4 x10^3/uL (4.0-11.0)
--- NOTE | 2020-12-15 19:55 | PHYS DOC ---
Past Medical History Past Medical History: Anxiety, Asthma, Bronchitis, Depression, Other Additional Past Medical Histor: PTSD, eczema, meth use, heroin use, paranoia, dermatitis, intubation hx Past Surgical History: No Surgical History Additional Past Surgical Histo: Pt previously intubated Smoking Status: Former Smoker Alcohol Use: Occasionally Drug Use: Marijuana, Opiates General Adult EDM: Chief Complaint: MULTIPLE COMPLAINTS HPI: HPI: 40-year-old female past medical history of contact dermatitis, asthma, polysubs tance abuse, presents the ED with multiple complaints complaints including chronic pruritic rash of her arms and legs, reports drainage from her right dominant hand with associated red rash for the past week. States she was seen at [facility] for this and is not on any antibiotics. Unsure last tetanus. Reports 2 menses in the last 2 months and states she cannot gain weight. Reports concern for black mold at her house. Review of Systems: Review of Systems: Constitutional: Denies fever or chills. [] Eyes: Denies change in visual acuity. [] HENT: Denies nasal congestion or sore throat. [] Respiratory: Denies cough or shortness of breath. [] Cardiovascular: Denies chest pain or edema. [] GI: Denies abdominal pain, nausea, vomiting, : Denies dysuria or current vaginal bleeding Musculoskeletal: Denies back pain or CVA tenderness Integument: Denies desquamation or blistering lesions Neurologic: Denies headache, focal weakness or sensory changes. [] Endocrine: Denies polyuria or polydipsia. [] Lymphatic: Denies swollen glands. [] Psychiatric: Denies depression or anxiety. [] Heart Score: C/O Chest Pain: No Risk Factors: Risk Factors: DM, Current or recent (<one month) smoker, HTN, HLP, family history of CAD, obesity. Risk Scores: Score 0 - 3: 2.5% MACE over next 6 weeks - Discharge Home Score 4 - 6: 20.3% MACE over next 6 weeks - Admit for Clinical Observation Score 7 - 10: 72.7% MACE over next 6 weeks - Early Invasive Strategies Current Medications: Current Medications Medications (Trade) Dose Ordered Sig/Andrei Start Time Stop Time Status Last Admin Dose Admin Diphtheria/ Tetanus/Acell Pertussis (ADACEL TDap SYRINGE) 0.5 ml ONCE ONCE 12/15/20 19:45 12/15/20 19:46 UNV Ketorolac Tromethamine (Toradol 15mg Vial) 15 mg 1X ONCE 12/15/20 19:30 12/15/20 19:31 DC Vancomycin HCl (Vanco Per Pharmacy) 1 each PRN DAILY PRN 12/15/20 19:30 UNV Vancomycin HCl 1.5 gm/Sodium Chloride 500 ml @ 250 mls/hr 1X ONCE 12/15/20 20:00 12/15/20 21:59 Allergies: Allergies: Allergies Coded Allergies Type Severity Reaction Last Updated Verified No Known Drug Allergies 06/13/13 No Physical Exam: PE: Constitutional: poor hygiene/unkept appearance, no acute distress, non-toxic appearance. HENT: Normocephalic, atraumatic, Eyes: EOMI, conjunctiva normal, no discharge. Neck: Normal range of motion, supple, no nuchal rigidity or meningismus Cardiovascular: S1/2 present, regular rhythm Lungs & Thorax: Speaking in full sentences, bilateral equal chest rise, no tachypnea or increased work of breathing Abdomen: soft, no tenderness, Skin: Warm, dry, negative Nikolsky sign, warm/erythematous rash over Palmar and dorsal aspects of skin just proximal to fourth and fifth digits with painful purulent drainage easily expressed from right fourth and fifth webspace-webspace is erythematous, no uniform digital swelling, 4th/5th digit w/painful passive extension & w/flexor posturing "it's been like this for awhile, since October 02", significant eczema over patient's entire arms and legs, diffuse eczema-likely uncontrolled dyshidrotic eczema Back: No tenderness, no CVA tenderness. [] Extremities: Nno cyanosis, right digital cap refill less than 1 second, right median/radial/ulnar nerve distribution intact, equal radial pulses, Neurologic: Alert and oriented X 3, normal motor function, normal sensory function, no focal deficits noted. [] Psychologic: Affect normal, judgement normal, mood normal. [] Current Patient Data: Vital Signs: Vital Signs Date Time Temp Pulse Resp B/P (MAP) Pulse Ox O2 Delivery O2 Flow Rate FiO2 12/15/20 19:05 99.0 18 134/74 97 Room Air 99.0 EKG: EKG: [] Radiology/Procedures: Radiology/Procedures: IMAGING REPORT Signed PATIENT: ANGELO YU ACCOUNT: [id number] : 1980 LOCATION: ER AGE: 40 SEX: F EXAM STATUS: REG ER ORD. PHYSICIAN: AMOR STOUT DO REASON: pain/rash, pus from 4/5 web space PROCEDURE: HAND RIGHT 3V Study: XR HAND_RIGHT 3 VIEWS Indication: Pain. Rash. Comparison: None. Findings: No fracture, erosion or periostitis. On the PA view, a triangular density projecting over the distal fourth and fifth metacarpals is external to the patient. The soft tissues are edematous and irregular primarily along the fourth and fifth phalanges, and most notably volar to the ring metacarpal, but also appear edematous along the metacarpals to the wrist. Impression: Edematous and irregular soft tissues along the fourth and fifth phalanges and along the metacarpals. No retained radiopaque foreign body or acute osseous abnormality. Electronically signed by: LYNN RUTLEDGE MD (12/15/2020 10:01 PM) [facility] DICTATED and SIGNED BY: LYNN RUTLEDGE MD DATE: 12/15/20 [id number] 0 Course & Med Decision Making: Course & Med Decision Making Pertinent Labs and Imaging studies reviewed. (See chart for details) Concern for right hand cellulitis and abscess with concern for flexor tenosynovitis over right fourth and fifth digits. I discussed with orthopedic surgery Dr. Stinson who recommends hand surgery consultation, not available at [facility]. Vanc/zoyashn give in ed. Tdap updated. Pt npo. D/w transfer center, Dr. Néstor Ferrer, hand surgeon, who reported pt is known to . Will transfer to emergency department for hand surgery consultation. Pt stable at time of transfer and agrees with this plan. I have spoken with the patient and/or caregivers. I have explained the patient's condition, diagnosis and treatment plan based on the information available to me at this time. I have answered the patient's and/or caregivers questions and answered any concerns. The patient and/or caregivers have as good an understanding of the patient's diagnosis, condition and treatment plan as can be expected at this point. The patient has been stabilized within the capability of the emergency department. The patient will be transported for further care and management or will be moved to an observation or inpatient service. I have communicated with the staff or medical practitioner taking over this patient's care. Ernst Disclaimer: Ernst Disclaimer: This electronic medical record was generated, in whole or in part, using a voice recognition dictation system. Departure Departure Impression: Primary Impression: Cellulitis of right hand Additional Impression: Abscess of right hand Disposition: 02 SHORT [facility] (to ED, d/w hand surgeon, Dr. Ferrer) Condition: STABLE Referrals: NO PCP (PCP) AMOR STOUT DO Dec 15, 2020 19:54
[2020-12-15 19:56] LABS: PREG TEST PT QUAL NEGATIVE (NEG)
[2020-12-15 19:59] LABS: CALCIUM 8.6 mg/dL (8.5-10.1); CREATININE 0.9 mg/dL (0.6-1.0); POTASSIUM 4.1 mmol/L (3.5-5.1)
[2020-12-15] MEDS ORDERED: VANCOMYCIN 1.5 GM in IV NORMAL SALINE 500ML BAG 500 ML IV ONE (20:00)
[2020-12-15] MEDS ORDERED: DIPH,PERTUSS(ACELL),TET VAC/PF 0.5 ML SYRINGE. VAX IM ONE (20:00)
[2020-12-15 20:22] LABS: % EOS 4 % (0-5); % LYMPHS 12 % (24-48); % MONOS 2 % (0-10); % SEGS 82 % (35-66); PLT ESTIMATE INCREASED (ADEQUATE)
[2020-12-15] MEDS ORDERED: PIPERACILLIN/TAZOBACTAM 4.5 GM in IV NORMAL SALINE 100ML 100 ML IV ONE (21:00)
--- NOTE | 2020-12-15 22:03 | RAD ---
Study: XR HAND_RIGHT 3 VIEWS Indication: Pain. Rash. Comparison: None. Findings: No fracture, erosion or periostitis. On the PA view, a triangular density projecting over the distal fourth and fifth metacarpals is external to the patient. The soft tissues are edematous and irregular primarily along the fourth and fifth phalanges, and most notably volar to the ring metacarpal, but a lso appear edematous along the metacarpals to the wrist. Impression: Edematous and irregular soft tissues along the fourth and fifth phalanges and along the metacarpals. No retained radiopaque foreign body or acute osseous abnormality. Electronically signed by: LYNN RUTLEDGE MD (12/15/2020 10:01 PM) [facility]
[2020-12-15 22:06] VITALS: BP 118/58
== END 2020-12-15 22:40 | disposition short-term general hospital (02) ==
LOC: ER 18:11
DX: L03.113 Cellulitis of right upper limb (principal); J45.909 Unspecified asthma, uncomplicated; F43.10 Post-traumatic stress disorder, unspecified; Z87.891 Personal history of nicotine dependence
CPT/HCPCS: 36415; 73130; 80048; 84703; 85007; 85025; 90471; 90715; 96365; 96367; 96375; 99285; J1885; J2543; J3370; J7040

== ENCOUNTER 2021-02-25 23:42 | Inpatient (IN) | payer OTHER ==
[~2021-02-25] VITALS: Ht 165.1 cm; Wt 65.4 kg
--- NOTE | 2021-02-26 01:58 | PHYS DOC ---
Past Medical History Past Medical History: Anxiety, Asthma, Bronchitis, Depression, Other Additional Past Medical Histor: PTSD, eczema, meth use, heroin use, paranoia, dermatitis, intubation hx Past Surgical History: No Surgical History Additional Past Surgical Histo: Pt previously intubated Smoking Status: Never Smoker Alcohol Use: None Drug Use: Marijuana, Opiates General Adult EDM: Chief Complaint: SHORTNESS OF BREATH HPI: HPI: Patient is a 40-year-old female presenting for skin issues. Onset was yesterday after taking a bath at her place of residence. Reports she has had several episodes of this in the past, one time requiring admission to [facility] for dermatology consultation. She is unclear what the diagnosis was at that time. States she has history of illicit drug dependence with subsequent inpatient rehabilitation and is currently on Suboxone therapy. Also has history of asthma and atopic dermatitis. Denies any recent known ingestions, trauma, exposure, or allergens. Admits she has been avoiding her house, specifically the water and she typically suffers from atopic dermatitis outbreaks and skin issues after using it and so, she has been using other places in community to cleanse herself. Reports taking a bath yesterday and using a hypoallergenic bath soap a nd coconut oil only, she has used these in the past without issue. She is convinced it is the water causing her symptoms. Nonetheless, ongoing itching, diffuse burning and irritation to all surfaces of body sparing mucosal surfaces, palms and soles prompted her to come in for evaluation Review of Systems: Review of Systems: Fourteen body systems of review of systems have been reviewed. See HPI for pertinent positives and negative responses, other longoria all other systems are negative, non-pertinent or non-contributory Heart Score: C/O Chest Pain: No HEART Score for Chest Pain: HEART Score for Chest Pain Response (Comments) Value History Moderately Suspicious 1 ECG Normal 0 Age < 45 0 Risk Factors 1 or 2 Risk Factors 1 Troponin < Normal Limit 0 Total 2 Risk Factors: Risk Factors: DM, Current or recent (<one month) smoker, HTN, HLP, family history of CAD, obesity. Risk Scores: Score 0 - 3: 2.5% MACE over next 6 weeks - Discharge Home Score 4 - 6: 20.3% MACE over next 6 weeks - Admit for Clinical Observation Score 7 - 10: 72.7% MACE over next 6 weeks - Early Invasive Strategies Allergies: Allergies: Allergies Coded Allergies Type Severity Reaction Last Updated Verified No Known Drug Allergies 06/13/13 No Physical Exam: PE: Constitutional: Frail, ill-appearing, appears uncomfortable HENT: Normocephalic, atraumatic, bilateral external ears normal, oropharynx dry, no oral exudates, nose normal. Eyes: PERRLA, EOMI, conjunctiva normal, no discharge. Neck: Normal range of motion, no tenderness, supple, no stridor. Cardiovascular: Heart rate tachycardic, sinus rhythm, no murmurs rubs or gallops Lungs & Thorax: Bilateral breath sounds clear to auscultation Abdomen: Bowel sounds normal, soft, no tenderness, no masses, no pulsatile masses. Nonsurgical abdomen, no peritoneal signs Skin: Warm, erythematous, clammy with some areas of exfoliation Around face, generalized scaling and pruritus that spares palms and soles in addition to mucosal surfaces Back: No tenderness, no CVA tenderness. Extremities: No tenderness, no cyanosis, no clubbing, ROM intact, no edema. Neurologic: Alert and oriented X 3, cranial nerves II through XII intact, normal motor & sensory function, no focal deficits noted. Psychologic: Anxious affect and mood Current Patient Data: Vital Signs: Vital Signs Date Time Temp Pulse Resp B/P (MAP) Pulse Ox O2 Delivery O2 Flow Rate FiO2 02/25/21 23:45 97.7 18 141/110 (120) 94 97.7 EKG: EKG: EKG ordered and interpreted by myself at 0333 hrs. as sinus tachycardia at 103 bpm, unremarkable intervals, left axis deviation, no acute ischemic findings, no STEMI Radiology/Procedures: Radiology/Procedures: EXAM: AP View of the chest DATE: 02/26/2021 2:33 AM INDICATION: Reason: SEPSIS, RASH / Spl. Instructions: / History: COMPARISON: No Prior FINDINGS: The heart is not enlarged. Mediastinal and hilar contours are normal. No lobar consolidation. Trace interstitial prominence. No pleural effusion or pneumothorax. IMPRESSION: Nonspecific interstitial prominence, possibly infectious or inflammatory process. No lobar consolidation. Electronically signed by: Real Medina MD (02/26/2021 2:36 AM) [facility] Course & Med Decision Making: Course & Med Decision Making Airway patent, increased work of breathing, IV access and vitals obtained concerning for hypoxia on room air and tachycardia HPI, physical exam and comprehensive ER work-up concerning for sepsis, source being likely exfoliate erythroderma. She has underlying skin issues, atopic dermatitis with recent exposure to IV drug abuse and hot water/questionable water Patient's condition and skin and overall appearance drastically improved thr oughout ER visit after fluid rehydration, supplemental oxygen and started IV antibiotics X2 skin punch biopsies were obtained for pathology review to confirm diagnosis I disclosed with patient low risk given clinical appearance for other life- threatening skin conditions such as Villeda-Bryce, TEN etc. and that there is no indication at present for hospital transfer for inpatient dermatology I contacted hospitalist and discussed need for admission, they agreed and accepted patient under their care. I updated patient on plan of care that included hospital admission and she was amenable, she reiterates she is full code at time of hospital admission Ernst Disclaimer: Ernst Disclaimer: This electronic medical record was generated, in whole or in part, using a voice recognition dictation system. Additional Procedures Progress Verbal consent obtained to perform punch biopsy procedure after comprehensive discussion on the procedure, need to perform the procedure and risks and benefits of said procedure Indication was for pathology review to confirm diagnosis A timeout was performed with RN present at bedside. 2 cc 1% lidocaine was administered to left anterior thigh for anesthesia after wiping it down with alcohol prep pad. A #3 punch biopsy was applied with adequate specimen obtained and placed in formalin collection cup. X2 simple interrupted sutures using 4.0 nonabsorbable suture was used to close wound. An additional 2 cc 1% lidocaine was administered to right anterior forearm at second site of punch biopsy. Again, a #3 punch biopsy was applied with adequate specimen obtained and placed in formalin collection cup. X1 simple interrupted suture using 4.0 nonabsorbable suture was used to close wound. There were no observed nor reported complications. Adequate hemostasis achieved. Appropriate wound care status post punch biopsy was discussed and understood by patient Departure Departure Impression: Primary Impression: Exfoliative erythroderma Additional Impressions: Sepsis Drug abuse, amphetamine type Hypoxia Disposition: ADMITTED INPATIENT Admitting Physician: PATI (dr jay) Condition: STABLE Referrals: NO PCP (PCP) TARSHA LEVI DO Feb 26, 2021 01:58
--- NOTE | 2021-02-26 02:38 | RAD ---
EXAM: AP View of the chest DATE: 02/26/2021 2:33 AM INDICATION: Reason: SEPSIS, RASH / Spl. Instructions: / History: COMPARISON: No Prior FINDINGS: The heart is not enlarged. Mediastinal and hilar contours are normal. No lobar consolidation. Trace interstitial prominence. No pleural effusion or pneumothorax. IMPRESSION: Nonspecific interstitial prominence, possibly infectious or inflammatory process. No lobar consolidation. Electronically signed by: Real Medina MD (02/26/2021 2:36 AM) [facility]
[2021-02-26 03:28] LABS: BASO # 0.1 x10^3/uL (0.0-0.2); BASO % 0 % (0-3); EOS # 3.7 x10^3/uL (0.0-0.7); EOS % 24 % (0-3); HEMATOCRIT 41.2 % (36.0-47.0); HEMOGLOBIN 13.8 g/dL (12.0-15.5); LYMPH # 2.2 x10^3/uL (1.0-4.8); LYMPH % 14 % (24-48); MEAN CORPUSCULAR HEMOGLOBIN 29 pg (25-35); MEAN CORPUSCULAR HGB CONC 33 g/dL (31-37); MEAN CORPUSCULAR VOLUME 86 fL (79-100); MONO # 0.5 x10^3/uL (0.0-1.1); MONO % 3 % (0-9); NEUT # 8.9 x10^3/uL (1.8-7.7); NEUT % 58 % (31-73); PLATELET COUNT 680 x10^3/uL (140-400); RED BLOOD COUNT 4.79 x10^6/uL (3.50-5.40); RED CELL DISTRIBUTION WIDTH 15.2 % (11.5-14.5); WHITE BLOOD COUNT 15.4 x10^3/uL (4.0-11.0)
[2021-02-26] MEDS ORDERED: diphenhydrAMINE 50 MG/ML VIAL IVP ONE (03:30)
[2021-02-26] MEDS ORDERED: IV NORMAL SALINE 1000ML BAG 1,000 ML IV ONE ×2 (03:30)
[2021-02-26] MEDS ORDERED: VANCOMYCIN 1.25 GM in IV NORMAL SALINE 250ML 250 ML IV ONE (03:30)
[2021-02-26] MEDS ORDERED: MORPHINE SULFATE 4 MG/ML INJ. IVP ONE (03:30)
--- NOTE | 2021-02-26 03:35 | EKG ---
[facility] [address] [place] [address] Test Date: 2021-02-26 Test Time: 03:31:37 Pat Name: ANGELO YU Department: Room: Gender: F [employer] Operator: : [id number] Requested By: TARSHA LEVI Order Number: [id number] Reading MD: Measurements Intervals [place] Rate: 103 P: 62 [place]: 114 QRS: -61 QRSD: 78 T: 59 QT: 320 QTc: 421 Interpretive Statements SINUS TACHYCARDIA LEFT ATRIAL ABNORMALITY ABNORMAL LEFT AXIS DEVIATION LEFT ANTERIOR FASCICULAR BLOCK ABNORMAL ECG RI6.02 No previous ECG available for comparison
[2021-02-26 03:37] LABS: CALCIUM 8.4 mg/dL (8.5-10.1); CREATININE 0.8 mg/dL (0.6-1.0); POTASSIUM 4.4 mmol/L (3.5-5.1)
[2021-02-26 03:43] LABS: ALBUMIN 2.8 g/dL (3.4-5.0); TOTAL BILIRUBIN 0.5 mg/dL (0.2-1.0); TOTAL PROTEIN 5.5 g/dL (6.4-8.2)
[2021-02-26] MEDS ORDERED: methylPREDNISolone SOD SUCC PF 125 MG/2 ML VIAL. IV ONE (04:00)
[2021-02-26] MEDS ORDERED: PIPERACILLIN/TAZOBACTAM 3.375 GM in IV NORMAL SALINE 50ML 50 ML IV ONE (04:00)
[2021-02-26 04:25] LABS: BILIRUBIN,URINE NEGATIVE (NEG); CLARITY,URINE CLEAR; COLOR,URINE YELLOW; NITRITE,URINE NEGATIVE (NEG); PROTEIN,URINE NEGATIVE (NEG-TRACE); UROBILINOGEN,URINE 0.2 mg/dL (0.2 mg/dL)
[2021-02-26] MEDS ORDERED: VANCOMYCIN 1.5 GM in IV NORMAL SALINE 500ML BAG 500 ML IV ONE (04:30)
[2021-02-26 04:31] LABS: BARBITURATES NEG (NEG); BENZODIAZEPINES NEG (NEG); CANNABINOIDS NEG (NEG); COCAINE NEG (NEG); METHADONE NEG (NEG); OPIATES POS (NEG); PHENCYCLIDINE NEG (NEG)
[2021-02-26 04:32] LABS: AMPHETAMINE/METHAMPHETAMINE POS (NEG)
[2021-02-26 04:37] LABS: BACTERIA,URINE 0 /HPF (0-FEW); RBC,URINE OCC /HPF (0-2); WBC,URINE OCC /HPF (0-4)
[2021-02-26 04:38] LABS: HYALINE CASTS, URINE OCCASIONAL /HPF
[2021-02-26] MEDS ORDERED: ACETAMINOPHEN 325 MG TABLET. PO PRN (04:45)
[2021-02-26] MEDS ORDERED: NITROGLYCERIN SUBLINGUAL 0.4 MG BOTTLE OF 25. SL PRN (04:45)
[2021-02-26] MEDS ORDERED: MORPHINE SULFATE 2 MG/ML INJ. IVP PRN (04:45)
[2021-02-26 07:00] VITALS: BP 151/86
[2021-02-26] MEDS ORDERED: guaiFENesin DM 200MG/20MG 10 ML SYRUP PO PRN (08:15)
[2021-02-26] MEDS ORDERED: cloNIDine HCL 0.1 MG TABLET PO PRN (08:15)
[2021-02-26] MEDS ORDERED: LOPERAMIDE 2 MG CAPSULE PO PRN (08:15)
--- NOTE | 2021-02-26 08:18 | PDOC1 ---
History and Physical Date of Admission Date of Admission DATE: 02/26/21 TIME: 08:12 Identification/Chief Complaint Chief Complaint Rash Source Source: Patient History of Present Illness History of Present Illness Ms Oliveira is a 40-year-old female w/ PMHx Anxiety, Depression, PTSD, AUTOIMMUNE DISORDER OF SKIN, eczema, h/o IV heroin and methamphetamine abuse who presents to the emergency department with complaints of shortness of breath, wheezing, and skin issues. She developed a pruritic rash 02/25/2021 after taking some methamphetamine then a bath at her place of residence. She thinks she is on city water, has recently been to drug rehab, then living in a hotel and notes she just went home this past week. Reports she has had several episodes of this in the past, one time requiring admission to [facility] for dermatology consultation. She is unclear what the diagnosis was at that time. States she has history of illicit drug dependence with subsequent inpatient rehabilitation and is currently on Suboxone therapy. Also has history of asthma and atopic dermatitis. Denies any recent known ingestions, trauma, exposure, or allergens. Admits she has been avoiding her house, specifically the water and she typically suffers from atopic dermatitis outbreaks and skin issues after using it and so, she has been using other places in community to cleanse herself. Reports taking a bath yesterday and using a hypoallergenic bath soap and coconut oil only, she has used these in the past without issue. She is convinced it is the water causing her symptoms. Nonetheless, ongoing itching, diffuse burning and irritation to all surfaces of body sparing mucosal surfaces, palms and soles prompted her to come in for evaluation. She also complains of fatigue, achiness, nausea, and nasal congestion. Patient reports she has had recurrent pneumonia for several months since July 2019. She denies any fever, vomiting, diarrhea, abdominal pain, rash, headache, chest pain, or palpitations. She complains of shortness of breath with a productive cough with yellow sputum. Patient states she quit smoking a year ago. Admitted last year to [facility] after cardiac arrest, patient states she was on a ventilator for 2 days at that time. and was admitted here 12/2019 and 03/2020, tested negative for COVID19, treated for pneumonia. Saturation 87% on room air improved to his nasal cannula. Respirations 26/min, heart rate 112 bpm blood pressure 155/102. WBC 13.4, Hb 13.8, platelets 680, K4.4, BUN 9, CR 0.9, glucose 79, albumin 2.8, troponin 0, lactate 1.5, ESR 4, UA bland UDS positive for opiates and amphetamines, HIV and hepatitis serology negative rapid COVID-19 negative EKG sinus tachycardia rate 103 bpm left axis deviation. Otherwise no T wave inversions no significant ST elevations. QTc 421 Chest radiograph interstitial prominence. Past Medical History Psych: Anxiety, Addictions, Depression Past Surgical History Past Surgical History: No pertinent history Family History Family History reviewed Family History: Family History Unknown Social History Smoke: <1 pack per day ALCOHOL: none Drugs: Heroin, Crystal meth Current Problem List Problem List Problems Medical Problems: (1) Exfoliative erythroderma Status: Acute (2) Sepsis Status: Acute Current Medications Current Medications Current Medications Sodium Chloride 1,000 ml @ 1,000 mls/hr 1X ONCE IV Last administered on 02/26/21at 03:45; Start 02/26/21 at 03:30; Stop 02/26/21 at 04:29; Status DC Sodium Chloride 1,000 ml @ 1,000 mls/hr 1X ONCE IV Last administered on 02/26/21at 03:46; Start 02/26/21 at 03:30; Stop 02/26/21 at 04:29; Status DC Diphenhydramine HCl (Benadryl) 25 mg 1X ONCE IVP Last administered on 02/26/21at 03:46; Start 02/26/21 at 03:30; Stop 02/26/21 at 03:31; Status DC Morphine Sulfate (Morphine Sulfate) 4 mg 1X ONCE IVP Last administered on 02/26/21at 03:46; Start 02/26/21 at 03:30; Stop 02/26/21 at 03:31; Status DC Vancomycin HCl 1.25 gm/Sodium Chloride 250 ml @ 166.667 mls/hr 1X ONCE IV ; Start 02/26/21 at 03:30; Stop 02/26/21 at 04:59; Status UNV Piperacillin Sod/ Tazobactam Sod 3.375 gm/Sodium Chloride 50 ml @ 100 mls/hr 1X ONCE IV Last administered on 02/26/21at 03:56; Start 02/26/21 at 04:00; Stop 02/26/21 at 04:29; Status DC Methylprednisolone Sodium Succinate (SOLU-Medrol 125MG VIAL) 60 mg 1X ONCE IV Last administered on 02/26/21at 03:53; Start 02/26/21 at 04:00; Stop 02/26/21 at 04:01; Status DC Vancomycin HCl 1.5 gm/Sodium Chloride 500 ml @ 250 mls/hr 1X ONCE IV Last administered on 02/26/21at 05:01; Start 02/26/21 at 04:30; Stop 02/26/21 at 06:29; Status DC Morphine Sulfate (Morphine Sulfate) 2 mg PRN Q2HR PRN IVP SEVERE PAIN 7-10; Start 02/26/21 at 04:45; Stop 02/27/21 at 04:44 Acetaminophen (Tylenol) 650 mg PRN Q4HRS PRN PO FEVER > 100.3'F Last administered on 02/26/21at 07:16; Start 02/26/21 at 04:45; Stop 02/27/21 at 04:44 Nitroglycerin (Nitrostat) 0.4 mg PRN Q5MIN PRN SL CHEST PAIN; Start 02/26/21 at 04:45; Stop 02/27/21 at 04:44 Active Scripts Active Prednisone 20 Mg Tablet 30 Mg PO DAILY 3 Days Doxycycline Hyclate 100 Mg Tablet 100 Mg PO BID 4 Days Hydroxyzine Hcl 25 Mg Tablet 25 Mg PO PRN Q6HRS PRN 30 Days Geodon (Ziprasidone Hcl) 20 Mg Capsule 20 Mg PO PRN BID PRN 30 Days Guaifenesin Dm Syrup (Guaifenesin/Dextromethorphan) 5 Ml Syrup 10 Ml PO PRN Q6HRS PRN 10 Days Orazinc (Zinc Sulfate) 220 Mg Capsule 220 Mg PO DAILY 30 Days Reported Proair Hfa Inhaler (Albuterol Sulfate) 8.5 Gm Hfa.aer.ad 2 Puff IH PRN Q4-6HRS PRN 21 Days Xanax (Alprazolam) 1 Mg Tablet 1 Tab PO BID Temazepam 30 Mg Capsule 30 Mg PO HS PRN Trazodone Hcl 100 Mg Tablet 1 Tab PO QHS PRN Symbicort 160-4.5 Mcg Inhaler (Budesonide/Formoterol Fumarate) 10.2 Gm Hfa.aer.ad 2 Puff IH BID Allergies Allergies: Coded Allergies: No Known Drug Allergies (Unverified , 06/13/13) ROS General: YES: Fatigue, Malaise; No: Chills, Night Sweats, Appetite, Other PSYCHOLOGICAL ROS: YES: Anxiety; No: Behavioral Disorder, Concentration difficultie, Decreased libido, Depression, Disorientation, Hallucinations, Hostility, Irritablity, Memory difficulties, Mood Swings, Obsessive thoughts, Physical abuse, Sexual abuse, Sleep disturbances, Suicidal ideation, Other Eyes: No Blurry vision, No Decreased vision, No Double vision, No Dry eyes, No Excessive tearing, No Eye Pain, No Itchy Eyes, No Loss of vision, No Photophobia, No Scotomata, No Uses contacts, No Uses glasses, No Other HEENT: No: Heacaches, Visual Changes, Hearing change, Nasal congestion, Nasal discharge, Oral lesions, Sinus pain, Sore Throat, Epistaxis, Sneezing, Snoring, Tinnitus, Vertigo, Vocal changes, Other ALLERGY AND IMMUNOLOGY: No: Hives, Insect Bite Sensitivity, Itchy/Watery Eyes, Nasal Congestion, Post Nasal Drip, Seasonal Allergies, Other Hematological and Lymphatic: No: Bleeding Problems, Blood Clots, Blood Tra nsfusions, Brusing, Night Sweats, Pallor, Swollen Lymph Nodes, Other ENDOCRINE: No: Breast Changes, Galactorrhea, Hair Pattern Changes, Hot Flashes, Malaise/lethargy, Mood Swings, Palpitations, Polydipsia/polyuria, Skin Changes, Temperature Intolerance, Unexpected Weight Changes, Other Breast: No New/Changing Breast Lumps, No Nipple changes, No Nipple discharge, No Other Respiratory: No: Cough, Hemoptysis, Orthopnea, Pleuritic Pain, Shortness of breath, SOB with excertion, Sputum Changes, Stridor, Tachypnea, Wheezing, Other Cardiovascular: No Chest Pain, No Palpitations, No Orthopnea, No Paroxysmal Noc. Dyspnea, No Edema, No Lt Headedness, No Other Gastrointestinal: No Nausea, No Vomiting, No Abdominal Pain, No Diarrhea, No Constipation, No Melena, No Hematochezia, No Other Genitourinary: No Dysuria, No Frequency, No Incontinence, No Hematuria, No Retention, No Discharge, No Urgency, No Pain, No Flank Pain, No Other, No , No , No , No , No , No , No Musculoskeletal: No Gait Disturbance, No Joint Pain, No Joint Stiffness, No Joint Swelling, No Muscle Pain, No Muscular Weakness, No Pain In:, No Swelling In:, No Other Neurological: No Behavorial Changes, No Bowel/Bladder ControlChng, No Confusion, No Dizziness, No Gait Disturbance, No Headaches, No Impaired Coord/balance, No Memory Loss, No Numbness/Tingling, No Seizures, No Speech Problems, No Tremors, No Visual Changes, No Weakness, No Other Skin: Yes Eczema, Yes Rash; No Dry Skin, No Hair Changes, No Lumps, No Mole Changes, No Mottling, No Nail Changes, No Pruritus, No Skin Lesion Changes, No Other, No Acne Physical Exam General: Alert, Oriented X3, Cooperative, moderate distress HEENT: Atraumatic, PERRLA, EOMI, Mucous membr. moist/pink Lungs: Other (Bilateral wheezing) Heart: S1S2, RRR, no thrills, no rubs, no gallops, no murmurs Abdomen: Normal bowel sounds, Soft, No tenderness, No hepatosplenomegaly, No masses Extremities: No clubbing, No cyanosis, No edema, Normal pulses, No tenderness/swelling Skin: Other (DIffuse exfoliative dermatitis covering arms, chest, back legs and face) Neuro: Normal gait, Normal speech, Strength at 5/5 X4 ext, Normal tone, Sensation intact, Cranial nerves 3-12 NL, Reflexes 2+ Vitals Vitals Vital Signs Date Time Temp Pulse Resp B/P (MAP) Pulse Ox O2 Delivery O2 Flow Rate FiO2 02/26/21 05:30 93 24 151/97 (115) 96 Nasal Cannula 2.0 02/25/21 23:45 97.7 97.7 Labs Labs Laboratory Tests Test 02/26/21 03:14 02/26/21 03:36 02/26/21 03:45 White Blood Count 15.4 x10^3/uL (4.0-11.0) Red Blood Count 4.79 x10^6/uL (3.50-5.40) Hemoglobin 13.8 g/dL (12.0-15.5) Hematocrit 41.2 % (36.0-47.0) Mean Corpuscular Volume 86 fL (79-100) Mean Corpuscular Hemoglobin 29 pg (25-35) Mean Corpuscular Hemoglobin Concent 33 g/dL (31-37) Red Cell Distribution Width 15.2 % (11.5-14.5) Platelet Count 680 x10^3/uL (140-400) Neutrophils (%) (Auto) 58 % (31-73) Lymphocytes (%) (Auto) 14 % (24-48) Monocytes (%) (Auto) 3 % (0-9) Eosinophils (%) (Auto) 24 % (0-3) Basophils (%) (Auto) 0 % (0-3) Neutrophils # (Auto) 8.9 x10^3/uL (1.8-7.7) Lymphocytes # (Auto) 2.2 x10^3/uL (1.0-4.8) Monocytes # (Auto) 0.5 x10^3/uL (0.0-1.1) Eosinophils # (Auto) 3.7 x10^3/uL (0.0-0.7) Basophils # (Auto) 0.1 x10^3/uL (0.0-0.2) Erythrocyte Sedimentation Rate 4 (0-25) Sodium Level 140 mmol/L (136-145) Potassium Level 4.4 mmol/L (3.5-5.1) Chloride Level 105 mmol/L (98-107) Carbon Dioxide Level 29 mmol/L (21-32) Anion Gap 6 (6-14) Blood Urea Nitrogen 8 mg/dL (7-20) Creatinine 0.8 mg/dL (0.6-1.0) Estimated GFR (Cockcroft-Gault) 79.0 BUN/Creatinine Ratio 10 (6-20) Glucose Level 79 mg/dL (70-99) Lactic Acid Level 1.5 mmol/L (0.4-2.0) Calcium Level 8.4 mg/dL (8.5-10.1) Total Bilirubin 0.5 mg/dL (0.2-1.0) Aspartate Amino Transf (AST/SGOT) 31 U/L (15-37) Alanine Aminotransferase (ALT/SGPT) 26 U/L (14-59) Alkaline Phosphatase 86 U/L (46-116) Troponin I Quantitative < 0.017 ng/mL (0.000-0.055) Total Protein 5.5 g/dL (6.4-8.2) Albumin 2.8 g/dL (3.4-5.0) Albumin/Globulin Ratio 1.0 (1.0-1.7) Hepatitis A IgM Antibody Nonreactive (Nonreactive) Hepatitis B Surface Antigen Nonreactive (Nonreactive) Hepatitis B Core IgM Antibody Nonreactive (Nonreactive) Hepatitis C IgG Antibody Nonreactive (Nonreactive) HIV (1&2) Antibody Screen Nonreactive (Nonreactive) Urine Collection Type U cath Urine Color Yellow Urine Clarity Clear Urine pH 6.0 (<5.0-8.0) Urine Specific [place] 1.015 (1.000-1.030) Urine Protein Negative mg/dL (NEG-TRACE) Urine Glucose (UA) Negative mg/dL (NEG) Urine Ketones (Stick) Negative mg/dL (NEG) Urine Blood Negative (NEG) Urine Nitrite Negative (NEG) Urine Bilirubin Negative (NEG) Urine Urobilinogen Dipstick 0.2 mg/dL (0.2 mg/dL) Urine Leukocyte Esterase Negative (NEG) Urine RBC Occ /HPF (0-2) Urine WBC Occ /HPF (0-4) Urine Squamous Epithelial Cells Occ /LPF Urine Bacteria 0 /HPF (0-FEW) Urine Hyaline Casts Occasional /HPF Urine Mucus Mod /LPF Urine Opiates Screen Pos (NEG) Urine Methadone Screen Neg (NEG) Urine Barbiturates Neg (NEG) Urine Phencyclidine Screen Neg (NEG) Urine Amphetamine/Methamphetamine Pos (NEG) Urine Benzodiazepines Screen Neg (NEG) Urine Cocaine Screen Neg (NEG) Urine Cannabinoids Screen Neg (NEG) Urine Ethyl Alcohol Neg (NEG) SARS-CoV-2 Antigen (Rapid) Negative (NEGATIVE) Laboratory Tests Test 02/26/21 03:14 02/26/21 03:36 02/26/21 03:45 White Blood Count 15.4 x10^3/uL (4.0-11.0) Red Blood Count 4.79 x10^6/uL (3.50-5.40) Hemoglobin 13.8 g/dL (12.0-15.5) Hematocrit 41.2 % (36.0-47.0) Mean Corpuscular Volume 86 fL (79-100) Mean Corpuscular Hemoglobin 29 pg (25-35) Mean Corpuscular Hemoglobin Concent 33 g/dL (31-37) Red Cell Distribution Width 15.2 % (11.5-14.5) Platelet Count 680 x10^3/uL (140-400) Neutrophils (%) (Auto) 58 % (31-73) Lymphocytes (%) (Auto) 14 % (24-48) Monocytes (%) (Auto) 3 % (0-9) Eosinophils (%) (Auto) 24 % (0-3) Basophils (%) (Auto) 0 % (0-3) Neutrophils # (Auto) 8.9 x10^3/uL (1.8-7.7) Lymphocytes # (Auto) 2.2 x10^3/uL (1.0-4.8) Monocytes # (Auto) 0.5 x10^3/uL (0.0-1.1) Eosinophils # (Auto) 3.7 x10^3/uL (0.0-0.7) Basophils # (Auto) 0.1 x10^3/uL (0.0-0.2) Erythrocyte Sedimentation Rate 4 (0-25) Sodium Level 140 mmol/L (136-145) Potassium Level 4.4 mmol/L (3.5-5.1) Chloride Level 105 mmol/L (98-107) Carbon Dioxide Level 29 mmol/L (21-32) Anion Gap 6 (6-14) Blood Urea Nitrogen 8 mg/dL (7-20) Creatinine 0.8 mg/dL (0.6-1.0) Estimated GFR (Cockcroft-Gault) 79.0 BUN/Creatinine Ratio 10 (6-20) Glucose Level 79 mg/dL (70-99) Lactic Acid Level 1.5 mmol/L (0.4-2.0) Calcium Level 8.4 mg/dL (8.5-10.1) Total Bilirubin 0.5 mg/dL (0.2-1.0) Aspartate Amino Transf (AST/SGOT) 31 U/L (15-37) Alanine Aminotransferase (ALT/SGPT) 26 U/L (14-59) Alkaline Phosphatase 86 U/L (46-116) Troponin I Quantitative < 0.017 ng/mL (0.000-0.055) Total Protein 5.5 g/dL (6.4-8.2) Albumin 2.8 g/dL (3.4-5.0) Albumin/Globulin Ratio 1.0 (1.0-1.7) Hepatitis A IgM Antibody Nonreactive (Nonreactive) Hepatitis B Surface Antigen Nonreactive (Nonreactive) Hepatitis B Core IgM Antibody Nonreactive (Nonreactive) Hepatitis C IgG Antibody Nonreactive (Nonreactive) HIV (1&2) Antibody Screen Nonreactive (Nonreactive) Urine Collection Type U cath Urine Color Yellow Urine Clarity Clear Urine pH 6.0 (<5.0-8.0) Urine Specific [place] 1.015 (1.000-1.030) Urine Protein Negative mg/dL (NEG-TRACE) Urine Glucose (UA) Negative mg/dL (NEG) Urine Ketones (Stick) Negative mg/dL (NEG) Urine Blood Negative (NEG) Urine Nitrite Negative (NEG) Urine Bilirubin Negative (NEG) Urine Urobilinogen Dipstick 0.2 mg/dL (0.2 mg/dL) Urine Leukocyte Esterase Negative (NEG) Urine RBC Occ /HPF (0-2) Urine WBC Occ /HPF (0-4) Urine Squamous Epithelial Cells Occ /LPF Urine Bacteria 0 /HPF (0-FEW) Urine Hyaline Casts Occasional /HPF Urine Mucus Mod /LPF Urine Opiates Screen Pos (NEG) Urine Methadone Screen Neg (NEG) Urine Barbiturates Neg (NEG) Urine Phencyclidine Screen Neg (NEG) Urine Amphetamine/Methamphetamine Pos (NEG) Urine Benzodiazepines Screen Neg (NEG) Urine Cocaine Screen Neg (NEG) Urine Cannabinoids Screen Neg (NEG) Urine Ethyl Alcohol Neg (NEG) SARS-CoV-2 Antigen (Rapid) Negative (NEGATIVE) Images Images The heart is not enlarged. Mediastinal and hilar contours are normal. No lobar consolidation. Trace interstitial prominence. No pleural effusion or pneumothorax. IMPRESSION: Nonspecific interstitial prominence, possibly infectious or inflammatory process. No lobar consolidation. VTE Prophylaxis Ordered VTE Prophylaxis Devices: Yes VTE Pharmacological Prophylaxi: Yes Assessment/Plan Assessment/Plan A/P: Acute hypoxia - likely 2/2 acute bronchitis. tested for COVID 19. Wean O2 as tolerated. Exfoliative dermatitis - intensely pruritic. Says that she has been offered dupixent previously. Will cover for staph/mrsa skin infections with vancomycin and strep with augmentin Abnormal CXR - will treat for likely gram negative pneumonia with augmentin Acute asthma exacerbation - will cont treatment IV drug abuse amphetamine type - counseled, needs placement for substance use disorder, active IV drug abuse opioid type - counseled, on suboxone outpatient Anxiety, Depression, PTSD - will have PAT team to see Sepsis - will cont vancomycin and zosyn, given fluids. Likely cellulitis from dermatitis FEN - General diet PPX - lovenox FULL CODE Dispo- inpatient Justifications for Admission Other Justification DICKSON CASE MD Feb 26, 2021 08:18
[2021-02-26] MEDS ORDERED: ONDANSETRON PF 4 MG/2 ML VIAL. IVP PRN (08:30)
[2021-02-26] MEDS ORDERED: ALBUTEROL SULFATE 2.5 MG/3 ML NEBU. NEB PRN (08:30)
--- NOTE | 2021-02-26 10:28 | NUR ---
SS following for discharge planning. SS reviewed pt chart and discussed with pt RN. Pt is from home and is currently requiring oxygen at two liters nasal canula. COVID19 negative. Pt positive for Methamphetamines and Opiates. PAT team referral made for assessment and recommendations. Asim from PAT team met with pt. Pt reported that she recently got out of rehab in [place] and has been participating in Suboxone therapy. It was recommended that pt follow up with her Suboxone clinic. Resources provided for RADAC, AA/NA, and RSI. Discharge plan is currently to home when medically ready. SS will continue to follow for discharge planning.
[2021-02-26 11:00] VITALS: BP 132/67
[2021-02-26] MEDS ORDERED: AMOXICILLIN/K CLAV 500/125MG TABLET. PO SCH (12:00)
[2021-02-26] MEDS: VANCOMYCIN PER PHARMACY MC PRN (12:29)
--- NOTE | 2021-02-26 12:33 | NUR ---
Pharmacy Vancomycin Dosing Note S:Consulted to monitor and dose vancomycin started 02/26/21. O:AIMEEANGELO William is a 40 year old F with concerns for sepsis, CAP, exfoliative dermatits and PMH of IV drug abuse. Height: 5 feet, 5 inches Weight: 60.0 kg [place] Body Weight: 57.00 Adjusted Body Weight: 58.20 Dosing Weight: Actual Other Antibiotics: Amoxicillin-Clavulanate LABS: Last BUN: 8 Last Creatinine: 0.8 Creatinine Clearance: about 80-85 mL/min Last WBC: 15.4 Last Procalcitonin: NA Tmax (past 24 hours): 98.1 Microbiology: Blood cultures pending I/O: 2049/not yet documented on new admit Last dose given 02/26/21 at 0501 Vancomycin Dosing: Loading Dose: 1500 mg x1 Dosing Weight: Actual Target Trough: 15-20 A: Based on: Patient's renal function, PMH, and severity of suspected infection P: 1. Maintenance dose of Vancomycin 1000 mg IV q12h ordered 2. Follow up Trough level on 02/27/21 at 1630 3. Pharmacy will continue to monitor, follow and adjust therapy as needed. CIPRIANO LOYOLA, [facility], 02/26/21 [id number]
[2021-02-26] MEDS: predniSONE 20 MG TABLET PO SCH (14:54)
[2021-02-26] MEDS: VANCOMYCIN 1 GM in IV NORMAL SALINE 250ML 250 ML IV SCH (14:56)
[2021-02-26 14:58] VITALS: BP 143/68
[2021-02-26] MEDS ORDERED: PIP/TAZO PER PHARMACY MC PRN (15:15)
[2021-02-26] MEDS: KETOROLAC 30 MG/ML VIAL. IVP PRN ×2 (15:29→21:37)
[2021-02-26] MEDS: diphenhydrAMINE 50 MG/ML VIAL IVP PRN ×2 (15:29→21:36)
[2021-02-26] MEDS: PIPERACILLIN/TAZOBACTAM 3.375 GM in IV NORMAL SALINE 50ML 50 ML IV SCH (17:38)
[2021-02-26] MEDS: MONTELUKAST SODIUM 10 MG TABLET. PO SCH (19:36)
[2021-02-26 19:47] VITALS: BP_SYST 136; BP_SYST 173; BP_DIAS 70; BP_DIAS 73
[2021-02-26] MEDS: BUDESONIDE 0.5 MG/2 ML NEBU. NEB SCH (20:13)
[2021-02-26 22:37] VITALS: BP 126/62
[2021-02-27] MEDS: PIPERACILLIN/TAZOBACTAM 3.375 GM in IV NORMAL SALINE 50ML 50 ML IV SCH ×4 (00:14→17:59)
[2021-02-27 03:04] VITALS: BP 132/69
[2021-02-27] MEDS: diphenhydrAMINE 50 MG/ML VIAL IVP PRN ×4 (03:51→22:42)
[2021-02-27] MEDS: KETOROLAC 30 MG/ML VIAL. IVP PRN ×3 (03:51→16:46)
[2021-02-27] MEDS: VANCOMYCIN 1 GM in IV NORMAL SALINE 250ML 250 ML IV SCH ×2 (04:02→16:46)
[2021-02-27 04:07] LABS: BASO % 0 % (0-3); EOS % 0 % (0-3); HEMOGLOBIN 11.5 g/dL (12.0-15.5); LYMPH # 1.6 x10^3/uL (1.0-4.8); LYMPH % 16 % (24-48); MEAN CORPUSCULAR HEMOGLOBIN 29 pg (25-35); MEAN CORPUSCULAR HGB CONC 33 g/dL (31-37); MEAN CORPUSCULAR VOLUME 88 fL (79-100); MONO # 0.6 x10^3/uL (0.0-1.1); MONO % 6 % (0-9); NEUT # 7.9 x10^3/uL (1.8-7.7); NEUT % 78 % (31-73); PLATELET COUNT 564 x10^3/uL (140-400); RED BLOOD COUNT 3.99 x10^6/uL (3.50-5.40); RED CELL DISTRIBUTION WIDTH 15.3 % (11.5-14.5); WHITE BLOOD COUNT 10.2 x10^3/uL (4.0-11.0)
[2021-02-27 04:32] LABS: CALCIUM 7.8 mg/dL (8.5-10.1); GFR 61.1; POTASSIUM 4.2 mmol/L (3.5-5.1)
[2021-02-27 07:00] VITALS: BP 125/66
[2021-02-27] MEDS: BUDESONIDE 0.5 MG/2 ML NEBU. NEB SCH ×2 (07:52→19:36)
[2021-02-27] MEDS: predniSONE 20 MG TABLET PO SCH (09:31)
--- NOTE | 2021-02-27 09:52 | PDOC ---
[employer] PROGRESS NOTE Date of Service DOS: DATE: 02/27/21 TIME: 09:36 Chief Complaint Chief Complaint A/P: Acute hypoxia - likely 2/2 acute bronchitis. tested negative for COVID 19. Weaned O2 as tolerated. Resolved with pulmicort Exfoliative dermatitis - intensely pruritic. Says that she has been offered dupixent previously. Will cover for staph/mrsa skin infections with vancomycin and strep with augmentin Sepsis - will cont vancomycin and zosyn, given fluids. Likely cellulitis from dermatitis Gram positive bacteremia - IV vancomycin for staph coverage. ID consulted for assistance. Given her skin condition and IV drug abuse history an echocardiogram is appropriate. Abnormal CXR - will treat for likely gram negative pneumonia Acute asthma exacerbation - will cont treatment IV drug abuse amphetamine type - counseled, needs placement for substance use disorder, active IV drug abuse opioid type - counseled, on suboxone outpatient Anxiety, Depression, PTSD - will have PAT team to see FEN - General diet PPX - lovenox FULL CODE Dispo- inpatient History of Present Illness History of Present Illness Ms Oliveira is a 40-year-old female w/ PMHx Anxiety, Depression, PTSD, AUTOIMMUNE DISORDER OF SKIN, eczema, h/o IV heroin and methamphetamine abuse who presents to the emergency department with complaints of shortness of breath, wheezing, and skin issues. She developed a pruritic rash 02/25/2021 after taking some methamphetamine then a bath at her place of residence. She thinks she is on city water, has recently been to drug rehab, then living in a hotel and notes she just went home this past week. Reports she has had several episodes of this in the past, one time requiring admission to [facility] for dermatology consultation. She is unclear what the diagnosis was at that time. States she has history of illicit drug dependence with subsequent inpatient rehabilitation and is currently on Suboxone therapy. Also has history of asthma and atopic dermatitis. Denies any recent known ingestions, trauma, exposure, or allergens. Admits she has been avoiding her house, specifically the water and she typically suffers from atopic dermatitis outbreaks and skin issues after using it and so, she has been using other places in community to cleanse herself. Reports taking a bath yesterday and using a hypoallergenic bath soap and coconut oil only, she has used these in the past without issue. She is convinced it is the water causing her symptoms. Nonetheless, ongoing itching, diffuse burning and irritation to all surfaces of body sparing mucosal surfaces, palms and soles prompted her to come in for evaluation. She also complains of fatigue, achiness, nausea, and nasal congestion. Patient reports she has had recurrent pneumonia for several months since July 2019. She denies any fever, vomiting, diarrhea, abdominal pain, rash, headache, chest pain, or palpitations. She complains of shortness of breath with a productive cough with yellow sputum. Patient states she quit smoking a year ago. Admitted last year to [facility] after cardiac arrest, patient states she was on a ventilator for 2 days at that time. and was admitted here 12/2019 and 03/2020, tested negative for COVID19, treated for pneumonia. Saturation 87% on room air improved to his nasal cannula. Respirations 26/min, heart rate 112 bpm blood pressure 155/102. WBC 13.4, Hb 13.8, platelets 680, K4.4, BUN 9, CR 0.9, glucose 79, albumin 2.8, troponin 0, lactate 1.5, ESR 4, UA bland UDS positive for opiates and amphetamines, HIV and hepatitis serology negative rapid COVID-19 negative EKG sinus tachycardia rate 103 bpm left axis deviation. Otherwise no T wave inversions no significant ST elevations. QTc 421 Chest radiograph interstitial prominence. Afebrile overnight. Still intensely pruritic. Blood cultures returned positive and preliminarily appear to be staph and group B strep. No chest pain or shortness of breath. Does not feel any better. Vitals/I&O Vitals/I&O: Vital Signs Date Time Temp Pulse Resp B/P (MAP) Pulse Ox O2 Delivery O2 Flow Rate FiO2 02/27/21 07:00 97.7 74 16 125/66 (85) 97 Room Air 97.7 02/26/21 08:32 2.0 I & O 0 02/26/21 02/26/21 02/27/21 15:00 23:00 07:00 Intake Total 360 ml 480 ml 1070 ml Output Total 400 ml 400 ml Balance -40 ml 80 ml 1070 ml Physical Exam General: Alert, Oriented X3, Cooperative, moderate distress Lungs: Wheezing Abdomen: Normal bowel sounds, Soft, No tenderness, No hepatosplenomegaly, No masses Extremities: No clubbing, No cyanosis, No edema, Normal pulses, No tenderne ss/swelling Skin: Other (DIffuse exfoliative dermatitis covering arms, chest, back legs and face) Labs Labs: Laboratory Tests Test 02/27/21 02:45 White Blood Count 10.2 x10^3/uL (4.0-11.0) Red Blood Count 3.99 x10^6/uL (3.50-5.40) Hemoglobin 11.5 g/dL (12.0-15.5) Hematocrit 35.0 % (36.0-47.0) Mean Corpuscular Volume 88 fL (79-100) Mean Corpuscular Hemoglobin 29 pg (25-35) Mean Corpuscular Hemoglobin Concent 33 g/dL (31-37) Red Cell Distribution Width 15.3 % (11.5-14.5) Platelet Count 564 x10^3/uL (140-400) Neutrophils (%) (Auto) 78 % (31-73) Lymphocytes (%) (Auto) 16 % (24-48) Monocytes (%) (Auto) 6 % (0-9) Eosinophils (%) (Auto) 0 % (0-3) Basophils (%) (Auto) 0 % (0-3) Neutrophils # (Auto) 7.9 x10^3/uL (1.8-7.7) Lymphocytes # (Auto) 1.6 x10^3/uL (1.0-4.8) Monocytes # (Auto) 0.6 x10^3/uL (0.0-1.1) Eosinophils # (Auto) 0.0 x10^3/uL (0.0-0.7) Basophils # (Auto) 0.0 x10^3/uL (0.0-0.2) Sodium Level 141 mmol/L (136-145) Potassium Level 4.2 mmol/L (3.5-5.1) Chloride Level 107 mmol/L (98-107) Carbon Dioxide Level 27 mmol/L (21-32) Anion Gap 7 (6-14) Blood Urea Nitrogen 17 mg/dL (7-20) Creatinine 1.0 mg/dL (0.6-1.0) Estimated GFR (Cockcroft-Gault) 61.1 Glucose Level 134 mg/dL (70-99) Calcium Level 7.8 mg/dL (8.5-10.1) Assessment and Plan Assessmemt and Plan Problems Medical Problems: (1) Exfoliative erythroderma Status: Acute (2) Sepsis Status: Acute Comment Review of Relevant I have reviewed the following items janie (where applicable) has been applied. Medications: Current Medications Medications (Trade) Dose Ordered Sig/Andrei Route PRN Reason Start Time Stop Time Status Last Admin Dose Admin Diphenhydramine HCl (Benadryl) 25 mg PRN Q6HRS PRN IVP ITCHING 02/26/21 10:45 02/27/21 03:51 Montelukast Sodium (Singulair) 10 mg QHS PO 02/26/21 21:00 02/26/21 19:36 Amoxicillin/ Clavulanate Potassium (Augmentin 500/ 125mg) 1 tab BID PO 02/26/21 12:00 02/26/21 15:06 DC 02/26/21 14:54 Prednisone (Prednisone) 20 mg DAILY PO 02/26/21 12:00 03/02/21 09:01 02/27/21 09:31 Vancomycin HCl (Vanco Per Pharmacy) 1 each PRN DAILY PRN MC SEE COMMENTS 02/26/21 11:45 02/26/21 12:29 Budesonide (Pulmicort) 0.5 mg RTBID NEB 02/26/21 20:00 02/26/21 20:13 Vancomycin HCl 1 gm/Sodium Chloride 250 ml @ 250 mls/hr Q12H IV 02/26/21 17:00 02/27/21 04:02 Ketorolac Tromethamine (Toradol 30mg Vial) 30 mg PRN Q6HRS PRN IVP INFLAMMATION 02/26/21 15:15 02/27/21 03:51 Piperacillin Sod/ Tazobactam Sod 3.375 gm/Sodium Chloride 50 ml @ 100 mls/hr Q6HRS IV 02/26/21 18:00 02/27/21 05:38 Justifications for Admission Other Justification DICKSON CASE MD Feb 27, 2021 09:52
[2021-02-27] MEDS: HYDROCORTISONE 1% LOTION BOTTLE. TP SCH ×3 (10:12→23:22)
--- NOTE | 2021-02-27 10:51 | CONS ---
DATE OF CONSULTATION: 02/27/2021 REFERRING PHYSICIAN: Dr. Tracy. REASON FOR CONSULTATION: Bacteremia, antibiotic management. HISTORY OF PRESENT ILLNESS: A 40-year-old female who presented to the ER with complaints of shortness of breath. She also started having rash after she took a bath. The patient is not very clear about the symptom onset. She has been to [facility] [place] for similar condition in the past. The patient has a history of illicit drug dependence, requiring inpatient rehabilitation and is currently on Suboxone therapy. She also has a history of atopic dermatitis and asthma. She denies any history of fevers, chills. Denies any oral lesions, eye pain, genital lesions. Denies any symptoms. Denies any nausea, vomiting, diarrhea, abdominal pain. She took a bath and used hypoallergenic bath soap and coconut oil, which she has used in the past with above issues. Her white count was elevated at 15,000. She was afebrile on presentation, eosinophil was 3.7, lactate of 1.5, creatinine of 0.8, albumin of 2.8. UA was negative. UDS was positive for amphetamine. Serology for hepatitis, HIV and SARS-COVID was negative. Blood cultures were done, which is positive for Staph aureus and group B strep. She was started on IV vancomycin and Zosyn. ID consultation has been requested for antibiotic management. Today, the patient says she feels about the same, no worsening of skin lesions. PAST MEDICAL HISTORY: Drug dependence, asthma, atopic dermatitis, anxiety, addiction, depression. PAST SURGICAL HISTORY: None. FAMILY HISTORY: Unknown. SOCIAL HISTORY: Smokes less than 1 pack per day. Alcohol: None. Heroin and crystal meth drug use. CURRENT MEDICATIONS: IV vancomycin and Zosyn. Other medications reviewed in medication list. REVIEW OF SYSTEMS: Fatigue and malaise otherwise as above. PHYSICAL EXAMINATION: VITAL SIGNS: Temperature 97.7, pulse 74, respiratory rate 16, blood pressure 125/66, oxygen saturation 97% on room air. GENERAL: Alert, oriented x 3 female, in no acute distress, nontoxic appearing. HEENT: Normocephalic, atraumatic. Anicteric. Oral mucosa moist. NECK: Supple. LUNGS: Decreased breath sounds with some expiratory wheezing. No accessory muscle use. CARDIOVASCULAR: S1, S2. No gallops or murmurs. ABDOMEN: Soft, nontender, nondistended. EXTREMITIES: No edema, no cyanosis. DERM: Diffuse exfoliative dermatitis affecting the face, eyelids, chest, back and legs. NEUROLOGIC: Alert, oriented x 3, grossly nonfocal. PSYCHIATRIC: Calm and cooperative. LABORATORY DATA: WBC 15.4, repeat is 10.2; hemoglobin 11.5; hematocrit 35; platelets 564. Sodium 141, potassium 4.2, chloride 107, bicarbonate 27, BUN 17, creatinine 1.0, glucose 134, lactate 1.8, albumin 2.8. UA is negative. UDS positive for amphetamine and opiates. HIV negative, hepatitis profile negative. SARS-COVID negative. MICROBIOLOGY: Blood culture both sets positive for group B strep and Staph aureus. IMAGING: Chest x-ray, nonspecific interstitial prominence. No lobar consolidation. IMPRESSION: 1. Sepsis present on admission. 2. Bacteremia Staph aureus and Streptococcus group B. 3. Extensive exfoliative dermatitis with history of underlying atopic dermatitis. 4. Leukocytosis and thrombocytosis. 5. History of intravenous drug user . 6. Anxiety and depression. 7. Asthma. 8. PTSD. RECOMMENDATIONS: 1. Continue IV vancomycin and Zosyn. 2. Monitor labs including renal functions, pharmacy to assist with vancomycin dosing. 3. Repeat blood cultures in a.m. 4. HIV and hepatitis profile is negative. 5. COVID is negative. 6. Continue supportive care. 7. Continue local wound care. 8. Dermatology is not available here. 9. The patient will need followup with dermatology at [facility] [place] after discharge. Thank you, Dr. Tracy, for consulting Infectious Disease to participate in this patient's care. If you have any questions, do not hesitate to contact me. SHAHIDA CRUZ: Ofelia TID: [id number] MTDD
[2021-02-27] MEDS: VANCOMYCIN PER PHARMACY MC PRN ×2 (10:59→16:45)
[2021-02-27 11:00] VITALS: BP 128/59
[2021-02-27 15:20] VITALS: BP 138/72
--- NOTE | 2021-02-27 15:54 | NUR ---
SS following up with discharge planning. SS reviewed pt chart and discussed with pt RN. Pt is currently on room air. COVID19 negative. ID consulted. Pt on IV Zosyn and IV Vancomycin. PAT team cleared. Discharge plan is currently to home when medically ready for discharge. SS will continue to follow for discharge planning.
[2021-02-27 16:30] LABS: VANC TR 13.7 mcg/mL (10.0-20.0)
--- NOTE | 2021-02-27 16:55 | NUR ---
Pharmacy Vancomycin Dosing Note S: Consulted to monitor and dose vancomycin started 02/26/21. O: ANGELO YU is a 40 year old F with Cellulitis Sepsis CAP, Exfoliative dermatits and PMH of IV drug abuse . Other Antibiotics: zosyn LABS: Last BUN: 7 Last Creatinine: 1 Creatinine Clearance: 68 mL/min Last WBC: 10.2 Last Procalcitonin: NA Tmax (past 24 hours): 98.2 Microbiology: Blood cultures: group B strep and staph aureus I/O: 1910/800 Drug Levels: Last Trough level: 13.7 on 02/27/21 at 1605 Last dose given 02/27/21 at 0402 Vancomycin Dosing: Dosing Weight: Actual Target Trough: 15-20 A: Based on: Trough and renal function P: 1. Continue Vancomycin 1000 mg IV q12h 2. Follow up Trough level as needed 3. Pharmacy will continue to monitor, follow and adjust therapy as needed. Caitlyn Foley [facility], 02/27/21 [id number]
--- NOTE | 2021-02-27 17:41 | CARD ---
MR#: [id number] Date of Study: 02/27/2021 Ordering Physician: DICKSON CASE, Referring Physician: DICKSON CASE, Tech: Josephine Gan [facility] APPROVED REPORT EXAM: Two-dimensional and M-mode echocardiogram with Doppler and color Doppler. Other Information Quality : Technically LimitedHR: 83bpm Rhythm : NSR INDICATION RISK FACTORS IV Drug use 2D DIMENSIONS Left Atrium(2D)3.4 (1.6-4.0cm)IVSd0.8 (0.7-1.1cm) Aortic Root(2D)2.7 (2.0-3.7cm)LVDd4.2 (3.9-5.9cm) LVOT Diameter1.9 (1.8-2.4cm)PWd0.8 (0.7-1.1cm) LVDs3.2 (2.5-4.0cm)FS (%) 24.6 % SV38.9 ml Aortic Valve AoV Peak Jordy.164.6cm/sAoV VTI32.1cm AO Peak GR.10.8mmHgLVOT Peak Jordy.139.0cm/s AO Mean GR.6mmHgAVA (VMAX)2.31cm2 Mitral Valve MV E Aximclie481.3cm/sMV DECEL [id number] MV A Sennqwuk97.9cm/sE/A Ratio1.6 Tricuspid Valve TR P. Vqgupshz801qt/sTR Peak Gr.38mmHg LEFT VENTRICLE The left ventricle is normal size. There is normal left ventricular wall thickness. The left ventricu lar systolic function is normal and the ejection fraction is within normal range. Estimated ejection fraction of 60%. There is normal LV segmental wall motion. The left ventricular diastolic function an d filling is normal for age. RIGHT VENTRICLE The right ventricle is normal size. There is normal right ventricular wall thickness. The right ventr icular systolic function is normal. ATRIA The left atrium size is normal. The right atrium size is normal. The interatrial septum is intact wit h no evidence for an atrial septal defect or patent foramen ovale as noted on 2-D or Doppler imaging. AORTIC VALVE The aortic valve is normal in structure and function. Doppler and Color Flow revealed no significant aortic regurgitation. There is no significant aortic valvular stenosis. There is no aortic valvular v egetation. MITRAL VALVE The mitral valve leaflets are mildly thickened but have no diagnostic finding of a vegetation. There is no evidence of mitral valve prolapse. There is no mitral valve stenosis. Doppler and Color Flow re vealed no mitral valve regurgitation noted. TRICUSPID VALVE The tricuspid valve is normal in structure and function. Doppler and Color Flow revealed mild tricusp id regurgitation. Estimated PAP 41 mmHg. There is no tricuspid valve stenosis. PULMONIC VALVE The pulmonary valve is normal in structure and function. Doppler and Color Flow revealed no pulmonic valvular regurgitation. GREAT VESSELS The aortic root is normal in size. The ascending aorta is normal in size. The IVC is normal in size a nd collapses >50% with inspiration. PERICARDIAL EFFUSION There is no evidence of significant pericardial effusion. Critical Notification Critical Value: No <Conclusion> The left ventricle is normal size. The left ventricular systolic function is normal and the ejection fraction is within normal range. Estimated ejection fraction of 60%. There is normal LV segmental wall motion. Doppler and Color Flow revealed no significant aortic regurgitation. There is no significant aortic valvular stenosis. There is no aortic valvular vegetation. The mitral valve leaflets are mildly thickened but have no diagnostic findings of a vegetation. Doppler and Color Flow revealed no mitral valve regurgitation noted. Doppler and Color Flow revealed mild tricuspid regurgitation. Estimated PAP 41 mmHg. The pulmonary valve is normal in structure and function. No evidence of a vegetation on this transthoracic study. If clinical suspicion is appropriate would consider a transesophageal echo. Signed by : Janusz Cuenca MD Electronically Approved : 02/27/2021 17:41:01
[2021-02-27 19:00] VITALS: BP 147/77
[2021-02-27] MEDS: MONTELUKAST SODIUM 10 MG TABLET. PO SCH (22:42)
[2021-02-27] MEDS: KETOROLAC 15 MG/ML VIAL. IVP PRN (22:42)
[2021-02-27 23:00] VITALS: BP 147/82
[2021-02-28] MEDS: PIPERACILLIN/TAZOBACTAM 3.375 GM in IV NORMAL SALINE 50ML 50 ML IV SCH ×4 (00:46→18:39)
[2021-02-28 02:46] VITALS: BP 121/67
[2021-02-28] MEDS: VANCOMYCIN 1 GM in IV NORMAL SALINE 250ML 250 ML IV SCH ×2 (04:17→17:35)
[2021-02-28 04:20] LABS: CALCIUM 7.6 mg/dL (8.5-10.1); CREATININE 0.9 mg/dL (0.6-1.0); POTASSIUM 4.2 mmol/L (3.5-5.1)
[2021-02-28 07:00] VITALS: BP 133/82
[2021-02-28] MEDS: BUDESONIDE 0.5 MG/2 ML NEBU. NEB SCH ×2 (07:38→20:40)
[2021-02-28] MEDS: HYDROCORTISONE 1% LOTION BOTTLE. TP SCH ×3 (09:45→21:44)
[2021-02-28] MEDS: diphenhydrAMINE 50 MG/ML VIAL IVP PRN ×2 (09:46→21:36)
[2021-02-28] MEDS: predniSONE 20 MG TABLET PO SCH (09:46)
[2021-02-28] MEDS: KETOROLAC 15 MG/ML VIAL. IVP PRN ×2 (09:47→21:36)
[2021-02-28 11:05] VITALS: BP 122/75
--- NOTE | 2021-02-28 11:35 | PDOC ---
Infectious Disease Note Subjective: Subjective Patient feels a little better today Denies any fever, chills, nausea, vomiting, diarrhea, abdominal pain Vital Signs: Vital Signs Vital Signs Date Time Temp Pulse Resp B/P (MAP) Pulse Ox O2 Delivery O2 Flow Rate FiO2 02/28/21 11:05 98.1 72 16 122/75 (91) 95 Room Air 98.1 02/27/21 20:00 2.0 Physical Exam: PHYSICAL EXAM GENERAL: Alert, oriented x 3 female, in no acute distress, nontoxic appearing. HEENT: Normocephalic, atraumatic. Anicteric. Oral mucosa moist. NECK: Supple. LUNGS: Decreased breath sounds with some expiratory wheezing. No accessory muscle use. CARDIOVASCULAR: S1, S2. No gallops or murmurs. ABDOMEN: Soft, nontender, nondistended. EXTREMITIES: No edema, no cyanosis. DERM: Diffuse exfoliative dermatitis affecting the face, eyelids, chest, back and legs. No open wounds noted. MSK no joint effusion or decrease in range of motion noted NEUROLOGIC: Alert, oriented x 3, grossly nonfocal. Generalized weakness PSYCHIATRIC: Calm and cooperative. Medications: Inpatient Meds: Medications reviewed. Labs: Lab Laboratory Tests Test 02/27/21 16:05 02/28/21 03:30 Vancomycin Level Trough 13.7 mcg/mL (10.0-20.0) Vancomycin Last Dose Date 02/27/21 Vancomycin Last Dose Time 0500 Sodium Level 141 mmol/L (136-145) Potassium Level 4.2 mmol/L (3.5-5.1) Chloride Level 108 mmol/L (98-107) Carbon Dioxide Level 28 mmol/L (21-32) Anion Gap 5 (6-14) Blood Urea Nitrogen 18 mg/dL (7-20) Creatinine 0.9 mg/dL (0.6-1.0) Estimated GFR (Cockcroft-Gault) 69.0 Glucose Level 136 mg/dL (70-99) Calcium Level 7.6 mg/dL (8.5-10.1) Objective: Assessment: 1. Sepsis present on admission. 2. Bacteremia Staph aureus and Streptococcus group B. 3. Extensive exfoliative dermatitis with history of underlying atopic dermatitis. 4. Leukocytosis and thrombocytosis. 5. History of intravenous drug user . HIV and hepatitis profile is negative. 6. Anxiety and depression. 7. Asthma. 8. PTSD. 9. Acute hypoxic respiratory failure COVID is negative. Plan: Plan of Care 1. Continue IV vancomycin and Zosyn. 2. Monitor labs including renal functions, pharmacy to assist with vancomycin dosing. 3. Follow-up repeat blood cultures in a.m. 4. Continue local wound care. 6. Continue supportive care. 5. Dermatology is not available here. VICKIE QUINTEROS MD Feb 28, 2021 11:35
--- NOTE | 2021-02-28 13:03 | NUR ---
SS following up with discharge planning. SS reviewed pt chart and discussed with pt RN. Pt is currently on room air. COVID19 negative. Pt on IV Zosyn and IV Vancomycin. Discharge plan is currently to home when medically ready for discharge. SS will continue to follow for discharge planning.
--- NOTE | 2021-02-28 13:12 | PDOC ---
[employer] PROGRESS NOTE Date of Service DOS: DATE: 02/28/21 TIME: 13:11 Chief Complaint Chief Complaint A/P: Acute hypoxia - likely 2/2 acute bronchitis. tested negative for COVID 19. Weaned O2 as tolerated. Resolved with pulmicort Exfoliative dermatitis - intensely pruritic. Says that she has been offered dupixent previously. Will cover for staph/mrsa skin infections with vancomycin and strep with augmentin Sepsis - will cont vancomycin and zosyn, given fluids. Likely cellulitis from dermatitis Gram positive bacteremia - IV vancomycin for staph coverage. ID consulted for assistance. Given her skin condition and IV drug abuse history an echocardiogram is appropriate. Abnormal CXR - will treat for likely gram negative pneumonia Acute asthma exacerbation - will cont treatment IV drug abuse amphetamine type - counseled, needs placement for substance use disorder, active IV drug abuse opioid type - counseled, on suboxone outpatient Anxiety, Depression, PTSD - will have PAT team to see FEN - General diet PPX - lovenox FULL CODE Dispo- inpatient History of Present Illness History of Present Illness Ms Oliveira is a 40-year-old female w/ PMHx Anxiety, Depression, PTSD, AUTOIMMUNE DISORDER OF SKIN, eczema, h/o IV heroin and methamphetamine abuse who presents to the emergency department with complaints of shortness of breath, wheezing, and skin issues. She developed a pruritic rash 02/25/2021 after taking some methamphetamine then a bath at her place of residence. She thinks she is on city water, has recently been to drug rehab, then living in a hotel and notes she just went home this past week. Reports she has had several episodes of this in the past, one time requiring admission to [facility] for dermatology consultation. She is unclear what the diagnosis was at that time. States she has history of illicit drug dependence with subsequent inpatient rehabilitation and is currently on Suboxone therapy. Also has history of asthma and atopic dermatitis. Denies any recent known ingestions, trauma, exposure, or allergens. Admits she has been avoiding her house, specifically the water and she typically suffers from atopic dermatitis outbreaks and skin issues after using it and so, she has been using other places in community to cleanse herself. Reports taking a bath yesterday and using a hypoallergenic bath soap and coconut oil only, she has used these in the past without issue. She is convinced it is the water causing her symptoms. Nonetheless, ongoing itching, diffuse burning and irritation to all surfaces of body sparing mucosal surfaces, palms and soles prompted her to come in for evaluation. She also complains of fatigue, achiness, nausea, and nasal congestion. Patient reports she has had recurrent pneumonia for several months since July 2019. She denies any fever, vomiting, diarrhea, abdominal pain, rash, headache, chest pain, or palpitations. She complains of shortness of breath with a productive cough with yellow sputum. Patient states she quit smoking a year ago. Admitted last year to [facility] after cardiac arrest, patient states she was on a ventilator for 2 days at that time. and was admitted here 12/2019 and 03/2020, tested negative for COVID19, treated for pneumonia. Saturation 87% on room air improved to his nasal cannula. Respirations 26/min, heart rate 112 bpm blood pressure 155/102. WBC 13.4, Hb 13.8, platelets 680, K4.4, BUN 9, CR 0.9, glucose 79, albumin 2.8, troponin 0, lactate 1.5, ESR 4, UA bland UDS positive for opiates and amphetamines, HIV and hepatitis serology negative rapid COVID-19 negative EKG sinus tachycardia rate 103 bpm left axis deviation. Otherwise no T wave inversions no significant ST elevations. QTc 421 Chest radiograph interstitial prominence. 02/27: Afebrile overnight. Still intensely pruritic. Blood cultures returned positive and preliminarily appear to be staph and group B strep. No chest pain or shortness of breath. Does not feel any better. Afebrile overnight. Echo with no apparent vegetations. Skin feels a lot better less pruritic. Group B strep sensitivities returned. Staph sensitivities not back yet. She is feeling very weak and depressed today. Feels like she has no support system. Weaning down off oxygen. Vitals/I&O Vitals/I&O: Vital Signs Date Time Temp Pulse Resp B/P (MAP) Pulse Ox O2 Delivery O2 Flow Rate FiO2 02/28/21 11:05 98.1 72 16 122/75 (91) 95 Room Air 98.1 02/27/21 20:00 2.0 I & O 02/27/21 02/27/21 02/28/21 15:00 23:00 07:00 Intake Total 120 ml 880 ml 1140 ml Output Total 650 ml Balance 120 ml 230 ml 1140 ml Physical Exam Physical Exam: GENERAL: Alert, oriented x 3 female, in no acute distress, nontoxic appearing. HEENT: Normocephalic, atraumatic. Anicteric. Oral mucosa moist. NECK: Supple. LUNGS: Decreased breath sounds with some expiratory wheezing. No accessory muscle use. CARDIOVASCULAR: S1, S2. No gallops or murmurs. ABDOMEN: Soft, nontender, nondistended. EXTREMITIES: No edema, no cyanosis. DERM: Diffuse exfoliative dermatitis affecting the face, eyelids, chest, back and legs. No open wounds noted. MSK no joint effusion or decrease in range of motion noted NEUROLOGIC: Alert, oriented x 3, grossly nonfocal. Generalized weakness PSYCHIATRIC: Calm and cooperative. General: Alert, Oriented X3, Cooperative, moderate distress Lungs: Wheezing Abdomen: Normal bowel sounds, Soft, No tenderness, No hepatosplenomegaly, No masses Extremities: No clubbing, No cyanosis, No edema, Normal pulses, No tenderness/swelling Skin: Other (DIffuse exfoliative dermatitis covering arms, chest, back legs and face) Labs Labs: Laboratory Tests Test 02/27/21 16:05 02/28/21 03:30 Vancomycin Level Trough 13.7 mcg/mL (10.0-20.0) Vancomycin Last Dose Date 02/27/21 Vancomycin Last Dose Time 0500 Sodium Level 141 mmol/L (136-145) Potassium Level 4.2 mmol/L (3.5-5.1) Chloride Level 108 mmol/L (98-107) Carbon Dioxide Level 28 mmol/L (21-32) Anion Gap 5 (6-14) Blood Urea Nitrogen 18 mg/dL (7-20) Creatinine 0.9 mg/dL (0.6-1.0) Estimated GFR (Cockcroft-Gault) 69.0 Glucose Level 136 mg/dL (70-99) Calcium Level 7.6 mg/dL (8.5-10.1) Assessment and Plan Assessmemt and Plan Problems Medical Problems: (1) Exfoliative erythroderma Status: Acute (2) Sepsis Status: Acute Comment Review of Relevant I have reviewed the following items janie (where applicable) has been applied. Medications: Current Medications Medications (Trade) Dose Ordered Sig/Andrei Route PRN Reason Start Time Stop Time Status Last Admin Dose Admin Ketorolac Tromethamine (Toradol 15mg Vial) 15 mg PRN Q6HRS PRN IVP INFLAMMATION 02/27/21 18:45 03/04/21 18:44 02/28/21 09:47 Justifications for Admission Other Justification DICKSON CASE MD Feb 28, 2021 13:12
[2021-02-28 15:00] VITALS: BP 149/86
[2021-02-28 19:00] VITALS: BP 144/73
[2021-02-28] MEDS: MONTELUKAST SODIUM 10 MG TABLET. PO SCH (21:36)
[2021-02-28 23:00] VITALS: BP 150/84
[2021-03-01] MEDS: PIPERACILLIN/TAZOBACTAM 3.375 GM in IV NORMAL SALINE 50ML 50 ML IV SCH ×2 (00:06→05:15)
[2021-03-01 02:54] VITALS: BP 122/68
[2021-03-01] MEDS: VANCOMYCIN 1 GM in IV NORMAL SALINE 250ML 250 ML IV SCH ×2 (04:01→17:49)
[2021-03-01 07:00] VITALS: BP 135/63
[2021-03-01] MEDS: BUDESONIDE 0.5 MG/2 ML NEBU. NEB SCH ×2 (07:07→17:51)
--- NOTE | 2021-03-01 07:52 | PDOC ---
Infectious Disease Note Subjective: Subjective Patient feels a little better today Denies any fever, chills, nausea, vomiting, diarrhea, abdominal pain Vital Signs: Vital Signs Vital Signs Date Time Temp Pulse Resp B/P (MAP) Pulse Ox O2 Delivery O2 Flow Rate FiO2 03/01/21 07:08 97 Room Air 03/01/21 02:54 97.6 66 16 122/68 (86) 97.6 02/28/21 20:00 2.0 Physical Exam: PHYSICAL EXAM GENERAL: Alert, oriented x 3 female, in no acute distress, nontoxic appearing. HEENT: Normocephalic, atraumatic. Anicteric. Oral mucosa moist. NECK: Supple. LUNGS: Decreased breath sounds with some expiratory wheezing. No accessory muscle use. CARDIOVASCULAR: S1, S2. No gallops or murmurs. ABDOMEN: Soft, nontender, nondistended. EXTREMITIES: No edema, no cyanosis. DERM: Diffuse exfoliative dermatitis affecting the face, eyelids, chest, back and legs. No open wounds noted. MSK no joint effusion or decrease in range of motion noted NEUROLOGIC: Alert, oriented x 3, grossly nonfocal. Generalized weakness PSYCHIATRIC: Calm and cooperative. Medications: Inpatient Meds: Medications reviewed. Labs: Micro RUN DATE: 03/01/21 [facility] *LIVE* PAGE 1 RUN TIME: 0734 Specimen Inquiry PATIENT: BILL YUKATHARINA William ACCT: [id number] LOC: [address] [place] [address] U : [id number] AGE/SX: 40/F ROOM: 4 RE02/26/[address]: RE HERNANDEZ MD : 1980 BED: 1 DIS: STATUS: ADM IN TLOC: SPEC #: [id number] BASHIR: 02/26/21 STATUS: COMP REQ #: [id number] RECD: 02/26/[address]: TARSHA LEVI DO SOURCE: BLOOD ENTR: 02/26/21-[address] [facility] [address]: AUGUSTINA MARTIN SPDESC: ORDERED: BLD CULT - LC Procedure Result - BLOOD CULTURE LC Final Final GROWTH OF GRAM POSITIVE COCCI FINAL ID= [BETA STREP GROUP B] FINAL ID= [STAPHYLOCOCCUS AUREUS (MRSA)] STREPTOCOCCUS AGALACTIAE GRP B STAPHYLOCOCCUS AUREUS (MRSA) BETA STREP GROUP B ANTIMICROBIAL SUSCEPTIBILITY Final Comment Comment MICROSTREP PANEL 2 STREPTOCOCCUS AGALACTIAE GRP B ANTIBIOTIC RESULT INTERPRETATION AMPICILLIN <=0.06 S CEFTRIAXONE <=0.25 S CEFOTAXIME <=0.25 S CEFEPIME <=0.25 S DAPTOMYCIN <=0.25 S ERYTHROMYCIN >0.5 R LINEZOLID 1 S LEVOFLOXACIN 0.5 S PENICILLIN <=0.03 S VANCOMYCIN 0.5 S POS BRETT TYPE 38 STAPHYLOCOCCUS AUREUS (MRSA) ANTIBIOTIC RESULT INTERPRETATION AZITHROMYCIN >4 R CLINDAMYCIN >4 R CEFOXITIN SCREEN >4 POS CIPROFLOXACIN >2 R CEFTAROLINE <=0.5 S DAPTOMYCIN <=0.5 S ERYTHROMYCIN >4 R GENTAMICIN <=4 S LINEZOLID 2 S LEVOFLOXACIN 4 I OXACILLIN >2 R PENICILLIN >2 R* RIFAMPIN <=1 S RUN DATE: 03/01/21 [facility] *LIVE* PAGE 2 RUN TIME: 0734 Specimen Inquiry SPEC: [id number] PATIENT: ANGELO YU [id number] (Continued) Procedure Result CONTINUED ON NEXT PAGE RUN DATE: 03/01/21 [facility] *LIVE* PAGE 3 RUN TIME: 0734 Specimen Inquiry SPEC: [id number] PATIENT: ANGELO YU [id number] (Continued) Procedure Result ANTIMICROBIAL SUSCEPTIBILITY Final (continued) TRIMETHOPRIM/SULFAMETHOXAZOLE <=0.5/9.5 S TETRACYCLINE <=4 S VANCOMYCIN 1 S Unless otherwise specified, Testing Performed by: [address] [address] For Inquires, the Physician may contact the Microbiology department at [phone] Objective: Assessment: 1. Sepsis present on admission. 2. Bacteremia MRSA and Streptococcus group B. 3. Extensive exfoliative dermatitis with history of underlying atopic dermatitis. 4. Leukocytosis and thrombocytosis. 5. History of intravenous drug user . HIV and hepatitis profile is negative. 6. Anxiety and depression. 7. Asthma. 8. PTSD. 9. Acute hypoxic respiratory failure COVID is negative. 2D echo <Conclusion> The left ventricle is normal size. The left ventricular systolic function is normal and the ejection fraction is within normal range. Estimated ejection fraction of 60%. There is normal LV segmental wall motion. Doppler and Color Flow revealed no significant aortic regurgitation. There is no significant aortic valvular stenosis. There is no aortic valvular vegetation. The mitral valve leaflets are mildly thickened but have no diagnostic findings of a vegetation. Doppler and Color Flow revealed no mitral valve regurgitation noted. Doppler and Color Flow revealed mild tricuspid regurgitation. Estimated PAP 41 mmHg. The pulmonary valve is normal in structure and function. No evidence of a vegetation on this transthoracic study. If clinical suspicion is appropriate would consider a transesophageal echo. Plan: Plan of Care Continue IV Vanco Change Zosyn to ceftriaxone Monitor labs including renal functions, pharmacy to assist with vancomycin dosing. Follow-up repeat blood cultures negative so far CARLENE Continue local skin care Avoid scratching Maintain hygiene Dermatology is not available here. VICKIE QUINTEROS MD Mar 01, 2021 07:52
[2021-03-01] MEDS: HYDROCORTISONE 1% LOTION BOTTLE. TP SCH ×3 (09:00→20:39)
[2021-03-01] MEDS: predniSONE 20 MG TABLET PO SCH (09:26)
[2021-03-01] MEDS: cefTRIAXone IV Push 2 GM VIAL. IVP SCH (09:27)
[2021-03-01 09:31] LABS: CALCIUM 7.8 mg/dL (8.5-10.1); CREATININE 0.9 mg/dL (0.6-1.0)
[2021-03-01 11:00] VITALS: BP 136/74
--- NOTE | 2021-03-01 11:13 | PDOC ---
[employer] PROGRESS NOTE Date of Service DOS: DATE: 03/01/21 TIME: 11:12 Chief Complaint Chief Complaint A/P: Acute hypoxia - likely 2/2 acute bronchitis. tested negative for COVID 19. Weaned O2 as tolerated. Resolved with pulmicort Exfoliative dermatitis - intensely pruritic. Says that she has been offered dupixent previously. Will cover for staph/mrsa skin infections with vancomycin and strep with augmentin Sepsis - will cont vancomycin and zosyn, given fluids. Likely cellulitis from dermatitis Gram positive bacteremia - IV vancomycin for staph coverage. ID consulted for assistance. Given her skin condition and IV drug abuse history an echocardiogram is appropriate. Abnormal CXR - will treat for likely gram negative pneumonia Acute asthma exacerbation - will cont treatment IV drug abuse amphetamine type - counseled, needs placement for substance use disorder, active IV drug abuse opioid type - counseled, on suboxone outpatient Anxiety, Depression, PTSD - will have PAT team to see FEN - General diet PPX - lovenox FULL CODE Dispo- inpatient History of Present Illness History of Present Illness Ms Oliveira is a 40-year-old female w/ PMHx Anxiety, Depression, PTSD, AUTOIMMUNE DISORDER OF SKIN, eczema, h/o IV heroin and methamphetamine abuse who presents to the emergency department with complaints of shortness of breath, wheezing, and skin issues. She developed a pruritic rash 02/25/2021 after taking some methamphetamine then a bath at her place of residence. She thinks she is on city water, has recently been to drug rehab, then living in a hotel and notes she just went home this past week. Reports she has had several episodes of this in the past, one time requiring admission to [facility] for dermatology consultation. She is unclear what the diagnosis was at that time. States she has history of illicit drug dependence with subsequent inpatient rehabilitation and is currently on Suboxone therapy. Also has history of asthma and atopic dermatitis. Denies any recent known ingestions, trauma, exposure, or allergens. Admits she has been avoiding her house, specifically the water and she typically suffers from atopic dermatitis outbreaks and skin issues after using it and so, she has been using other places in community to cleanse herself. Reports taking a bath yesterday and using a hypoallergenic bath soap and coconut oil only, she has used these in the past without issue. She is convinced it is the water causing her symptoms. Nonetheless, ongoing itching, diffuse burning and irritation to all surfaces of body sparing mucosal surfaces, palms and soles prompted her to come in for evaluation. She also complains of fatigue, achiness, nausea, and nasal congestion. Patient reports she has had recurrent pneumonia for several months since July 2019. She denies any fever, vomiting, diarrhea, abdominal pain, rash, headache, chest pain, or palpitations. She complains of shortness of breath with a productive cough with yellow sputum. Patient states she quit smoking a year ago. Admitted last year to [facility] after cardiac arrest, patient states she was on a ventilator for 2 days at that time. and was admitted here 12/2019 and 03/2020, tested negative for COVID19, treated for pneumonia. Saturation 87% on room air improved to his nasal cannula. Respirations 26/min, heart rate 112 bpm blood pressure 155/102. WBC 13.4, Hb 13.8, platelets 680, K4.4, BUN 9, CR 0.9, glucose 79, albumin 2.8, troponin 0, lactate 1.5, ESR 4, UA bland UDS positive for opiates and amphetamines, HIV and hepatitis serology negative rapid COVID-19 negative EKG sinus tachycardia rate 103 bpm left axis deviation. Otherwise no T wave inversions no significant ST elevations. QTc 421 Chest radiograph interstitial prominence. 02/27: Afebrile overnight. Still intensely pruritic. Blood cultures returned positive and preliminarily appear to be staph and group B strep. No chest pain or shortness of breath. Does not feel any better. 02/28: Afebrile overnight. Echo with no apparent vegetations. Skin feels a lot better less pruritic. Group B strep sensitivities returned. Staph sensitivities not back yet. She is feeling very weak and depressed today. Feels like she has no support system. Weaning down off oxygen. Afebrile overnight. Final sensitivities group B strep and MRSA. Will be n.p.o. for CARLENE per infectious diseases today. Skin improved slightly. Mood is still depressed. Off O2 Vitals/I&O Vitals/I&O: Vital Signs Date Time Temp Pulse Resp B/P (MAP) Pulse Ox O2 Delivery O2 Flow Rate FiO2 03/01/21 11:00 98.0 63 18 136/74 (94) 94 Room Air 98.0 02/28/21 20:00 2.0 I & O 02/28/21 02/28/21 03/01/21 15:00 23:00 07:00 Intake Total 360 ml 700 ml 850 ml Balance 360 ml 700 ml 850 ml Physical Exam Physical Exam: GENERAL: Alert, oriented x 3 female, in no acute distress, nontoxic appearing. HEENT: Normocephalic, atraumatic. Anicteric. Oral mucosa moist. NECK: Supple. LUNGS: Decreased breath sounds with some expiratory wheezing. No accessory muscle use. CARDIOVASCULAR: S1, S2. No gallops or murmurs. ABDOMEN: Soft, nontender, nondistended. EXTREMITIES: No edema, no cyanosis. DERM: Diffuse exfoliative dermatitis affecting the face, eyelids, chest, back and legs. No open wounds noted. MSK no joint effusion or decrease in range of motion noted NEUROLOGIC: Alert, oriented x 3, grossly nonfocal. Generalized weakness PSYCHIATRIC: Calm and cooperative. General: Alert, Oriented X3, Cooperative, moderate distress Lungs: Wheezing Abdomen: Normal bowel sounds, Soft, No tenderness, No hepatosplenomegaly, No masses Extremities: No clubbing, No cyanosis, No edema, Normal pulses, No tenderness/swelling Skin: Other (DIffuse exfoliative dermatitis covering arms, chest, back legs and face) Labs Labs: Laboratory Tests Test 03/01/21 08:30 Sodium Level 143 mmol/L (136-145) Potassium Level 4.0 mmol/L (3.5-5.1) Chloride Level 109 mmol/L (98-107) Carbon Dioxide Level 28 mmol/L (21-32) Anion Gap 6 (6-14) Blood Urea Nitrogen 18 mg/dL (7-20) Creatinine 0.9 mg/dL (0.6-1.0) Estimated GFR (Cockcroft-Gault) 69.0 Glucose Level 115 mg/dL (70-99) Calcium Level 7.8 mg/dL (8.5-10.1) Assessment and Plan Assessmemt and Plan Problems Medical Problems: (1) Exfoliative erythroderma Status: Acute (2) Sepsis Status: Acute Comment Review of Relevant I have reviewed the following items janie (where applicable) has been applied. Medications: Current Medications Medications (Trade) Dose Ordered Sig/Andrei Route PRN Reason Start Time Stop Time Status Last Admin Dose Admin Ceftriaxone Sodium (Rocephin) 2 gm Q24H IVP 03/01/21 09:00 03/01/21 09:27 Justifications for Admission Other Justification DICKSON CASE MD Mar 01, 2021 11:13
[2021-03-01] MEDS ORDERED: HYDROmorphone 2 MG/ML VIAL IVP PRN (12:00)
[2021-03-01] MEDS ORDERED: MORPHINE SULFATE 2 MG/ML INJ. IVP PRN (12:00)
[2021-03-01] MEDS ORDERED: fentaNYL PF VIAL 100 MCG/2 ML VIAL IVP PRN ×2 (12:00)
[2021-03-01] MEDS ORDERED: IV RINGERS,LACTATED 1000ML 1,000 ML IV SCH (12:00)
--- NOTE | 2021-03-01 12:02 | PDOC ---
Provider Note Date of Service: DATE: 03/01/21 TIME: 11:59 Provider Note This ia 40 yo female admitted for SOA. She was then noted with sepsis and bacteremia with MRSA and strep B with hx of IV drug use. CARLENE has been requested by ID to rule out any endocarditis. she is AOX3 Denies any discomfort. VSS. CARLENE this afternoon risks and benefits discussed and agreeable to proceed. Justifications for Admission Other Justification JARAD ROSALES APRN Mar 01, 2021 12:02
[2021-03-01] MEDS: VANCOMYCIN PER PHARMACY MC PRN (13:04)
--- NOTE | 2021-03-01 13:58 | NUR ---
SS following up with discharge planning. SS reviewed pt chart and discussed with pt RN. Pt is currently on room air. COVID19 negative. Pt on IV Rocephin and IV Vancomycin. Cardiology consulted. CARLENE today. Discharge plan is currently to home when medically ready for discharge. SS will continue to follow for discharge planning.
[2021-03-01] MEDS ORDERED: LIDOCAINE 2% PF 5 ML VIAL. ONE (15:01)
[2021-03-01] MEDS ORDERED: PROPOFOL 10 MG/ML (20ML) VIAL. IV ONE (15:01)
[2021-03-01] MEDS ORDERED: BENZOCAINE ONE 20% MUCOSAL SPRAY. (15:26)
[2021-03-01] MEDS ORDERED: LIDOCAINE 2% TOPICAL JELLY 30GM TUBE. TP ONE ×2 (15:27→15:45)
[2021-03-01] MEDS ORDERED: BENZOCAINE ONE 20% MUCOSAL SPRAY. MM (15:30)
[2021-03-01] MEDS ORDERED: LIDOCAINE 2% VISCOUS 15 ML SOLUTION. SWSW ONE (15:30)
[2021-03-01] MEDS ORDERED: LIDOCAINE 2% JELLY 6ML IN APPLICATOR. MM ONE ×2 (15:30→15:45)
--- NOTE | 2021-03-01 16:06 | PATHOLOGY ---
[facility] Accession Number: [id number] . 01 Material submitted: . PART A: forearm - RIGHT FOREARM PUNCH BIOPSY PART B: thigh - LEFT THIGH PUNCH BIOPSY. Modifiers: left . 01 Clinical history: . Exfoliative erythroderma History of ectopic dermatitis . 02 Diagnosis: Skin, right forearm and left thigh, punch biopsies: - Psoriasiform dermatitis. (SAS:cherise; 03/01/2021) QMS 03/01/2021 1201 Local . 02 Comment: The patient's admission note from her recent hospitalization was also attached. The patient presented with a rash. The patient does have a history of atopic dermatitis outbreaks. She currently has ongoing itching, diffuse burning and irritation to all surfaces of her body sparing mucosal surfaces, palms and soles. . Histologically, the histologic pattern of inflammation is that of a psoriasiform dermatitis with eosinophils. A number of entities can show similar histology but the findings are consistent with a psoriasiform dermal hypersensitivity reaction which would include a histologic differential of an allergic contact dermatitis, drug eruption or atopic dermatitis. Please correlate clinically. (SAS:cherise; 03/01/2021) . Special stain: PAS fungus (A, B): Negative . 02 Electronically signed: . Malathi Tracey MD, Pathologist NPI- [id number] . 01 Gross description: . A. The specimen is received in formalin, labeled "Krystin Carltonvac, R arm". The specimen is additionally labeled on the requisition as, "right forearm". Received is a punch biopsy measuring 0.4 x 0.4 x 0.2 cm in greatest dimensions. The epidermal surface is light jalloh and slightly flaky in appearance. The surgical margin is inked. The specimen is bisected and entirely submitted in cassette A1. . B. The specimen is received in formalin, labeled "rKystin Oliveira, L thigh". Received is a punch biopsy measuring 0.4 x 0.4 x 0.4 cm in maximum dimensions. The epidermal surface is light jalloh and grossly unremarkable. The surgical margin is inked. The specimen is bisected and entirely submitted in cassette B1. (CAA; 02/26/2021) QA/[facility] 02/26/2021 1615 Local . 02 Microscopic: . A, B: Multiple levels of two punch biopsies of skin share similar histologic findings. Both biopsies were bisected and show overlying hyperkeratosis. The epidermis is psoriasiform with exocytosis of benign lymphocytes and Langerhans cells. Occasional Langerhans cell microvesicles are also seen. There is a superficial perivascular lymphohistiocytic inflammatory cell infiltrate with scattered pigment containing dermal macrophages and eosinophils. A PAS stain for fungus was performed on both biopsies, with appropriate positive controls, and is negative. (SAS:cherise; 03/01/2021) . 02 Pathologist provided ICD-10: L30.8 . 02 CPT . 980290, 845360, [id number], [id number] Specimen Comment: A courtesy copy of this report has been sent to [phone], [phone] Specimen Comment: [id number] Specimen Comment: Report sent to / DR HERNANDEZ Specimen Comment: A duplicate report has been generated due to demographic updates. Performed at: 01 [facility] [address], [place] [id number] MD Adithya Castaneda MD Phone: [phone] Performed at: [address], [place] [id number] MD Malathi Tracey MD Phone: [phone]
--- NOTE | 2021-03-01 16:48 | CARD ---
MR#: [id number] Date of Study: 03/01/2021 Ordering Physician: VICKEI QUINTEROS, Referring Physician: VICKIE QUINTEROS Tech: Cale Paul [facility] APPROVED REPORT EXAM: Transesophageal echocardiogram with color flow Doppler. INDICATION Bacteremia RISK FACTORS I.V. drug abuse Reason For Test : Rule out endocarditis. PROCEDURE After obtaining informed consent, patient underwent transesophageal echo in the PACU. Type of Sedation : General Anesthesia Sedation was administered by Anesthesia. Sedation was achieved with Propofol 380 intravenously. Transesophageal probe was inserted and advanced into esophagus by Janusz Cuenca MD. The CARLENE was performed without complications. Throughout the procedure, the blood pressure, pulse oximetry, cardiac rhythm, and rate were monitored . VITAL SIGNS TimeRhythm HRBPO2 Sat.Level of Consciousness Sinus LEFT VENTRICLE The left ventricle is normal size. There is normal left ventricular wall thickness. The left ventricu lar systolic function is normal and the ejection fraction is within normal range. There is normal LV segmental wall motion. No left ventricle thrombus noted on this study. There is no ventricular septal defect visualized. There is no left ventricular aneurysm. There is no mass noted in the left ventric le. RIGHT VENTRICLE The right ventricle is normal size. There is normal right ventricular wall thickness. The right ventr icular systolic function is normal. ATRIA The left atrium size is normal. The right atrium size is normal. The interatrial septum is intact wit h no evidence for an atrial septal defect or patent foramen ovale as noted on 2-D or Doppler imaging. AORTIC VALVE The aortic valve is normal in structure and function. Doppler and Color Flow revealed no significant aortic regurgitation. There is no significant aortic valvular stenosis. There is no aortic valvular v egetation. MITRAL VALVE The mitral valve is normal in structure and function. There is no evidence of mitral valve prolapse. There is no mitral valve stenosis. Doppler and Color-flow revealed trace to mild mitral regurgitation . TRICUSPID VALVE The tricuspid valve is normal in structure and function. Doppler and Color Flow revealed trace tricus pid regurgitation. There is no tricuspid valve prolapse or vegetation. There is no tricuspid valve st enosis. PULMONIC VALVE The pulmonary valve is normal in structure and function. Doppler and Color Flow revealed no pulmonic valvular regurgitation. There is no pulmonic valvular stenosis. GREAT VESSELS The aortic root is normal in size. The ascending aorta is normal in size. The pulmonary artery is nor mal. Critical Notification Critical Value: No <Conclusion> The left ventricle is normal size. The left ventricular systolic function is normal and the ejection fraction is within normal range. There is normal LV segmental wall motion. The aortic valve is normal in structure and function. Doppler and Color Flow revealed no significant aortic regurgitation. There is no significant aortic valvular stenosis. There is no aortic valvular vegetation. The mitral valve is normal in structure and function. Doppler and Color-flow revealed trace to mild mitral regurgitation. The tricuspid valve is normal in structure and function. Doppler and Color Flow revealed trace tricuspid regurgitation. The pulmonary valve is normal in structure and function. There is no evidence of a vegetation on this study. Signed by : Janusz Cuenca MD Electronically Approved : 03/01/2021 16:47:23
[2021-03-01] MEDS: KETOROLAC 15 MG/ML VIAL. IVP PRN ×2 (17:39→23:33)
[2021-03-01] MEDS: diphenhydrAMINE 50 MG/ML VIAL IVP PRN ×2 (17:40→23:32)
[2021-03-01 19:00] VITALS: BP 138/75
--- NOTE | 2021-03-01 19:46 | NUR ---
Patient back from CARLENE around 1650. Frequent VS done, printed, & placed in chart. VSS. No complaints at this time. Watched patient take a drink of water before allowing to have dinner, patient did fine. Will continue to monitor.
[2021-03-01] MEDS: MONTELUKAST SODIUM 10 MG TABLET. PO SCH (20:38)
[2021-03-01 23:00] VITALS: BP 135/71
[2021-03-02 03:00] VITALS: BP 135/76
[2021-03-02] MEDS: VANCOMYCIN 1 GM in IV NORMAL SALINE 250ML 250 ML IV SCH ×2 (06:41→17:23)
[2021-03-02 07:00] VITALS: BP 132/73
[2021-03-02] MEDS: BUDESONIDE 0.5 MG/2 ML NEBU. NEB SCH ×2 (07:24→18:14)
--- NOTE | 2021-03-02 08:40 | PDOC ---
Infectious Disease Note Subjective: Subjective Patient feels better today Denies any fever, chills, nausea, vomiting, diarrhea, abdominal pain Vital Signs: Vital Signs Vital Signs Date Time Temp Pulse Resp B/P (MAP) Pulse Ox O2 Delivery O2 Flow Rate FiO2 03/02/21 07:24 98 Room Air 03/02/21 03:00 98.8 71 16 135/76 (95) 98.8 03/01/21 16:24 2 Physical Exam: PHYSICAL EXAM GENERAL: Alert, oriented x 3 female, in no acute distress, nontoxic appearing. HEENT: Normocephalic, atraumatic. Anicteric. Oral mucosa moist. NECK: Supple. LUNGS: Decreased breath sounds with some expiratory wheezing. No accessory muscle use. CARDIOVASCULAR: S1, S2. No gallops or murmurs. ABDOMEN: Soft, nontender, nondistended. EXTREMITIES: No edema, no cyanosis. DERM: Diffuse exfoliative dermatitis affecting the face, eyelids, chest, back and legs. No open wounds noted. MSK no joint effusion or decrease in range of motion noted NEUROLOGIC: Alert, oriented x 3, grossly nonfocal. Generalized weakness PSYCHIATRIC: Calm and cooperative. Medications: Inpatient Meds: Medications reviewed. Labs: Micro RUN DATE: 03/01/21 [facility] LAB *LIVE* PAGE 1 RUN TIME: 0734 Specimen Inquiry PATIENT: ANGELO YU ACCT: [id number] LOC: [address] [place] [address] U: [id number] AGE/SX: 40/F ROOM: 4 RE02/26/[address]: RE HERNANDEZ MD : 1980 BED: 1 DIS: STATUS: ADM IN TLOC: SPEC #: [id number] BASHIR: 02/26/21 STATUS: COMP REQ #: [id number] RECD: 02/26/[address]: TARSHA LEVI DO SOURCE: BLOOD ENTR: 02/26/21-[address]: AUGUSTINA MARTIN SPDESC: ORDERED: BLD CULT - LC Procedure Result BLOOD CULTURE LC Final Final GROWTH OF GRAM POSITIVE COCCI FINAL ID= [BETA STREP GROUP B] FINAL ID= [STAPHYLOCOCCUS AUREUS (MRSA)] STREPTOCOCCUS AGALACTIAE GRP B STAPHYLOCOCCUS AUREUS (MRSA) BETA STREP GROUP B ANTIMICROBIAL SUSCEPTIBILITY Final Comment Comment MICROSTREP PANEL 2 STREPTOCOCCUS AGALACTIAE GRP B ANTIBIOTIC RESULT INTERPRETATION AMPICILLIN <=0.06 S CEFTRIAXONE <=0.25 S CEFOTAXIME <=0.25 S CEFEPIME <=0.25 S DAPTOMYCIN <=0.25 S ERYTHROMYCIN >0.5 R LINEZOLID 1 S LEVOFLOXACIN 0.5 S PENICILLIN <=0.03 S VANCOMYCIN 0.5 S POS BRETT TYPE 38 STAPHYLOCOCCUS AUREUS (MRSA) ANTIBIOTIC RESULT INTERPRETATION AZITHROMYCIN >4 R CLINDAMYCIN >4 R CEFOXITIN SCREEN >4 POS CIPROFLOXACIN >2 R CEFTAROLINE <=0.5 S DAPTOMYCIN <=0.5 S ERYTHROMYCIN >4 R GENTAMICIN <=4 S LINEZOLID 2 S LEVOFLOXACIN 4 I OXACILLIN >2 R PENICILLIN >2 R* RIFAMPIN <=1 S RUN DATE: 03/01/21 [facility] LAB *LIVE* PAGE 2 RUN TIME: 0734 Specimen Inquiry SPEC: [id number] PATIENT: ANGELO YU [id number] (Continued) Procedure Result CONTINUED ON NEXT PAGE RUN DATE: 03/01/21 [facility] LAB *LIVE* PAGE 3 RUN TIME: 0734 Specimen Inquiry SPEC: [id number] PATIENT: ANGELO YU Nataliia [id number] (Continued) Procedure Result -- ANTIMICROBIAL SUSCEPTIBILITY Final (continued) TRIMETHOPRIM/SULFAMETHOXAZOLE <=0.5/9.5 S TETRACYCLINE <=4 S VANCOMYCIN 1 S Unless otherwise specified, Testing Performed by: [address] [address] For Inquires, the Physician may contact the Microbiology department at [phone] CARLENE <Conclusion> The left ventricle is normal size. The left ventricular systolic function is normal and the ejection fraction is within normal range. There is normal LV segmental wall motion. The aortic valve is normal in structure and function. Doppler and Color Flow revealed no significant aortic regurgitation. There is no significant aortic valvular stenosis. There is no aortic valvular vegetation. The mitral valve is normal in structure and function. Doppler and Color-flow revealed trace to mild mitral regurgitation. The tricuspid valve is normal in structure and function. Doppler and Color Flow revealed trace tricuspid regurgitation. The pulmonary valve is normal in structure and function. There is no evidence of a vegetation on this study. Objective: Assessment: 1. Sepsis present on admission. 2. Bacteremia MRSA and Streptococcus group B. 3. Extensive exfoliative dermatitis with history of underlying atopic dermatitis. 4. Leukocytosis and thrombocytosis. 5. History of intravenous drug user . HIV and hepatitis profile is negative. 6. Anxiety and depression. 7. Asthma. 8. PTSD. 9. Acute hypoxic respiratory failure COVID is negative. 2D echo <Conclusion> The left ventricle is normal size. The left ventricular systolic function is normal and the ejection fraction is wi thin normal range. Estimated ejection fraction of 60%. There is normal LV segmental wall motion. Doppler and Color Flow revealed no significant aortic regurgitation. There is no significant aortic valvular stenosis. There is no aortic valvular vegetation. The mitral valve leaflets are mildly thickened but have no diagnostic findings of a vegetation. Doppler and Color Flow revealed no mitral valve regurgitation noted. Doppler and Color Flow revealed mild tricuspid regurgitation. Estimated PAP 41 mmHg. The pulmonary valve is normal in structure and function. No evidence of a vegetation on this transthoracic study. If clinical suspicion is appropriate would consider a transesophageal echo. Plan: Plan of Care Continue IV Vanco and ceftriaxone Monitor labs including renal functions, pharmacy to assist with vancomycin dosing. Follow-up repeat blood cultures negative so far 02/27 Continue local skin care Avoid scratching Maintain hygiene Dermatology is not available here at this center. Will discuss with case management regarding discharge antibiotic plans Do not place PICC line VICKIE QUINTEROS MD Mar 02, 2021 08:40
[2021-03-02] MEDS: HYDROCORTISONE 1% LOTION BOTTLE. TP SCH ×2 (09:00→14:00)
[2021-03-02] MEDS: VANCOMYCIN PER PHARMACY MC PRN (09:02)
[2021-03-02 09:36] LABS: CALCIUM 7.6 mg/dL (8.5-10.1); CREATININE 0.7 mg/dL (0.6-1.0); GFR 92.2; POTASSIUM 3.8 mmol/L (3.5-5.1)
[2021-03-02] MEDS: predniSONE 20 MG TABLET PO SCH (10:05)
[2021-03-02] MEDS: LACTOBACILLUS RHAMNOSUS GG 1 CAPSULE. PO SCH ×2 (10:05→22:15)
[2021-03-02] MEDS: cefTRIAXone IV Push 2 GM VIAL. IVP SCH (10:10)
--- NOTE | 2021-03-02 10:49 | PDOC ---
[employer] PROGRESS NOTE Date of Service DOS: DATE: 03/02/21 TIME: 10:48 Chief Complaint Chief Complaint A/P: Acute hypoxia - likely 2/2 acute bronchitis. tested negative for COVID 19. Weaned O2 as tolerated. Resolved with pulmicort Exfoliative dermatitis - intensely pruritic. Says that she has been offered dupixent previously. Will cover for staph/mrsa skin infections with vancomycin and strep with augmentin Sepsis - will cont vancomycin and zosyn, given fluids. Likely cellulitis from dermatitis Gram positive bacteremia - IV vancomycin for staph coverage. ID consulted for assistance. Given her skin condition and IV drug abuse history an echocardiogram is appropriate. Abnormal CXR - will treat for likely gram negative pneumonia Acute asthma exacerbation - will cont treatment IV drug abuse amphetamine type - counseled, needs placement for substance use disorder, active IV drug abuse opioid type - counseled, on suboxone outpatient Anxiety, Depression, PTSD - will have PAT team to see FEN - General diet PPX - lovenox FULL CODE Dispo- inpatient History of Present Illness History of Present Illness Ms Oliveira is a 40-year-old female w/ PMHx Anxiety, Depression, PTSD, AUTOIMMUNE DISORDER OF SKIN, eczema, h/o IV heroin and methamphetamine abuse who presents to the emergency department with complaints of shortness of breath, wheezing, and skin issues. She developed a pruritic rash 02/25/2021 after taking some methamphetamine then a bath at her place of residence. She thinks she is on city water, has recently been to drug rehab, then living in a hotel and notes she just went home this past week. Reports she has had several episodes of this in the past, one time requiring admission to [facility] for dermatology consultation. She is unclear what the diagnosis was at that time. States she has history of illicit drug dependence with subsequent inpatient rehabilitation and is currently on Suboxone therapy. Also has history of asthma and atopic dermatitis. Denies any recent known ingestions, trauma, exposure, or allergens. Admits she has been avoiding her house, specifically the water and she typically suffers from atopic dermatitis outbreaks and skin issues after using it and so, she has been using other places in community to cleanse herself. Reports taking a bath yesterday and using a hypoallergenic bath soap and coconut oil only, she has used these in the past without issue. She is convinced it is the water causing her symptoms. Nonetheless, ongoing itching, diffuse burning and irritation to all surfaces of body sparing mucosal surfaces, palms and soles prompted her to come in for evaluation. She also complains of fatigue, achiness, nausea, and nasal congestion. Patient reports she has had recurrent pneumonia for several months since July 2019. She denies any fever, vomiting, diarrhea, abdominal pain, rash, headache, chest pain, or palpitations. She complains of shortness of breath with a productive cough with yellow sputum. Patient states she quit smoking a year ago. Admitted last year to [facility] after cardiac arrest, patient states she was on a ventilator for 2 days at that time. and was admitted here 12/2019 and 03/2020, tested negative for COVID19, treated for pneumonia. Saturation 87% on room air improved to his nasal cannula. Respirations 26/min, heart rate 112 bpm blood pressure 155/102. WBC 13.4, Hb 13.8, platelets 680, K4.4, BUN 9, CR 0.9, glucose 79, albumin 2.8, troponin 0, lactate 1.5, ESR 4, UA bland UDS positive for opiates and amphetamines, HIV and hepatitis serology negative rapid COVID-19 negative EKG sinus tachycardia rate 103 bpm left axis deviation. Otherwise no T wave inversions no significant ST elevations. QTc 421 Chest radiograph interstitial prominence. 02/27: Afebrile overnight. Still intensely pruritic. Blood cultures returned positive and preliminarily appear to be staph and group B strep. No chest pain or shortness of breath. Does not feel any better. 02/28: Afebrile overnight. Echo with no apparent vegetations. Skin feels a lot better less pruritic. Group B strep sensitivities returned. Staph sensitivities not back yet. She is feeling very weak and depressed today. Feels like she has no support system. Weaning down off oxygen. 03/01: Afebrile overnight. Final sensitivities group B strep and MRSA. Will be n.p.o. for CARLENE per infectious diseases today. Skin improved slightly. Mood is still depressed. Off O2 Afebrile. CARLENE with no vegetations. Pathology returned from punch biopsy with psoriasiform dermatitis. Skin is improved. Discussed with ID do not place PICC will need IV antibiotics for MRSA bacteremia. Vitals/I&O Vitals/I&O: Vital Signs Date Time Temp Pulse Resp B/P (MAP) Pulse Ox O2 Delivery O2 Flow Rate FiO2 03/02/21 07:24 98 Room Air 03/02/21 07:00 98.1 66 16 132/73 (92) 98.1 03/01/21 16:24 2 I & O 03/01/21 03/01/21 03/02/21 15:00 23:00 07:00 Intake Total 450 ml 1120 ml 800 ml Balance 450 ml 1120 ml 800 ml Physical Exam Physical Exam: GENERAL: Alert, oriented x 3 female, in no acute distress, nontoxic appearing. HEENT: Normocephalic, atraumatic. Anicteric. Oral mucosa moist. NECK: Supple. LUNGS: Decreased breath sounds with some expiratory wheezing. No accessory muscle use. CARDIOVASCULAR: S1, S2. No gallops or murmurs. ABDOMEN: Soft, nontender, nondistended. EXTREMITIES: No edema, no cyanosis. DERM: Diffuse exfoliative dermatitis affecting the face, eyelids, chest, back and legs. No open wounds noted. MSK no joint effusion or decrease in range of motion noted NEUROLOGIC: Alert, oriented x 3, grossly nonfocal. Generalized weakness PSYCHIATRIC: Calm and cooperative. General: Alert, Oriented X3, Cooperative, moderate distress Lungs: Wheezing Abdomen: Normal bowel sounds, Soft, No tenderness, No hepatosplenomegaly, No masses Extremities: No clubbing, No cyanosis, No edema, Normal pulses, No tenderness/swelling Skin: Other (DIffuse exfoliative dermatitis covering arms, chest, back legs and face) Labs Labs: Laboratory Tests Test 03/02/21 08:50 Sodium Level 140 mmol/L (136-145) Potassium Level 3.8 mmol/L (3.5-5.1) Chloride Level 106 mmol/L (98-107) Carbon Dioxide Level 29 mmol/L (21-32) Anion Gap 5 (6-14) Blood Urea Nitrogen 17 mg/dL (7-20) Creatinine 0.7 mg/dL (0.6-1.0) Estimated GFR (Cockcroft-Gault) 92.2 Glucose Level 91 mg/dL (70-99) Calcium Level 7.6 mg/dL (8.5-10.1) Assessment and Plan Assessmemt and Plan Problems Medical Problems: (1) Drug abuse, amphetamine type Status: Acute (2) Exfoliative erythroderma Status: Acute (3) Hypoxia Status: Acute (4) Sepsis Status: Acute Comment Review of Relevant I have reviewed the following items janie (where applicable) has been applied. Medications: Current Medications Medications (Trade) Dose Ordered Sig/Andrei Route PRN Reason Start Time Stop Time Status Last Admin Dose Admin Ringer's Solution 1,000 ml @ 30 mls/hr Q24H IV 03/01/21 12:00 03/01/21 23:59 DC 03/01/21 15:40 Lactobacillus Rhamnosus (Culturelle) 1 cap BID PO 03/02/21 09:00 03/02/21 10:05 Benzocaine (Hurricaine One) 2 spray 1X ONCE MM 03/01/21 15:30 03/01/21 15:31 DC 03/01/21 15:34 Lidocaine HCl (Viscous Lidocaine) 15 ml 1X ONCE SWSW 03/01/21 15:30 03/01/21 15:31 DC 03/01/21 15:34 Lidocaine HCl (Xylocaine 2% Topical 30gm Tube) 1 dayana 1X ONCE TP 03/01/21 15:45 03/01/21 15:47 DC 03/01/21 15:41 Justifications for Admission Other Justification DIKCSON CASE MD Mar 02, 2021 10:49
[2021-03-02 11:00] VITALS: BP 140/63
[2021-03-02 15:00] VITALS: BP 154/84
[2021-03-02] MEDS: diphenhydrAMINE 50 MG/ML VIAL IVP PRN ×2 (15:31→22:15)
[2021-03-02] MEDS: KETOROLAC 15 MG/ML VIAL. IVP PRN ×2 (15:31→22:29)
[2021-03-02 19:50] VITALS: BP 141/78
[2021-03-02] MEDS: MONTELUKAST SODIUM 10 MG TABLET. PO SCH (22:15)
[2021-03-02 23:09] VITALS: BP 145/77
[2021-03-03] MEDS: VANCOMYCIN 1 GM in IV NORMAL SALINE 250ML 250 ML IV SCH ×2 (06:37→16:29)
[2021-03-03] MEDS: HYDROCORTISONE 1% LOTION BOTTLE. TP SCH ×4 (06:37→20:03)
[2021-03-03 07:00] VITALS: BP 133/80
[2021-03-03] MEDS: BUDESONIDE 0.5 MG/2 ML NEBU. NEB SCH ×2 (07:10→18:03)
[2021-03-03 09:08] LABS: CREATININE 0.8 mg/dL (0.6-1.0); POTASSIUM 4.3 mmol/L (3.5-5.1)
--- NOTE | 2021-03-03 09:13 | PDOC ---
Infectious Disease Note Subjective: Subjective Patient without complaints Vital Signs: Vital Signs Vital Signs Date Time Temp Pulse Resp B/P (MAP) Pulse Ox O2 Delivery O2 Flow Rate FiO2 03/03/21 07:15 Room Air 03/03/21 07:00 98.1 61 14 133/80 (97) 96 98.1 Physical Exam: PHYSICAL EXAM GENERAL: Alert, oriented x 3 female, in no acute distress, nontoxic appearing. HEENT: Normocephalic, atraumatic. Anicteric. Oral mucosa moist. NECK: Supple. LUNGS: Decreased breath sounds with some expiratory wheezing. No accessory muscle use. CARDIOVASCULAR: S1, S2. No gallops or murmurs. ABDOMEN: Soft, nontender, nondistended. EXTREMITIES: No edema, no cyanosis. DERM: Diffuse exfoliative dermatitis affecting the face, eyelids, chest, back and legs. No open wounds noted. MSK no joint effusion or decrease in range of motion noted NEUROLOGIC: Alert, oriented x 3, grossly nonfocal. Generalized weakness PSYCHIATRIC: Calm and cooperative. Medications: Inpatient Meds: Medications reviewed. Labs: Lab Laboratory Tests Test 03/03/21 08:20 Sodium Level 139 mmol/L (136-145) Potassium Level 4.3 mmol/L (3.5-5.1) Chloride Level 104 mmol/L (98-107) Carbon Dioxide Level 31 mmol/L (21-32) Anion Gap 4 (6-14) Blood Urea Nitrogen 19 mg/dL (7-20) Creatinine 0.8 mg/dL (0.6-1.0) Estimated GFR (Cockcroft-Gault) 79.0 Glucose Level 116 mg/dL (70-99) Calcium Level 8.0 mg/dL (8.5-10.1) Micro RUN DATE: 03/01/21 [facility] LAB *LIVE* PAGE 1 RUN TIME: 07 Specimen Inquiry PATIENT: ANGELO YU ACCT: [id number] LOC: [address] [place] [address] U: [id number] AGE/SX: 40/F ROOM: 654 RE02/26/[address]: RE HERNANDEZ MD : 1980 BED: 1 DIS : STATUS: ADM IN TLOC: SPEC #: [id number] BASHIR: 02/26/21 STATUS: COMP REQ #: [id number] RECD: 02/26/[address]: TARSHA LEVI DO SOURCE: BLOOD ENTR: 02/26/21-[address]: AUGUSTINA MARTIN SPDESC: ORDERED: BLD CULT - LC Procedure Result BLOOD CULTURE LC Final Final GROWTH OF GRAM POSITIVE COCCI FINAL ID= [BETA STREP GROUP B] FINAL ID= [STAPHYLOCOCCUS AUREUS (MRSA)] STREPTOCOCCUS AGALACTIAE GRP B STAPHYLOCOCCUS AUREUS (MRSA) BETA STREP GROUP B ANTIMICROBIAL SUSCEPTIBILITY Final Comment Comment MICROSTREP PANEL 2 STREPTOCOCCUS AGALACTIAE GRP B ANTIBIOTIC RESULT INTERPRETATION AMPICILLIN <=0.06 S CEFTRIAXONE <=0.25 S CEFOTAXIME <=0.25 S CEFEPIME <=0.25 S DAPTOMYCIN <=0.25 S ERYTHROMYCIN >0.5 R LINEZOLID 1 S LEVOFLOXACIN 0.5 S PENICILLIN <=0.03 S VANCOMYCIN 0.5 S POS BRETT TYPE 38 STAPHYLOCOCCUS AUREUS (MRSA) ANTIBIOTIC RESULT INTERPRETATION AZITHROMYCIN >4 R CLINDAMYCIN >4 R CEFOXITIN SCREEN >4 POS CIPROFLOXACIN >2 R CEFTAROLINE <=0.5 S DAPTOMYCIN <=0.5 S ERYTHROMYCIN >4 R GENTAMICIN <=4 S LINEZOLID 2 S LEVOFLOXACIN 4 I OXACILLIN >2 R PENICILLIN >2 R* RIFAMPIN <=1 S ----- ------- RUN DATE: 03/01/21 [facility] LAB *LIVE* PAGE 2 RUN TIME: 0734 Specimen Inquiry SPEC: [id number] PATIENT: ANGELO YU Nataliia [id number] (Continued) Procedure Result CONTINUED ON NEXT PAGE RUN DATE: 03/01/21 [facility] *LIVE* PAGE 3 RUN TIME: 0734 Specimen Inquiry ------ ------ SPEC: [id number] PATIENT: ANGELO YU [id number] (Continued) Procedure Result ANTIMICROBIAL SUSCEPTIBILITY Final (continued) TRIMETHOPRIM/SULFAMETHOXAZOLE <=0.5/9.5 S TETRACYCLINE <=4 S VANCOMYCIN 1 S Unless otherwise specified, Testing Performed by: [address] [address] For Inquires, the Physician may contact the Microbiology department at [phone] CARLENE <Conclusion> The left ventricle is normal size. The left ventricular systolic function is normal and the ejection fraction is within normal range. There is normal LV segmental wall motion. The aortic valve is normal in structure and function. Doppler and Color Flow revealed no significant aortic regurgitation. There is no significant aortic valvular stenosis. There is no aortic valvular vegetation. The mitral valve is normal in structure and function. Doppler and Color-flow revealed trace to mild mitral regurgitation. The tricuspid valve is normal in structure and function. Doppler and Color Flow revealed trace tricuspid regurgitation. The pulmonary valve is normal in structure and function. There is no evidence of a vegetation on this study. Objective: Assessment: 1. Sepsis present on admission. 2. Bacteremia MRSA and Streptococcus group B. 3. Extensive exfoliative dermatitis with history of underlying atopic dermatitis. 4. Leukocytosis and thrombocytosis. 5. History of intravenous drug user . HIV and hepatitis profile is negative. 6. Anxiety and depression. 7. Asthma. 8. PTSD. 9. Acute hypoxic respiratory failure COVID is negative. 2D echo <Conclusion> The left ventricle is normal size. The left ventricular systolic function is normal and the ejection fraction is within normal range. Estimated ejection fraction of 60%. There is normal LV segmental wall motion. Doppler and Color Flow revealed no significant aortic regurgitation. There is no significant aortic valvular stenosis. There is no aortic valvular vegetation. The mitral valve leaflets are mildly thickened but have no diagnostic findings of a vegetation. Doppler and Color Flow revealed no mitral valve regurgitation noted. Doppler and Color Flow revealed mild tricuspid regurgitation. Estimated PAP 41 mmHg. The pulmonary valve is normal in structure and function. No evidence of a vegetation on this transthoracic study. If clinical suspicion is appropriate would consider a transesophageal echo. Plan: Plan of Care Continue IV Vanco and ceftriaxone Monitor labs including renal functions, pharmacy to assist with vancomycin dosing. Follow-up repeat blood cultures negative so far 02/27 Continue local skin care Avoid scratching Maintain hygiene Dermatology is not available here at this center. Will discuss with case management regarding discharge antibiotic plans with weekly infusion in infusion clinic Do not place PICC line Patient plans to stay with her parents upon discharge VICKIE QUINTEROS MD Mar 03, 2021 09:13
[2021-03-03] MEDS: LACTOBACILLUS RHAMNOSUS GG 1 CAPSULE. PO SCH ×2 (09:28→20:03)
[2021-03-03] MEDS: KETOROLAC 15 MG/ML VIAL. IVP PRN ×3 (09:28→22:26)
[2021-03-03] MEDS: cefTRIAXone IV Push 2 GM VIAL. IVP SCH (09:28)
[2021-03-03] MEDS: diphenhydrAMINE 50 MG/ML VIAL IVP PRN ×3 (09:28→22:25)
[2021-03-03 11:00] VITALS: BP 121/72
--- NOTE | 2021-03-03 13:56 | PDOC ---
[employer] PROGRESS NOTE Date of Service DOS: DATE: 03/03/21 TIME: 13:49 Chief Complaint Chief Complaint Acute hypoxia Sepsis Exfoliative dermatitis Atopy Gram positive bacteremia Acute asthma exacerbation Abnormal CXR IV drug abuse (amphetamine, opioid) Anxiety Depression PTSD History of Present Illness History of Present Illness 03/03/2021: Pt seen and examined. Chart reviewed. Discussed with RN. Pt still has some itchiness of skin but improving. 02/27: Afebrile overnight. Still intensely pruritic. Blood cultures returned positive and preliminarily appear to be staph and group B strep. No chest pain or shortness of breath. Does not feel any better. 02/28: Afebrile overnight. Echo with no apparent vegetations. Skin feels a lot better less pruritic. Group B strep sensitivities returned. Staph sensitivities not back yet. She is feeling very weak and depressed today. Feels like she has no support system. Weaning down off oxygen. 03/01: Afebrile overnight. Final sensitivities group B strep and MRSA. Will be n.p.o. for CARLENE per infectious diseases today. Skin improved slightly. Mood is still depressed. Off O2 Vitals/I&O Vitals/I&O: Vital Signs Date Time Temp Pulse Resp B/P (MAP) Pulse Ox O2 Delivery O2 Flow Rate FiO2 03/03/21 11:00 98.1 55 18 121/72 (88) 96 Room Air 98.1 I & O 03/02/21 03/02/21 03/03/21 15:00 23:00 07:00 Intake Total 240 ml 900 ml Balance 240 ml 900 ml Physical Exam Physical Exam: GENERAL: Alert, oriented x 3 female, in no acute distress, nontoxic appearing. HEENT: Normocephalic, atraumatic. Anicteric. Oral mucosa moist. NECK: Supple. LUNGS: Decreased breath sounds with some expiratory wheezing. No accessory muscle use. CARDIOVASCULAR: S1, S2. No gallops or murmurs. ABDOMEN: Soft, nontender, nondistended. EXTREMITIES: No edema, no cyanosis. DERM: Diffuse exfoliative dermatitis affecting the face, eyelids, chest, back and legs. No open wounds noted. MSK no joint effusion or decrease in range of motion noted NEUROLOGIC: Alert, oriented x 3, grossly nonfocal. Generalized weakness PSYCHIATRIC: Calm and cooperative. General: Alert, Oriented X3, Cooperative, mild distress Lungs: Wheezing Abdomen: Normal bowel sounds, Soft, No tenderness, No hepatosplenomegaly, No masses Extremities: No clubbing, No cyanosis, No edema, Normal pulses, No tenderness/swelling Skin: Other (DIffuse exfoliative dermatitis covering arms, chest, back legs and face) Labs Labs: Laboratory Tests Test 03/03/21 08:20 Sodium Level 139 mmol/L (136-145) Potassium Level 4.3 mmol/L (3.5-5.1) Chloride Level 104 mmol/L (98-107) Carbon Dioxide Level 31 mmol/L (21-32) Anion Gap 4 (6-14) Blood Urea Nitrogen 19 mg/dL (7-20) Creatinine 0.8 mg/dL (0.6-1.0) Estimated GFR (Cockcroft-Gault) 79.0 Glucose Level 116 mg/dL (70-99) Calcium Level 8.0 mg/dL (8.5-10.1) Assessment and Plan Assessmemt and Plan Problems Medical Problems: (1) Drug abuse, amphetamine type Status: Acute (2) Exfoliative erythroderma Status: Acute (3) Hypoxia Status: Acute (4) Sepsis Status: Acute Acute hypoxia Sepsis Exfoliative dermatitis Atopy Gram positive bacteremia Acute asthma exacerbation Abnormal CXR IV drug abuse (amphetamine, opioid) Anxiety Depression PTSD Plan: Continue antibiotics (Vanco, Rocephin) Continue prn benadryl Appreciate subspecialty input (ID) Order CBC, BMP Cardiac monitoring Trend labs DVT prophylaxis Full code Discharge when ok with ID Comment Review of Relevant I have reviewed the following items janie (where applicable) has been applied. Justifications for Admission Other Justification ROSELINE ESPOSITO III DO Mar 03, 2021 13:56
[2021-03-03 15:13] VITALS: BP 117/69
[2021-03-03 16:53] LABS: VANC TR 15.2 mcg/mL (10.0-20.0)
[2021-03-03] MEDS: VANCOMYCIN PER PHARMACY MC PRN (17:38)
--- NOTE | 2021-03-03 17:39 | NUR ---
Pharmacy Vancomycin Dosing Note S:Consulted to monitor and dose vancomycin started 02/26/21. O:ANGELO YU is a 40 year old F with Cellulitis Bacteremia Sepsis CAP Exfoliative dermatits and PMH of IV drug abuse . Height: 5 feet, 5 inches Weight: 62.0 kg [place] Body Weight: 57.00 Adjusted Body Weight: 59.00 Dosing Weight: Actual Other Antibiotics: zosyn LABS: Last BUN: 18 Last Creatinine: 0.9 Creatinine Clearance: 77 mL/min Last WBC: 10.2 Last Procalcitonin: NA Tmax (past 24 hours): 99.6 Microbiology: Blood cultures: group B strep and staph aureus I/O: 2370/- Drug Levels: Last Trough level: 15.2 on 03/03/21 at 1605 Last dose given 03/02/21 at 0641 Vancomycin Dosing: Loading Dose: 1500 mg x1 Dosing Weight: Actual Target Trough: 15-20 A: Based on: LEVEL P: 1. Continue Vancomycin 1000 mg IV q12h 2. Follow up Trough level NEEDED. 3. Pharmacy will continue to monitor, follow and adjust therapy as needed. KELLY SERRANO [facility], 03/03/21 [id number]
[2021-03-03 19:00] VITALS: BP 136/86
[2021-03-03] MEDS: MONTELUKAST SODIUM 10 MG TABLET. PO SCH (20:03)
[2021-03-03 23:00] VITALS: BP 137/66
[2021-03-04 03:00] VITALS: BP 118/67
[2021-03-04] MEDS: VANCOMYCIN 1 GM in IV NORMAL SALINE 250ML 250 ML IV SCH ×2 (04:57→17:00)
[2021-03-04] MEDS: diphenhydrAMINE 50 MG/ML VIAL IVP PRN ×3 (04:57→20:38)
[2021-03-04] MEDS: KETOROLAC 15 MG/ML VIAL. IVP PRN ×3 (04:58→22:54)
[2021-03-04 07:15] VITALS: BP 125/67
[2021-03-04] MEDS: BUDESONIDE 0.5 MG/2 ML NEBU. NEB SCH ×2 (07:30→20:40)
[2021-03-04 07:31] LABS: BASO # 0.1 x10^3/uL (0.0-0.2); BASO % 1 % (0-3); EOS # 1.2 x10^3/uL (0.0-0.7); EOS % 14 % (0-3); HEMATOCRIT 33.3 % (36.0-47.0); HEMOGLOBIN 10.8 g/dL (12.0-15.5); LYMPH # 3.3 x10^3/uL (1.0-4.8); LYMPH % 38 % (24-48); MEAN CORPUSCULAR HEMOGLOBIN 29 pg (25-35); MEAN CORPUSCULAR HGB CONC 33 g/dL (31-37); MEAN CORPUSCULAR VOLUME 88 fL (79-100); MONO # 0.7 x10^3/uL (0.0-1.1); MONO % 9 % (0-9); NEUT # 3.4 x10^3/uL (1.8-7.7); NEUT % 39 % (31-73); PLATELET COUNT 436 x10^3/uL (140-400); RED BLOOD COUNT 3.78 x10^6/uL (3.50-5.40); RED CELL DISTRIBUTION WIDTH 14.9 % (11.5-14.5); WHITE BLOOD COUNT 8.7 x10^3/uL (4.0-11.0)
[2021-03-04 07:34] LABS: CALCIUM 8.3 mg/dL (8.5-10.1); CREATININE 0.9 mg/dL (0.6-1.0); POTASSIUM 4.4 mmol/L (3.5-5.1)
[2021-03-04] MEDS: HYDROCORTISONE 1% LOTION BOTTLE. TP SCH ×3 (08:16→20:37)
[2021-03-04] MEDS: LACTOBACILLUS RHAMNOSUS GG 1 CAPSULE. PO SCH ×2 (08:16→20:36)
[2021-03-04] MEDS: cefTRIAXone IV Push 2 GM VIAL. IVP SCH (08:16)
--- NOTE | 2021-03-04 08:18 | PDOC ---
Infectious Disease Note Subjective: Subjective Patient without complaints Vital Signs: Vital Signs Vital Signs Date Time Temp Pulse Resp B/P (MAP) Pulse Ox O2 Delivery O2 Flow Rate FiO2 03/04/21 07:33 97 Room Air 03/04/21 03:00 98.0 64 16 118/67 (84) 98.0 Physical Exam: PHYSICAL EXAM GENERAL: Alert, oriented x 3 female, in no acute distress, nontoxic appearing. HEENT: Normocephalic, atraumatic. Anicteric. Oral mucosa moist. NECK: Supple. LUNGS: Decreased breath sounds with some expiratory wheezing. No accessory muscle use. CARDIOVASCULAR: S1, S2. No gallops or murmurs. ABDOMEN: Soft, nontender, nondistended. EXTREMITIES: No edema, no cyanosis. DERM: Diffuse exfoliative dermatitis affecting the face, eyelids, chest, back and legs. No open wounds noted. MSK no joint effusion or decrease in range of motion noted NEUROLOGIC: Alert, oriented x 3, grossly nonfocal. Generalized weakness PSYCHIATRIC: Calm and cooperative. Medications: Inpatient Meds: Medications reviewed. Labs: Lab Laboratory Tests Test 03/03/21 08:20 03/03/21 16:20 03/04/21 06:15 Sodium Level 139 mmol/L (136-145) 138 mmol/L (136-145) Potassium Level 4.3 mmol/L (3.5-5.1) 4.4 mmol/L (3.5-5.1) Chloride Level 104 mmol/L (98-107) 102 mmol/L (98-107) Carbon Dioxide Level 31 mmol/L (21-32) 33 mmol/L (21-32) Anion Gap 4 (6-14) 3 (6-14) Blood Urea Nitrogen 19 mg/dL (7-20) 17 mg/dL (7-20) Creatinine 0.8 mg/dL (0.6-1.0) 0.9 mg/dL (0.6-1.0) Estimated GFR (Cockcroft-Gault) 79.0 69.0 Glucose Level 116 mg/dL (70-99) 74 mg/dL (70-99) Calcium Level 8.0 mg/dL (8.5-10.1) 8.3 mg/dL (8.5-10.1) Vancomycin Level Trough 15.2 mcg/mL (10.0-20.0) Vancomycin Last Dose Date 03/03/21 Vancomycin Last Dose Time 0500 White Blood Count 8.7 x10^3/uL (4.0-11.0) Red Blood Count 3.78 x10^6/uL (3.50-5.40) Hemoglobin 10.8 g/dL (12.0-15.5) Hematocrit 33.3 % (36.0-47.0) Mean Corpuscular Volume 88 fL (79-100) Mean Corpuscular Hemoglobin 29 pg (25-35) Mean Corpuscular Hemoglobin Concent 33 g/dL (31-37) Red Cell Distribution Width 14.9 % (11.5-14.5) Platelet Count 436 x10^3/uL (140-400) Neutrophils (%) (Auto) 39 % (31-73) Lymphocytes (%) (Auto) 38 % (24-48) Monocytes (%) (Auto) 9 % (0-9) Eosinophils (%) (Auto) 14 % (0-3) Basophils (%) (Auto) 1 % (0-3) Neutrophils # (Auto) 3.4 x10^3/uL (1.8-7.7) Lymphocytes # (Auto) 3.3 x10^3/uL (1.0-4.8) Monocytes # (Auto) 0.7 x10^3/uL (0.0-1.1) Eosinophils # (Auto) 1.2 x10^3/uL (0.0-0.7) Basophils # (Auto) 0.1 x10^3/uL (0.0-0.2) Micro RUN DATE: 03/01/21 [facility] LAB *LIVE* PAGE 1 RUN TIME: 0734 Specimen Inquiry PATIENT: ANGELO YU ACCT: [id number] LOC: [address] [place] [address] U: [id number] AGE/SX: 40/F ROOM: 654 RE02/26/[address]: RE HERNANDEZ MD : 1980 BED: 1 DIS: STATUS: ADM IN TLOC: SPEC #: [id number] BASHIR: 02/26/21 STATUS: COMP REQ #: [id number] RECD: 02/26/[address]: TARSHA LEVI DO SOURCE: BLOOD ENTR: 02/26/21-2 [facility] DR: AUGUSTINA MARTIN SPDESC: ORDERED: BRETT CULT - LC Procedure Result --- --------- BLOOD CULTURE LC Final Final GROWTH OF GRAM POSITIVE COCCI FINAL ID= [BETA STREP GROUP B] FINAL ID= [STAPHYLOCOCCUS AUREUS (MRSA)] STREPTOCOCCUS AGALACTIAE GRP B STAPHYLOCOCCUS AUREUS (MRSA) BETA STREP GROUP B ANTIMICROBIAL SUSCEPTIBILITY Final Comment Comment MICROSTREP PANEL 2 STREPTOCOCCUS AGALACTIAE GRP B ANTIBIOTIC RESULT INTERPRETATION AMPICILLIN <=0.06 S CEFTRIAXONE <=0.25 S CEFOTAXIME <=0.25 S CEFEPIME <=0.25 S DAPTOMYCIN <=0.25 S ERYTHROMYCIN >0.5 R LINEZOLID 1 S LEVOFLOXACIN 0.5 S PENICILLIN <=0.03 S VANCOMYCIN 0.5 S POS BRETT TYPE 38 STAPHYLOCOCCUS AUREUS (MRSA) ANTIBIOTIC RESULT INTERPRETATION AZITHROMYCIN >4 R CLINDAMYCIN >4 R CEFOXITIN SCREEN >4 POS CIPROFLOXACIN >2 R CEFTAROLINE <=0.5 S DAPTOMYCIN <=0.5 S ERYTHROMYCIN >4 R GENTAMICIN <=4 S LINEZOLID 2 S LEVOFLOXACIN 4 I OXACILLIN >2 R PENICILLIN >2 R* RIFAMPIN <=1 S RUN DATE: 03/01/21 [facility] LAB *LIVE* PAGE 2 RUN TIME: 0734 Specimen Inquiry SPEC: [id number] PATIENT: ANGELO YU [id number] (Continued) ---- -------- Procedure Result CONTINUED ON NEXT PAGE RUN DATE: 03/01/21 [facility] *LIVE* PAGE 3 RUN TIME: 0734 Specimen Inquiry SPEC: [id number] PATIENT: ANGELO YU [id number] (Continued) Procedure Result ANTIMICROBIAL SUSCEPTIBILITY Final (continued) TRIMETHOPRIM/SULFAMETHOXAZOLE <=0.5/9.5 S TETRACYCLINE <=4 S VANCOMYCIN 1 S Unless otherwise specified, Testing Performed by: [address] [address] For Inquires, the Physician may contact the Microbiology department at [phone] CARLENE <Conclusion> The left ventricle is normal size. The left ventricular systolic function is normal and the ejection fraction is within normal range. There is normal LV segmental wall motion. The aortic valve is normal in structure and function. Doppler and Color Flow revealed no significant aortic regurgitation. There is no significant aortic valvular stenosis. There is no aortic valvular vegetation. The mitral valve is normal in structure and function. Doppler and Color-flow revealed trace to mild mitral regurgitation. The tricuspid valve is normal in structure and function. Doppler and Color Flow revealed trace tricuspid regurgitation. The pulmonary valve is normal in structure and function. There is no evidence of a vegetation on this study. Objective: Assessment: 1. Sepsis present on admission. 2. Bacteremia MRSA and Streptococcus group B. 3. Extensive exfoliative dermatitis with history of underlying atopic dermatitis. 4. Leukocytosis and thrombocytosis. 5. History of intravenous drug user . HIV and hepatitis profile is negative. 6. Anxiety and depression. 7. Asthma. 8. PTSD. 9. Acute hypoxic respiratory failure COVID is negative. 2D echo <Conclusion> The left ventricle is normal size. The left ventricular systolic function is normal and the ejection fraction is within normal range. Estimated ejection fraction of 60%. There is normal LV segmental wall motion. Doppler and Color Flow revealed no significant aortic regurgitation. There is no significant aortic valvular stenosis. There is no aortic valvular vegetation. The mitral valve leaflets are mildly thickened but have no diagnostic findings of a vegetation. Doppler and Color Flow revealed no mitral valve regurgitation noted. Doppler and Color Flow revealed mild tricuspid regurgitation. Estimated PAP 41 mmHg. The pulmonary valve is normal in structure and function. No evidence of a vegetation on this transthoracic study. If clinical suspicion is appropriate would consider a transesophageal echo. Plan: Plan of Care Continue IV Vanco and ceftriaxone Monitor labs including renal functions, pharmacy to assist with vancomycin dosing. Follow-up repeat blood cultures negative from 02/27 Continue local skin care Avoid scratching Maintain hygiene Dermatology is not available here at this center. For discharge antibiotics IV dalbavancin 1500 mg q. weekly, first dose here before discharge, prescription in chart Case management to assist for IV dalbavancin as outpatient in infusion clinic Please page ID MD professional development manager in 3 weeks to evaluate patient in infusion clinic Do not place PICC line Discussed with nursing staff VICKIE QUINTEROS MD Mar 04, 2021 08:18
[2021-03-04] MEDS: VANCOMYCIN PER PHARMACY MC PRN (09:44)
--- NOTE | 2021-03-04 10:22 | NUR ---
SW following. Discussed with RN, pt transferred from [address] [place] [address]. Pt cleared by the PAT team. Pt from home, room air, cardiac diet. COVID-19 negative. RN advised no SW needs at this time. SW will continue to follow.
[2021-03-04 10:45] LABS: % ATYL 2 % (0-0); % BASOS 1 % (0-3); % EOS 12 % (0-5); % LYMPHS 38 % (24-48); % MONOS 8 % (0-10); % SEGS 39 % (35-66); PLT ESTIMATE ADEQUATE (ADEQUATE)
[2021-03-04 11:03] VITALS: BP 126/65
--- NOTE | 2021-03-04 13:21 | PDOC ---
[employer] PROGRESS NOTE Date of Service DOS: DATE: 03/04/21 TIME: 13:07 Chief Complaint Chief Complaint Acute hypoxia Sepsis Exfoliative dermatitis Atopy Gram positive bacteremia Acute asthma exacerbation Abnormal CXR IV drug abuse (amphetamine, opioid) Anxiety Depression PTSD History of Present Illness History of Present Illness 03/04/2021: Pt seen and examined. Discussed with RN. Chart reviewed. Pt reports she still has itchy skin but seeing improvement. 03/03/2021: Pt seen and examined. Chart reviewed. Discussed with RN. Pt still has some itchiness of skin but improving. 02/27: Afebrile overnight. Still intensely pruritic. Blood cultures returned positive and preliminarily appear to be staph and group B strep. No chest pain or shortness of breath. Does not feel any better. 02/28: Afebrile overnight. Echo with no apparent vegetations. Skin feels a lot better less pruritic. Group B strep sensitivities returned. Staph sensitivities not back yet. She is feeling very weak and depressed today. Feels like she has no support system. Weaning down off oxygen. 03/01: Afebrile overnight. Final sensitivities group B strep and MRSA. Will be n.p.o. for CARLENE per infectious diseases today. Skin improved slightly. Mood is still depressed. Off O2 Vitals/I&O Vitals/I&O: Vital Signs Date Time Temp Pulse Resp B/P (MAP) Pulse Ox O2 Delivery O2 Flow Rate FiO2 03/04/21 11:03 97.7 69 17 126/65 (85) 96 Room Air 97.7 I & O 03/03/21 03/03/21 03/04/21 15:00 23:00 07:00 Intake Total 420 ml 1080 ml Balance 420 ml 1080 ml Physical Exam Physical Exam: GENERAL: Alert, oriented x 3 female, in no acute distress, nontoxic appearing. HEENT: Normocephalic, atraumatic. Anicteric. Oral mucosa moist. NECK: Supple. LUNGS: Decreased breath sounds with some expiratory wheezing. No accessory muscle use. CARDIOVASCULAR: S1, S2. No gallops or murmurs. ABDOMEN: Soft, nontender, nondistended. EXTREMITIES: No edema, no cyanosis. DERM: Diffuse exfoliative dermatitis affecting the face, eyelids, chest, back and legs. No open wounds noted. MSK no joint effusion or decrease in range of motion noted NEUROLOGIC: Alert, oriented x 3, grossly nonfocal. Generalized weakness PSYCHIATRIC: Calm and cooperative. General: Alert, Oriented X3, Cooperative, mild distress Lungs: Wheezing Abdomen: Normal bowel sounds, Soft, No tenderness, No hepatosplenomegaly, No masses Extremities: No clubbing, No cyanosis, No edema, Normal pulses, No tenderness/swelling Skin: Other (DIffuse exfoliative dermatitis covering arms, chest, back legs and face) Labs Labs: Laboratory Tests Test 03/03/21 16:20 03/04/21 06:15 Vancomycin Level Trough 15.2 mcg/mL (10.0-20.0) Vancomycin Last Dose Date 03/03/21 Vancomycin Last Dose Time 0500 White Blood Count 8.7 x10^3/uL (4.0-11.0) Red Blood Count 3.78 x10^6/uL (3.50-5.40) Hemoglobin 10.8 g/dL (12.0-15.5) Hematocrit 33.3 % (36.0-47.0) Mean Corpuscular Volume 88 fL (79-100) Mean Corpuscular Hemoglobin 29 pg (25-35) Mean Corpuscular Hemoglobin Concent 33 g/dL (31-37) Red Cell Distribution Width 14.9 % (11.5-14.5) Platelet Count 436 x10^3/uL (140-400) Neutrophils (%) (Auto) 39 % (31-73) Lymphocytes (%) (Auto) 38 % (24-48) Monocytes (%) (Auto) 9 % (0-9) Eosinophils (%) (Auto) 14 % (0-3) Basophils (%) (Auto) 1 % (0-3) Neutrophils # (Auto) 3.4 x10^3/uL (1.8-7.7) Lymphocytes # (Auto) 3.3 x10^3/uL (1.0-4.8) Monocytes # (Auto) 0.7 x10^3/uL (0.0-1.1) Eosinophils # (Auto) 1.2 x10^3/uL (0.0-0.7) Basophils # (Auto) 0.1 x10^3/uL (0.0-0.2) Segmented Neutrophils % 39 % (35-66) Lymphocytes % 38 % (24-48) Atypical Lymphocytes % (Manual) 2 % (0-0) Monocytes % 8 % (0-10) Eosinophils % 12 % (0-5) Basophils % 1 % (0-3) Platelet Estimate Adequate (ADEQUATE) Large Platelets Few Sodium Level 138 mmol/L (136-145) Potassium Level 4.4 mmol/L (3.5-5.1) Chloride Level 102 mmol/L (98-107) Carbon Dioxide Level 33 mmol/L (21-32) Anion Gap 3 (6-14) Blood Urea Nitrogen 17 mg/dL (7-20) Creatinine 0.9 mg/dL (0.6-1.0) Estimated GFR (Cockcroft-Gault) 69.0 Glucose Level 74 mg/dL (70-99) Calcium Level 8.3 mg/dL (8.5-10.1) Assessment and Plan Assessmemt and Plan Problems Medical Problems: (1) Drug abuse, amphetamine type Status: Acute (2) Exfoliative erythroderma Status: Acute (3) Hypoxia Status: Acute (4) Sepsis Status: Acute Acute hypoxia Sepsis Exfoliative dermatitis Atopy Gram positive bacteremia Acute asthma exacerbation Abnormal CXR IV drug abuse (amphetamine, opioid) Anxiety Depression PTSD Plan: Continue antibiotics (Vanco, Rocephin) Order home meds (Seroquel, Ativan) Appreciate subspecialty input (ID) Trend labs Cardiac monitoring DVT prophylaxis Full code Comment Review of Relevant I have reviewed the following items janie (where applicable) has been applied. Justifications for Admission Other Justification ROSELINE ESPOSITO III, DO Mar 04, 2021 13:20
[2021-03-04 14:55] VITALS: BP 113/68
[2021-03-04 19:00] VITALS: BP 126/77
[2021-03-04] MEDS: QUEtiapine 100 MG TABLET. PO SCH (20:36)
[2021-03-04] MEDS: MONTELUKAST SODIUM 10 MG TABLET. PO SCH (20:36)
[2021-03-04] MEDS ORDERED: IBUPROFEN 200 MG TABLET. PO PRN (21:00)
[2021-03-04 23:00] VITALS: BP 131/75
[2021-03-05 03:00] VITALS: BP 140/72
[2021-03-05] MEDS: diphenhydrAMINE 50 MG/ML VIAL IVP PRN ×3 (03:07→23:11)
[2021-03-05 04:34] LABS: BASO # 0.1 x10^3/uL (0.0-0.2); BASO % 1 % (0-3); EOS # 1.3 x10^3/uL (0.0-0.7); EOS % 14 % (0-3); HEMATOCRIT 33.4 % (36.0-47.0); HEMOGLOBIN 10.9 g/dL (12.0-15.5); LYMPH # 2.8 x10^3/uL (1.0-4.8); LYMPH % 30 % (24-48); MEAN CORPUSCULAR HEMOGLOBIN 29 pg (25-35); MEAN CORPUSCULAR HGB CONC 33 g/dL (31-37); MEAN CORPUSCULAR VOLUME 88 fL (79-100); MONO # 0.8 x10^3/uL (0.0-1.1); MONO % 9 % (0-9); NEUT # 4.3 x10^3/uL (1.8-7.7); NEUT % 46 % (31-73); PLATELET COUNT 463 x10^3/uL (140-400); RED CELL DISTRIBUTION WIDTH 15.2 % (11.5-14.5); WHITE BLOOD COUNT 9.3 x10^3/uL (4.0-11.0)
[2021-03-05 04:53] LABS: CALCIUM 8.4 mg/dL (8.5-10.1); CREATININE 0.9 mg/dL (0.6-1.0); POTASSIUM 4.7 mmol/L (3.5-5.1)
[2021-03-05] MEDS: KETOROLAC 15 MG/ML VIAL. IVP PRN ×3 (05:23→22:13)
[2021-03-05] MEDS: VANCOMYCIN 1 GM in IV NORMAL SALINE 250ML 250 ML IV SCH (05:27)
[2021-03-05 07:00] VITALS: BP 134/78
[2021-03-05] MEDS: BUDESONIDE 0.5 MG/2 ML NEBU. NEB SCH ×2 (07:28→20:34)
--- NOTE | 2021-03-05 08:04 | PDOC ---
Infectious Disease Note Subjective: Subjective Patient without complaints Vital Signs: Vital Signs Vital Signs Date Time Temp Pulse Resp B/P (MAP) Pulse Ox O2 Delivery O2 Flow Rate FiO2 03/05/21 07:30 98 Room Air 03/05/21 03:00 98.0 94 16 140/72 (94) 98.0 Physical Exam: PHYSICAL EXAM GENERAL: Alert, oriented x 3 female, in no acute distress, nontoxic appearing. HEENT: Normocephalic, atraumatic. Anicteric. Oral mucosa moist. NECK: Supple. LUNGS: Decreased breath sounds with some expiratory wheezing. No accessory muscle use. CARDIOVASCULAR: S1, S2. No gallops or murmurs. ABDOMEN: Soft, nontender, nondistended. EXTREMITIES: No edema, no cyanosis. DERM: Diffuse exfoliative dermatitis affecting the face, eyelids, chest, back and legs. No open wounds noted. MSK no joint effusion or decrease in range of motion noted NEUROLOGIC: Alert, oriented x 3, grossly nonfocal. Generalized weakness PSYCHIATRIC: Calm and cooperative. Medications: Inpatient Meds: Medications reviewed. Labs: Lab Laboratory Tests Test 03/05/21 03:20 White Blood Count 9.3 x10^3/uL (4.0-11.0) Red Blood Count 3.80 x10^6/uL (3.50-5.40) Hemoglobin 10.9 g/dL (12.0-15.5) Hematocrit 33.4 % (36.0-47.0) Mean Corpuscular Volume 88 fL (79-100) Mean Corpuscular Hemoglobin 29 pg (25-35) Mean Corpuscular Hemoglobin Concent 33 g/dL (31-37) Red Cell Distribution Width 15.2 % (11.5-14.5) Platelet Count 463 x10^3/uL (140-400) Neutrophils (%) (Auto) 46 % (31-73) Lymphocytes (%) (Auto) 30 % (24-48) Monocytes (%) (Auto) 9 % (0-9) Eosinophils (%) (Auto) 14 % (0-3) Basophils (%) (Auto) 1 % (0-3) Neutrophils # (Auto) 4.3 x10^3/uL (1.8-7.7) Lymphocytes # (Auto) 2.8 x10^3/uL (1.0-4.8) Monocytes # (Auto) 0.8 x10^3/uL (0.0-1.1) Eosinophils # (Auto) 1.3 x10^3/uL (0.0-0.7) Basophils # (Auto) 0.1 x10^3/uL (0.0-0.2) Sodium Level 141 mmol/L (136-145) Potassium Level 4.7 mmol/L (3.5-5.1) Chloride Level 104 mmol/L (98-107) Carbon Dioxide Level 29 mmol/L (21-32) Anion Gap 8 (6-14) Blood Urea Nitrogen 16 mg/dL (7-20) Creatinine 0.9 mg/dL (0.6-1.0) Estimated GFR (Cockcroft-Gault) 69.0 Glucose Level 98 mg/dL (70-99) Calcium Level 8.4 mg/dL (8.5-10.1) Micro RUN DATE: 03/01/21 [facility] *LIVE* PAGE 1 RUN TIME: 733 Specimen Inquiry PATIENT: ANGELO YU ACCT: [id number] LOC: [address] [place] [address] U: [id number] AGE/SX: 40/F ROOM: 4 RE02/26/[address]: RE HERNANDEZ MD : 1980 BED: 1 DIS: STATUS: ADM IN TLOC: ---- -------- SPEC #: [id number] BASHIR: 02/26/21 STATUS: COMP REQ #: [id number] RECD: 02/26/21 [facility] DR: TARSHA LEVI DO SOURCE: BLOOD ENTR: 02/26/21-[address] [facility] [address]: AUGUSTINA MARTIN [facility]: ORDERED: BLD CULT - LC Procedure Result BLOOD CULTURE LC Final Final GROWTH OF GRAM POSITIVE COCCI FINAL ID= [BETA STREP GROUP B] FINAL ID= [STAPHYLOCOCCUS AUREUS (MRSA)] STREPTOCOCCUS AGALACTIAE GRP B STAPHYLOCOCCUS AUREUS (MRSA) BETA STREP GROUP B ANTIMICROBIAL SUSCEPTIBILITY Final Comment Comment MICROSTREP PANEL 2 STREPTOCOCCUS AGALACTIAE GRP B ANTIBIOTIC RESULT INTERPRETATION AMPICILLIN <=0.06 S CEFTRIAXONE <=0.25 S CEFOTAXIME <=0.25 S CEFEPIME <=0.25 S DAPTOMYCIN <=0.25 S ERYTHROMYCIN >0.5 R LINEZOLID 1 S LEVOFLOXACIN 0.5 S PENICILLIN <=0.03 S VANCOMYCIN 0.5 S POS BRETT TYPE 38 STAPHYLOCOCCUS AUREUS (MRSA) ANTIBIOTIC RESULT INTERPRETATION AZITHROMYCIN >4 R CLINDAMYCIN >4 R CEFOXITIN SCREEN >4 POS CIPROFLOXACIN >2 R CEFTAROLINE <=0.5 S DAPTOMYCIN <=0.5 S ERYTHROMYCIN >4 R GENTAMICIN <=4 S LINEZOLID 2 S LEVOFLOXACIN 4 I OXACILLIN >2 R PENICILLIN >2 R* RIFAMPIN <=1 S RUN DATE: 03/01/21 [facility] *LIVE* PAGE 2 RUN TIME: 733 Specimen Inquiry SPEC: [id number] PATIENT: AIMEEANGELO E [id number] (Continued) Procedure Result -------- ---- CONTINUED ON NEXT PAGE RUN DATE: 03/01/21 [facility] *LIVE* PAGE 3 RUN TIME: 0734 Specimen Inquiry SPEC: [id number] PATIENT: ANGELO YU [id number] (Continued) Procedure Result ANTIMICROBIAL SUSCEPTIBILITY Final (continued) TRIMETHOPRIM/SULFAMETHOXAZOLE <=0.5/9.5 S TETRACYCLINE <=4 S VANCOMYCIN 1 S Unless otherwise specified, Testing Performed by: [facility] [address] [place] [address] For Inquires, the Physician may contact the Microbiology department at [phone] CARLENE <Conclusion> The left ventricle is normal size. The left ventricular systolic function is normal and the ejection fraction is within normal range. There is normal LV segmental wall motion. The aortic valve is normal in structure and function. Doppler and Color Flow revealed no significant aortic regurgitation. There is no significant aortic valvular stenosis. There is no aortic valvular vegetation. The mitral valve is normal in structure and function. Doppler and Color-flow revealed trace to mild mitral regurgitation. The tricuspid valve is normal in structure and function. Doppler and Color Flow revealed trace tricuspid regurgitation. The pulmonary valve is normal in structure and function. There is no evidence of a vegetation on this study. Objective: Assessment: 1. Sepsis present on admission. 2. Bacteremia MRSA and Streptococcus group B. 3. Extensive exfoliative dermatitis with history of underlying atopic dermatitis. 4. Leukocytosis and thrombocytosis. 5. History of intravenous drug user . HIV and hepatitis profile is negative. 6. Anxiety and depression. 7. Asthma. 8. PTSD. 9. Acute hypoxic respiratory failure COVID is negative. 2D echo <Conclusion> The left ventricle is normal size. The left ventricular systolic function is normal and the ejection fraction is within normal range. Estimated ejection fraction of 60%. There is normal LV segmental wall motion. Doppler and Color Flow revealed no significant aortic regurgitation. There is no significant aortic valvular stenosis. There is no aortic valvular vegetation. The mitral valve leaflets are mildly thickened but have no diagnostic findings of a vegetation. Doppler and Color Flow revealed no mitral valve regurgitation noted. Doppler and Color Flow revealed mild tricuspid regurgitation. Estimated PAP 41 mmHg. The pulmonary valve is normal in structure and function. No evidence of a vegetation on this transthoracic study. If clinical suspicion is appropriate would consider a transesophageal echo. Plan: Plan of Care DC ceftriaxone and vancomycin Start daptomycin while patient is here Follow-up repeat blood cultures negative from 02/27 Continue local skin care Avoid scratching Maintain hygiene Dermatology is not available here at this center. For discharge antibiotics IV dalbavancin 1500 mg q. weekly, first dose here before discharge, prescription in chart Case management to assist for IV dalbavancin as outpatient in infusion clinic Please page ID MD content creation manager in 3 weeks to evaluate patient in infusion clinic Do not place PICC line Discussed with nursing staff VICKIE QUINTEROS MD Mar 05, 2021 08:04
[2021-03-05] MEDS: HYDROCORTISONE 1% LOTION BOTTLE. TP SCH ×3 (08:17→21:00)
[2021-03-05] MEDS: LACTOBACILLUS RHAMNOSUS GG 1 CAPSULE. PO SCH ×2 (08:17→22:14)
[2021-03-05] MEDS ORDERED: OLAN5TAB7 PO (11:05)
[2021-03-05] MEDS ORDERED: QUET100T2 PO (11:05)
[2021-03-05] MEDS ORDERED: MONT10TA49 PO (11:05)
[2021-03-05 11:25] VITALS: BP 130/77
--- NOTE | 2021-03-05 11:49 | PDOC ---
[facility] PROGRESS NOTE Date of Service DOS: DATE: 03/05/21 TIME: 11:45 Chief Complaint Chief Complaint Acute hypoxia Sepsis Exfoliative dermatitis Atopy Gram positive bacteremia (MRSA and Strep B on 02/26/2021 blood culture, neg on 02/27/2021) Acute asthma exacerbation Abnormal CXR IV drug abuse (amphetamine, opioid) Mild Tricuspid and Mitral Regurgitation Anxiety Depression PTSD History of Present Illness History of Present Illness 03/05/2021: Pt was seen and examined. Chart reviewed. Discussed with RN Discussed with Infectious Disease on pt's outpatient anbx weekly infusions of Dalbavancin. Pt does not report any pruritus and is not scratching during exam. Hydrocortisone container noted at bedside. Pt appears to be in NAD and is pleasant during conversation. 0.9% NS running at 20 mls/hour. 03/04/2021: Pt seen and examined. Discussed with RN. Chart reviewed. Pt reports she still has itchy skin but seeing improvement. 03/03/2021: Pt seen and examined. Chart reviewed. Discussed with RN. Pt still has some itchiness of skin but improving. 03/01: Afebrile overnight. Final sensitivities group B strep and MRSA. Will be n.p.o. for CARLENE per infectious diseases today. Skin improved slightly. Mood is still depressed. Off O2 02/28: Afebrile overnight. Echo with no apparent vegetations. Skin feels a lot better less pruritic. Group B strep sensitivities returned. Staph sensitivities not back yet. She is feeling very weak and depressed today. Feels like she has no support system. Weaning down off oxygen. 02/27: Afebrile overnight. Still intensely pruritic. Blood cultures returned positive and preliminarily appear to be staph and group B strep. No chest pain or shortness of breath. Does not feel any better. Vitals/I&O Vitals/I&O: Vital Signs Date Time Temp Pulse Resp B/P (MAP) Pulse Ox O2 Delivery O2 Flow Rate FiO2 03/05/21 11:25 97.8 88 16 130/77 (94) 98 Room Air 97.8 I & O 03/04/21 03/04/21 03/05/21 15:00 23:00 07:00 Intake Total 360 ml 180 ml 240 ml Balance 360 ml 180 ml 240 ml Physical Exam Physical Exam: GENERAL: Alert, oriented x 3 female, in no acute distress, nontoxic appearing. HEENT: Normocephalic, atraumatic. Anicteric. Oral mucosa moist. NECK: Supple. LUNGS: Decreased breath sounds with some expiratory wheezing. No accessory muscle use. CARDIOVASCULAR: S1, S2. No gallops or murmurs. ABDOMEN: Soft, nontender, nondistended. EXTREMITIES: No edema, no cyanosis. DERM: Diffuse exfoliative dermatitis affecting the face, eyelids, chest, back (improving from previous exam) and legs. No open wounds noted. MSK no joint effusion or decrease in range of motion noted NEUROLOGIC: Alert, oriented x 3, grossly nonfocal. Generalized weakness PSYCHIATRIC: Calm and cooperative. General: Alert, Oriented X3, Cooperative, mild distress Lungs: Wheezing Abdomen: Normal bowel sounds, Soft, No tenderness, No hepatosplenomegaly, No ma sses Extremities: No clubbing, No cyanosis, No edema, Normal pulses, No tenderness/swelling Skin: Other (DIffuse exfoliative dermatitis covering arms, chest, back legs and face. Improving from previous exam) Labs Labs: Laboratory Tests Test 03/05/21 03:20 White Blood Count 9.3 x10^3/uL (4.0-11.0) Red Blood Count 3.80 x10^6/uL (3.50-5.40) Hemoglobin 10.9 g/dL (12.0-15.5) Hematocrit 33.4 % (36.0-47.0) Mean Corpuscular Volume 88 fL (79-100) Mean Corpuscular Hemoglobin 29 pg (25-35) Mean Corpuscular Hemoglobin Concent 33 g/dL (31-37) Red Cell Distribution Width 15.2 % (11.5-14.5) Platelet Count 463 x10^3/uL (140-400) Neutrophils (%) (Auto) 46 % (31-73) Lymphocytes (%) (Auto) 30 % (24-48) Monocytes (%) (Auto) 9 % (0-9) Eosinophils (%) (Auto) 14 % (0-3) Basophils (%) (Auto) 1 % (0-3) Neutrophils # (Auto) 4.3 x10^3/uL (1.8-7.7) Lymphocytes # (Auto) 2.8 x10^3/uL (1.0-4.8) Monocytes # (Auto) 0.8 x10^3/uL (0.0-1.1) Eosinophils # (Auto) 1.3 x10^3/uL (0.0-0.7) Basophils # (Auto) 0.1 x10^3/uL (0.0-0.2) Sodium Level 141 mmol/L (136-145) Potassium Level 4.7 mmol/L (3.5-5.1) Chloride Level 104 mmol/L (98-107) Carbon Dioxide Level 29 mmol/L (21-32) Anion Gap 8 (6-14) Blood Urea Nitrogen 16 mg/dL (7-20) Creatinine 0.9 mg/dL (0.6-1.0) Estimated GFR (Cockcroft-Gault) 69.0 Glucose Level 98 mg/dL (70-99) Calcium Level 8.4 mg/dL (8.5-10.1) Review of Systems Review of Systems: Pruritus IV drug Abuse Bacterial infection Assessment and Plan Assessmemt and Plan Problems Medical Problems: (1) Drug abuse, amphetamine type Status: Acute (2) Exfoliative erythroderma Status: Acute (3) Hypoxia Status: Acute (4) Sepsis Status: Acute Acute hypoxia Sepsis Exfoliative dermatitis Atopy Gram positive bacteremia (MRSA and Strep B on 02/26/2021 blood culture, neg on 02/27/2021) Acute asthma exacerbation Abnormal CXR IV drug abuse (amphetamine, opioid) Mild Tricuspid and Mitral Regurgitation Anxiety Depression PTSD Plan: Continue antibiotics (Daptomycin and Dalbavancin) DC Rocephin Home meds (atopic dermatitis, asthma and psychiatric) PRN pain control with NSAIDs (toradol, ibuprofen) Appreciate subspecialty input (ID) Trend labs Cardiac monitoring DVT prophylaxis Encourage PO intake Full code Hope to arrange outpatient case management for weekly infusion of IV anbx Discharge dispo pending. Comment Review of Relevant I have reviewed the following items janie (where applicable) has been applied. Medications: Current Medications Medications (Trade) Dose Ordered Sig/Andrei Route PRN Reason Start Time Stop Time Status Last Admin Dose Admin Lorazepam (Ativan) 1 mg PRN Q6HRS PRN PO ANXIETY / AGITATION 03/04/21 13:15 03/05/21 03:05 Quetiapine Fumarate (SEROquel) 100 mg QD PO 03/04/21 14:00 03/04/21 20:36 Ketorolac Tromethamine (Toradol 15mg Vial) 15 mg PRN Q6HRS PRN IVP INFLAMMATION 03/04/21 21:00 03/09/21 20:59 03/05/21 05:23 Justifications for Admission Other Justification ROSELINE ESPOSITO III DO Mar 05, 2021 11:49
--- NOTE | 2021-03-05 12:21 | NUR ---
SW following. Discussed with RN, pt from home, room air, cardiac diet. ID left script for weekly Dalbavancin 1500mg. SW met with pt, pt agreeable to coming to [facility] once a week for this dose, would prefer an afternoon time. SW phoned and faxed script and clinicals to [facility] outpatient, they will get auth and contact the patient to arrange the time. Pt getting first dose today per RN. RN advised no further SW needs.
--- NOTE | 2021-03-05 12:42 | DS ---
DATE OF DISCHARGE: 03/05/2021 ADMITTING DIAGNOSIS: Sepsis. DISCHARGE DIAGNOSES: Resolving sepsis, chronic exfoliative dermatitis, atopy, gram-positive bacteremia (she grew methicillin-resistant Staphylococcus aureus and Streptococcus B on 02/26), asthma, intravenous drug abuse (methamphetamine and heroin), anxiety, depression and posttraumatic stress disorder. CONSULTATIONS: Infectious Disease. PROCEDURES: None. HOSPITAL COURSE: The patient is a pleasant middle-aged female who has multiple comorbidities. Please see above. Basically, she presented with sepsis. We consulted ID. We gave her fluids and IV antibiotics. Today, I saw and examined her. She is at her baseline. I spoke with the Infectious Disease physician. The plan is to discharge the patient with outpatient IV antibiotics, but we do not want to send her with a PICC line because we are afraid she might inject some street drugs, so she will be coming back for weekly infusions. DISPOSITION: Home. ACTIVITY: As tolerated. DIET: Low sodium. MEDICATIONS: Please see the MAR. IV antibiotics per Infectious Disease, Singulair 10 a day, Zyprexa 5 b.i.d., Seroquel 100 every day, albuterol p.r.n., Xanax 1 b.i.d., budesonide, guaifenesin/dextromethorphan 10 mL q.6 p.r.n., hydroxyzine 25 q.6 p.r.n., prednisone 30 a day, temazepam 30 at bedtime, trazodone 100 at bedtime, zinc sulfate, and Geodon 20 b.i.d. p.r.n. TOTAL TIME: 32 minutes. ALTA/JOHN/STEPHEN DR: ALTA/damien TID: [id number]
[2021-03-05] MEDS: DAPTOmycin (GENERIC) IVPB 400 MG in IV NORMAL SALINE 50ML 50 ML IV SCH (12:43)
[2021-03-05] MEDS: QUEtiapine 100 MG TABLET. PO SCH ×2 (14:00→22:14)
[2021-03-05 15:01] VITALS: BP 126/74
--- NOTE | 2021-03-05 17:31 | NUR ---
Paged Dr. Avalos and left a message around 3 pm today about patient going home today with IV antibiotic therapy. Dr. Avalos called back around 5 pm and since patient IV dalbavancin was not set up until 03/07/21 at 1300, patient can't discharge today. Since dalbavancin can't be given in hospital patient will need daptomycin tomorrow before she go home.
--- NOTE | 2021-03-05 18:00 | NUR ---
Pt. informed she would need a new IV. Pt. extremely upset due to having to stay another night. Pt. stating that doctors and staff have not communicated the plan of care nor answered her questions. Pt reminded that DAVID Tee and this RN explained to her the plan of care and some of her questions. Pt. educated on the reason for her staying in the hospital another night to receive Daptomycin in the am. Pt. expressed how she has not had any of her psych or anxiety meds this hospital stay and she is feeling extremely anxious. Pt. needing a new IV and she stated she would like to speak with family and decide what she wanted to do. She also asked if she received a new IV could she have something stronger for pain or for her anxiety. Pt. tearful, but more calm and cooperative. Pt. informed the dr would be contacted to address her home meds.
--- NOTE | 2021-03-05 18:43 | NUR ---
Dr. Franklin was paged regarding patient home med restart since patient staying today.
[2021-03-05 19:00] VITALS: BP 150/75
[2021-03-05] MEDS ORDERED: TEMAZEPAM 15 MG CAPSULE PO PRN (22:00)
[2021-03-05] MEDS ORDERED: ALPRAZolam 1 MG TABLET PO PRN (22:00)
[2021-03-05] MEDS ORDERED: traZODone 100 MG TABLET. PO SCH (22:00)
[2021-03-05] MEDS: MONTELUKAST SODIUM 10 MG TABLET. PO SCH (22:13)
[2021-03-05 23:00] VITALS: BP 122/68
[2021-03-06] MEDS: hydrOXYzine 25 MG TABLET PO PRN ×2 (02:02→08:28)
[2021-03-06 02:59] VITALS: BP 149/67
[2021-03-06 04:50] LABS: BASO # 0.1 x10^3/uL (0.0-0.2); BASO % 1 % (0-3); EOS # 1.5 x10^3/uL (0.0-0.7); EOS % 17 % (0-3); HEMATOCRIT 32.1 % (36.0-47.0); HEMOGLOBIN 10.6 g/dL (12.0-15.5); LYMPH # 2.2 x10^3/uL (1.0-4.8); LYMPH % 26 % (24-48); MEAN CORPUSCULAR HEMOGLOBIN 29 pg (25-35); MEAN CORPUSCULAR HGB CONC 33 g/dL (31-37); MEAN CORPUSCULAR VOLUME 88 fL (79-100); MONO # 0.7 x10^3/uL (0.0-1.1); MONO % 9 % (0-9); NEUT % 47 % (31-73); PLATELET COUNT 426 x10^3/uL (140-400); RED BLOOD COUNT 3.65 x10^6/uL (3.50-5.40); RED CELL DISTRIBUTION WIDTH 14.9 % (11.5-14.5); WHITE BLOOD COUNT 8.5 x10^3/uL (4.0-11.0)
[2021-03-06 05:04] LABS: CALCIUM 8.5 mg/dL (8.5-10.1); CREATININE 1.3 mg/dL (0.6-1.0); GFR 45.1; POTASSIUM 4.7 mmol/L (3.5-5.1)
[2021-03-06] MEDS: diphenhydrAMINE 50 MG/ML VIAL IVP PRN ×2 (05:23→11:42)
[2021-03-06] MEDS: KETOROLAC 15 MG/ML VIAL. IVP PRN ×2 (05:23→11:42)
[2021-03-06 07:00] VITALS: BP 164/60
[2021-03-06] MEDS: BUDESONIDE 0.5 MG/2 ML NEBU. NEB SCH (07:48)
--- NOTE | 2021-03-06 08:12 | PDOC ---
Infectious Disease Note Subjective: Subjective Patient without complaints Vital Signs: Vital Signs Vital Signs Date Time Temp Pulse Resp B/P (MAP) Pulse Ox O2 Delivery O2 Flow Rate FiO2 03/06/21 07:49 96 Room Air 03/06/21 02:59 98.0 89 20 149/67 (94) 98.0 Physical Exam: PHYSICAL EXAM GENERAL: Alert, oriented x 3 female, in no acute distress, nontoxic appearing. HEENT: Normocephalic, atraumatic. Anicteric. Oral mucosa moist. NECK: Supple. LUNGS: Decreased breath sounds with some expiratory wheezing. No accessory muscle use. CARDIOVASCULAR: S1, S2. No gallops or murmurs. ABDOMEN: Soft, nontender, nondistended. EXTREMITIES: No edema, no cyanosis. DERM: Diffuse exfoliative dermatitis affecting the face, eyelids, chest, back (improving from previous exam) and legs. Improved , almost resolved.no open wounds noted. MSK no joint effusion or decrease in range of motion noted NEUROLOGIC: Alert, oriented x 3, grossly nonfocal. Generalized weakness PSYCHIATRIC: Calm and cooperative. Medications: Inpatient Meds: Medications reviewed. Labs: Lab Laboratory Tests Test 03/06/21 03:40 White Blood Count 8.5 x10^3/uL (4.0-11.0) Red Blood Count 3.65 x10^6/uL (3.50-5.40) Hemoglobin 10.6 g/dL (12.0-15.5) Hematocrit 32.1 % (36.0-47.0) Mean Corpuscular Volume 88 fL (79-100) Mean Corpuscular Hemoglobin 29 pg (25-35) Mean Corpuscular Hemoglobin Concent 33 g/dL (31-37) Red Cell Distribution Width 14.9 % (11.5-14.5) Platelet Count 426 x10^3/uL (140-400) Neutrophils (%) (Auto) 47 % (31-73) Lymphocytes (%) (Auto) 26 % (24-48) Monocytes (%) (Auto) 9 % (0-9) Eosinophils (%) (Auto) 17 % (0-3) Basophils (%) (Auto) 1 % (0-3) Neutrophils # (Auto) 4.0 x10^3/uL (1.8-7.7) Lymphocytes # (Auto) 2.2 x10^3/uL (1.0-4.8) Monocytes # (Auto) 0.7 x10^3/uL (0.0-1.1) Eosinophils # (Auto) 1.5 x10^3/uL (0.0-0.7) Basophils # (Auto) 0.1 x10^3/uL (0.0-0.2) Sodium Level 142 mmol/L (136-145) Potassium Level 4.7 mmol/L (3.5-5.1) Chloride Level 104 mmol/L (98-107) Carbon Dioxide Level 29 mmol/L (21-32) Anion Gap 9 (6-14) Blood Urea Nitrogen 19 mg/dL (7-20) Creatinine 1.3 mg/dL (0.6-1.0) Estimated GFR (Cockcroft-Gault) 45.1 Glucose Level 106 mg/dL (70-99) Calcium Level 8.5 mg/dL (8.5-10.1) Creatine Kinase 32 U/L (26-192) Micro RUN DATE: 03/01/21 [facility] LAB *LIVE* PAGE 1 RUN TIME: 0734 Specimen Inquiry PATIENT: ANGELO YU ACCT: [id number] LOC: [address] [place] [address] U: [id number] AGE/SX: 40/F ROOM: 654 RE02/26/[address]: RE HERNANDEZ MD : 1980 BED: 1 DI S: STATUS: ADM IN TLOC: SPEC #: [id number] BASHIR: 02/26/21 STATUS: COMP REQ #: [id number] RECD: 02/26/[address] [facility] [address]: TARSHA LEVI DO SOURCE: BLOOD ENTR: 02/26/21 [facility] DR: AUGUSTINA [facility]ARTIN [facility]: ORDERED: BLD CULT - LC Procedure Result BLOOD CULTURE LC Final Final GROWTH OF GRAM POSITIVE COCCI FINAL ID= [BETA STREP GROUP B] FINAL ID= [STAPHYLOCOCCUS AUREUS (MRSA)] STREPTOCOCCUS AGALACTIAE GRP B STAPHYLOCOCCUS AUREUS (MRSA) BETA STREP GROUP B ANTIMICROBIAL SUSCEPTIBILITY Final Comment Comment MICROSTREP PANEL 2 STREPTOCOCCUS AGALACTIAE GRP B ANTIBIOTIC RESULT INTERPRETATION AMPICILLIN <=0.06 S CEFTRIAXONE <=0.25 S CEFOTAXIME <=0.25 S CEFEPIME <=0.25 S DAPTOMYCIN <=0.25 S ERYTHROMYCIN >0.5 R LINEZOLID 1 S LEVOFLOXACIN 0.5 S PENICILLIN <=0.03 S VANCOMYCIN 0.5 S POS BRETT TYPE 38 STAPHYLOCOCCUS AUREUS (MRSA) ANTIBIOTIC RESULT INTERPRETATION AZITHROMYCIN >4 R CLINDAMYCIN >4 R CEFOXITIN SCREEN >4 POS CIPROFLOXACIN >2 R CEFTAROLINE <=0.5 S DAPTOMYCIN <=0.5 S ERYTHROMYCIN >4 R GENTAMICIN <=4 S LINEZOLID 2 S LEVOFLOXACIN 4 I OXACILLIN >2 R PENICILLIN >2 R* RIFAMPIN <=1 S ---- -------- RUN DATE: 03/01/21 [facility] LAB *LIVE* PAGE 2 RUN TIME: 733 Specimen Inquiry SPEC: [id number] PATIENT: ANGELO YU [id number] (Continued) Procedure Result CONTINUED ON NEXT PAGE RUN DATE: 03/01/21 [facility] LAB *LIVE* PAGE 3 RUN TIME: 0734 Specimen Inquiry ----- ------- SPEC: [id number] PATIENT: ANGELO YU Nataliia [id number] (Continued) Procedure Result ANTIMICROBIAL SUSCEPTIBILITY Final (continued) TRIMETHOPRIM/SULFAMETHOXAZOLE <=0.5/9.5 S TETRACYCLINE <=4 S VANCOMYCIN 1 S Unless otherwise specified, Testing Performed by: [address] [address] For Inquires, the Physician may contact the Microbiology department at [phone] CARLENE <Conclusion> The left ventricle is normal size. The left ventricular systolic function is normal and the ejection fraction is within normal range. There is normal LV segmental wall motion. The aortic valve is normal in structure and function. Doppler and Color Flow revealed no significant aortic regurgitation. There is no significant aortic valvular stenosis. There is no aortic valvular vegetation. The mitral valve is normal in structure and function. Doppler and Color-flow revealed trace to mild mitral regurgitation. The tricuspid valve is normal in structure and function. Doppler and Color Flow revealed trace tricuspid regurgitation. The pulmonary valve is normal in structure and function. There is no evidence of a vegetation on this study. Objective: Assessment: 1. Sepsis present on admission. Resolved 2. Bacteremia MRSA and Streptococcus group B. Present on admission repeat blood cultures are negative so far 3. Extensive exfoliative dermatitis with history of underlying atopic dermatitis. 4. Leukocytosis and thrombocytosis. 5. History of intravenous drug user . HIV and hepatitis profile is negative. 6. Anxiety and depression. 7. Asthma. 8. PTSD. 9. Acute hypoxic respiratory failure COVID is negative. 10. Homelessness 11. Poor social situation, lack of social support 2D echo <Conclusion> The left ventricle is normal size. The left ventricular systolic function is normal and the ejection fraction is within normal range. Estimated ejection fraction of 60%. There is normal LV segmental wall motion. Doppler and Color Flow revealed no significant aortic regurgitation. There is no significant aortic valvular stenosis. There is no aortic valvular vegetation. The mitral valve leaflets are mildly thickened but have no diagnostic findings of a vegetation. Doppler and Color Flow revealed no mitral valve regurgitation noted. Doppler and Color Flow revealed mild tricuspid regurgitation. Estimated PAP 41 mmHg. The pulmonary valve is normal in structure and function. No evidence of a vegetation on this transthoracic study. If clinical suspicion is appropriate would consider a transesophageal echo. Plan: Plan of Care Patient is ready for discharge home today Dose daptomycin before discharge today Follow-up repeat blood cultures negative from 02/27 Continue local skin care Avoid scratching Maintain hygiene Dermatology is not available here at this center. For discharge antibiotics IV dalbavancin 1500 mg q. weekly, IV dalbavancin will be initiated on 03/07/2021 per CM in outpatient infusion clinic; Q. weekly x4 doses prescription in chart Case management to assist for IV dalbavancin as outpatient in infusion clinic Please page ID MD regional commercial sales manager in 4 weeks to evaluate patient in infusion clinic Do not place PICC line Discussed with nursing staff VICKIE QUINTEROS MD Mar 06, 2021 08:11
[2021-03-06] MEDS: LACTOBACILLUS RHAMNOSUS GG 1 CAPSULE. PO SCH (08:27)
[2021-03-06] MEDS: HYDROCORTISONE 1% LOTION BOTTLE. TP SCH (08:29)
--- NOTE | 2021-03-06 08:57 | PDOC ---
[facility] [facility] PROGRESS NOTE Date of Service DOS: DATE: 03/06/21 TIME: 08:49 Chief Complaint Chief Complaint Acute hypoxia Sepsis Exfoliative dermatitis Atopy Gram positive bacteremia (MRSA and Strep B on 02/26/2021 blood culture, neg on 02/27/2021) Acute asthma exacerbation Abnormal CXR IV drug abuse (amphetamine, opioid) Mild Tricuspid and Mitral Regurgitation Anxiety Depression PTSD History of Present Illness History of Present Illness 03/06/2021: Pt was seen and examined. Pt was resting comfortably, watching TV, and in NAD. Reports minor difficulties with sleep and some pruritus this morning. Of note, pt has a concern that she might be allergic to the hydrocortisone cream, remarking how she was similarly "sensitive to even dove bath soap". Discussed with pt her infectious disease workup and echo results. Chart reviewed. Discussed with RN 03/05/2021: Pt was seen and examined. Chart reviewed. Discussed with RN Discussed with Infectious Disease on pt's outpatient anbx weekly infusions of Dalbavancin. Pt does not report any pruritus and is not scratching during exam. Hydrocortisone container noted at bedside. Pt appears to be in NAD and is pleasant during conversation. 0.9% NS running at 20 mls/hour. 03/04/2021: Pt seen and examined. Discussed with RN. Chart reviewed. Pt reports she still has itchy skin but seeing improvement. 03/03/2021: Pt seen and examined. Chart reviewed. Discussed with RN. Pt still has some itchiness of skin but improving. 03/01: Afebrile overnight. Final sensitivities group B strep and MRSA. Will be n.p.o. for CARLENE per infectious diseases today. Skin improved slightly. Mood is still depressed. Off O2 02/28: Afebrile overnight. Echo with no apparent vegetations. Skin feels a lot better less pruritic. Group B strep sensitivities returned. Staph se nsitivities not back yet. She is feeling very weak and depressed today. Feels like she has no support system. Weaning down off oxygen. 02/27: Afebrile overnight. Still intensely pruritic. Blood cultures returned positive and preliminarily appear to be staph and group B strep. No chest pain or shortness of breath. Does not feel any better. Vitals/I&O Vitals/I&O: Vital Signs Date Time Temp Pulse Resp B/P (MAP) Pulse Ox O2 Delivery O2 Flow Rate FiO2 03/06/21 08:00 Room Air 2.0 03/06/21 07:49 96 03/06/21 07:00 97.9 86 18 164/60 (94) 97.9 I & O0 03/05/21 03/05/21 03/06/21 15:00 23:00 07:00 Intake Total 1260 ml 660 ml 540 ml Balance 1260 ml 660 ml 540 ml Physical Exam Physical Exam: GENERAL: Pt resting comfortably, watching TV, in NAD. Actively scratching extremities. Alert, oriented x 3 female, in no acute distress, nontoxic appearing. HEENT: Normocephalic, atraumatic. Anicteric. Oral mucosa moist. NECK: Supple. LUNGS: Decreased breath sounds with some expiratory wheezing. No accessory muscle use. CARDIOVASCULAR: S1, S2. No gallops or murmurs. ABDOMEN: Soft, nontender, nondistended. EXTREMITIES: No edema, no cyanosis. DERM: Diffuse exfoliative dermatitis affecting the face, eyelids, chest, back (improving from previous exam) and legs. Improved , almost resolved.no open wounds noted. MSK no joint effusion or decrease in range of motion noted NEUROLOGIC: Alert, oriented x 3, grossly nonfocal. Generalized weakness PSYCHIATRIC: Calm and cooperative. General: Alert, Oriented X3, Cooperative, mild distress Heart: Regular rate, Normal S1, Normal S2 Lungs: Clear Abdomen: Normal bowel sounds, Soft, No tenderness, No hepatosplenomegaly, No masses Extremities: No clubbing, No cyanosis, No edema, Normal pulses, No tenderness/swelling Skin: Other (DIffuse exfoliative dermatitis covering arms, chest, back legs and face. Improving from previous exam) Labs Labs: Laboratory Tests Test 03/06/21 03:40 White Blood Count 8.5 x10^3/uL (4.0-11.0) Red Blood Count 3.65 x10^6/uL (3.50-5.40) Hemoglobin 10.6 g/dL (12.0-15.5) Hematocrit 32.1 % (36.0-47.0) Mean Corpuscular Volume 88 fL (79-100) Mean Corpuscular Hemoglobin 29 pg (25-35) Mean Corpuscular Hemoglobin Concent 33 g/dL (31-37) Red Cell Distribution Width 14.9 % (11.5-14.5) Platelet Count 426 x10^3/uL (140-400) Neutrophils (%) (Auto) 47 % (31-73) Lymphocytes (%) (Auto) 26 % (24-48) Monocytes (%) (Auto) 9 % (0-9) Eosinophils (%) (Auto) 17 % (0-3) Basophils (%) (Auto) 1 % (0-3) Neutrophils # (Auto) 4.0 x10^3/uL (1.8-7.7) Lymphocytes # (Auto) 2.2 x10^3/uL (1.0-4.8) Monocytes # (Auto) 0.7 x10^3/uL (0.0-1.1) Eosinophils # (Auto) 1.5 x10^3/uL (0.0-0.7) Basophils # (Auto) 0.1 x10^3/uL (0.0-0.2) Sodium Level 142 mmol/L (136-145) Potassium Level 4.7 mmol/L (3.5-5.1) Chloride Level 104 mmol/L (98-107) Carbon Dioxide Level 29 mmol/L (21-32) Anion Gap 9 (6-14) Blood Urea Nitrogen 19 mg/dL (7-20) Creatinine 1.3 mg/dL (0.6-1.0) Estimated GFR (Cockcroft-Gault) 45.1 Glucose Level 106 mg/dL (70-99) Calcium Level 8.5 mg/dL (8.5-10.1) Creatine Kinase 32 U/L (26-192) Review of Systems Review of Systems: Pruritus Fatigue Assessment and Plan Assessmemt and Plan Problems Medical Problems: (1) Drug abuse, amphetamine type Status: Acute (2) Exfoliative erythroderma Status: Acute (3) Hypoxia Status: Acute (4) Sepsis Status: Acute Acute hypoxia Sepsis Exfoliative dermatitis Atopy Gram positive bacteremia (MRSA and Strep B on 02/26/2021 blood culture, neg on 02/27/2021) Acute asthma exacerbation Abnormal CXR IV drug abuse (amphetamine, opioid) Mild Tricuspid and Mitral Regurgitation Anxiety Depression PTSD Plan: IV dalbavancin will be initiated on 03/07/2021 per CM in outpatient infusion clinic. Outpatient case management has been arranged for weekly infusion of IV anbx Continue anbx (Daptomycin and Doxycycline) and Prednisone (x3 day 20mg) Appreciate subspecialty input (ID) Home meds (atopic dermatitis, asthma and psychiatric) PRN pain control with NSAIDs (toradol, ibuprofen) Cardiac monitoring Trend labs DVT prophylaxis Encourage PO intake Full code Discharge dispo pending. Comment Review of Relevant I have reviewed the following items janie (where applicable) has been applied. Medications: Current Medications Medications (Trade) Dose Ordered Sig/Andrei Route PRN Reason Start Time Stop Time Status Last Admin Dose Admin Daptomycin 400 mg/ Sodium Chloride 50 ml @ 100 mls/hr Q24H IV 03/05/21 12:00 03/05/21 12:43 Doxycycline Hyclate (Vibra-Tab) 100 mg BID PO 03/06/21 09:00 03/08/21 21:01 03/06/21 08:27 Trazodone HCl (Desyrel) 100 mg QHS PO 03/05/21 22:00 03/05/21 22:13 Hydroxyzine HCl (Atarax) 25 mg PRN Q6HRS PRN PO ANXIETY 03/05/21 22:00 03/06/21 08:28 Zinc Sulfate (Orazinc) 220 mg DAILY PO 03/06/21 09:00 03/06/21 08:27 Prednisone (Prednisone) 20 mg DAILY PO 03/06/21 09:00 03/08/21 09:01 03/06/21 08:27 Alprazolam (Xanax) 1 mg PRN BID PRN PO ANXIETY / AGITATION 03/05/21 22:00 03/05/21 22:14 Justifications for Admission Other Justification ROSELINE ESPOSITO III DO Mar 06, 2021 08:57
[2021-03-06] MEDS ORDERED: predniSONE 20 MG TABLET PO SCH (09:00)
[2021-03-06] MEDS ORDERED: ZINC SULFATE 220 MG CAPSULE. PO SCH (09:00)
[2021-03-06] MEDS ORDERED: DOXYCYCLINE HYCLATE 100 MG TABLET PO SCH (09:00)
--- NOTE | 2021-03-06 10:20 | NUR ---
SW following. Discussed with RN, pt will discharge after abx dose today. Pt will go to outpatient tomorrow (03/07/21) for Dalbavancin at 1300. Pt will go at 1300 until course complete. Pt and RN aware. No further SW needs.
[2021-03-06 11:00] VITALS: BP 129/66
[2021-03-06] MEDS: DAPTOmycin (GENERIC) IVPB 400 MG in IV NORMAL SALINE 50ML 50 ML IV SCH (11:43)
--- NOTE | 2021-03-06 13:34 | NUR ---
Patient tried to leave with her IV to go get her clothes in her car so she can take shower but stopped by the medical unit secretary at nursing station. Patient was told that she can't leave with IV and then she took out her IV and left the floor. The orientation nurse Raya was going down with her but she told her to stop and not follow her. Patient was already discharge with discharge paperwork signed. She understand that she need to come to outpatient tomorrow to get her IV dalbavancin at 1 pm.
--- NOTE | 2021-03-06 13:54 | NUR ---
Patient left her cell phone, purse, and old clothes in the room, Merry RODRÍGUEZ and this RN bagged patient belonging in the green bags and put the label and put it at nursing station. Security was notified about patient and to call the floor when patient try to come back in.
--- NOTE | 2021-03-06 14:02 | NUR ---
Patient here on unit wanting to take shower, told her she was officially discharged when she left hospital stated she was in parking lot by ER, gave her 2 bags of clothes & belongings she left with. Spoke with nurse Tee about dismissal information-stating she literally got no instructions given to her nurse, given telephone# for Sle[facility] by nurse Tee. Exited unit, Security aware of this event
== END 2021-03-06 13:20 | disposition home or self-care (01) | DRG 871 ==
LOC: ER 23:42 → 6 SOUTH 02-26 04:30 → 4 NORTH 03-02 20:44
PROVIDERS: ADMIT Family Medicine; ATTEND Family Medicine
PROC: 0HBJXZX Excision of Left Upper Leg Skin, External Approach, Diagnostic (ICD-10-PCS; principal; 2021-02-26)
PROC: 0HBDXZX Excision of Right Lower Arm Skin, External Approach, Diagnostic (ICD-10-PCS; 2021-02-26)
PROC: B24BZZ4 Ultrasonography of Heart with Aorta, Transesophageal (ICD-10-PCS; 2021-03-01)
DX: A41.02 Sepsis due to Methicillin resistant Staphylococcus aureus (principal); J96.01 Acute respiratory failure with hypoxia; J45.901 Unspecified asthma with (acute) exacerbation; D75.839 Thrombocytosis, unspecified; F11.10 Opioid abuse, uncomplicated; F17.210 Nicotine dependence, cigarettes, uncomplicated; F32.A Depression, unspecified; F43.10 Post-traumatic stress disorder, unspecified; J20.9 Acute bronchitis, unspecified; F15.10 Other stimulant abuse, uncomplicated; L26 Exfoliative dermatitis; Z20.822 Contact with and (suspected) exposure to COVID-19; I08.1 Rheumatic disorders of both mitral and tricuspid valves; Z71.51 Drug abuse counseling and surveillance of drug abuser; Z91.040 Latex allergy status; Z59.00 Homelessness unspecified
CPT/HCPCS: 36415; 51701; 71045; 80048; 80053; 80202; 80307; 81001; 82550; 83605; 84484; 85007; 85025; 85651; 86703; 86705; 86709; 86803; 87040; 87077; 87186; 87205; 87340; 87426; 88305; 88312; 93005; 93306; 93312; 94640; 94760; 96365; 96367; 96375; J0696; J0878; J1200; J1885; J2270; J2543; J2704; J2930; J3370; J7030; J7040; J7050; J7120; J7512; U0003; U0005; 99285-25; G0378; J7626